=== PATIENT | female | born 1935 | race Caucasian/White ===

== ENCOUNTER 2016-12-10 14:09 | Inpatient (IN) | payer OTHER ==
[~2016-12-10] VITALS: Ht 160 cm; Wt 58.8 kg
[~2016-12-10 14:09] MED LIST: CENTTAB41 PO; CLC100X PO; GLUC500C60 PO; SIMV10TA2 PO; SOTA80TA55 PO
[2016-12-10] MEDS ORDERED: SODIUM CHLORIDE 0.9% 500ML 500 ML IV STA (14:21)
--- NOTE | 2016-12-10 14:26 | EMERGENCY ROOM VISIT NOTE ---
History Report prepared by Erikaibe: Anum Linder Under the Supervision of: Dr. Brenton Padilla D.O. First contact with patient: 14:11 Chief Complaint: FALL Stated Complaint: FALL, DIZZINESS History of Present Illness The patient is an 81 year old female who presents to the Emergency Room with complaints of a fall that occurred this morning. She is accompanied by her son. She reports she experienced some dizziness this morning, but she ate breakfast, then the next thing she remembers is waking up on the floor of her bedroom. She states she feels fine here in the ED and the only injury she seems to have sustained is tenderness in her lip area, where she hit when she landed. She denies any recent fevers, headaches, neck pain, shortness of breath, abdominal pain or increased swelling in her legs. Her son notes she has a bad knee and usually ambulates with a cane. The patient states she had been feeling well recently and denies any recent injuries or trauma. She does have a history of atrial fibrillation and takes daily medication, including a daily blood thinner. She denies any recent changes to her medications. 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 A total of 10 systems reviewed and were otherwise negative. Past Medical & Surgical Medical Problems: (1) Dyslipidemia (2) Macular degeneration (3) Paroxysmal atrial fibrillation Surgical Problems: (1) History of back surgery (2) History of tonsillectomy (3) History of total right hip arthroplasty Social History Alcohol Use: occasionally Marital Status: Housing Status: lives with family Occupation Status: retired Current/Historical Medications Scheduled Alendronate Sodium (Fosamax), 70 MG PO WK Calcium/Vitamin D (Os-Jonathon 500 Plus D), 1 TAB PO BID Docusate Sodium (Docusate Sodium), 1 CAP PO BID Fish Oil ([place]-3), 1 GM PO DAILY Multiple Vitamins W/ Minerals (Preservision/Lutein), 1 CAP PO BID Multiple Vitamins W/ Minerals (Centrum Silver), 1 TAB PO DAILY Sennosides-Docusate Sodium (Senna Plus), 1 TAB PO DAILY Simvastatin (Zocor), 10 MG PO QPM Sotalol Hcl (Betapace), 80 MG PO QAM Sotalol Hcl (Betapace), 40 MG PO QPM Warfarin Sod (Coumadin), 3 MG PO 2XWK Warfarin Sodium (Coumadin), 6 MG PO 5XWK Allergies Coded Allergies: No Known Allergies (Unverified , 11/10/12) Physical Exam Vital Signs Date Time Temp Pulse Resp B/P Pulse Ox O2 Delivery O2 Flow Rate FiO2 12/10/16 17:52 64 16 153/64 94 Room Air 12/10/16 16:33 57 16 141/67 97 Room Air 12/10/16 14:53 60 16 117/53 97 59 121/82 69 122/57 12/10/16 14:34 Room Air 12/10/16 14:17 36.4 60 17 125/60 Room Air Physical Exam GENERAL: Patient is awake, alert, in no acute distress patient is resting comfortably and showing no signs of anxiety EYES: The conjunctivae are clear. The pupils are round and reactive. EARS, NOSE, MOUTH AND THROAT: The nose is without any evidence of any deformity. Mucous membranes are moist tongue is midline. There was a small laceration on the lower lip, no active bleeding noted, dentition appeared intact. NECK: The neck is nontender and supple. RESPIRATORY: Lung sounds are diminished at the bases, rales at both bases. CARDIOVASCULAR: Regular rate and rhythm noted there no murmurs rubs or gallops normal S1 normal S2 GASTROINTESTINAL: The abdomen is soft. Bowel sounds are present in all quadrants. Abdomen is nontender MUSCULOSKELETAL/EXTREMITIES: There is no evidence of gross deformity full range of motion is noted in the hips and shoulders SKIN: There is no obvious evidence of any rash. There are no petechiae, pallor or cyanosis noted. NEUROLOGIC: Patient is awake alert and oriented x3, strength is diminished by symmetric, no facial droop noted. Medical Decision & Procedures ER Provider Diagnostic Interpretation: This CT scan was reviewed and interpreted by the radiologist and reviewed by myself. HEAD CT NONCONTRAST Impression: Small hyperdense foci seen within the right medial frontal lobe and left parietal lobe consistent with subarachnoid hemorrhage/contusions. Recommend a 12-[address] follow-up to ensure stability. Electronically signed by: Ivan Peralta M.D. 12/10/2016 3:58 PM This X-Ray was reviewed and interpreted by myself and the radiologist. RIGHT RIBS UNILATERAL WITH PA CHEST IMPRESSION: No change from the prior study. No acute rib fractures. No pneumothorax. Electronically signed by: Ivan Peralta M.D. 12/10/2016 4:29 PM Laboratory Results 12/10/16 15:14 Red Blood Count 3.88, Mean Corpuscular Volume 95.6, Mean Corpuscular Hemoglobin 32.7, Mean Corpuscular Hemoglobin Concent 34.2, Mean Platelet Volume 9.9, Neutrophils (%) (Auto) 66.0, Lymphocytes (%) (Auto) 21.6, Monocytes (%) (Auto) 7.6, Eosinophils (%) (Auto) 4.0, Basophils (%) (Auto) 0.5, Neutrophils # (Auto) 3.84, Lymphocytes # (Auto) 1.26, Monocytes # (Auto) 0.44, Eosinophils # (Auto) 0.23, Basophils # (Auto) 0.03 12/10/16 15:14 Test 12/10/16 14:48 12/10/16 15:14 Bedside Glucose 105 mg/dl (70-90) White Blood Count 5.82 K/uL (4.8-10.8) Red Blood Count 3.88 M/uL (4.2-5.4) Hemoglobin 12.7 g/dL (12.0-16.0) Hematocrit 37.1 % (37-47) Mean Corpuscular Volume 95.6 fL (80-100) Mean Corpuscular Hemoglobin 32.7 pg (25-34) Mean Corpuscular Hemoglobin Concent 34.2 g/dl (32-36) Platelet Count 209 K/uL (130-400) Mean Platelet Volume 9.9 fL (7.4-10.4) Neutrophils (%) (Auto) 66.0 % Lymphocytes (%) (Auto) 21.6 % Monocytes (%) (Auto) 7.6 % Eosinophils (%) (Auto) 4.0 % Basophils (%) (Auto) 0.5 % Neutrophils # (Auto) 3.84 K/uL (1.4-6.5) Lymphocytes # (Auto) 1.26 K/uL (1.2-3.4) Monocytes # (Auto) 0.44 K/uL (0.11-0.59) Eosinophils # (Auto) 0.23 K/uL (0-0.5) Basophils # (Auto) 0.03 K/uL (0-0.2) RDW Standard Deviation 44.2 fL (36.4-46.3) RDW Coefficient of Variation 12.7 % (11.5-14.5) Immature Granulocyte % (Auto) 0.3 % Immature Granulocyte # (Auto) 0.02 K/uL (0.00-0.02) Prothrombin Time 45.8 SECONDS (9.0-12.0) Prothromb Time International Ratio 4.0 (0.9-1.1) Activated Partial Thromboplast Time 39.0 SECONDS (21.0-31.0) Partial Thromboplastin Ratio 1.5 Anion Gap 11.0 mmol/L (3-11) Est Creatinine Clear Calc Drug Dose 37.5 ml/min Estimated GFR () 68.5 Estimated GFR (Non- 59.1 BUN/Creatinine Ratio 30.8 (10-20) Calcium Level 8.8 mg/dl (8.5-10.1) Magnesium Level 2.2 mg/dl (1.8-2.4) Total Bilirubin 0.3 mg/dl (0.2-1) Direct Bilirubin < 0.1 mg/dl (0-0.2) Aspartate Amino Transf (AST/SGOT) 24 U/L (15-37) Alanine Aminotransferase (ALT/SGPT) 30 U/L (12-78) Alkaline Phosphatase 104 U/L (45-117) Total Creatine Kinase 78 U/L (26-192) Creatine Kinase MB 1.9 ng/ml (0.5-3.6) Creatine Kinase MB Ratio 2.4 (0-3.0) Troponin I < 0.015 ng/ml (0-0.045) Total Protein 7.4 gm/dl (6.4-8.2) Albumin 3.6 gm/dl (3.4-5.0) Thyroid Stimulating Hormone (TSH) 3.400 uIu/ml (0.300-4.500) Laboratory results per my review. Medications Administered Medications (Trade) Dose Ordered Sig/[place]roy Route Start Time Stop Time Status Last Admin Dose Admin Sodium Chloride 500 ml @ 999 mls/hr Q31M STAT IV 12/10/16 14:21 12/10/16 14:51 DC 12/10/16 14:53 999 MLS/HR Phytonadione 10 mg/Sodium Chloride 51 ml @ 102 mls/hr ONE ONCE IV 12/10/16 17:30 12/10/16 17:59 DC 12/10/16 17:33 102 MLS/HR Prothrombin Complex Concent (Human)/Syringe (Kcentra/Syringe) 80 ml @ 10 mls/min TODAY@1730 ONCE IV 12/10/16 17:30 12/10/16 17:37 DC 12/10/16 17:32 10 MLS/MIN ECG Indication: weakness (fall) Rate (beats per minute): 56 Rhythm: sinus bradycardia Findings: T-wave inversion (Anterior), no ectopy Comparison ECG Date: Changes are new when compared to EKG from November 27, 2012 ED Course 1417: The patient was evaluated in room B10. A complete history and physical examination were performed. 1421: NSS 500 ml @ 999 mls/hr IV. 1700: I discussed the patients case with Dr. Andrews, [facility] Co[facility] Medicine. She recommends I administer K-Centra here in the ED. 1730: Prothrombin Complex Concent 2,000 unit/Syringe 80 ml @ 10 mls/min IV, Phytonadione 10 mg/Sodium Chloride 51 ml @ 102 mls/hr IV. 1740: I discussed the patients case with Dr. aGrcia, [facility] Neurology. She believes we can keep the patient here and repeat a head CT scan if her clinical situation changes. 1743: I discussed the patients case with Monica Garcia PA-C, [facility] Hospitalist. The patient will be further evaluated. Medical Decision Prior records/ancillary studies reviewed. Triage Nursing notes reviewed. The patient's history was concerning for syncope. Differential diagnosis: Etiologies such as vasovagal event, infection, hypoglycemia, electrolyte abnormalities, cardiac sources, intracerebral event, toxicologic, neurologic, as well as others were entertained. The patient is an 81-year-old female who presented to the emergency department after having a syncopal episode. The patient had a syncopal episode and then struck her head and her face on the ground. She was found have a CT with signs of intracranial bleeding. I do feel at this time that the patient's symptoms are likely a result of a head injury and not an aneurysmal subarachnoid which caused her dizziness and passing out. I discussed the patient's laboratory and radiographic studies with her and her son. The patient was treated with IV fluids as well as KCENTRA as well as vitamin K. I discussed the patient's case with Dr. Andrews. I also discussed his case with the on-call neurologist as well as the on-call [facility] hospitalist group. They've agreed to evaluate patient in the emergency department for further management and disposition. Consults Time Called: 1655 Consulting Physician: Dr. Andrews, [facility] Coagulation [facility] Returned Call: 1700 I discussed the patients case with Dr. Andrews, [facility] Coagulation Medicine. She recommends I administer K-Centra here in the ED. Additional Consults: Time Called: 1735 Consulted Physician: Dr. Rubio [facility] Neurology Returned Call: 1740 Additional Comments: I discussed the patients case with Dr. Rubio [facility] Neurology. She believes we can keep the patient here and repeat a head CT scan if her clinical situation changes. Time Called: 174 Consulted Physician: [facility] Returned Call: 1743 Additional Comments: I discussed the patients case with Monica Garcia PA-C, [facility]. The patient will be further evaluated. Impression Primary Impression: Syncope Additional Impressions: Dizziness Head injury Subarachnoid hemorrhage Cerebral hemorrhage Anticoagulated on Coumadin Scribe Attestation The scribe's documentation has been prepared under my direction and personally reviewed by me in its entirety. I confirm that the note above accurately reflects all work, treatment, procedures, and medical decision making performed by me. Departure Information Dispostion Being Evaluated By Hospitalist Referrals [facility] (PCP) Patient Instructions My [facility] Problem Qualifiers
[2016-12-10 15:23] LABS: BASO % 0.5 %; BASO ABS # 0.03 K/uL (0-0.2); COMPLETE YES; HEMATOCRIT 37.1 % (37-47); IG% 0.3 %; LYMPH % 21.6 %; LYMPH ABS # 1.26 K/uL (1.2-3.4); MEAN CELL VOLUME 95.6 fL (80-100); MEAN CORPUSCULAR HEMOGLOBIN 32.7 pg (25-34); MEAN CORPUSCULAR HGB CONC 34.2 g/dl (32-36); MEAN PLATELET VOLUME 9.9 fL (7.4-10.4); MONO % 7.6 %; PLATELET COUNT 209 K/uL (130-400); RED BLOOD COUNT 3.88 M/uL (4.2-5.4); WHITE BLOOD COUNT 5.82 K/uL (4.8-10.8)
[2016-12-10] MEDS ORDERED: DOCU100C31 PO (15:37)
[2016-12-10 15:39] LABS: PARTIAL THROMBOPLASTIN RATIO 1.5; PROTHROMBIN TIME (PATIENT) 45.8 SECONDS (9.0-12.0)
[2016-12-10 15:40] LABS: ALT/SGPT 30 U/L (12-78); AST/SGOT 24 U/L (15-37); BLOOD UREA NITROGEN 28 mg/dl (7-18); BUN/CREATININE RATIO 30.8 (10-20); CALCIUM 8.8 mg/dl (8.5-10.1); CARBON DIOXIDE 26 mmol/L (21-32); CHLORIDE 106 mmol/L (98-107); GLUCOSE 99 mg/dl (70-99); MAGNESIUM 2.2 mg/dl (1.8-2.4); POTASSIUM 4.5 mmol/L (3.5-5.1); SODIUM 143 mmol/L (136-145)
[2016-12-10 15:51] LABS: ALKALINE PHOSPHATASE 104 U/L (45-117); CKMB/CK RATIO 2.4 (0-3.0)
--- NOTE | 2016-12-10 15:59 | DIAGNOSTIC IMAGING REPORT ---
HEAD CT NONCONTRAST CT DOSE: 601.98 mGy.cm HISTORY: EVALUATE ALTERED MENTAL STATUS/WEAKNESS TECHNIQUE: Multiaxial CT images of the head were performed without the use of intravenous contrast. Automated exposure control was utilized for this study. Comparison: Head CT 11/10/2012. Findings: Mild mucosal thickening within the right sphenoid sinus. The mastoid air cells are clear. Atrophy and microvascular ischemic changes are again noted. There is no mass, midline shift, or acute infarct. Small fluid of increased density along the medial inferior right frontal lobe. This is best in image 10. There is also similar 5 mm focus of increased density within the left parietal lobe on image 20. These are new from the prior study and favor small areas of subarachnoid hemorrhage/contusion. Impression: Small hyperdense foci seen within the right medial frontal lobe and left parietal lobe consistent with subarachnoid hemorrhage/contusions. Recommend a 12-[address] follow-up to ensure stability. Electronically signed by: Ivan Peralta M.D. 12/10/2016 3:58 PM Dictated Date/Time: 12/10/2016 3:53 PM
[2016-12-10] MEDS ORDERED: SOTA80TA55 PO ×2 (16:10)
[2016-12-10] MEDS ORDERED: SENN1TAB65 PO (16:10)
[2016-12-10] MEDS ORDERED: WARF3TAB PO ×2 (16:10)
[2016-12-10] MEDS ORDERED: MULTCAP36 PO (16:10)
[2016-12-10] MEDS ORDERED: MULTCHW PO (16:10)
--- NOTE | 2016-12-10 16:30 | DIAGNOSTIC IMAGING REPORT ---
RIGHT RIBS UNILATERAL WITH PA CHEST CLINICAL HISTORY: fall, right rib pain Right COMPARISON STUDY: Chest 11/11/2012. FINDINGS: No rib fractures. No pneumothorax. The heart is borderline enlarged. This remains unchanged. Mild diffuse interstitial thickening is also unchanged. This is likely chronic. No pleural effusions. No pneumothorax. No acute rib fractures. IMPRESSION: No change from the prior study. No acute rib fractures. No pneumothorax. Electronically signed by: Ivan Peralta M.D. 12/10/2016 4:29 PM Dictated Date/Time: 12/10/2016 4:26 PM
[2016-12-10] MEDS ORDERED: PROTHROMBIN COMP CONC- KCENTRA 2,000 UNIT in SYRINGE 0 ML IV STA (17:16)
[2016-12-10] MEDS ORDERED: PROTHROMBIN COMP CONC- KCENTRA 2,000 UNIT in SYRINGE 0 ML IV ONE (17:30)
[2016-12-10] MEDS ORDERED: PHYTONADIONE INJ 10 MG in SODIUM CHLORIDE 0.9% 50ML 50 ML IV ONE (17:30)
[2016-12-10] MEDS ORDERED: ACETAMINOPHEN 325 MG TAB PO PRN (18:45)
[2016-12-10] MEDS ORDERED: CMD3 PO (18:48)
[2016-12-10] MEDS ORDERED: OMEG10007 PO (18:48)
--- NOTE | 2016-12-10 19:40 | History and Physical ---
History & Physical Date & Time of Service: Dec 10, 2016 at 18:56 Chief Complaint: Fall, Dizziness Primary Care Physician: Eduardo Chapman M.D. History of Present Illness Source: patient This is an 81 y/o female with PMHx of PAF on Coumadin, Dyslipidemia and other problems as outlined below who presents to the ED c/o syncopal episode this morning. Pt reports that she woke up feeling well and ate her breakfast. When she stood up, she became acutely lightheaded and dizzy with assoc visual changes and ended up passing out. Her son was home at the time. He did not observe the syncopal episode but he heard her fall and was by her side almost immediately. He reports that patient was unconscious for approx 30 seconds and returned to her baseline within 5 minutes. Pt has little recollection of the event. Pt denies fever/chills, diaphoresis, chest pain, palpitations, SOB, wheezing, abd pain, N/V, diarrhea, constipation, hematochezia, melena, dysuria, hematuria, LE edema, calf pain. In the ED, vitals are stable. HgB 12.7. INR 4.0. Head CT + small SAH within R medial frontal lobe and L parietal lobe. CXR negative for rib fx or pneumothorax. Pt received Vit K and IVF in the ED. She is stable and will be admitted for further evaluation and treatment. Past Medical/Surgical History Medical Problems: (1) Dyslipidemia Status: Chronic (2) Macular degeneration Status: Chronic (3) Paroxysmal atrial fibrillation Status: Chronic Surgical Problems: (1) History of back surgery Permanent Comment: cervical discectomy Status: Resolved (2) History of tonsillectomy Status: Resolved (3) History of total right hip arthroplasty Permanent Comment: Dr. Willoughby [facility] 11/10/12 Status: Resolved Social History Smoking Status: Former Smoker Alcohol Use: none Marital Status: Housing status: lives alone Occupational Status: retired Immunizations History of Influenza Vaccine: Yes Influenza Vaccine Date: Sep 10, 2012 History of Tetanus Vaccine?: No Tetanus Immunization Date: Nov 10, 2007 History of Pneumococcal: Yes History of Hepatitis B Vaccine: No Multi-Drug Resistant Organisms History of MDRO: No Allergies Coded Allergies: No Known Allergies (Unverified , 11/10/12) Home Medications Scheduled Alendronate Sodium (Fosamax), 70 MG PO WK Calcium/Vitamin D (Os-Jonathon 500 Plus D), 1 TAB PO BID Docusate Sodium (Docusate Sodium), 1 CAP PO BID Fish Oil ([place]-3), 1 GM PO DAILY Multiple Vitamins W/ Minerals (Preservision/Lutein), 1 CAP PO BID Multiple Vitamins W/ Minerals (Centrum Silver), 1 TAB PO DAILY Sennosides-Docusate Sodium (Senna Plus), 1 TAB PO DAILY Simvastatin (Zocor), 10 MG PO QPM Sotalol Hcl (Betapace), 80 MG PO QAM Sotalol Hcl (Betapace), 40 MG PO QPM Warfarin Sod (Coumadin), 3 MG PO 2XWK Warfarin Sodium (Coumadin), 6 MG PO 5XWK Review of Systems Constitutional: No chills, No fatigue, No fever, No sweats, No weakness Eyes: + worsening of vision (resolved) Respiratory: No cough, No shortness of breath Cardiovascular: No chest pain, No claudication, No edema, No palpitations Abdomen: No GI bleeding, No constipation, No diarrhea, No nausea, No pain, No vomiting Musculoskeletal: No calf pain, No swelling Genitourinary - Female: No dysuria Neurologic: + problem reported (syncopal episode), No weakness Psychiatric: No depression symptoms Endocrine: No fatigue Hematologic / Lymphatic: No abnormal bleeding/bruising Integumentary: No new/changing skin lesions Physical Exam Vital Signs Date Time Temp Pulse Resp B/P Pulse Ox O2 Delivery O2 Flow Rate FiO2 12/10/16 17:52 64 16 153/64 94 Room Air 12/10/16 16:33 57 16 141/67 97 Room Air 12/10/16 14:53 60 16 117/53 97 59 121/82 69 122/57 12/10/16 14:34 Room Air 12/10/16 14:17 36.4 60 17 125/60 Room Air General Appearance: WD/WN, no apparent distress, + pertinent finding (Pt is laying in bed with son at bedside ) Head: normocephalic, atraumatic Eyes: normal inspection, PERRL, EOMI ENT: hearing grossly normal Neck: supple Respiratory/Chest: chest non-tender, lungs clear, normal breath sounds, no respiratory distress Cardiovascular: regular rate, rhythm, no edema, no murmur Abdomen/GI: normal bowel sounds, non tender, soft Back: normal inspection Extremities/Musculoskelatal: normal inspection, no calf tenderness, no pedal edema Neurologic/Psych: joiner helper II-XII nml as tested, no motor/sensory deficits, alert, normal mood/affect, normal reflexes Skin: normal color, warm/dry Diagnostics Laboratory Results Results Past 24 Hours Test 12/10/16 14:48 12/10/16 15:14 Range/Units Bedside Glucose 105 70-90 mg/dl White Blood Count 5.82 4.8-10.8 K/uL Red Blood Count 3.88 4.2-5.4 M/uL Hemoglobin 12.7 12.0-16.0 g/dL Hematocrit 37.1 37-47 % Mean Corpuscular Volume 95.6 80-100 fL Mean Corpuscular Hemoglobin 32.7 25-34 pg Mean Corpuscular Hemoglobin Concent 34.2 32-36 g/dl Platelet Count 209 130-400 K/uL Mean Platelet Volume 9.9 7.4-10.4 fL Neutrophils (%) (Auto) 66.0 % Lymphocytes (%) (Auto) 21.6 % Monocytes (%) (Auto) 7.6 % Eosinophils (%) (Auto) 4.0 % Basophils (%) (Auto) 0.5 % Neutrophils # (Auto) 3.84 1.4-6.5 K/uL Lymphocytes # (Auto) 1.26 1.2-3.4 K/uL Monocytes # (Auto) 0.44 0.11-0.59 K/uL Eosinophils # (Auto) 0.23 0-0.5 K/uL Basophils # (Auto) 0.03 0-0.2 K/uL RDW Standard Deviation 44.2 36.4-46.3 fL RDW Coefficient of Variation 12.7 11.5-14.5 % Immature Granulocyte % (Auto) 0.3 % Immature Granulocyte # (Auto) 0.02 0.00-0.02 K/uL Prothrombin Time 45.8 9.0-12.0 SECONDS Prothromb Time International Ratio 4.0 0.9-1.1 Activated Partial Thromboplast Time 39.0 21.0-31.0 SECONDS Partial Thromboplastin Ratio 1.5 Sodium Level 143 136-145 mmol/L Potassium Level 4.5 3.5-5.1 mmol/L Chloride Level 106 98-107 mmol/L Carbon Dioxide Level 26 21-32 mmol/L Anion Gap 11.0 3-11 mmol/L Blood Urea Nitrogen 28 7-18 mg/dl Creatinine 0.90 0.60-1.20 mg/dl Est Creatinine Clear Calc Drug Dose 37.5 ml/min Estimated GFR () 68.5 Estimated GFR (Non- 59.1 BUN/Creatinine Ratio 30.8 10-20 Random Glucose 99 70-99 mg/dl Calcium Level 8.8 8.5-10.1 mg/dl Magnesium Level 2.2 1.8-2.4 mg/dl Total Bilirubin 0.3 0.2-1 mg/dl Direct Bilirubin < 0.1 0-0.2 mg/dl Aspartate Amino Transf (AST/SGOT) 24 15-37 U/L Alanine Aminotransferase (ALT/SGPT) 30 12-78 U/L Alkaline Phosphatase 104 45-117 U/L Total Creatine Kinase 78 26-192 U/L Creatine Kinase MB 1.9 0.5-3.6 ng/ml Creatine Kinase MB Ratio 2.4 0-3.0 Troponin I < 0.015 0-0.045 ng/ml Total Protein 7.4 6.4-8.2 gm/dl Albumin 3.6 3.4-5.0 gm/dl Thyroid Stimulating Hormone (TSH) 3.400 0.300-4.500 uIu/ml Diagnostic Radiology CT HEAD IMPRESSION: Small hyperdense foci seen within the right medial frontal lobe and left parietal lobe consistent with subarachnoid hemorrhage/contusions. Recommend a 12-[address] follow-up to ensure stability CXR IMPRESSION: No change from the prior study. No acute rib fractures. No pneumothorax. EKG EKG: sinus rhythm at 56 bpm with no acute changes noted Impression Assessment and Plan SAH pt presented s/p syncopal episode this morning; pt is on Coumadin for Afib -admit to ICU -vitals are stable -CT head + SAH within R medial frontal lobe and L parietal lobe; repeat CT head tomorrow -pt received Vit K in the ED -hold Coumadin; monitor INR -neuro checks -consult hard tile setter, Dr. Mars -monitor closely in ICU; will follows along SYNCOPAL EPISODE ?secondary to hypotension as patient reports she did not drink anything today -check orthostatic vitals -obtain echo -check carotid to r/o stenosis -gentle IVF -monitor PAF -EKG: sinus rhythm -hold Coumadin due to bleed -cont sotalol -monitor DYSLIPIDEMIA -cont statin DVT PROPHYLAXIS -SCDs CODE STATUS -DNR per discussion with patient upon admission DISPO -Pt seen in collaboration with Dr. Neil. Please see his addendum for further details. Thanks! ADDENDUM: This is a 81 year old female with PMH of paroxysmal atrial fibrillation on Coumadin presents s/p fall. She states she was feeling weak and tired, and as she was walking back to her room, she fell; she cannot recall the fall at all. Patient's son came to her side 10-15 seconds later; states it seemed like she hit her head on the door; she was not responding for about 20-30 seconds. When she came to, she was back to her baseline mentally; but could not recall the fall. When I saw her in the ER, she was doing okay. Head CT was performed and showed a hemorrhage at the R medial frontal lobe and L parietal lobe. She has no other issues to note. Gen: +abrasion at the right scalp, +cuts around the right lip CVS: +S1, S2, RRR LUNGS: +chest tenderness at the right sided chest, CTA b/l ABD: soft, NT/ND EXT: no edema Plan is to monitor the patient in the ICU repeat Head CT on 12/11 already given Vitamin K in the ER; INR on presentation was 4.0 gentle hydration syncope w/up - echo, carotid U/S, orthostatic vitals neurology consultation pending appreciate intensive input VTE Prophylaxis VTE Risk Assessment Done? Y/N: Yes Risk Level: High
[2016-12-10] MEDS ORDERED: CALC500C70 PO (19:41)
[2016-12-10] MEDS ORDERED: ALEN70TA4 PO (19:41)
[2016-12-10] MEDS ORDERED: MULT-190 PO (19:41)
[2016-12-10 20:02] VITALS: BP 146/108; PULSE 65; TEMP 37; O2SAT 97
[2016-12-10 20:04] VITALS: BP 146/108; PULSE 68; TEMP 37; O2SAT 96; Ht 160 cm; Wt 58.8 kg
[2016-12-10] MEDS: SODIUM CHLORIDE 0.9% 1000ML 1,000 ML IV SCH (20:44)
[2016-12-10 20:58] VITALS: BP 136/64; PULSE 64; O2SAT 96
[2016-12-10] MEDS ORDERED: MINERALS PO SCH (21:00)
[2016-12-10] MEDS ORDERED: MULTIPLE VITAMINS PO SCH (21:00)
[2016-12-10] MEDS: SOTALOL HCL 80 MG TAB PO SCH (21:24)
[2016-12-10] MEDS: DOCUSATE SODIUM 100 MG CAP PO SCH (21:25)
[2016-12-10] MEDS: SIMVASTATIN 10 MG TAB PO SCH (21:25)
[2016-12-10] MEDS: CALCIUM 600MG + VIT D 400 IU TAB PO SCH (21:26)
--- NOTE | 2016-12-10 21:34 | Critical Care Consultation ---
Critical Care Consultation Date of Consultation: Dec 10, 2016. Attending Physician: Luz Neil DO Reason for Consultation: Traumatic ICH History of Present Illness Patient is a 81 y/o female with PMHx of Atrial Fibrillation on Coumadin, Dyslipidemia who presented to the ED after a syncopal episode this morning during which she struck her head. Patient had been sitting and stood up, she started to experience vision changes and then passed out. Her son was home at the time, did not observe the syncopal episode but he heard her fall and was by her side almost immediately. He reports that patient was unconscious for approx 30 seconds and returned to her baseline within 5 minutes. She did not lose continence, or have a post-ictal period. Initial treatment in the ED included Kcentra for an elevated INR. The patent's case was discussed with Dr. Ortez , Neurology, by the ED, and the patient was felt to be stable for admission to [facility]. Past Medical/Surgical History paroxysmal afib on group home coumadin use Dyslipidemia Social History Smoking Status: Never Smoker Smokeless Tobacco Use: No Alcohol Use: none Drug Use: none Marital Status: Housing Status: lives with family Occupation Status: retired Allergies Coded Allergies: No Known Allergies (Unverified , 11/10/12) Home Medications Scheduled Alendronate Sodium (Fosamax), 70 MG PO WK Calcium/Vitamin D (Os-Jnoathon 500 Plus D), 1 TAB PO BID Docusate Sodium (Docusate Sodium), 1 CAP PO BID Fish Oil ([place]-3), 1 GM PO DAILY Multiple Vitamins W/ Minerals (Preservision/Lutein), 1 CAP PO BID Multiple Vitamins W/ Minerals (Centrum Silver), 1 TAB PO DAILY Sennosides-Docusate Sodium (Senna Plus), 1 TAB PO DAILY Simvastatin (Zocor), 10 MG PO QPM Sotalol Hcl (Betapace), 80 MG PO QAM Sotalol Hcl (Betapace), 40 MG PO QPM Warfarin Sod (Coumadin), 3 MG PO 2XWK Warfarin Sodium (Coumadin), 6 MG PO 5XWK Current Inpatient Medications Current Inpatient Medications Medications (Trade) Dose Ordered Sig/Troy Route Start Time Stop Time Status Last Admin Dose Admin Acetaminophen (Tylenol Tab) 650 mg Q4H PRN PO 12/10/16 18:45 01/09/17 18:44 Alendronate Sodium (Fosamax Tab) 70 mg Mo@0630 PO 12/11/16 06:30 01/10/17 06:29 Calcium/Vitamin D (Caltrate Plus Tab) 1 tab BID PO 12/10/16 21:00 01/09/17 20:59 Docusate Sodium (coLACE CAP) 100 mg BID PO 12/10/16 21:00 01/09/17 20:59 Fish Oil ([place]-3 (Purified Fish Oil) Cap) 1 gm DAILY PO 12/11/16 09:00 01/10/17 08:59 Senna/Docusate Sodium (Senokot S Tab) 1 tab DAILY PO 12/11/16 09:00 01/10/17 08:59 Simvastatin (Zocor Tab) 10 mg QPM PO 12/10/16 21:00 01/09/17 20:59 Sotalol HCl (Betapace Tab) 40 mg QPM PO 12/10/16 21:00 01/09/17 20:59 Sotalol HCl (Betapace Tab) 80 mg QAM PO 12/11/16 09:00 01/10/17 08:59 Multivitamins/ Minerals 1 tab 1 tab DAILY PO 12/11/16 09:00 01/10/17 08:59 Sodium Chloride (Nss 1000ml) 1,000 ml @ 80 mls/hr [id number] IV 12/10/16 20:15 01/09/17 20:14 12/10/16 20:44 80 MLS/HR Review of Systems Pt denies fever/chills, diaphoresis, chest pain, palpitations, SOB, wheezing, abd pain, N/V, diarrhea, constipation, hematochezia, melena, dysuria, hematuria , LE edema, calf pain. A 10 point review of systems Physical Exam Date Time Temp Pulse Resp B/P Pulse Ox O2 Delivery O2 Flow Rate FiO2 12/10/16 20:04 37.0 68 17 146/108 96 Room Air 12/10/16 19:07 61 16 141/67 99 Room Air 12/10/16 17:52 64 16 153/64 94 Room Air 12/10/16 16:33 57 16 141/67 97 Room Air 12/10/16 14:53 60 16 117/53 97 59 121/82 69 122/57 12/10/16 14:34 Room Air 12/10/16 14:17 36.4 60 17 125/60 Room Air General Appearance: well-appearing, WD/WN, no apparent distress Head: other (abrasion to the parietal portion of the head, abrasion approximately 3 cm x 3 cm) Eyes: PERRLA, no discharge, EOMI, sclerae normal, conjunctivae normal Neck: normal range of motion, no tenderness, trachea midline, no stridor, supple, no thyromegaly Respiratory: breath sounds normal, clear to auscultation, clear to percussion, no respiratory distress Cardiovasular: normal S1S2, no M/G/R, no murmur, no gallop, no rub, irregular rate Abdomen: non tender, normal bowel sounds, no rebound, no masses, no guarding Back: normal inspection, no midline tenderness, no CVA tenderness, no paravertebral TTP Upper Extremities: no edema, no deformity, normal ROM Lower Extremities: no edema, no deformity, normal ROM Pulses: radial (R) (2+), radial (L) (2+), femoral (R) (2+), femoral (L) (2+) Neuro: alert, oriented x 3, normal motor exam (cranial nerves II through XII grossly intact), normal sensation, normal cerebellar exam (normal finger-nose, normal heel campo), normal speech Psychiatric: normal affect Laboratory Results Last 24 Hours Test 12/10/16 14:48 12/10/16 15:14 Bedside Glucose 105 mg/dl White Blood Count 5.82 K/uL Red Blood Count 3.88 M/uL Hemoglobin 12.7 g/dL Hematocrit 37.1 % Mean Corpuscular Volume 95.6 fL Mean Corpuscular Hemoglobin 32.7 pg Mean Corpuscular Hemoglobin Concent 34.2 g/dl Platelet Count 209 K/uL Mean Platelet Volume 9.9 fL Neutrophils (%) (Auto) 66.0 % Lymphocytes (%) (Auto) 21.6 % Monocytes (%) (Auto) 7.6 % Eosinophils (%) (Auto) 4.0 % Basophils (%) (Auto) 0.5 % Neutrophils # (Auto) 3.84 K/uL Lymphocytes # (Auto) 1.26 K/uL Monocytes # (Auto) 0.44 K/uL Eosinophils # (Auto) 0.23 K/uL Basophils # (Auto) 0.03 K/uL RDW Standard Deviation 44.2 fL RDW Coefficient of Variation 12.7 % Immature Granulocyte % (Auto) 0.3 % Immature Granulocyte # (Auto) 0.02 K/uL Prothrombin Time 45.8 SECONDS Prothromb Time International Ratio 4.0 Activated Partial Thromboplast Time 39.0 SECONDS Partial Thromboplastin Ratio 1.5 Sodium Level 143 mmol/L Potassium Level 4.5 mmol/L Chloride Level 106 mmol/L Carbon Dioxide Level 26 mmol/L Anion Gap 11.0 mmol/L Blood Urea Nitrogen 28 mg/dl Creatinine 0.90 mg/dl Est Creatinine Clear Calc Drug Dose 37.5 ml/min Estimated GFR () 68.5 Estimated GFR (Non- 59.1 BUN/Creatinine Ratio 30.8 Random Glucose 99 mg/dl Calcium Level 8.8 mg/dl Magnesium Level 2.2 mg/dl Total Bilirubin 0.3 mg/dl Direct Bilirubin < 0.1 mg/dl Aspartate Amino Transf (AST/SGOT) 24 U/L Alanine Aminotransferase (ALT/SGPT) 30 U/L Alkaline Phosphatase 104 U/L Total Creatine Kinase 78 U/L Creatine Kinase MB 1.9 ng/ml Creatine Kinase MB Ratio 2.4 Troponin I < 0.015 ng/ml Total Protein 7.4 gm/dl Albumin 3.6 gm/dl Thyroid Stimulating Hormone (TSH) 3.400 uIu/ml Assessment & Plan (1) Cerebral hemorrhage (2) Syncope (3) Head injury (4) Anticoagulated on Coumadin (5) Subarachnoid hemorrhage (6) Paroxysmal atrial fibrillation (7) Dyslipidemia (8) Abrasion, scalp w/o infection Neuro: - Traumatic subarachnoid hemorrhage with areas of intraparenchymal contusion - Repeat CT tomorrow - Neuro checks every 2 hour - Keep blood pressure systolic less than 160 Cardiovascular: Paroxysmal atrial fibrillation - Previously anticoagulated with Coumadin - Hold Coumadin at this point, way risks and benefits of anticoagulation - Continue sotalol Syncope - Continue cardiac monitoring Dyslipidemia - Continue Zocor Pulmonary: - No acute issues Abdomen: - No acute issues Endocrine - Accu-Cheks per protocol Hematology - Supratherapeutic INR at 4, previous goal 2-3 - Reversal with K centra - Prophylaxis: Current medical literature mixed regarding chemical prophylaxis within 48 hours of intracranial bleeding - Will hold chemical prophylaxis at this time, encourage ambulation every shift, SCDs while in bed CODE STATUS: DNR/DNI in event of cardiac arrest Healthcare surrogate: Hugh Bazan phone number: [phone] I have personally spent 34 minutes of critical care time in the direct management of this patient. This is a life/limb threatening event. This includes time spent evaluating patient, direct bedside care, chart review, placing orders, interpretation of diagnostic studies, discussion with consultants, patient, and family members, as well as other required patient management activities. This time is exclusive of all separately billable procedures, and teaching time and separate from and in addition to any other critical care service time.
[2016-12-10 21:58] VITALS: BP 132/65; PULSE 68; O2SAT 97
[2016-12-10 22:58] VITALS: BP 120/64; PULSE 68; O2SAT 93
[2016-12-10 23:58] VITALS: BP 125/57; PULSE 61; TEMP 37; O2SAT 96
[2016-12-11] VITALS (27 sets, daily range): BP systolic 81–147; BP diastolic 42–101; PULSE 56–141; TEMP 36.6–37; O2SAT 93–99
[2016-12-11 06:07] LABS: BASO % 0.5 %; BASO ABS # 0.03 K/uL (0-0.2); COMPLETE YES; EOS % 2.4 %; IG% 0.2 %; LYMPH % 25.8 %; LYMPH ABS # 1.61 K/uL (1.2-3.4); MEAN CELL VOLUME 94.6 fL (80-100); MEAN CORPUSCULAR HEMOGLOBIN 32.2 pg (25-34); MONO % 10.2 %; NEUT % 60.9 %; PLATELET COUNT 163 K/uL (130-400); WHITE BLOOD COUNT 6.25 K/uL (4.8-10.8)
[2016-12-11 06:18] LABS: INR 1.1 (0.9-1.1); PARTIAL THROMBOPLASTIN RATIO 1.1; PROTHROMBIN TIME (PATIENT) 11.4 SECONDS (9.0-12.0)
[2016-12-11] MEDS ORDERED: ALENDRONATE SODIUM 70 MG TAB PO SCH (06:30)
[2016-12-11 06:42] LABS: BUN/CREATININE RATIO 35.2 (10-20); CALCIUM 8.3 mg/dl (8.5-10.1); CREATININE 0.65 mg/dl (0.60-1.20); POTASSIUM 3.7 mmol/L (3.5-5.1)
--- NOTE | 2016-12-11 06:59 | DIAGNOSTIC IMAGING REPORT ---
CAROTID ARTERY ULTRASOUND CLINICAL HISTORY: Fall. Dizziness. COMPARISON STUDY: Carotid ultrasound November 14, 2012. TECHNIQUE: Real-time, grayscale, and color Doppler sonography of the carotid and vertebral arteries was performed. Images were viewed in the transverse and longitudinal planes. FINDINGS: There is mild atherosclerotic plaque present. Velocity measurements are listed below. COMMON CAROTID PEAK SYSTOLIC VELOCITY (CM/S): RIGHT 83 LEFT 81 ICA PEAK SYSTOLIC VELOCITY (CM/S): RIGHT 86 LEFT 85 The systolic ratios between the internal to common carotid arteries were normal. Antegrade flow is seen in the vertebral arteries. The external carotid arteries are patent. Blood pressure in the right arm measured 124/70. Blood pressure in the left arm measured 122/63. Incidental note was made of a 1.9 x 1.5 x 1.8 cm mixed solid and cystic right lobe thyroid nodule. IMPRESSION: 1. No evidence of a hemodynamically significant stenosis. 2. 1.9 cm right lobe thyroid nodule. Electronically signed by: Moo Siu M.D. 12/11/2016 6:57 AM Dictated Date/Time: 12/11/2016 6:55 AM
[2016-12-11 07:41] LABS: URINE APPEARANCE CLOUDY (CLEAR); URINE BILIRUBIN NEG (NEG); URINE COLOR YELLOW; URINE EPITHELIAL CELL AUTO 20-30 /lpf (0-5); URINE NITRITE POS (NEG); URINE PH 6.5 (4.5-7.5); URINE SPECIFIC GRAVITY 1.017 (1.000-1.030); UROBILINOGEN NEG (NEG)
[2016-12-11 07:42] LABS: MANUAL MICROSCOPIC REQUIRED? NO; REVIEW REQ? NO
[2016-12-11] MEDS ORDERED: OMEGA-3 (PURIFIED FISH OIL) 1 GM CAP PO SCH (09:00)
[2016-12-11] MEDS: SOTALOL HCL 80 MG TAB PO SCH ×2 (09:07→19:26)
[2016-12-11] MEDS: DOCUSATE SODIUM 100 MG CAP PO SCH ×2 (09:08→19:25)
[2016-12-11] MEDS: CEROVITE ADV FORMULA TAB PO SCH (09:08)
[2016-12-11] MEDS: DOCUSATE SODIUM/SENNA 50/8.6MG TAB PO SCH (09:08)
[2016-12-11] MEDS: CALCIUM 600MG + VIT D 400 IU TAB PO SCH ×2 (09:08→19:25)
[2016-12-11] MEDS: SODIUM CHLORIDE 0.9% 1000ML 1,000 ML IV SCH ×2 (09:10→22:09)
--- NOTE | 2016-12-11 09:40 | DIAGNOSTIC IMAGING REPORT ---
HEAD CT NONCONTRAST CT DOSE: 537.48 mGy.cm HISTORY: Trauma. SAH; monitor TECHNIQUE: Multiaxial CT images of the head were performed without the use of intravenous contrast. Comparison: 12/10/2016 Findings: The paranasal sinuses and mastoid air cells are clear. Stable to slightly improved exam compared to the prior study. The focus of acute bleed medial right frontal lobe medially lateral to the right interhemispheric fissure is unchanged. Small focus of parenchymal contusion left superior parietal lobe is diminished and is poorly identified currently. There is no evidence for new or interval finding. There is no midline shift. Stable atrophy is present. Impression: Stable to slightly improved intracranial bleed compared to the prior study. No evidence for new, interval, or progressive process. Electronically signed by: Hugo Levi M.D. 12/11/2016 9:39 AM Dictated Date/Time: 12/11/2016 9:37 AM
--- NOTE | 2016-12-11 09:45 | Critical Care Progress Note ---
Critical Care Progress Note Date of Service Dec 11, 2016. Attending Dr. Durham Subjective Feels better this morning. Eating and drinking well. No urinary symptoms. No further episodes of dizziness. No acute events overnight. Discussed HPI with patient and her son at bedside. While sitting watching TV she suddenly noticed light headedness with her vision turning a brown tinge. She felt generally unwell so got up to walk into her bedroom and fell into the doorway. Her son heard her fall with a thump. No seizure like activity seen. She lost consciousness for seconds and was answering questions appropriately within 5 minutes (however she does not remember this). No tongue biting, loss of urinary or stool incontinence. She denies any chest pain, shortness of breath or palpitations. Previous Hx of syncopal event after hip operation and noted to be in atrial fibrillation. Her pAF is managed by Dr Park. Objective VITAL SIGNS: were reviewed as below GENERAL: well developed, well nourished, no acute distress SKIN: Warm dry and pink, no rashes, no lesions HEAD: Normocephalic, mild graze and small hematoma over right middle parietal bone EYES: extraocular muscles intact, right pupils 4mm, left 2mm, left pupil reactive b/l light reflex, right pupil minimally reactive b/l light reflex. OROPHARYNX: non erythematous, clear and moist NECK: Supple, no adenopathy or meningismus, no carotid bruits LUNGS: clear to auscultation, normal respiratory rate, no accessory muscle use HEART: Regular rate and rhythm, heart sounds 1+2, no murmurs ABDOMEN: Soft and nontender, bowel sounds normal BACK: no CVA tenderness EXTREMITIES: Warm and well perfused, peripheral cap refill < 2s, no calf tenderness/swelling, no pedal edema. NEUROLOGICALLY: Awake alert and oriented without upper or lower limb focal deficit. Cranial nerves 2-12 intact, Visual acuity grossly intact, pupils unequal as above, EOMI, no facial numbness, no facial droop, hearing grossly intact, no vertigo, no swallowing deficit, uvula central, Trapezius and SCM intact, normal and strong tongue movements b/l. Cerebellar testing is within normal limits. There is no nystagmus. Speech is clear. MUSCULOSKELETAL: Good muscle tone. No evidence of trauma to hips or back Assessment & Plan Neuro: - Subarachnoid hemorrhage (likely traumatic) with areas of intraparenchymal contusion. Repeat CT head this morning. Small hyperdense foci seen within the right medial frontal lobe and left parietal lobe consistant with subarachnoid hemorrhage/contusions. - Consult Neurology - Neuro checks every Q4H - sBP aim <160. No HTN as outpatient, on sotalol for paroxysmal atrial fibrillation Cardiovascular: Syncope - CT head as above. Will repeat this morning. - Consider MRA pending CT head to assess for aneurysms and syncope workup - EKG - Sinus bradycardia 56 bpm, Nonspecific T wave abnormality, Nonspecific T wave abnormality now evident in Inferior leads, Nonspecific T wave abnormality now evident in Anterolateral leads -> initial troponin negative, will add to morning labs. - orthostatics unremarkable on admission - No episodes of AF on continuous cardiac monitoring Paroxysmal atrial fibrillation - currently in sinus rhythm. - Previously anticoagulated with Coumadin, holding due to SAH - Continue sotalol - Consult Cardiology Dyslipidemia - Continue Zocor Pulmonary: - No acute issues GI: - No acute issues : - Urine 4+ bacteria, positive nitrites, trace leukocyte esterase. Asymptomatic and likely contaminant given clean catch. - hold off antibiotics currently Endocrine - Accu-Cheks per protocol - incidental 1.9cm thyroid nodule on carotid US. TSH normal Hematology - Supratherapeutic INR at 4, previous goal 2-3 for pAF. - Reversal with K centra in ER. INR 1.1 12/11/16 - hold fish oil MSK - no back or hip pain or injuries due to fall. Ambulatory without pain. VTE Prophylaxis - Will hold chemical prophylaxis at this time due to subarachnoid, encourage ambulation every shift, SCDs Code - DNR per patient wishes Disposition - transfer to telemetry pending CT of head shows stable subarachnoid. Resident Physician Supervision Note: I was present with Dr. Edmund Gil during the history and exam. I discussed the case with the resident and agree with the findings and plan as documented in the note. Any exceptions or clarifications are listed here: Patient with likely traumatic subarachnoid hemorrhage secondary to syncopal episode. Anticoagulation reversed and held indefinitely for now. CTA shows no evidence of an aneurysm Cardiology evaluation noted, no arrhythmias so far on the monitor. Considering outpatient cardiac monitoring Dehydrated, likely UTI. Continue IV fluids, monitor urine output, decreased for now. Sent urine culture, start empiric Rocephin Documented By: Ryland Durham MD Data Medications: Current Inpatient Medications Medications (Trade) Dose Ordered Sig/Troy Route Start Time Stop Time Status Last Admin Dose Admin Acetaminophen (Tylenol Tab) 650 mg Q4H PRN PO 12/10/16 18:45 01/09/17 18:44 Alendronate Sodium (Fosamax Tab) 70 mg Mo@0630 PO 12/11/16 06:30 01/10/17 06:29 12/11/16 06:07 70 MG Calcium/Vitamin D (Caltrate Plus Tab) 1 tab BID PO 12/10/16 21:00 01/09/17 20:59 12/11/16 09:08 1 TAB Docusate Sodium (coLACE CAP) 100 mg BID PO 12/10/16 21:00 01/09/17 20:59 12/11/16 09:08 100 MG Senna/Docusate Sodium (Senokot S Tab) 1 tab DAILY PO 12/11/16 09:00 01/10/17 08:59 12/11/16 09:08 1 TAB Simvastatin (Zocor Tab) 10 mg QPM PO 12/10/16 21:00 01/09/17 20:59 12/10/16 21:25 10 MG Sotalol HCl (Betapace Tab) 40 mg QPM PO 12/10/16 21:00 01/09/17 20:59 12/10/16 21:24 40 MG Sotalol HCl (Betapace Tab) 80 mg QAM PO 12/11/16 09:00 01/10/17 08:59 12/11/16 09:07 80 MG Multivitamins/ Minerals 1 tab 1 tab DAILY PO 12/11/16 09:00 01/10/17 08:59 12/11/16 09:08 1 TAB Sodium Chloride (Nss 1000ml) 1,000 ml @ 80 mls/hr [id number] IV 12/10/16 20:15 01/09/17 20:14 12/11/16 09:10 80 MLS/HR I & O: 24-Hour Column 12/11/16 07:59 Intake Total 902 ml Output Total 200 ml Balance 702 ml Vital Signs: Date Time Temp Pulse Resp B/P Pulse Ox O2 Delivery O2 Flow Rate FiO2 12/11/16 06:05 64 16 113/65 93 Room Air 12/11/16 04:58 37.0 65 17 139/68 97 Room Air 12/11/16 04:39 95 Room Air 12/11/16 03:58 61 13 128/69 98 Room Air 12/11/16 02:58 64 15 136/62 95 Room Air 12/11/16 01:58 61 16 131/67 94 Room Air 12/11/16 01:16 63 15 124/70 95 Room Air 12/11/16 01:14 61 14 122/63 94 Room Air 12/11/16 00:58 62 14 123/69 95 Room Air 12/11/16 00:27 95 Room Air 12/10/16 23:58 37.0 61 16 125/57 96 Room Air 12/10/16 22:58 68 17 120/64 93 Room Air 12/10/16 21:58 68 16 132/65 97 Room Air 12/10/16 20:58 64 16 136/64 96 Room Air 12/10/16 20:04 37.0 68 17 146/108 96 Room Air 12/10/16 20:02 37.0 65 17 146/108 97 Room Air 12/10/16 19:07 61 16 141/67 99 Room Air 12/10/16 17:52 64 16 153/64 94 Room Air 12/10/16 16:33 57 16 141/67 97 Room Air 12/10/16 14:53 60 16 117/53 97 59 121/82 69 122/57 12/10/16 14:34 Room Air 12/10/16 14:17 36.4 60 17 125/60 Room Air Laboratory Results: Last 24 Hours Test 12/10/16 14:48 12/10/16 15:14 12/11/16 00:00 12/11/16 05:40 Bedside Glucose 105 mg/dl White Blood Count 5.82 K/uL 6.25 K/uL Red Blood Count 3.88 M/uL 3.70 M/uL Hemoglobin 12.7 g/dL 11.9 g/dL Hematocrit 37.1 % 35.0 % Mean Corpuscular Volume 95.6 fL 94.6 fL Mean Corpuscular Hemoglobin 32.7 pg 32.2 pg Mean Corpuscular Hemoglobin Concent 34.2 g/dl 34.0 g/dl Platelet Count 209 K/uL 163 K/uL Mean Platelet Volume 9.9 fL 10.0 fL Neutrophils (%) (Auto) 66.0 % 60.9 % Lymphocytes (%) (Auto) 21.6 % 25.8 % Monocytes (%) (Auto) 7.6 % 10.2 % Eosinophils (%) (Auto) 4.0 % 2.4 % Basophils (%) (Auto) 0.5 % 0.5 % Neutrophils # (Auto) 3.84 K/uL 3.81 K/uL Lymphocytes # (Auto) 1.26 K/uL 1.61 K/uL Monocytes # (Auto) 0.44 K/uL 0.64 K/uL Eosinophils # (Auto) 0.23 K/uL 0.15 K/uL Basophils # (Auto) 0.03 K/uL 0.03 K/uL RDW Standard Deviation 44.2 fL 43.4 fL RDW Coefficient of Variation 12.7 % 12.6 % Immature Granulocyte % (Auto) 0.3 % 0.2 % Immature Granulocyte # (Auto) 0.02 K/uL 0.01 K/uL Prothrombin Time 45.8 SECONDS 11.4 SECONDS Prothromb Time International Ratio 4.0 1.1 Activated Partial Thromboplast Time 39.0 SECONDS 28.0 SECONDS Partial Thromboplastin Ratio 1.5 1.1 Sodium Level 143 mmol/L 143 mmol/L Potassium Level 4.5 mmol/L 3.7 mmol/L Chloride Level 106 mmol/L 109 mmol/L Carbon Dioxide Level 26 mmol/L 25 mmol/L Anion Gap 11.0 mmol/L 9.0 mmol/L Blood Urea Nitrogen 28 mg/dl 23 mg/dl Creatinine 0.90 mg/dl 0.65 mg/dl Est Creatinine Clear Calc Drug Dose 37.5 ml/min 54.2 ml/min Estimated GFR () 68.5 95.2 Estimated GFR (Non- 59.1 82.1 BUN/Creatinine Ratio 30.8 35.2 Random Glucose 99 mg/dl 82 mg/dl Calcium Level 8.8 mg/dl 8.3 mg/dl Magnesium Level 2.2 mg/dl Total Bilirubin 0.3 mg/dl Direct Bilirubin < 0.1 mg/dl Aspartate Amino Transf (AST/SGOT) 24 U/L Alanine Aminotransferase (ALT/SGPT) 30 U/L Alkaline Phosphatase 104 U/L Total Creatine Kinase 78 U/L Creatine Kinase MB 1.9 ng/ml Creatine Kinase MB Ratio 2.4 Troponin I < 0.015 ng/ml Total Protein 7.4 gm/dl Albumin 3.6 gm/dl Thyroid Stimulating Hormone (TSH) 3.400 uIu/ml Urine Color YELLOW Urine Appearance CLOUDY Urine pH 6.5 Urine Specific [place] 1.017 Urine Protein NEG Urine Glucose (UA) NEG Urine Ketones TRACE Urine Occult Blood TRACE Urine Nitrite POS Urine Bilirubin NEG Urine Urobilinogen NEG Urine Leukocyte Esterase SMALL Urine WBC (Auto) 10-30 /hpf Urine RBC (Auto) 0-4 /hpf Urine Hyaline Casts (Auto) 1-5 /lpf Urine Epithelial Cells (Auto) 20-30 /lpf Urine Bacteria (Auto) 4+ Resident Tracking Resident Involvement: Resident Care Provided Care Provided: Adult Hospital Medicine (ICU)
[2016-12-11] MEDS ORDERED: OPTIRAY 320 IV PRN (10:30)
--- NOTE | 2016-12-11 10:40 | Progress Note ---
Subjective Date of Service: Dec 11, 2016. Subjective Pt evaluation today including: conversation w/ patient, conversation w/ family , physical exam, lab review, review of studies, review of inpatient medication list Saw/examined the patient in room 105 She's doing well, no neurological deficits noted No other complaints to note Problem List Medical Problems: (1) Anticoagulated on Coumadin Status: Acute (2) Cerebral hemorrhage Status: Acute (3) Dizziness Status: Acute (4) Head injury Status: Acute (5) Subarachnoid hemorrhage Status: Acute (6) Syncope Status: Acute Review of Systems Constitutional: No chills, No fever Respiratory: No cough, No shortness of breath, No sputum Cardiac: No chest pain Abdomen: No diarrhea, No nausea, No pain, No vomiting Female : No dysuria, No hematuria, No urinary frequency Neurologic: + balance problems, No memory loss, No numbness/tingling, No paralysis, No vertigo Heme: No abnormal bleeding/bruising Medications Current Inpatient Medications Medications (Trade) Dose Ordered Sig/[place] Route Start Time Stop Time Status Last Admin Dose Admin Acetaminophen (Tylenol Tab) 650 mg Q4H PRN PO 12/10/16 18:45 01/09/17 18:44 Alendronate Sodium (Fosamax Tab) 70 mg Mo@0630 PO 12/11/16 06:30 01/10/17 06:29 12/11/16 06:07 70 MG Calcium/Vitamin D (Caltrate Plus Tab) 1 tab BID PO 12/10/16 21:00 01/09/17 20:59 12/11/16 09:08 1 TAB Docusate Sodium (coLACE CAP) 100 mg BID PO 12/10/16 21:00 01/09/17 20:59 12/11/16 09:08 100 MG Senna/Docusate Sodium (Senokot S Tab) 1 tab DAILY PO 12/11/16 09:00 01/10/17 08:59 12/11/16 09:08 1 TAB Simvastatin (Zocor Tab) 10 mg QPM PO 12/10/16 21:00 01/09/17 20:59 12/10/16 21:25 10 MG Sotalol HCl (Betapace Tab) 40 mg QPM PO 12/10/16 21:00 01/09/17 20:59 2/5/17 21:24 40 MG Sotalol HCl (Betapace Tab) 80 mg QAM PO 12/11/16 09:00 01/10/17 08:59 12/11/16 09:07 80 MG Multivitamins/ Minerals 1 tab 1 tab DAILY PO 12/11/16 09:00 01/10/17 08:59 12/11/16 09:08 1 TAB Sodium Chloride (Nss 1000ml) 1,000 ml @ 80 mls/hr [id number] IV 12/10/16 20:15 01/09/17 20:14 12/11/16 09:10 80 MLS/HR Ioversol (Optiray 320) 111 ml UD PRN IV 12/11/16 10:30 12/15/16 10:29 UNV Objective Vital Signs Date Time Temp Pulse Resp B/P Pulse Ox O2 Delivery O2 Flow Rate FiO2 12/11/16 09:51 98 Room Air 12/11/16 08:00 36.9 68 18 124/83 97 Room Air 12/11/16 06:05 64 16 113/65 93 Room Air 12/11/16 04:58 37.0 65 17 139/68 97 Room Air 12/11/16 04:39 95 Room Air 12/11/16 03:58 61 13 128/69 98 Room Air 12/11/16 02:58 64 15 136/62 95 Room Air 12/11/16 01:58 61 16 131/67 94 Room Air 12/11/16 01:16 63 15 124/70 95 Room Air 12/11/16 01:14 61 14 122/63 94 Room Air 12/11/16 00:58 62 14 123/69 95 Room Air 12/11/16 00:27 95 Room Air 12/10/16 23:58 37.0 61 16 125/57 96 Room Air 12/10/16 22:58 68 17 120/64 93 Room Air 12/10/16 21:58 68 16 132/65 97 Room Air 12/10/16 20:58 64 16 136/64 96 Room Air 12/10/16 20:04 37.0 68 17 146/108 96 Room Air 12/10/16 20:02 37.0 65 17 146/108 97 Room Air 12/10/16 19:07 61 16 141/67 99 Room Air 12/10/16 17:52 64 16 153/64 94 Room Air 12/10/16 16:33 57 16 141/67 97 Room Air 12/10/16 14:53 60 16 117/53 97 59 121/82 69 122/57 12/10/16 14:34 Room Air 12/10/16 14:17 36.4 60 17 125/60 Room Air Physical Exam General Appearance: no apparent distress Respiratory/Chest: lungs clear, normal breath sounds, no respiratory distress, no accessory muscle use Cardiovascular: regular rate, rhythm, no edema, no murmur Abdomen: normal bowel sounds, non tender, soft Extremities: normal inspection, no pedal edema Neurologic/Psychiatric: no motor/sensory deficits, alert, normal mood/affect Skin: normal color Lymphatic: no adenopathy Laboratory Results Last 24 Hours Test 12/10/16 14:48 12/10/16 15:14 12/11/16 00:00 12/11/16 05:40 Bedside Glucose 105 mg/dl White Blood Count 5.82 K/uL 6.25 K/uL Red Blood Count 3.88 M/uL 3.70 M/uL Hemoglobin 12.7 g/dL 11.9 g/dL Hematocrit 37.1 % 35.0 % Mean Corpuscular Volume 95.6 fL 94.6 fL Mean Corpuscular Hemoglobin 32.7 pg 32.2 pg Mean Corpuscular Hemoglobin Concent 34.2 g/dl 34.0 g/dl Platelet Count 209 K/uL 163 K/uL Mean Platelet Volume 9.9 fL 10.0 fL Neutrophils (%) (Auto) 66.0 % 60.9 % Lymphocytes (%) (Auto) 21.6 % 25.8 % Monocytes (%) (Auto) 7.6 % 10.2 % Eosinophils (%) (Auto) 4.0 % 2.4 % Basophils (%) (Auto) 0.5 % 0.5 % Neutrophils # (Auto) 3.84 K/uL 3.81 K/uL Lymphocytes # (Auto) 1.26 K/uL 1.61 K/uL Monocytes # (Auto) 0.44 K/uL 0.64 K/uL Eosinophils # (Auto) 0.23 K/uL 0.15 K/uL Basophils # (Auto) 0.03 K/uL 0.03 K/uL RDW Standard Deviation 44.2 fL 43.4 fL RDW Coefficient of Variation 12.7 % 12.6 % Immature Granulocyte % (Auto) 0.3 % 0.2 % Immature Granulocyte # (Auto) 0.02 K/uL 0.01 K/uL Prothrombin Time 45.8 SECONDS 11.4 SECONDS Prothromb Time International Ratio 4.0 1.1 Activated Partial Thromboplast Time 39.0 SECONDS 28.0 SECONDS Partial Thromboplastin Ratio 1.5 1.1 Sodium Level 143 mmol/L 143 mmol/L Potassium Level 4.5 mmol/L 3.7 mmol/L Chloride Level 106 mmol/L 109 mmol/L Carbon Dioxide Level 26 mmol/L 25 mmol/L Anion Gap 11.0 mmol/L 9.0 mmol/L Blood Urea Nitrogen 28 mg/dl 23 mg/dl Creatinine 0.90 mg/dl 0.65 mg/dl Est Creatinine Clear Calc Drug Dose 37.5 ml/min 54.2 ml/min Estimated GFR () 68.5 95.2 Estimated GFR (Non- 59.1 82.1 BUN/Creatinine Ratio 30.8 35.2 Random Glucose 99 mg/dl 82 mg/dl Calcium Level 8.8 mg/dl 8.3 mg/dl Magnesium Level 2.2 mg/dl Total Bilirubin 0.3 mg/dl Direct Bilirubin < 0.1 mg/dl Aspartate Amino Transf (AST/SGOT) 24 U/L Alanine Aminotransferase (ALT/SGPT) 30 U/L Alkaline Phosphatase 104 U/L Total Creatine Kinase 78 U/L Creatine Kinase MB 1.9 ng/ml Creatine Kinase MB Ratio 2.4 Troponin I < 0.015 ng/ml < 0.015 ng/ml Total Protein 7.4 gm/dl Albumin 3.6 gm/dl Thyroid Stimulating Hormone (TSH) 3.400 uIu/ml Urine Color YELLOW Urine Appearance CLOUDY Urine pH 6.5 Urine Specific [place] 1.017 Urine Protein NEG Urine Glucose (UA) NEG Urine Ketones TRACE Urine Occult Blood TRACE Urine Nitrite POS Urine Bilirubin NEG Urine Urobilinogen NEG Urine Leukocyte Esterase SMALL Urine WBC (Auto) 10-30 /hpf Urine RBC (Auto) 0-4 /hpf Urine Hyaline Casts (Auto) 1-5 /lpf Urine Epithelial Cells (Auto) 20-30 /lpf Urine Bacteria (Auto) 4+ Assessment and Plan This is a 81 year old female with PMH of paroxysmal atrial fibrillation on Coumadin presents s/p fall and found to have subarachnoid hemorrhage Subarachnoid Hemorrhage Traumatic Subarachnoid hemorrhage secondary to fall Head CT initially showing small hyperdense focus at R medial frontal lobe and L parietal lobe Repeat Head CT today shows interval improvement, no new hemorrhage no neurological deficits noted vitals stable monitored overnight in ICU, stable for transfer to the floor PT/OT/discharge planning neurology following Syncopal Episode patient had a fall yesterday, cannot recall the event, but does recall being somewhat dizzy states she did not drink anything yesterday Carotid U/S, echo, orthostatics pending PT/OT - likely ambulatory dysfunction + dehydration caused her fall Paroxysmal Atrial Fibrillation currently in NSR stop Coumadin, was given Vitamin K and K Centra yesterday INR initially supratherapeutic, now fully reversed cont. Sotalol Dyslipidemia cont. statin DVT ppx SCDs DNR
--- NOTE | 2016-12-11 11:16 | ECHOCARDIOGRAM REPORT ---
*NOTICE TO RECEIVING [employer] This information is strictly Confidential and protected under [place] law. [place] law prohibits you from making any further disclosure of this information unless further disclosure is expressly permitted by the written consent of the person to whom it pertains or is authorized by law. A general authorization for the release of medical or other information is not sufficient for this purpose. Hospital accepts no responsibility if the information is made available to any other person, INCLUDING THE PATIENT. Interpretation Summary * Name: Lizbet SONG Study Date: 12/11/2016 07:24 AM BP: 113/65 mmHg * Patient Location: .[facility]ICU\S\E105\S\1 HR: 64 * : 1935 (M/d/yyyy) Gender: Female Height: 62 in * Age: 81 yrs Ethnicity: [place] Weight: 130 lb * Ordering Physician: Monica Granados * Referring Physician: Self, Referred * Performed By: Mally Wesley RDCS * * Reason For Study: SYNCOPE * BSA: 1.6 m2 * History: SYNCOPE * -- Conclusions -- * Normal LV chamber size and wall thickness. * Normal LV systolic function, EF 60-65%. * No segmental left ventricular wall motion abnormalities are noted. * Grade II diastolic dysfunction. * Trace mitral regurgitation. Procedure Details * A contrast injection of Definity was performed to improve assessment of LV function. * Contrast was injected into an intravenous site in the left arm. * One vial of Definity ultrasound contrast was diluted in normal saline to a total volume of 10 ml. A total of '2' ml of solution was administered during imaging. * Lot # [id number] of Definity utilized for procedure. * Expiration date NOV 22. * The attending nurse who injected the contrast agent was LEATHA MIRAMONTES RN. Left Ventricle * The left ventricle is normal in size. * There is normal left ventricular wall thickness. * Ejection Fraction = 60-65%. * Left ventricular systolic function is normal. * No segmental left ventricular wall motion abnormalities are noted. * The left ventricular wall motion is normal. Right Ventricle * The right ventricular cavity size is normal (basal dimension <4.2 cm in right ventricular apical 4-chamber view). * The right ventricular systolic function is normal as assessed by tricuspid annular plane systolic excursion (TAPSE) (normal >1.5 cm). Atria * The left atrial size is normal. * Right atrial size is normal. * No ASD detected; PFO is not assessed. Mitral Valve * The mitral valve anatomy is normal. * There is no mitral valve stenosis. * There is trace mitral regurgitation. Tricuspid Valve * The tricuspid valve is normal in structure and function. Aortic Valve * The aortic valve is normal in structure and function. Pulmonic Valve * The pulmonary valve is not well seen, but the Doppler examination is normal without significant regurgitation or stenosis. Great Vessels * The aortic root and proximal ascending aorta are normal sized. Pericardium/Pleural * There is no pericardial effusion. Left Ventricular Diastolic Function * Diastolic dysfunction, Grade II (pseudonormalization pattern). MMode 2D Measurements and Calculations IVSd 1.0 cm IVSs 1.2 cm LVIDd 3.7 cm LVIDs 2.3 cm LVPWd 0.76 cm LVPWs 1.2 cm IVS/LVPW 1.4 FS 36.1 % EDV(Teich) 56.6 ml ESV(Teich) 18.9 ml EF(Teich) 66.6 % EDV(cubed) 49.0 ml ESV(cubed) 12.8 ml EF(cubed) 73.9 % % IVS thick 13.5 % % LVPW thick 55.4 % LV mass(C)d 94.6 grams LV mass(C)dI 59.5 grams/m\S\2 LV mass(C)s 75.8 grams LV mass(C)sI 47.6 grams/m\S\2 SV(Teich) 37.7 ml SI(Teich) 23.7 ml/m\S\2 SV(cubed) 36.2 ml SI(cubed) 22.8 ml/m\S\2 Ao root diam 2.7 cm Ao root area 5.8 cm\S\2 LA dimension 3.2 cm LA/Ao 1.2 LVAd ap4 23.0 cm\S\2 LVLd ap4 6.2 cm EDV(MOD-sp4) 70.5 ml EDV(sp4-el) 72.3 ml LVAs ap4 12.7 cm\S\2 LVLs ap4 5.3 cm ESV(MOD-sp4) 26.5 ml ESV(sp4-el) 25.9 ml EF(MOD-sp4) 62.4 % EF(sp4-el) 64.1 % LVAd ap2 19.8 cm\S\2 LVLd ap2 6.4 cm EDV(MOD-sp2) 52.4 ml EDV(sp2-el) 52.0 ml LVAs ap2 10.5 cm\S\2 LVLs ap2 4.9 cm ESV(MOD-sp2) 19.2 ml ESV(sp2-el) 18.8 ml EF(MOD-sp2) 63.4 % EF(sp2-el) 63.9 % LVLd %diff 3.0 % EDV(MOD-bp) 61.1 ml LVLs %diff -6.88 % ESV(MOD-bp) 23.3 ml EF(MOD-bp) 61.9 % SV(MOD-sp4) 44.0 ml SI(MOD-sp4) 27.6 ml/m\S\2 SV(MOD-sp2) 33.2 ml SI(MOD-sp2) 20.9 ml/m\S\2 SV(MOD-bp) 37.8 ml SI(MOD-bp) 23.7 ml/m\S\2 SV(sp4-el) 46.3 ml SI(sp4-el) 29.1 ml/m\S\2 SV(sp2-el) 33.2 ml SI(sp2-el) 20.9 ml/m\S\2 Doppler Measurements and Calculations MV E max fareed 87.6 cm/sec MV A max fareed 68.6 cm/sec MV E/A 1.3 MV dec time 0.26 sec Ao V2 max 115.5 cm/sec Ao max PG 5.3 mmHg Ao max PG (full) 0.06 mmHg LV V1 max PG 5.3 mmHg LV V1 max 114.9 cm/sec TR max fareed 267.2 cm/sec
--- NOTE | 2016-12-11 11:54 | DIAGNOSTIC IMAGING REPORT ---
CT ANGIOGRAM OF THE BRAIN; CT ANGIOGRAM OF THE NECK CLINICAL HISTORY: Intracranial hemorrhage. COMPARISON STUDY: CT of the brain dated 12/11/2016. Carotid artery ultrasound dated 12/11/16. TECHNIQUE: Following the IV administration of 93 of Optiray 320, CT angiogram of the head and neck was performed from the aortic arch to the vertex. Images are reviewed in the axial, sagittal, and coronal planes. 3-D MIPS images are created and assessed. IV contrast was administered without complication. All measurements were calculated based on NASCET criteria. CT DOSE: 418.34 mGy.cm FINDINGS: Brain parenchyma: There are age-related involutional changes noting mild to moderate patchy subcortical and periventricular microangiopathic disease. The trace subarachnoid hemorrhage/contusion on the medial right frontal lobe seen on today's earlier examination is not clearly visualized on this angiographic phase study. There is no parenchymal hematoma, mass effect, or evidence of acute territorial ischemia by CT criteria. There is no evidence of enhancing mass lesion on the angiogram phase images. The ventricles, sulci, and cisterns are prominent secondary to involutional change. No extra-axial fluid collection is identified. [place]-white matter attenuation is preserved. Thoracic aorta: There is atherosclerotic calcification of the thoracic aorta. Visualized portions of the thoracic aorta are normal in caliber. The aortic arch demonstrates 4-vessel variant arch anatomy. 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 Right carotid arterial system: The right common carotid artery is widely patent, as are the right internal and external carotid arteries. Left carotid arterial system: The left common carotid artery is widely patent, as are the left internal and external carotid arteries. Vertebral arteries: The vertebral arteries in the neck are widely patent noting right sided dominance. No dissection is seen. Subclavian arteries: Widely patent bilaterally. Intracranial vasculature: The [place] is developmentally complete. The internal carotid arteries at the skull base are widely patent, as are the anterior and middle cerebral arteries. The vertebrobasilar system is widely patent, as are the posterior cerebral arteries. The left vertebral artery is dominant. There is no aneurysm, high-grade stenosis, or focal vessel cut off seen throughout the intracranial circulation. Jugular veins: Widely patent bilaterally. Dural sinuses: Patent as imaged. Lung apices: Mild emphysematous change is present at the lung apices. Partially visualized upper lobe lung parenchyma appears clear. Soft tissues: The visualized pharyngeal soft tissues are normal in appearance noting angiographic phase technique. The oropharyngeal airway appears widely patent. Subcentimeter low-attenuation thyroid nodules are noted. Salivary glands are normal in appearance. No cervical lymphadenopathy is seen. Skeletal structures: The skeletal structures are osteopenic. The calvarium appears intact. There is moderate multilevel cervical spondylosis. Multilevel acquired compromise of the central canal is suspected. Sinuses and mastoids: There is trace nodular mucosal thickening within the maxillary antra. There is subtotal opacification of the right sphenoid sinus. The remaining paranasal sinuses appear clear. The mastoid air cells are well pneumatized. IMPRESSION: 1. The trace subarachnoid hemorrhage seen along the medial right frontal lobe on today's earlier examination is not clearly visualized on this angiographic phase study. 2. There is no mass effect or evidence of acute territorial ischemia by CT criteria. 3. Unremarkable CT angiogram of the brain. 4. Unremarkable CT angiogram of the neck. 5. 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 6. Additional findings as above. Electronically signed by: Xavier Fuentes M.D. 12/11/2016 11:53 AM Dictated Date/Time: 12/11/2016 11:38 AM
[2016-12-11 14:08] LABS: MANUAL MICROSCOPIC REQUIRED? NO; REVIEW REQ? NO; URINE APPEARANCE CLOUDY (CLEAR); URINE BILIRUBIN NEG (NEG); URINE COLOR YELLOW; URINE EPITHELIAL CELL AUTO 0-5 /lpf (0-5); URINE NITRITE POS (NEG); UROBILINOGEN NEG (NEG)
[2016-12-11] MEDS: CEFTRIAXONE SOD INJ 1 GM in DEXTROSE 5% ADD-VANTAGE 50ML 50 ML IV SCH (16:00)
--- NOTE | 2016-12-11 16:00 | Neurology Consultation ---
Neurology Consultation Date of Consultation: Dec 11, 2016. Attending Physician: Luz Neil DO Primary Care Physician: Eduardo Chapman M.D. Reason for Consultation: SAH and syncope History of Present Illness Source: patient, family Beni is an 81 year old female with PMH afib on Coumadin x 4 years, dyslipidemia. She woke up feeling well and ate her breakfast but really hadn't drank much fluids. When she stood up, she remembers being dizzy/light headed and then had a syncope episode. Her son was home and heard her fall. He did not observe the syncopal episode but he heard her fall and was by her side almost immediately. He said he checked to make sure she was breathing and then called 911. She was out for approx. 30 seconds and was back to baseline in about 5 minutes. Son is in the room and states her medications are the same as previous no increases. She does not have a history of seizure but has had syncope in the past and had a syncope episode when they discovered her a fib. denies CP, SOB, abdominal pain, weakness, numbness tingling, headache, blurred vision, hearing loss, N, V, biting tongue incontinence. She states she doesn't drink much because she doesn't like to get up at night to use the bathroom. Past Medical/Surgical History Medical Problems: (1) Anticoagulated on Coumadin Status: Acute (2) Cerebral hemorrhage Status: Acute (3) Dizziness Status: Acute (4) Head injury Status: Acute (5) Subarachnoid hemorrhage Status: Acute (6) Syncope Status: Acute Social History Smoking Status: Unknown if ever smoked Smokeless Tobacco Use: No Alcohol Use: none Drug Use: none Marital Status: Housing Status: lives with family Occupation Status: retired Allergies Coded Allergies: No Known Allergies (Unverified , 11/10/12) Current Inpatient Medications Current Inpatient Medications Medications (Trade) Dose Ordered Sig/[place]roy Route Start Time Stop Time Status Last Admin Dose Admin Acetaminophen (Tylenol Tab) 650 mg Q4H PRN PO 12/10/16 18:45 01/09/17 18:44 Alendronate Sodium (Fosamax Tab) 70 mg Mo@0630 PO 12/11/16 06:30 01/10/17 06:29 12/11/16 06:07 70 MG Calcium/Vitamin D (Caltrate Plus Tab) 1 tab BID PO 12/10/16 21:00 01/09/17 20:59 12/11/16 09:08 1 TAB Docusate Sodium (coLACE CAP) 100 mg BID PO 12/10/16 21:00 01/09/17 20:59 12/11/16 09:08 100 MG Senna/Docusate Sodium (Senokot S Tab) 1 tab DAILY PO 12/11/16 09:00 01/10/17 08:59 12/11/16 09:08 1 TAB Simvastatin (Zocor Tab) 10 mg QPM PO 12/10/16 21:00 01/09/17 20:59 12/10/16 21:25 10 MG Sotalol HCl (Betapace Tab) 40 mg QPM PO 12/10/16 21:00 01/09/17 20:59 12/10/16 21:24 40 MG Sotalol HCl (Betapace Tab) 80 mg QAM PO 12/11/16 09:00 01/10/17 08:59 12/11/16 09:07 80 MG Multivitamins/ Minerals 1 tab 1 tab DAILY PO 12/11/16 09:00 01/10/17 08:59 12/11/16 09:08 1 TAB Sodium Chloride (Nss 1000ml) 1,000 ml @ 80 mls/hr [id number] IV 12/10/16 20:15 01/09/17 20:14 12/11/16 09:10 80 MLS/HR Ioversol 111 ml 111 ml UD PRN IV 12/11/16 10:30 12/15/16 10:29 Ceftriaxone Sodium/Dextrose (Rocephin Inj/ Dextrose Add-[place] 50ML) 50 ml @ 100 mls/hr Q24H IV 12/11/16 16:00 12/16/16 15:59 Physical Exam Vital Signs (Past 24 Hrs): Date Time Temp Pulse Resp B/P Pulse Ox O2 Delivery O2 Flow Rate FiO2 12/11/16 14:32 36.7 60 16 132/62 96 Room Air 12/11/16 12:25 95 Room Air 12/11/16 11:59 36.6 63 16 143/62 97 Room Air 12/11/16 10:30 36.7 56 128/63 94 Room Air 12/11/16 09:51 98 Room Air 12/11/16 08:00 Room Air 12/11/16 08:00 36.9 68 18 124/83 97 Room Air 12/11/16 06:05 64 16 113/65 93 Room Air 12/11/16 04:58 37.0 65 17 139/68 97 Room Air 12/11/16 04:39 95 Room Air 12/11/16 03:58 61 13 128/69 98 Room Air 12/11/16 02:58 64 15 136/62 95 Room Air 12/11/16 01:58 61 16 131/67 94 Room Air 12/11/16 01:16 63 15 124/70 95 Room Air 12/11/16 01:14 61 14 122/63 94 Room Air 12/11/16 00:58 62 14 123/69 95 Room Air 12/11/16 00:27 95 Room Air 12/10/16 23:58 37.0 61 16 125/57 96 Room Air 12/10/16 22:58 68 17 120/64 93 Room Air 12/10/16 21:58 68 16 132/65 97 Room Air 12/10/16 20:58 64 16 136/64 96 Room Air 12/10/16 20:04 37.0 68 17 146/108 96 Room Air 12/10/16 20:02 37.0 65 17 146/108 97 Room Air 12/10/16 19:07 61 16 141/67 99 Room Air 12/10/16 17:52 64 16 153/64 94 Room Air 12/10/16 16:33 57 16 141/67 97 Room Air Physical Exam: Constitutional: appearance nourished, healthy and normal Ears, Nose, Mouth and Throat: mucous membranes moist, no injection and skin normal, eyes normal Cardiovascular: irregular Respiratory: clear to auscultation (CTA) and no rales, rhonchi or wheeze Musculoskeletal: no peripheral edema and good distal pulses Skin: no stigmata of neurocutaneous disease noted and normal and intact Eyes: extraocular muscles intact (EOMI) and pupils equal, round and reactive to light (PERRL) NEUROLOGIC EXAMINATION: Mental status: Alert and interactive, knows where she is [facility], Trump president can stick out tongue close eyes point to ceiling with right hand Oriented to full date and location Oriented to person Speech fluent with no evidence of aphasia Cranial Nerves smile eye brow raise symmetric, tongue midline Reflexes: Deep tendon reflexes were symmetrical and graded 2/5. Plantar responses were flexor. Sensory: no sensory deficits, with vibration , cool touch, GT proprioception Coordination: finger to nose with no bi pass Gait/Stance: sitting up in bed Motor: Negative for pronator drift of out stretched arms with eyes closed. Strength: biceps, triceps, deltoids, hand molder closed molds, 5/5 bilaterally, hip flex plantar flex ext 5/5 Laboratory Results Past 24 Hours: 12/11/16 05:40 Red Blood Count 3.70, Mean Corpuscular Volume 94.6, Mean Corpuscular Hemoglobin 32.2, Mean Corpuscular Hemoglobin Concent 34.0, Mean Platelet Volume 10.0, Neutrophils (%) (Auto) 60.9, Lymphocytes (%) (Auto) 25.8, Monocytes (%) (Auto) 10.2, Eosinophils (%) (Auto) 2.4, Basophils (%) (Auto) 0.5, Neutrophils # (Auto ) 3.81, Lymphocytes # (Auto) 1.61, Monocytes # (Auto) 0.64, Eosinophils # (Auto ) 0.15, Basophils # (Auto) 0.03 12/11/16 05:40 Test 12/11/16 05:40 12/11/16 09:45 12/11/16 11:24 White Blood Count 6.25 K/uL (4.8-10.8) Red Blood Count 3.70 M/uL (4.2-5.4) Hemoglobin 11.9 g/dL (12.0-16.0) Hematocrit 35.0 % (37-47) Mean Corpuscular Volume 94.6 fL (80-100) Mean Corpuscular Hemoglobin 32.2 pg (25-34) Mean Corpuscular Hemoglobin Concent 34.0 g/dl (32-36) Platelet Count 163 K/uL (130-400) Mean Platelet Volume 10.0 fL (7.4-10.4) Neutrophils (%) (Auto) 60.9 % Lymphocytes (%) (Auto) 25.8 % Monocytes (%) (Auto) 10.2 % Eosinophils (%) (Auto) 2.4 % Basophils (%) (Auto) 0.5 % Neutrophils # (Auto) 3.81 K/uL (1.4-6.5) Lymphocytes # (Auto) 1.61 K/uL (1.2-3.4) Monocytes # (Auto) 0.64 K/uL (0.11-0.59) Eosinophils # (Auto) 0.15 K/uL (0-0.5) Basophils # (Auto) 0.03 K/uL (0-0.2) RDW Standard Deviation 43.4 fL (36.4-46.3) RDW Coefficient of Variation 12.6 % (11.5-14.5) Immature Granulocyte % (Auto) 0.2 % Immature Granulocyte # (Auto) 0.01 K/uL (0.00-0.02) Prothrombin Time 11.4 SECONDS (9.0-12.0) Prothromb Time International Ratio 1.1 (0.9-1.1) Activated Partial Thromboplast Time 28.0 SECONDS (21.0-31.0) Partial Thromboplastin Ratio 1.1 Anion Gap 9.0 mmol/L (3-11) Est Creatinine Clear Calc Drug Dose 54.2 ml/min Estimated GFR () 95.2 Estimated GFR (Non- 82.1 BUN/Creatinine Ratio 35.2 (10-20) Calcium Level 8.3 mg/dl (8.5-10.1) Troponin I < 0.015 ng/ml (0-0.045) Urine Color YELLOW Urine Appearance CLOUDY (CLEAR) Urine pH 7.0 (4.5-7.5) Urine Specific [place] 1.020 (1.000-1.030) Urine Protein NEG (NEG) Urine Glucose (UA) NEG (NEG) Urine Ketones NEG (NEG) Urine Occult Blood 1+ (NEG) Urine Nitrite POS (NEG) Urine Bilirubin NEG (NEG) Urine Urobilinogen NEG (NEG) Urine Leukocyte Esterase MODERATE (NEG) Urine WBC (Auto) 10-30 /hpf (0-5) Urine RBC (Auto) 5-10 /hpf (0-4) Urine Hyaline Casts (Auto) 5-10 /lpf (0-5) Urine Epithelial Cells (Auto) 0-5 /lpf (0-5) Urine Bacteria (Auto) 4+ (NEG) Bedside Glucose 76 mg/dl (70-90) Date/Time Source Procedure Growth Status 12/10/16 20:15 Nasal MRSA DNA Surveillance Screen - Final Specimen Negative for MRSA by DNA Probe Complete Imaging CT head-. The trace subarachnoid hemorrhage seen along the medial right frontal lobe on today's earlier examination is not clearly visualized on this angiographic phase study. There is no mass effect or evidence of acute territorial ischemia by CT criteria. Unremarkable CT angiogram of the brain. Unremarkable CT angiogram of the neck. 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 . TTE- Normal LV chamber size and wall thickness. * Normal LV systolic function, EF 60-65%. * No segmental left ventricular wall motion abnormalities are noted. * Grade II diastolic dysfunction. * Trace mitral regurgitation. NO ASD carotid doppler- No evidence of a hemodynamically significant stenosis. 1.9 cm right lobe thyroid nodule. Impression 81 year old with a syncope episode with SAH Plan 1. ECHO and carotid doppler no new findings 2. EEG for completeness 3. UTI treat to culture 4. CTA- no aneurysm found 5. PT/OT for discharge needs 6. orthostatics -no evidence of orthostatic blood pressures 7. continue to hydrate 8. further recommendations to follow I have seen and discussed above patient with Dr Kingston Matthew, neurology I have seen this woman, examined her, reviewed the history as recorded and the imaging studies. History is that of syncopal event with close head trauma and non aneurysmal SAH ( CTA negative ) Seizure unilkely and frankly doubt a cardiac arrythmia. exam is normal save for soft tissue injury right parietal area without laceration. Will check eeg and unless abnormal or and unequivocal seizure is seen willi not rx aeds We will follow up tomorrow Discussed with Eliza Matthew MD
--- NOTE | 2016-12-11 19:07 | CARDIOLOGY CONSULTATION ---
DATE OF CONSULTATION: 12/11/2016 CONSULTATION REQUESTED BY: Edmund Gil. REASON FOR CONSULTATION: Syncope. HISTORY OF PRESENT ILLNESS: Ms. Bazan is a very pleasant 81-year-old woman who normally follows with Dr. Park of our outpatient cardiology practice. She presented to [facility] via EMS on 12/10/2016 after reported syncopal episode at home. The patient states that she was sitting on a chair, she stood up and was walking to her bedroom when all of a sudden her vision started to change. She states that she just started seeing everything in a brown and yellow color. With that, she also became a little lightheaded and she frankly syncopized. She does not remember this syncopal event, her son was home at the time in a different room. He states that she seemed to have fall and struck her head on a door jam. Upon coming to, the patient states the first thing she remembers is a ergonomics consultant standing over asking questions, she was brought into [facility] where she was found to have a subdural hematoma and she was admitted to the intensive care unit. Otherwise, the patient denies experiencing any chest pain, shortness of breath or palpitations immediately prior to or after the event, she states that she was otherwise feeling well. She has never had any previous similar episodes and she has been on Coumadin and sotalol for history of paroxysmal atrial fibrillation. PAST SURGICAL HISTORY: 1. Multiple eye injections. 2. Hip ORIF. 3. Cervical laminectomy. MEDICAL ILLNESSES: 1. Paroxysmal atrial fibrillation on chronic sotalol and Coumadin therapy. 2. Osteoporosis. 3. Dyslipidemia. 4. Squamous cell carcinoma of the skin. 5. Macular degeneration. FAMILY HISTORY: Noncontributory. SOCIAL HISTORY: Denies any alcohol, tobacco or recreational drug use. REVIEW OF SYSTEMS: As per HPI, all other review of systems reviewed and negative at this time. ALLERGIES: No known drug allergies. MEDICATIONS AN OUTPATIENT: Sotalol 80 mg q.a.m. and 40 mg q.p.m., Coumadin as directed by the Coumadin clinic, Fosamax weekly, fish oil 1000 mg daily. PHYSICAL EXAMINATION: VITALS: Temperature 36.6, pulse 63, respiratory rate 12, blood pressure 143/62. GENERAL: Awake, alert, oriented x3, in no acute distress. HEENT: Normocephalic, atraumatic. Pupils equal, round, and reactive to light and accommodation. Extraocular muscles intact. Anicteric sclerae. Moist mucous membranes. NECK: No JVD, no bruit. CARDIOVASCULAR: Regular. Positive S4. Normal S1 and S2. No S3. No murmurs or rubs. PULMONARY: Clear to auscultation bilaterally. No rales, rhonchi, or wheezing. ABDOMEN: Bowel sounds x4, soft. No rebound, guarding, tenderness. No organomegaly. EXTREMITIES: No clubbing, cyanosis or edema. +2 pedal pulses bilaterally. SKIN: Warm and dry. TEST RESULTS: A 12-lead EKG performed in the Emergency Department independently reviewed at this time shows sinus bradycardia at 56 beats per minute, normal axis, normal intervals, diffuse nonspecific ST-segment flattening. Review of telemetry monitoring shows normal sinus rhythm without arrhythmia or significant ectopy. IMPRESSION: 1. Syncopal event. 2. Subarachnoid hemorrhage, stable. 3. Paroxysmal atrial fibrillation, currently in normal sinus rhythm. RECOMMENDATIONS: It was my pleasure to see Ms. Bazan in consultation today. It was explained to the patient and her son that obviously at this point she is no longer a Coumadin candidate, not only for the syncopal event, but also for the subarachnoid hemorrhage. So anticoagulation will not be restarted at this time. In terms of her syncopal event, I counseled that since she was not on a monitor at that time it was really no way to tell exactly what occurred. Since she has been admitted, her echocardiogram is unchanged with no significant abnormalities and her telemetry showed no arrhythmias. So at this point, she should be continued to be monitored on telemetry while she is in the hospital and will send her home with a 2-week Zio patch to evaluate for any other possible arrhythmias or significant pauses. Otherwise, she will be continued on her current doses of sotalol 80 mg q.a.m. and 40 mg q.p.m. Thank you very much for allowing me to participate in the care of your patient.
[2016-12-11] MEDS: SIMVASTATIN 10 MG TAB PO SCH (19:25)
[2016-12-11] MEDS ORDERED: SODIUM CHLORIDE 0.45% 1000ML 1,000 ML IV STA (23:20)
[2016-12-11 23:48] LABS: HEMATOCRIT 34.8 % (37-47)
[2016-12-12] VITALS (12 sets, daily range): BP systolic 106–129; BP diastolic 56–100; PULSE 58–125; TEMP 36.5–36.8; O2SAT 93–99
[2016-12-12 00:11] LABS: BUN/CREATININE RATIO 22.7 (10-20); CALCIUM 8.7 mg/dl (8.5-10.1); CREATININE 0.67 mg/dl (0.60-1.20); MAGNESIUM 1.8 mg/dl (1.8-2.4); POTASSIUM 3.5 mmol/L (3.5-5.1)
[2016-12-12] MEDS ORDERED: SOTALOL HCL 80 MG TAB PO STA (00:23)
[2016-12-12] MEDS ORDERED: POTASSIUM CHLORIDE 10 MEQ TABCR PO STA (00:35)
[2016-12-12] MEDS ORDERED: MAGNESIUM SULFATE 1GM / D5W 1 GM in PREMIXED IN D5W 100 ML IV STA (00:42)
[2016-12-12] MEDS ORDERED: SODIUM CHLOR 0.45% + 20MEQ KCL 1,000 ML IV ONE (00:45)
[2016-12-12 06:47] LABS: PARTIAL THROMBOPLASTIN RATIO 1.1
[2016-12-12 06:48] LABS: BASO % 0.3 %; BASO ABS # 0.02 K/uL (0-0.2); COMPLETE YES; LYMPH % 29.9 %; LYMPH ABS # 1.72 K/uL (1.2-3.4); MEAN CELL VOLUME 94.7 fL (80-100); MEAN CORPUSCULAR HEMOGLOBIN 32.6 pg (25-34); MEAN CORPUSCULAR HGB CONC 34.4 g/dl (32-36); MONO % 11.5 %; NEUT % 54.3 %; PLATELET COUNT 152 K/uL (130-400); RED BLOOD COUNT 3.59 M/uL (4.2-5.4); WHITE BLOOD COUNT 5.75 K/uL (4.8-10.8)
[2016-12-12 07:15] LABS: BUN/CREATININE RATIO 18.2 (10-20); CALCIUM 8.3 mg/dl (8.5-10.1); CREATININE 0.61 mg/dl (0.60-1.20); POTASSIUM 4.2 mmol/L (3.5-5.1)
[2016-12-12] MEDS: SOTALOL HCL 80 MG TAB PO SCH (09:24)
[2016-12-12] MEDS: DOCUSATE SODIUM/SENNA 50/8.6MG TAB PO SCH (09:24)
[2016-12-12] MEDS: DOCUSATE SODIUM 100 MG CAP PO SCH ×2 (09:24→19:24)
[2016-12-12] MEDS: CEROVITE ADV FORMULA TAB PO SCH (09:24)
[2016-12-12] MEDS: CALCIUM 600MG + VIT D 400 IU TAB PO SCH ×2 (09:25→19:23)
--- NOTE | 2016-12-12 09:56 | Cardiology Follow-Up ---
Subjective Subjective Date of Service: Dec 12, 2016. Pt evaluation today including: conversation w/ patient, physical exam, chart review, lab review, review of studies, review of inpatient medication list Additional Details: Pt seen and examined, states that she feels well today. Did have afib with rvr overnight for a few hours. Pt did experience palpitations that correlated with rvr. Otherwise, denies cp, sob, lightheadedness, dizziness or syncope Tele reviewed: afib with RVR last approx 5 hours, spontaneously converted. currently in sinus Problem List Medical Problems: (1) Anticoagulated on Coumadin Status: Acute (2) Cerebral hemorrhage Status: Acute (3) Dizziness Status: Acute (4) Head injury Status: Acute (5) Subarachnoid hemorrhage Status: Acute (6) Syncope Status: Acute Review of Systems Constitutional: No chills, No fever Respiratory: No cough, No dyspnea at rest, No dyspnea on exertion, No hemoptysis, No problem reported, No see HPI, No shortness of breath, No sputum, No wheezing Cardiac: + palpitations, No PND, No chest pain, No claudication, No edema, No orthopnea, No problem reported, No see HPI Abdomen: No diarrhea, No nausea, No pain, No vomiting Female : No dysuria, No hematuria, No urinary frequency Neurologic: + balance problems, No memory loss, No numbness/tingling, No paralysis, No vertigo Heme: No abnormal bleeding/bruising Objective Vital Signs Last Vital Signs Documentation Date Time Temp Pulse Resp B/P Pulse Ox O2 Delivery O2 Flow Rate FiO2 12/12/16 05:58 60 14 122/64 99 12/12/16 04:00 Room Air 12/12/16 03:58 36.8 Physical Exam: General Appearance: WD/WN, no apparent distress Eyes: bilateral eyes EOMI, bilateral eyes PERRL, bilateral eyes normal inspection ENT: normal ENT inspection, hearing grossly normal, pharynx normal Neck: supple, no adenopathy, thyroid normal, no JVD, no carotid bruits, trachea midline Respiratory/Chest: lungs clear, normal breath sounds, no respiratory distress, no accessory muscle use Cardiovascular: regular rate, rhythm, no edema, no JVD, no murmur, + gallop/S4 Abdomen: normal bowel sounds, non tender, soft Extremities: normal inspection, no pedal edema, no calf tenderness Neurologic/Psychiatric: ground mixer II-XII nml as tested, no motor/sensory deficits, alert, normal mood/affect, oriented x 3 Skin: normal color, warm/dry, no rash Lymphatic: no adenopathy Assessment and Plan 1. syncope likely orthostatic no structural abnormality on echo no ventricular arrhythmias on monitor 2. paf with rvr was orthostatic during episode, to be expected will increase sotalol to prevent recurrence not an anticoagulation candidate other option would be to change to amio, however, would require wash out period will cont sotalol for now cont to monitor on tele daily ekg to follow qt interval
--- NOTE | 2016-12-12 14:27 | ELECTROENCEPHALOGRAPH REPORT ---
REQUESTING PHYSICIAN: Dr. Eliza Urias. CLINICAL DIAGNOSIS: Syncope with fall, posttraumatic small subarachnoid hemorrhage, question seizure. ELECTROENCEPHALOGRAM DIAGNOSIS: Essentially normal during wakefulness. DESCRIPTION OF TRACING: This EEG was done as a bedside recording and is of excellent technical quality with few or no muscle or movement artifacts. Simultaneous video analysis of patient movement and behavior was obtained. Photic stimulation was performed. Hyperventilation was not. Drowsiness is recorded episodically and of short duration. Under these conditions, there is evidence for a background rhythm in the alpha range of up to 10 Hz of maximum frequency and 30 microvolts of maximum amplitude. This is maximum in posterior head regions and bilaterally symmetrical. Polymorphic mid to upper frequency theta activity of modest voltage is seen over all head regions without clear focal or regional predominance. Anterior head region maximum, bilaterally symmetrical, low voltage fast activity in the beta range is present. Photic stimulation provoked some modest driving response without a photomyogenic or photoparoxysmal component. Episodic drowsiness is recorded during which no abnormal activations occur. At no time during the waking or brief duration drowsy recordings is there evidence for potentially epileptogenic activity in the form of polyspike or spike wave bursts, focal sharp waves or focal spikes. INTERPRETATION: This EEG is essentially normal during wakefulness without evidence for focal or generalized encephalopathy and without evidence for potentially epileptogenic activity. MTDD
[2016-12-12] MEDS ORDERED: NURSING VERBAL MED ORDER ONE (15:15)
--- NOTE | 2016-12-12 16:07 | Progress Note ---
Internal Med Progress Note Date of Service: Dec 12, 2016. Provider Documentation: SUBJECTIVE: Patient is lying in her bed in no apparent distress. Alert/Awake and answers my questions appropriately. Denies any headache/nausea/vomiting. No other new change or complaint. OBJECTIVE: Vital Signs-as noted below Examination: General Appearance: Alert/Awake and is in no apparent distress HEENT: Normocephalic, Eyes, ears, Nose & Throat are normal looking. Neck: Supple, Midline trachea, No JVD Respiratory/Chest: lungs clear, normal breath sounds, no respiratory distress, no accessory muscle use Cardiovascular: regular rate, rhythm, no edema, no murmur Abdomen: normal bowel sounds, non tender, soft Extremities: normal inspection, no pedal edema Neurologic/Psychiatric: no motor/sensory deficits, alert, normal mood/affect Skin: normal color Lymphatic: no adenopathy Lab data as noted below. ASSESSMENT & PLAN: Subarachnoid Hemorrhage: Traumatic Subarachnoid hemorrhage s/p fall Head CT initially showing small hyperdense focus at R medial frontal lobe and L parietal lobe Repeat Head CT shows interval improvement, no new hemorrhage -No neurological deficits noted -Clinically & hemodynamically stable -Ordered PT/OT evaluation -Neurology following the patient -EEG is normal. Syncopal Episode: Patient had a fall But cannot recall the event, but does recall being somewhat dizzy States she did not drink anything. -Carotid U/S, echo shows no clinically significant stenosis. Paroxysmal Atrial Fibrillation: Currently in NSR -Taken off Coumadin & was given Vitamin K and K Centra yesterday -INR initially supra-therapeutic, now fully reversed -Sotalol dose has been increased. UTI Caused by E. Coli: Sensitivity is pending. -Continue Rocephin (Day # 2). Dyslipidemia: Cont. statin DVT Prophylaxis: SCDs Patient is DNR Disposition: Discharge home with PT/OT or Rehab. Discharge planning evaluation requested. Met her son at bedside. Vital Signs: Date Time Temp Pulse Resp B/P Pulse Ox O2 Delivery O2 Flow Rate FiO2 12/12/16 12:00 36.7 58 20 118/56 98 Room Air 12/12/16 12:00 Room Air 12/12/16 08:00 36.5 73 20 129/63 95 Room Air 12/12/16 08:00 Room Air 12/12/16 05:58 60 14 122/64 99 12/12/16 04:58 58 14 127/63 99 12/12/16 04:00 Room Air 12/12/16 03:58 36.8 60 12 113/59 94 12/12/16 02:59 125 13 112/73 94 12/12/16 01:59 108 16 117/80 93 12/12/16 00:59 36.7 105 17 118/100 96 12/12/16 00:01 Room Air 12/11/16 23:35 134 17 114/71 94 Room Air 12/11/16 23:06 134 17 81/42 12/11/16 23:03 141 16 102/86 12/11/16 23:01 128 20 143/101 12/11/16 23:00 115 17 12/11/16 22:00 57 14 94 12/11/16 21:59 57 18 144/63 93 Room Air 12/11/16 20:00 Room Air 12/11/16 19:58 36.6 59 16 132/65 97 Room Air 12/11/16 18:22 36.6 71 18 147/65 97 Room Air Lab Results: Results Past 24 Hours Test 12/11/16 23:26 12/11/16 23:40 12/12/16 05:54 Range/Units Bedside Glucose 92 70-90 mg/dl Hemoglobin 12.0 11.7 12.0-16.0 g/dL Hematocrit 34.8 34.0 37-47 % Sodium Level 143 144 136-145 mmol/L Potassium Level 3.5 4.2 3.5-5.1 mmol/L Chloride Level 110 113 98-107 mmol/L Carbon Dioxide Level 20 23 21-32 mmol/L Anion Gap 13.0 8.0 3-11 mmol/L Blood Urea Nitrogen 15 11 7-18 mg/dl Creatinine 0.67 0.61 0.60-1.20 mg/dl Est Creatinine Clear Calc Drug Dose 52.6 57.8 ml/min Estimated GFR () 94.2 97.2 Estimated GFR (Non- 81.3 83.8 BUN/Creatinine Ratio 22.7 18.2 10-20 Random Glucose 89 86 70-99 mg/dl Lactic Acid Level 1.3 0.4-2.0 mmol/L Calcium Level 8.7 8.3 8.5-10.1 mg/dl Magnesium Level 1.8 1.8-2.4 mg/dl White Blood Count 5.75 4.8-10.8 K/uL Red Blood Count 3.59 4.2-5.4 M/uL Mean Corpuscular Volume 94.7 80-100 fL Mean Corpuscular Hemoglobin 32.6 25-34 pg Mean Corpuscular Hemoglobin Concent 34.4 32-36 g/dl Platelet Count 152 130-400 K/uL Mean Platelet Volume 10.0 7.4-10.4 fL Neutrophils (%) (Auto) 54.3 % Lymphocytes (%) (Auto) 29.9 % Monocytes (%) (Auto) 11.5 % Eosinophils (%) (Auto) 4.0 % Basophils (%) (Auto) 0.3 % Neutrophils # (Auto) 3.12 1.4-6.5 K/uL Lymphocytes # (Auto) 1.72 1.2-3.4 K/uL Monocytes # (Auto) 0.66 0.11-0.59 K/uL Eosinophils # (Auto) 0.23 0-0.5 K/uL Basophils # (Auto) 0.02 0-0.2 K/uL RDW Standard Deviation 43.4 36.4-46.3 fL RDW Coefficient of Variation 12.7 11.5-14.5 % Immature Granulocyte % (Auto) 0.0 % Immature Granulocyte # (Auto) 0.00 0.00-0.02 K/uL Activated Partial Thromboplast Time 28.4 21.0-31.0 SECONDS Partial Thromboplastin Ratio 1.1
[2016-12-12] MEDS: CEFTRIAXONE SOD INJ 1 GM in DEXTROSE 5% ADD-VANTAGE 50ML 50 ML IV SCH (16:26)
--- NOTE | 2016-12-12 19:16 | PROGRESS NOTE ---
DATE: 12/12/2016 Radha looks great today, but she actually looked pretty good yesterday too. She has still a little of tenderness over her scalp where she fell but no seizures have been recorded. There has been apparently no cardiac arrhythmias. Her EEG is absolutely normal and there is no evidence that the event that precipitated this fall and subsequent head trauma and traumatic subarachnoid hemorrhage was due to a seizure. Right now she can be transferred to a regular floor, get some therapy and hopefully will be able to get home at some point. Will continue to follow her along, but at this point I do not think neurology has much more to offer. At some point we will need to address the reinstitution of the coumadin in this woman with PAF but for now a minimum of two weeks is suggested and a ct prior to restarting would be required Kingston Matthew MD [facility]
[2016-12-12] MEDS: SIMVASTATIN 10 MG TAB PO SCH (19:24)
[2016-12-12] MEDS ORDERED: SOTALOL HCL 80 MG TAB PO SCH (21:00)
[2016-12-13 00:05] VITALS: BP 133/67; PULSE 61; TEMP 36.6; O2SAT 97
[2016-12-13 03:58] VITALS: BP 131/74; PULSE 54; TEMP 36.3; O2SAT 94
[2016-12-13 07:16] LABS: BASO % 0.5 %; BASO ABS # 0.03 K/uL (0-0.2); COMPLETE YES; EOS % 7.6 %; HEMATOCRIT 36.4 % (37-47); IG% 0.2 %; LYMPH % 28.4 %; LYMPH ABS # 1.71 K/uL (1.2-3.4); MEAN CELL VOLUME 95.3 fL (80-100); MEAN CORPUSCULAR HEMOGLOBIN 32.7 pg (25-34); MEAN CORPUSCULAR HGB CONC 34.3 g/dl (32-36); MEAN PLATELET VOLUME 10.1 fL (7.4-10.4); NEUT % 53.3 %; PLATELET COUNT 165 K/uL (130-400); RED BLOOD COUNT 3.82 M/uL (4.2-5.4); WHITE BLOOD COUNT 6.03 K/uL (4.8-10.8)
[2016-12-13 07:39] VITALS: BP 132/72; PULSE 58; TEMP 36.4; O2SAT 97
[2016-12-13 07:41] LABS: BUN/CREATININE RATIO 15.7 (10-20); CALCIUM 8.9 mg/dl (8.5-10.1); CREATININE 0.69 mg/dl (0.60-1.20); MAGNESIUM 1.9 mg/dl (1.8-2.4)
[2016-12-13 07:44] LABS: ALB/GLOB RATIO 0.8 (0.9-2)
[2016-12-13] MEDS: DOCUSATE SODIUM 100 MG CAP PO SCH (08:29)
[2016-12-13] MEDS: SOTALOL HCL 80 MG TAB PO SCH (08:29)
[2016-12-13] MEDS: CALCIUM 600MG + VIT D 400 IU TAB PO SCH (08:29)
[2016-12-13] MEDS: CEROVITE ADV FORMULA TAB PO SCH (08:29)
[2016-12-13] MEDS: DOCUSATE SODIUM/SENNA 50/8.6MG TAB PO SCH (08:30)
[2016-12-13 12:08] VITALS: BP 127/76; PULSE 52; TEMP 36.3; O2SAT 97
--- NOTE | 2016-12-13 13:36 | Progress Note ---
Internal Med Progress Note Date of Service: Dec 13, 2016. Provider Documentation: SUBJECTIVE: Patient is lying in her bed in no apparent distress. Alert/Awake and answers my questions appropriately. Denies any headache/nausea/vomiting. Has wendi able to ambulate in the room and hallway. No other new change or complaint. OBJECTIVE: Vital Signs-as noted below Examination: General Appearance: Alert/Awake and is in no apparent distress HEENT: Normocephalic, Eyes, ears, Nose & Throat are normal looking. Neck: Supple, Midline trachea, No JVD Respiratory/Chest: lungs clear, normal breath sounds, no respiratory distress, no accessory muscle use Cardiovascular: regular rate, rhythm, no edema, no murmur Abdomen: normal bowel sounds, non tender, soft Extremities: normal inspection, no pedal edema Neurologic/Psychiatric: no motor/sensory deficits, alert, normal mood/affect Skin: normal color Lymphatic: no adenopathy Lab data as noted below. ASSESSMENT & PLAN: Subarachnoid Hemorrhage: Traumatic Subarachnoid hemorrhage s/p fall Head CT initially showing small hyperdense focus at R medial frontal lobe and L parietal lobe Repeat Head CT shows interval improvement, no new hemorrhage -No neurological deficits noted -Clinically & hemodynamically stable -Ordered PT/OT evaluation -Neurology following the patient -EEG is normal. Syncopal Episode: Patient had a fall But cannot recall the event, but does recall being somewhat dizzy States she did not drink anything. -Carotid U/S, echo shows no clinically significant stenosis. Paroxysmal Atrial Fibrillation: Currently in NSR -Taken off Coumadin & was given Vitamin K and K Centra yesterday -INR initially supra-therapeutic, now fully reversed -Sotalol dose has been increased. UTI Caused by E. Coli: Sensitivity is pending. -Continue Rocephin (Day # 3).Will switch to Po Cipro upon discharge for total 7 days. Dyslipidemia: Cont. statin DVT Prophylaxis: SCDs Patient is DNR Disposition: Discharge home with PT/OT or Rehab. Discharge planning evaluation requested. Met her son at bedside. Vital Signs: Date Time Temp Pulse Resp B/P Pulse Ox O2 Delivery O2 Flow Rate FiO2 12/13/16 12:08 36.3 52 16 127/76 97 Room Air 12/13/16 12:00 Room Air 12/13/16 07:45 Room Air 12/13/16 07:39 36.4 58 16 132/72 97 Room Air 12/13/16 04:00 Room Air 12/13/16 03:58 36.3 54 18 131/74 94 Room Air 12/13/16 00:05 36.6 61 18 133/67 97 Room Air 12/13/16 00:00 Room Air 12/12/16 20:57 36.6 59 17 96 12/12/16 20:00 Room Air 12/12/16 19:58 36.6 59 17 118/70 96 Room Air 12/12/16 18:58 64 19 106/59 94 Room Air 12/12/16 16:00 Room Air 12/12/16 16:00 36.7 65 20 112/64 95 Room Air Lab Results: Results Past 24 Hours Test 12/13/16 06:46 Range/Units White Blood Count 6.03 4.8-10.8 K/uL Red Blood Count 3.82 4.2-5.4 M/uL Hemoglobin 12.5 12.0-16.0 g/dL Hematocrit 36.4 37-47 % Mean Corpuscular Volume 95.3 80-100 fL Mean Corpuscular Hemoglobin 32.7 25-34 pg Mean Corpuscular Hemoglobin Concent 34.3 32-36 g/dl Platelet Count 165 130-400 K/uL Mean Platelet Volume 10.1 7.4-10.4 fL Neutrophils (%) (Auto) 53.3 % Lymphocytes (%) (Auto) 28.4 % Monocytes (%) (Auto) 10.0 % Eosinophils (%) (Auto) 7.6 % Basophils (%) (Auto) 0.5 % Neutrophils # (Auto) 3.22 1.4-6.5 K/uL Lymphocytes # (Auto) 1.71 1.2-3.4 K/uL Monocytes # (Auto) 0.60 0.11-0.59 K/uL Eosinophils # (Auto) 0.46 0-0.5 K/uL Basophils # (Auto) 0.03 0-0.2 K/uL RDW Standard Deviation 44.1 36.4-46.3 fL RDW Coefficient of Variation 12.8 11.5-14.5 % Immature Granulocyte % (Auto) 0.2 % Immature Granulocyte # (Auto) 0.01 0.00-0.02 K/uL Sodium Level 142 136-145 mmol/L Potassium Level 4.0 3.5-5.1 mmol/L Chloride Level 109 98-107 mmol/L Carbon Dioxide Level 24 21-32 mmol/L Anion Gap 9.0 3-11 mmol/L Blood Urea Nitrogen 11 7-18 mg/dl Creatinine 0.69 0.60-1.20 mg/dl Est Creatinine Clear Calc Drug Dose 51.1 ml/min Estimated GFR () 93.3 Estimated GFR (Non- 80.5 BUN/Creatinine Ratio 15.7 10-20 Random Glucose 84 70-99 mg/dl Calcium Level 8.9 8.5-10.1 mg/dl Magnesium Level 1.9 1.8-2.4 mg/dl Total Bilirubin 0.7 0.2-1 mg/dl Aspartate Amino Transf (AST/SGOT) 22 15-37 U/L Alanine Aminotransferase (ALT/SGPT) 22 12-78 U/L Alkaline Phosphatase 94 45-117 U/L Total Protein 6.9 6.4-8.2 gm/dl Albumin 3.1 3.4-5.0 gm/dl Globulin 3.8 2.5-4.0 gm/dl Albumin/Globulin Ratio 0.8 0.9-2
--- NOTE | 2016-12-13 14:29 | Progress Note ---
Post ICU Progress Note Date & Time Dec 13, 2016 at 14:19 Vital Signs Vital Signs Past 12 Hours Date Time Temp Pulse Resp B/P Pulse Ox O2 Delivery O2 Flow Rate FiO2 12/13/16 12:08 36.3 52 16 127/76 97 Room Air 12/13/16 12:00 Room Air 12/13/16 07:45 Room Air 12/13/16 07:39 36.4 58 16 132/72 97 Room Air 12/13/16 04:00 Room Air 12/13/16 03:58 36.3 54 18 131/74 94 Room Air Notes Mental Status: alert / awake, participated in evaluation Nausea / Vomiting: adequately controlled Pain: adequately controlled Airway Patency, RR, SpO2: stable & adequate BP & HR: stable & adequate Radha Bazan is an 81-year-old female who presented to the emergency department via EMS on December 10 for syncope and head contusion from fall. CT at that time demonstrated subarachnoid hemorrhage/contusion. According to her son she was not unconscious for very long and return to her normal baseline within 5 minutes of her fall. She states that she had seen colored spots prior to passing out and that nothing like this is ever happened before. She was admitted to the ICU for close neurological observation. During this admission she is not required intubation, central venous access, or invasive monitoring. However she was diagnosed with a UTI which she is now being treated for with Rocephin. She has been followed by cardiology during this admission; as well as neurology. She has undergone both ECHO and EEG. She was transferred from the ICU on 12/11. Upon visiting her today she is very talkative and in good spirits. She states she actually enjoys being at the hospital for the interaction with the medical staff. She denies chest pain/pressure, cough, shortness of breath, fever, chills, , difficulty urinating, or numbness/tingling. There are no new findings upon physical exam. Patient is known to have paroxysmal atrial fibrillation; she is in NSR today. Patient is stable. Her hospitalist physician has not yet given her a date for release from the hospital nor is she currently aware of if she will go to rehabilitation afterwards. Consider outpatient follow up in 1 to 2 weeks with: Dr. Chapman Repeat imaging needed: Per neurology recommendations Follow up cultures: None Reviewed progress notes, labs, and inpatient medication list Continue current management Additional recommendations: None Mrs. Bazan is stable; critical care will sign off at this time. Thank you for including us in the care of this patient; please feel free to reconsult as needed Consults & Procedures Consultants: Neurology: Dr. Matthew Cardiology: Dr. Benavides
[2016-12-13 15:58] VITALS: BP 126/72; PULSE 56; TEMP 36.6; O2SAT 97
--- NOTE | 2016-12-13 16:00 | Cardiology Follow-Up ---
Subjective Subjective Date of Service: Dec 13, 2016. Pt evaluation today including: conversation w/ patient, conversation w/ family , physical exam, chart review, lab review, review of studies, review of inpatient medication list Additional Details: Pt seen and examined, with son at bedside. Denies complaint. States that she feels well. Ambulating with walker. No recurrence of palpitations. Denies cp, sob, lightheadedness or dizziness. Tele reviewed: sinus rhythm without arrhythmia or significant ectopy. Problem List Medical Problems: (1) Anticoagulated on Coumadin Status: Acute (2) Cerebral hemorrhage Status: Acute (3) Dizziness Status: Acute (4) Head injury Status: Acute (5) Subarachnoid hemorrhage Status: Acute (6) Syncope Status: Acute Review of Systems Constitutional: No chills, No fever Respiratory: No cough, No dyspnea at rest, No dyspnea on exertion, No hemoptysis, No problem reported, No see HPI, No shortness of breath, No sputum, No wheezing Cardiac: + palpitations, No PND, No chest pain, No claudication, No edema, No orthopnea, No problem reported, No see HPI Abdomen: No diarrhea, No nausea, No pain, No vomiting Female : No dysuria, No hematuria, No urinary frequency Neurologic: + balance problems, No memory loss, No numbness/tingling, No paralysis, No vertigo Heme: No abnormal bleeding/bruising Objective Vital Signs Last Vital Signs Documentation Date Time Temp Pulse Resp B/P Pulse Ox O2 Delivery O2 Flow Rate FiO2 12/13/16 12:08 36.3 52 16 127/76 97 Room Air Physical Exam: General Appearance: WD/WN, no apparent distress Eyes: bilateral eyes EOMI, bilateral eyes PERRL, bilateral eyes normal inspection ENT: normal ENT inspection, hearing grossly normal, pharynx normal Neck: supple, no adenopathy, thyroid normal, no JVD, no carotid bruits, trachea midline Respiratory/Chest: lungs clear, normal breath sounds, no respiratory distress, no accessory muscle use Cardiovascular: regular rate, rhythm, no edema, no JVD, no murmur, + gallop/S4 Abdomen: normal bowel sounds, non tender, soft Extremities: normal inspection, no pedal edema, no calf tenderness 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 syncope likely orthostatic no structural abnormality on echo no ventricular arrhythmias on monitor 2. paf with rvr was orthostatic during episode, to be expected tolerating sotalol 80mg bid obviously, no longer a coumadin candidate will await recommendations from neuro on whether aspirin would be acceptable given subarachnoid hemorrhage, doubt it
[2016-12-13] MEDS ORDERED: CIPR1TAB10 PO (16:14)
--- NOTE | 2016-12-13 16:18 | Discharge Instructions ---
Discharge Instructions Admission Reason for Admission: Subarachnoid Hemorrhage Discharge Discharge Diagnosis / Problem: S/P Fall, UTI Caused by E. Coli Discharge Goals Goal(s): Decrease discomfort, Improve function, Increase independence, Improve disease control, Learn about illness, Diagnostic testing, Therapeutic intervention Activity Recommendations Activity Limitations: resume your previous activity (As tolerated following fall precautions) Exercise/Sports Limitations: as tolerated Shower/Bathe: no limitations . Instructions / Follow-Up Instructions / Follow-Up 1. Take all your medications as advised. 2. Drink adequate amount of fluids. 3. Participate in PT/OT 4. Follow up with your PCP on 12/18/2016 @ 1.10 PM Current Hospital Diet Patient's current hospital diet: AHA Diet (Heart Healthy) Discharge Diet Recommended Diet: AHA Diet (Heart Healthy) Pending Studies Studies pending at discharge: no Medical Emergencies . Who to Call and When: Medical Emergencies: If at any time you feel your situation is an emergency, please call 911 immediately. . Non-Emergent Contact Non-Emergency issues call your: Primary Care Provider . . "Provider Documentation" section prepared by Shaun Walker. VTE Core Measure Inpt VTE Proph given/why not?: SCD's
[2016-12-13] MEDS: CEFTRIAXONE SOD INJ 1 GM in DEXTROSE 5% ADD-VANTAGE 50ML 50 ML IV SCH (16:21)
--- NOTE | 2016-12-13 16:23 | Discharge Summary ---
Discharge Summary Admission Date: Dec 10, 2016 at 18:45 Discharge Date: Dec 13, 2016 Discharge Disposition: Home with services Principal Diagnosis: Subarachnoid Hemorrhage S/P Fall UTI Caused by E. Coli Possibly Syncopal Episode Secondary Diagnoses/Problems: History Atrial Fibrillation Dyslipidemia Procedures: HEAD CT NONCONTRAST HISTORY: Trauma. SAH; monitor Comparison: 12/10/2016 Findings: The paranasal sinuses and mastoid air cells are clear. Stable to slightly improved exam compared to the prior study. The focus of acute bleed medial right frontal lobe medially lateral to the right interhemispheric fissure is unchanged. Small focus of parenchymal contusion left superior parietal lobe is diminished and is poorly identified currently. There is no evidence for new or interval finding. There is no midline shift. Stable atrophy is present. Impression: Stable to slightly improved intracranial bleed compared to the prior study. No evidence for new, interval, or progressive process. CAROTID ARTERY ULTRASOUND IMPRESSION: 1. No evidence of a hemodynamically significant stenosis. 2. 1.9 cm right lobe thyroid nodule. Vaccinations: NONE Consultations: Neurology Nicker And Breaker Pending Studies/Follow-Up: Follow up with Coumadin clinic in 3-4 days Medication Reconciliation New Medications: Ciprofloxacin Hcl (Cipro) 500 Mg Tab 500 MG PO BID, #8 TAB Continued Medications: Alendronate Sodium (Fosamax) 70 Mg Tab 70 MG PO WK, TAB TAKES ON SUNDAY Calcium/Vitamin D (Os-Jonathon 500 Plus D) Tab 1 TAB PO BID, TAB Docusate Sodium (Docusate Sodium) 100 Mg Cap 1 CAP PO BID for 15 Days, #30 CAP Fish Oil ([place]-3) 1 Ea Cap 1 GM PO DAILY, CAP Multiple Vitamins W/ Minerals (Preservision/Lutein) 1 Cap Cap 1 CAP PO BID Multiple Vitamins W/ Minerals (Centrum Silver) 1 Chw Chw 1 TAB PO DAILY Sennosides-Docusate Sodium (Senna Plus) 1 Tab Tab 1 TAB PO DAILY Simvastatin (Zocor) 10 Mg Tab 10 MG PO QPM, TAB Sotalol Hcl (Betapace) 80 Mg Tab 80 MG PO QAM, TAB Sotalol Hcl (Betapace) 80 Mg Tab 40 MG PO QPM, TAB Warfarin Sod (Coumadin) 3 Mg Tab 3 MG PO 2XWK TAKE ON SUN AND SUN Discontinued Medications: Warfarin Sodium (Coumadin) 3 Mg Tab 6 MG PO 5XWK, TAB TAKE ALL DAYS BUT MON & WED Admission Information HPI (per Admitting provider): This is an 81 y/o female with PMHx of PAF on Coumadin, Dyslipidemia and other problems as outlined below who presents to the ED c/o syncopal episode this morning. Pt reports that she woke up feeling well and ate her breakfast. When she stood up, she became acutely lightheaded and dizzy with assoc visual changes and ended up passing out. Her son was home at the time. He did not observe the syncopal episode but he heard her fall and was by her side almost immediately. He reports that patient was unconscious for approx 30 seconds and returned to her baseline within 5 minutes. Pt has little recollection of the event. Pt denies fever/chills, diaphoresis, chest pain, palpitations, SOB, wheezing, abd pain, N/V, diarrhea, constipation, hematochezia, melena, dysuria, hematuria, LE edema, calf pain. In the ED, vitals are stable. HgB 12.7. INR 4.0. Head CT + small SAH within R medial frontal lobe and L parietal lobe. CXR negative for rib fx or pneumothorax. Pt received Vit K and IVF in the ED. She is stable and will be admitted for further evaluation and treatment. 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 -Coumadin can be started as per Neurology Syncopal Episode: Patient had a fall But cannot recall the event, but does recall being somewhat dizzy States she did not drink anything. -Carotid U/S, echo shows no clinically significant stenosis. Paroxysmal Atrial Fibrillation: Currently in NSR -Taken off Coumadin & was given Vitamin K and K Centra yesterday -INR initially supra-therapeutic, now fully reversed -Sotalol dose has been increased. -Coumadin can be started as per Neurology and follow up Coumadin clinic. UTI Caused by E. Coli: Sensitivity is pending. -Continue Rocephin (Day # 3).Will switch to Po Cipro upon discharge for total 7 days. Dyslipidemia: Cont. statin DVT Prophylaxis: SCDs Patient is DNR Disposition: Discharge home with PT/OT or Rehab. Discharge planning evaluation requested. Met her son at bedside. Discharge home later today. Total time spent on discharge = 44 minutes. This includes examination of the patient, discharge planning, medication reconciliation, and communication with other providers. Discharge Instructions Discharge Discharge Diagnosis / Problem: S/P Fall, UTI Caused by E. Coli Discharge Goals Goal(s): Decrease discomfort, Improve function, Increase independence, Improve disease control, Learn about illness, Diagnostic testing, Therapeutic intervention Activity Recommendations Activity Limitations: resume your previous activity (As tolerated following fall precautions) Exercise/Sports Limitations: as tolerated Shower/Bathe: no limitations . Instructions / Follow-Up Instructions / Follow-Up 1. Take all your medications as advised. 2. Drink adequate amount of fluids. 3. Participate in PT/OT 4. Follow up with your PCP on 12/18/2016 @ 1.10 PM Additional Copies To Eduardo Chapman M.D.
[2016-12-13 17:16] VITALS: BP 126/72; PULSE 56; TEMP 36.6; O2SAT 97
[2017-02-03] MEDS ORDERED: SULF-183 PO (13:50)
[2017-02-03] MEDS ORDERED: TYL325X PO (13:50)
[2017-02-03] MEDS ORDERED: LEVE500T13 PO (13:59)
== END 2016-12-13 19:05 | disposition home health service (06) | DRG 86 ==
LOC: ENRESERVDT → ENRESERVTM → EDBD 14:09 → C.EDB 14:10 → C.MSICU 18:45 → C.MED 12-12 21:18
PROVIDERS: ADMIT Family Medicine; ATTEND Emergency Medicine
DX: S06.6X1A Traumatic subarachnoid hemorrhage with loss of consciousness of 30 minutes or less, initial encounter (principal); N39.0 Urinary tract infection, site not specified; I48.0 Paroxysmal atrial fibrillation; S00.00XA Unspecified superficial injury of scalp, initial encounter; E78.5 Hyperlipidemia, unspecified; H35.30 Unspecified macular degeneration; Z96.641 Presence of right artificial hip joint; Z79.01 Long term (current) use of anticoagulants; Y92.009 Unspecified place in unspecified non-institutional (private) residence as the place of occurrence of the external cause; B96.20 Unspecified Escherichia coli [E. coli] as the cause of diseases classified elsewhere; W19.XXXA Unspecified fall, initial encounter; Z85.828 Personal history of other malignant neoplasm of skin; Z66 Do not resuscitate; E86.0 Dehydration; Y92.013 Bedroom of single-family (private) house as the place of occurrence of the external cause

== ENCOUNTER 2017-01-17 11:58 | Emergency (ER) | payer OTHER ==
[~2017-01-17] VITALS: Ht 165.1 cm; Wt 64.2 kg
[~2017-01-17 11:58] MED LIST changes: +ALEN70TA4 PO; +CALC500C70 PO; -CENTTAB41 PO; +CIPR1TAB10 PO; -CLC100X PO; +CMD3 PO; +DOCU100C31 PO; -GLUC500C60 PO; +MULTCAP36 PO; +MULTCHW PO; +OMEG10007 PO; +SENN1TAB65 PO
[2017-01-17 12:08] VITALS: Ht 165.1 cm; Wt 64.2 kg
[2017-01-17 12:13] VITALS: O2SAT 95
[2017-01-17] MEDS ORDERED: WARF6TAB5 PO (12:29)
--- NOTE | 2017-01-17 13:14 | EMERGENCY ROOM VISIT NOTE ---
History Report prepared by Fernanda: Stalin Keen Under the Supervision of: Dr. Abdifatah Sexton M.D. First contact with patient: 13:05 Chief Complaint: FALL Stated Complaint: WEAKNESS History of Present Illness The patient is an 81 year old female who presents to the Emergency Room with complaints of increased generalized weakness over the past two days. The patient also notes dizziness when she attempts to ambulate. The patient had two falls two days ago secondary to weakness. The patient was in the ED 6 weeks ago after an episode of syncope that led to a brain bleed. The patient is on Warfarin for a history of atrial fibrillation. The patient has not had a repeat CT since being discharged from the hospital. She also had a UTI at that time. The patient is still on Coumadin. She notes decreased appetite lately. The patient's heart rate is lower at baseline, per family. The patient denies neck pain, abdominal pain, diarrhea, burning with urination, or swelling of the legs. The patient follows up with [facility]. She recently had a halter monitor. Source of History: patient, family Onset: two days Position: other (generalized) Quality: other (weakness) Timing: other (increased) Associated Symptoms: No abdominal pain, No diarrhea, No neck pain, No urinary symptoms Review of Systems See HPI for pertinent positives & negatives. A total of 10 systems reviewed and were otherwise negative. Past Medical & Surgical Medical Problems: (1) Abrasion, scalp w/o infection (2) Dyslipidemia (3) Macular degeneration (4) Paroxysmal atrial fibrillation Surgical Problems: (1) History of back surgery (2) History of tonsillectomy (3) History of total right hip arthroplasty Family History Patient reports no known family medical history. Social History Smoking Status: Former Smoker Alcohol Use: occasionally Drug Use: none Marital Status: Housing Status: lives with family Occupation Status: retired Current/Historical Medications Scheduled Alendronate Sodium (Fosamax), 70 MG PO WK Calcium/Vitamin D (Os-Jonathon 500 Plus D), 1 TAB PO BID Docusate Sodium (Docusate Sodium), 1 CAP PO BID Fish Oil ([place]-3), 1 GM PO DAILY Multiple Vitamins W/ Minerals (Preservision/Lutein), 1 CAP PO BID Multiple Vitamins W/ Minerals (Centrum Silver), 1 TAB PO DAILY Sennosides-Docusate Sodium (Senna Plus), 1 TAB PO DAILY Simvastatin (Zocor), 10 MG PO QPM Sotalol Hcl (Betapace), 80 MG PO QAM Sotalol Hcl (Betapace), 40 MG PO QPM Warfarin Sod (Coumadin), 3 MG PO 3XWK Warfarin Sod (Jantoven), 6 MG PO 4XWK Allergies Coded Allergies: No Known Allergies (Unverified , 11/10/12) Physical Exam Vital Signs Date Time Temp Pulse Resp B/P Pulse Ox O2 Delivery O2 Flow Rate FiO2 01/17/17 16:16 36.7 58 16 99/55 98 01/17/17 16:03 58 16 99/55 98 01/17/17 16:01 99/55 01/17/17 15:58 59 16 97 01/17/17 15:53 62 17 98 01/17/17 15:48 61 16 96 01/17/17 15:43 65 20 93/52 89 Room Air 01/17/17 15:42 105/56 01/17/17 15:30 90/55 01/17/17 15:28 52 20 01/17/17 15:24 114/61 01/17/17 15:23 77 22 01/17/17 15:18 75 14 01/17/17 15:13 59 18 82 01/17/17 15:08 59 19 96 01/17/17 15:03 62 18 98 01/17/17 14:59 121/56 01/17/17 14:58 61 39 01/17/17 14:58 53 18 121/56 97 Room Air 01/17/17 14:03 56 14 97 01/17/17 13:58 56 17 97 01/17/17 13:53 53 25 97 01/17/17 13:48 54 16 97 01/17/17 13:43 56 14 98 01/17/17 13:38 63 20 01/17/17 13:33 53 13 96 01/17/17 13:29 117/61 01/17/17 13:28 54 15 148/72 96 01/17/17 13:27 122/61 01/17/17 13:25 54 122/61 95 Room Air 56 148/72 55 117/61 01/17/17 13:23 52 13 96 01/17/17 13:18 52 14 95 01/17/17 13:13 56 17 96 01/17/17 13:08 54 20 98 01/17/17 13:03 46 24 95 01/17/17 12:58 47 15 96 01/17/17 12:53 50 15 94 01/17/17 12:48 51 18 94 01/17/17 12:43 49 13 94 01/17/17 12:38 50 17 95 01/17/17 12:33 52 14 94 01/17/17 12:28 50 13 96 01/17/17 12:23 50 15 94 01/17/17 12:18 49 15 95 01/17/17 12:13 52 01/17/17 12:13 50 17 95 01/17/17 12:13 95 Room Air 01/17/17 12:08 36.7 50 16 135/62 97 Room Air 01/17/17 12:06 135/62 Physical Exam GENERAL: Patient is elderly and tired appearing and in no acute distress. HEENT: No acute trauma, normocephalic atraumatic, mucous membranes moist, no nasal congestion, no scleral icterus. NECK: No stridor, no adenopathy, no meningismus, trachea is midline. LUNGS: No dyspnea. Clear to auscultation and equal bilaterally. No wheeze, no rhonchi. HEART: Bradycardic, regular rhythm. No murmurs, rubs, gallops appreciated. ABDOMEN: Soft, nontender, bowel sounds positive, no masses appreciated, no peritonitis. BACK: No midline tenderness, no CVA tenderness EXTREMITIES: Normal motion all extremities, no cyanosis, no edema. NEUROLOGIC: Alert and oriented, no acute motor or sensory deficits, no focal weakness, cranial nerves grossly intact. SKIN: No rash, no jaundice, no diaphoresis. Medical Decision & Procedures ER Provider Diagnostic Interpretation: Radiology results and stated below per my review and radiologist interpretation: SINGLE VIEW CHEST CLINICAL HISTORY: Generalized weakness. FINDINGS: An AP, portable, upright chest radiograph is compared to study dated 11/24/2012 and correlated with chest CT dated 11/13/2012. The examination is degraded by portable technique and patient rotation. The heart is top normal for projection. There is atherosclerotic calcification of the thoracic and. Mild chronic elevation of the right hemidiaphragm and interstitial thickening are unchanged. No airspace consolidation, large pleural effusion, or pneumothorax is seen. The skeletal structures are osteopenic. Degenerative change is noted throughout the thoracic spine. IMPRESSION: No acute cardiopulmonary abnormality. Electronically signed by: Xavier Fuentes M.D. 01/17/2017 1:34 PM Dictated Date/Time: 01/17/2017 1:[address] CT DOSE: 537.48 mGy.cm HISTORY: Generalized Weakness TECHNIQUE: Multiaxial CT images of the head were performed without the use of intravenous contrast. Automated exposure control was utilized for this study. Comparison: Head CT 12/11/2016. Findings: Fluid level with partial opacification of the right sphenoid sinus. The remaining paranasal sinuses and mastoid air cells are clear. There is an acute on chronic right sided subdural hematoma which primarily involves the frontal region. This measures a maximal thickness of 2.7 cm at the right high convexity. There is associated mass effect along the right cerebral hemisphere and up to 7 mm of left midline shift. No mass or acute infarct identified. Impression: Acute on chronic right subdural hematoma resulting in 7 mm of left midline shift. These findings were discussed with Dr. Sexton at 2:30 PM on 01/17/2017. Electronically signed by: Ivan Peralta M.D. 01/17/2017 2:32 PM Dictated Date/Time: 01/17/2017 2:[address] SCAN OF THE BRAIN WITHOUT IV CONTRAST CLINICAL HISTORY: Change in mental status. Follow-up hemorrhage. COMPARISON STUDY: CT of the brain dated 01/17/2017 and 12/11/2016. TECHNIQUE: Unenhanced axial CT scan of the brain is performed from the vertex to the skull base. CT DOSE: 614.27 mGy.cm FINDINGS: Brain parenchyma: There has been no significant change in the appearance of an acute on chronic. Right subdural hematoma as compared to the study performed 1 hour previously. This measures a maximum of 2.8 cm in thickness and causes mass effect with effacement of the cortical sulci and approximately 7 mm of right to left midline shift. There are age-related involutional changes noting mild subcortical and periventricular microangiopathic change. There is no parenchymal hematoma or evidence of acute territorial ischemia by CT criteria. Churchill-white matter is preserved. Ventricles, sulci, cisterns: Prominent secondary to involutional change. Intracranial vasculature: There is atherosclerotic calcification of the cavernous carotid and vertebral arteries. Calvarium: Unremarkable. Sinuses and mastoids: Mucosal thickening is present in the right sphenoid sinus. The remaining paranasal sinuses are clear. The mastoid air cells are well pneumatized. Orbits: The bony orbits are grossly intact. IMPRESSION: No significant change in the appearance of an acute on chronic appearing right subdural hematoma as compared to study performed 1 hour previously. There is approximate 7 mm of [id number] midline shift. See above. Electronically signed by: Xavier Fuentes M.D. 01/17/2017 3:46 PM Dictated Date/Time: 01/17/2017 3:[address] DOSE: 254.40 mGy.cm HISTORY: Pain. Trauma. trauma TECHNIQUE: Multiaxial CT images of the cervical spine were performed and reformatted in the sagittal and coronal plane without the use of contrast. COMPARISON: 12/11/2016 FINDINGS: Considerable degenerative change throughout the entire cervical region. This predominates from C4 through T1. Minimal grade 1 anterolisthesis C7 on T1 felt to be secondary to degenerative changes of posterior elements. Transaxial images confirm degenerative changes of the lateral facets throughout. A well-defined acute cortical fracture is not appreciated. IMPRESSION: Degenerative change. No acute process. Electronically signed by: Hugo Levi M.D. 01/17/2017 3:45 PM Dictated Date/Time: 01/17/2017 3:42 PM Laboratory Results 01/17/17 12:15 Red Blood Count 3.72, Mean Corpuscular Volume 94.1, Mean Corpuscular Hemoglobin 32.5, Mean Corpuscular Hemoglobin Concent 34.6, Mean Platelet Volume 10.5, Neutrophils (%) (Auto) 58.0, Lymphocytes (%) (Auto) 29.8, Monocytes (%) (Auto) 8.3, Eosinophils (%) (Auto) 3.5, Basophils (%) (Auto) 0.4, Neutrophils # (Auto) 2.67, Lymphocytes # (Auto) 1.37, Monocytes # (Auto) 0.38, Eosinophils # (Auto) 0.16, Basophils # (Auto) 0.02 01/17/17 12:15 Test 01/17/17 12:15 01/17/17 13:25 01/17/17 15:31 White Blood Count 4.60 K/uL (4.8-10.8) Red Blood Count 3.72 M/uL (4.2-5.4) Hemoglobin 12.1 g/dL (12.0-16.0) Hematocrit 35.0 % (37-47) Mean Corpuscular Volume 94.1 fL (80-100) Mean Corpuscular Hemoglobin 32.5 pg (25-34) Mean Corpuscular Hemoglobin Concent 34.6 g/dl (32-36) Platelet Count 181 K/uL (130-400) Mean Platelet Volume 10.5 fL (7.4-10.4) Neutrophils (%) (Auto) 58.0 % Lymphocytes (%) (Auto) 29.8 % Monocytes (%) (Auto) 8.3 % Eosinophils (%) (Auto) 3.5 % Basophils (%) (Auto) 0.4 % Neutrophils # (Auto) 2.67 K/uL (1.4-6.5) Lymphocytes # (Auto) 1.37 K/uL (1.2-3.4) Monocytes # (Auto) 0.38 K/uL (0.11-0.59) Eosinophils # (Auto) 0.16 K/uL (0-0.5) Basophils # (Auto) 0.02 K/uL (0-0.2) RDW Standard Deviation 44.5 fL (36.4-46.3) RDW Coefficient of Variation 12.9 % (11.5-14.5) Immature Granulocyte % (Auto) 0.0 % Immature Granulocyte # (Auto) 0.00 K/uL (0.00-0.02) Prothrombin Time 31.4 SECONDS (9.0-12.0) Prothromb Time International Ratio 2.8 (0.9-1.1) Activated Partial Thromboplast Time 40.1 SECONDS (21.0-31.0) Partial Thromboplastin Ratio 1.5 Anion Gap 7.0 mmol/L (3-11) Est Creatinine Clear Calc Drug Dose 57.2 ml/min Estimated GFR () 94.2 Estimated GFR (Non- 81.3 BUN/Creatinine Ratio 20.3 (10-20) Calcium Level 8.7 mg/dl (8.5-10.1) Phosphorus Level 2.7 mg/dl (2.5-4.9) Magnesium Level 2.1 mg/dl (1.8-2.4) Total Bilirubin 0.6 mg/dl (0.2-1) Direct Bilirubin 0.2 mg/dl (0-0.2) Aspartate Amino Transf (AST/SGOT) 20 U/L (15-37) Alanine Aminotransferase (ALT/SGPT) 24 U/L (12-78) Alkaline Phosphatase 91 U/L (45-117) Total Creatine Kinase 69 U/L (26-192) Creatine Kinase MB 0.8 ng/ml (0.5-3.6) Creatine Kinase MB Ratio 1.2 (0-3.0) Troponin I < 0.015 ng/ml (0-0.045) Total Protein 6.8 gm/dl (6.4-8.2) Albumin 3.3 gm/dl (3.4-5.0) Lipase 123 U/L (73-393) Urine Color YELLOW Urine Appearance CLEAR (CLEAR) Urine pH 8.0 (4.5-7.5) Urine Specific Bonner 1.006 (1.000-1.030) Urine Protein NEG (NEG) Urine Glucose (UA) NEG (NEG) Urine Ketones NEG (NEG) Urine Occult Blood NEG (NEG) Urine Nitrite NEG (NEG) Urine Bilirubin NEG (NEG) Urine Urobilinogen NEG (NEG) Urine Leukocyte Esterase NEG (NEG) Urine WBC (Auto) 0 /hpf (0-5) Urine RBC (Auto) 0-4 /hpf (0-4) Urine Hyaline Casts (Auto) 0 /lpf (0-5) Urine Epithelial Cells (Auto) 0-5 /lpf (0-5) Urine Bacteria (Auto) NEG (NEG) Bedside Glucose 114 mg/dl (70-90) Laboratory results as reviewed by me. Medications Administered Medications (Trade) Dose Ordered Sig/Troy Route Start Time Stop Time Status Last Admin Dose Admin Phytonadione 10 mg/Sodium Chloride 51 ml @ 102 mls/hr NOW STAT IV 01/17/17 14:33 01/17/17 15:02 DC 01/17/17 14:55 102 MLS/HR Sodium Chloride (Nss 1000ml) 1,000 ml @ 75 mls/hr [id number] STAT IV 01/17/17 15:56 01/17/17 17:13 DC 01/17/17 16:05 75 MLS/HR Ondansetron HCl (Zofran Inj) 4 mg NOW STAT IV 01/17/17 15:56 01/17/17 15:57 DC 01/17/17 16:03 4 MG ECG Indication: weakness Rate (beats per minute): 50 Rhythm: sinus bradycardia Findings: no acute ischemic change, no ectopy, other (QTC 513) ED Course 1307: The patient was evaluated in room A11b. A complete history and physical exam was performed. 1433: Phytonadione 10 mg / NSS 51 ml @ 102 mls/hr. 1435: [facility] Department paged. 1443: Discussed the case with Dr. Hutchison, [facility] ED. The patient was accepted for transfer. 1450: The patient is doing fine. 1515: The patient currently feels well. 1530: The patient became acutely confused and vomited. She also had a right facial droop. Her symptoms are currently resolved. She is not in any distress. Family requested a full code. 1555: The patient is awake, in no distress, talking, and has no neurological deficits at this time. 1556: Zofran 4 mg IV, NSS 1000 ml @ 75 mls/hr. 1605: The paramedics are here to transfer the patient. The patient does not have any complaints at this time. Medical Decision Differential: Sepsis, Infectious (UTI/Pneumonia/Meningitis/etc), Metabolic/ Electrolyte Abnormality, Cardiac, Hepatic, Endocrine, Toxicologic, Neurologic, amongst other pathologies entertained. Pleasant 81 yr old female with fall 2 days ago and since with worsening weakness and inability to walk correctly. Recent head bleed 6 weeks ago from fall with stopped Coumadin then restarted recently due to PAF. She had INR 4 day of fall. No clear neuro deficits on arrival and she really has no complaints while laying in bed. She was sent to CT for head given her history which revealed large subdural hematoma with 7 mm midline shift. INR is 2.8 here. She has normal work-up otherwise. Discussed with clinical pharmacist felt that with no clear emergent OR in next hour will hold on K-Centra and go with 10mg IV Vit K. No evidence infectious etiology of weakness. No evidence of ACS as cause. Transfer set up with [facility] due to fall being likely cause of bleed 2 days ago. Patient developed nausea, vomiting, dropped her BP and had near syncopal episode. Resolved spontaneously and given Zofran with improvement. Given her new symptoms I felt it reasonable to repeat CT head prior to transferring 1-[address] doing this [address] Cervical done given trauma and known bleed which was negative for acute findings. ON return from CT patient still feeling well, no further nausea and looking OK. Family and patient agree she is full code, but at this time, also agree to hold off on intubation unless absolutely necessary, which I think is optimal. She will be transferred via ALS and monitored closely. Stable and in no distress at discharge. With the large snow fall/storm/winds there was mild delay in transfer that was unavoidable. Consults Time Called: 1435 Consulting Physician: [facility] Returned Call: [phone]: Discussed the case with [facility]. The patient was accepted for transfer. Impression Primary Impression: Subdural hematoma Additional Impressions: Midline shift of brain Elevated INR Critical Care I have personally spent greater than 80 minutes of critical care time in the direct management of this patient. This was a life/limb threatening event. This includes time spent evaluating patient, direct bedside care, chart review, placing orders, interpretation of diagnostic studies, discussion with consultants, patient, and family members, as well as other required patient management activities. This 80 minutes is in excess of all separately billable procedures. Scribe Attestation The scribe's documentation has been prepared under my direction and personally reviewed by me in its entirety. I confirm that the note above accurately reflects all work, treatment, procedures, and medical decision making performed by me. Departure Information Dispostion Transfer Acute Care Facility Referrals Eduardo Chapman M.D. (PCP) Patient Instructions My [facility] Problem Qualifiers
[2017-01-17 13:30] LABS: INR 2.8 (0.9-1.1); PARTIAL THROMBOPLASTIN RATIO 1.5; PROTHROMBIN TIME (PATIENT) 31.4 SECONDS (9.0-12.0)
[2017-01-17 13:33] LABS: ALT/SGPT 24 U/L (12-78); AST/SGOT 20 U/L (15-37); BLOOD UREA NITROGEN 14 mg/dl (7-18); BUN/CREATININE RATIO 20.3 (10-20); CALCIUM 8.7 mg/dl (8.5-10.1); CARBON DIOXIDE 25 mmol/L (21-32); CHLORIDE 109 mmol/L (98-107); CREATININE 0.67 mg/dl (0.60-1.20); GLUCOSE 83 mg/dl (70-99); MAGNESIUM 2.1 mg/dl (1.8-2.4); POTASSIUM 4.2 mmol/L (3.5-5.1); SODIUM 141 mmol/L (136-145)
--- NOTE | 2017-01-17 13:35 | DIAGNOSTIC IMAGING REPORT ---
SINGLE VIEW CHEST CLINICAL HISTORY: Generalized weakness. FINDINGS: An AP, portable, upright chest radiograph is compared to study dated 11/24/2012 and correlated with chest CT dated 11/13/2012. The examination is degraded by portable technique and patient rotation. The heart is top normal for projection. There is atherosclerotic calcification of the thoracic and. Mild chronic elevation of the right hemidiaphragm and interstitial thickening are unchanged. No airspace consolidation, large pleural effusion, or pneumothorax is seen. The skeletal structures are osteopenic. Degenerative change is noted throughout the thoracic spine. IMPRESSION: No acute cardiopulmonary abnormality. Electronically signed by: Xavier Fuentes M.D. 01/17/2017 1:34 PM Dictated Date/Time: 01/17/2017 1:32 PM
[2017-01-17 13:36] LABS: ALKALINE PHOSPHATASE 91 U/L (45-117); CKMB/CK RATIO 1.2 (0-3.0); PHOSPHORUS 2.7 mg/dl (2.5-4.9)
[2017-01-17 14:12] LABS: BASO % 0.4 %; BASO ABS # 0.02 K/uL (0-0.2); COMPLETE YES; EOS % 3.5 %; LYMPH % 29.8 %; LYMPH ABS # 1.37 K/uL (1.2-3.4); MEAN CELL VOLUME 94.1 fL (80-100); MEAN CORPUSCULAR HEMOGLOBIN 32.5 pg (25-34); MEAN CORPUSCULAR HGB CONC 34.6 g/dl (32-36); MEAN PLATELET VOLUME 10.5 fL (7.4-10.4); MONO % 8.3 %; PLATELET COUNT 181 K/uL (130-400); RED BLOOD COUNT 3.72 M/uL (4.2-5.4)
[2017-01-17 14:13] LABS: URINE APPEARANCE CLEAR (CLEAR); URINE BILIRUBIN NEG (NEG); URINE COLOR YELLOW; URINE EPITHELIAL CELL AUTO 0-5 /lpf (0-5); URINE NITRITE NEG (NEG); URINE SPECIFIC GRAVITY 1.006 (1.000-1.030); UROBILINOGEN NEG (NEG); ZZURINE CULT IF INDIC CATH NO
[2017-01-17 14:14] LABS: MANUAL MICROSCOPIC REQUIRED? NO; REVIEW REQ? NO
[2017-01-17] MEDS ORDERED: PHYTONADIONE INJ 10 MG in SODIUM CHLORIDE 0.9% 50ML 50 ML IV STA (14:33)
--- NOTE | 2017-01-17 14:33 | DIAGNOSTIC IMAGING REPORT ---
HEAD CT NONCONTRAST CT DOSE: 537.48 mGy.cm HISTORY: Generalized Weakness TECHNIQUE: Multiaxial CT images of the head were performed without the use of intravenous contrast. Automated exposure control was utilized for this study. Comparison: Head CT 12/11/2016. Findings: Fluid level with partial opacification of the right sphenoid sinus. The remaining paranasal sinuses and mastoid air cells are clear. There is an acute on chronic right sided subdural hematoma which primarily involves the frontal region. This measures a maximal thickness of 2.7 cm at the right high convexity. There is associated mass effect along the right cerebral hemisphere and up to 7 mm of left midline shift. No mass or acute infarct identified. Impression: Acute on chronic right subdural hematoma resulting in 7 mm of left midline shift. These findings were discussed with Dr. Sexton at 2:30 PM on 01/17/2017. Electronically signed by: Ivan Peralta M.D. 01/17/2017 2:32 PM Dictated Date/Time: 01/17/2017 2:16 PM
--- NOTE | 2017-01-17 15:46 | DIAGNOSTIC IMAGING REPORT ---
CERVICAL SPINE CT CT DOSE: 254.40 mGy.cm HISTORY: Pain. Trauma. trauma TECHNIQUE: Multiaxial CT images of the cervical spine were performed and reformatted in the sagittal and coronal plane without the use of contrast. COMPARISON: 12/11/2016 FINDINGS: Considerable degenerative change throughout the entire cervical region. This predominates from C4 through T1. Minimal grade 1 anterolisthesis C7 on T1 felt to be secondary to degenerative changes of posterior elements. Transaxial images confirm degenerative changes of the lateral facets throughout. A well-defined acute cortical fracture is not appreciated. IMPRESSION: Degenerative change. No acute process. Electronically signed by: Hugo Levi M.D. 01/17/2017 3:45 PM Dictated Date/Time: 01/17/2017 3:42 PM
--- NOTE | 2017-01-17 15:48 | DIAGNOSTIC IMAGING REPORT ---
CT SCAN OF THE BRAIN WITHOUT IV CONTRAST CLINICAL HISTORY: Change in mental status. Follow-up hemorrhage. COMPARISON STUDY: CT of the brain dated 01/17/2017 and 12/11/2016. TECHNIQUE: Unenhanced axial CT scan of the brain is performed from the vertex to the skull base. CT DOSE: 614.27 mGy.cm FINDINGS: Brain parenchyma: There has been no significant change in the appearance of an acute on chronic. Right subdural hematoma as compared to the study performed 1 hour previously. This measures a maximum of 2.8 cm in thickness and causes mass effect with effacement of the cortical sulci and approximately 7 mm of right to left midline shift. There are age-related involutional changes noting mild subcortical and periventricular microangiopathic change. There is no parenchymal hematoma or evidence of acute territorial ischemia by CT criteria. Churchill-white matter is preserved. Ventricles, sulci, cisterns: Prominent secondary to involutional change. Intracranial vasculature: There is atherosclerotic calcification of the cavernous carotid and vertebral arteries. Calvarium: Unremarkable. Sinuses and mastoids: Mucosal thickening is present in the right sphenoid sinus. The remaining paranasal sinuses are clear. The mastoid air cells are well pneumatized. Orbits: The bony orbits are grossly intact. IMPRESSION: No significant change in the appearance of an acute on chronic appearing right subdural hematoma as compared to study performed 1 hour previously. There is approximate 7 mm of [id number] midline shift. See above. Electronically signed by: Xavier Fuentes M.D. 01/17/2017 3:46 PM Dictated Date/Time: 01/17/2017 3:42 PM
[2017-01-17] MEDS ORDERED: SODIUM CHLORIDE 0.9% 1000ML 1,000 ML IV STA (15:56)
[2017-01-17] MEDS ORDERED: ONDANSETRON INJ 2 MG/ML 2 ML VIAL IV STA (15:56)
[2017-01-17 16:16] VITALS: BP 99/55; PULSE 58; TEMP 36.7; O2SAT 98
[2017-02-03] MEDS ORDERED: SULF-183 PO (13:50)
[2017-02-03] MEDS ORDERED: TYL325X PO (13:50)
[2017-02-03] MEDS ORDERED: LEVE500T13 PO (13:59)
== END 2017-01-17 16:17 | disposition short-term general hospital (02) ==
LOC: EDBD 11:58 → C.EDA 12:00
DX: S06.5X9A Traumatic subdural hemorrhage with loss of consciousness of unspecified duration, initial encounter (principal); W19.XXXA Unspecified fall, initial encounter; G93.5 Compression of brain; R79.1 Abnormal coagulation profile; I48.0 Paroxysmal atrial fibrillation; E78.5 Hyperlipidemia, unspecified; H35.30 Unspecified macular degeneration; Z96.641 Presence of right artificial hip joint; Z79.01 Long term (current) use of anticoagulants; Z79.899 Other long term (current) drug therapy

== ENCOUNTER → 2017-01-29 | Outpatient (CLI) | payer OTHER ==
[~2017-01-29] MED LIST changes: +CIPR-255 PO; -CIPR1TAB10 PO; +DOCU-94 PO; +ENOX30IN4 SQ; +FAMO20TA9 PO; +KPP250 PO; +LEVE500T13 PO; +LUTE10TA PO; +MULT-190 PO; +NRV5 PO; +OXYC1TAB3 PO; +PREN-139 PO; +SOTA120T PO; +SOTA80TA PO; +SULF-183 PO; +TYL325X PO; +WARF6TAB5 PO
[2017-01-29 10:00] LABS: COMPLETE YES; EOS % 0.3 %; HEMATOCRIT 33.5 % (37-47); IG% 0.5 %; MEAN CELL VOLUME 96.5 fL (80-100); MEAN CORPUSCULAR HEMOGLOBIN 31.7 pg (25-34); MEAN CORPUSCULAR HGB CONC 32.8 g/dl (32-36); MEAN PLATELET VOLUME 10.9 fL (7.4-10.4); MONO % 6.6 %; NEUT % 86.6 %; PLATELET COUNT 268 K/uL (130-400); RED BLOOD COUNT 3.47 M/uL (4.2-5.4)
[2017-01-29 10:13] LABS: BLOOD UREA NITROGEN 26 mg/dl (7-18); BUN/CREATININE RATIO 40.7 (10-20); CALCIUM 8.3 mg/dl (8.5-10.1); CARBON DIOXIDE 26 mmol/L (21-32); CHLORIDE 103 mmol/L (98-107); CREATININE 0.65 mg/dl (0.60-1.20); GLUCOSE 72 mg/dl (70-99); POTASSIUM 4.4 mmol/L (3.5-5.1); SODIUM 137 mmol/L (136-145)
== END ==
LOC: C.LABCC 09:03
PROVIDERS: ATTEND Internal Medicine
DX: S06.5X0A Traumatic subdural hemorrhage without loss of consciousness, initial encounter (principal); X58.XXXA Exposure to other specified factors, initial encounter

== ENCOUNTER 2017-01-30 11:54 | Inpatient (IN) | payer OTHER ==
[~2017-01-30] VITALS: Ht 152.4 cm; Wt 64.9 kg
[~2017-01-30 11:54] MED LIST changes: -CIPR-255 PO; -DOCU-94 PO; -ENOX30IN4 SQ; -FAMO20TA9 PO; -KPP250 PO; -LEVE500T13 PO; -LUTE10TA PO; -MULT-190 PO; -NRV5 PO; -OXYC1TAB3 PO; -PREN-139 PO; -SOTA120T PO; -SOTA80TA PO; +SOTA80TA20 PO; -SOTA80TA55 PO; -SULF-183 PO; -TYL325X PO
[2017-01-30] MEDS ORDERED: SODIUM CHLORIDE 0.9% 1000ML 1,000 ML IV STA (12:32)
--- NOTE | 2017-01-30 13:00 | DIAGNOSTIC IMAGING REPORT ---
HEAD CT NONCONTRAST CT DOSE: 614.27 mGy.cm HISTORY: Postoperative mental status change EVALUATE ALTERED MENTAL STATUS/WEAKNESS TECHNIQUE: Multiaxial CT images of the head were performed without the use of intravenous contrast. Comparison: 01/17/2017 Findings: Interval rather extensive right-sided craniotomy. Removal of the bulk of the complex subdural hematoma] of the right cerebral hemisphere. Interval development of a left subdural hygroma measuring 11 mm. Small right subdural hygroma involving the right temporal parietal region having a maximum thickness of 4 mm. Considerable improvement in midline shift with maximum shift to the left now currently measuring 3 mm. Minimal parenchymal contusions right frontal lobe image 17 as well as posterior right temporal region image 19. Impression: 1. Interval extensive right-sided craniotomy with resection of the previous described complex subdural hematoma. 2. Improvement in midline shift with current study showing a slight midline shift to the left of 3 mm. 3. Interval development of left and to lesser extent right subdural hygromas having thicknesses of 11 and 4 mm respectively. 4. Subtle parenchymal contusions of the right frontal and right superior temporal lobe region. Electronically signed by: Hugo Levi M.D. 01/30/2017 12:59 PM Dictated Date/Time: 01/30/2017 12:48 PM
--- NOTE | 2017-01-30 13:09 | DIAGNOSTIC IMAGING REPORT ---
CHEST ONE VIEW PORTABLE CLINICAL HISTORY: Altered mental status. Weakness. COMPARISON STUDY: Chest radiograph January 17, 2017. FINDINGS: There is mild elevation of the right hemidiaphragm. There is no evidence of pulmonary edema. No pneumothorax or pleural effusion is present. Cardiomediastinal silhouette is stable. The appearance of the chest is unchanged. IMPRESSION: 1. No acute findings. 2. Mild elevation of the right hemidiaphragm. Electronically signed by: Moo Siu M.D. 01/30/2017 1:07 PM Dictated Date/Time: 01/30/2017 1:01 PM
[2017-01-30 13:31] LABS: COMPLETE YES; EOS % 1.4 %; HEMATOCRIT 28.9 % (37-47); IG% 0.4 %; LYMPH ABS # 0.72 K/uL (1.2-3.4); MEAN CELL VOLUME 94.8 fL (80-100); MEAN CORPUSCULAR HEMOGLOBIN 31.5 pg (25-34); MEAN CORPUSCULAR HGB CONC 33.2 g/dl (32-36); MEAN PLATELET VOLUME 9.3 fL (7.4-10.4); MONO % 7.5 %; NEUT % 82.7 %; PLATELET COUNT 275 K/uL (130-400); RED BLOOD COUNT 3.05 M/uL (4.2-5.4); WHITE BLOOD COUNT 8.99 K/uL (4.8-10.8)
[2017-01-30 13:33] LABS: URINE APPEARANCE TURBID (CLEAR); URINE BILIRUBIN NEG (NEG); URINE COLOR YELLOW; URINE NITRITE NEG (NEG); URINE PH 7.5 (4.5-7.5); URINE SPECIFIC GRAVITY 1.011 (1.000-1.030); UROBILINOGEN NEG (NEG); ZZURINE CULT IF INDIC CATH YES
[2017-01-30 13:41] LABS: MANUAL MICROSCOPIC REQUIRED? NO; REVIEW REQ? NO
[2017-01-30 13:48] LABS: PARTIAL THROMBOPLASTIN RATIO 1.2; PROTHROMBIN TIME (PATIENT) 11.1 SECONDS (9.0-12.0)
[2017-01-30 13:55] LABS: ALT/SGPT 68 U/L (12-78); AST/SGOT 24 U/L (15-37); BLOOD UREA NITROGEN 25 mg/dl (7-18); BUN/CREATININE RATIO 48.4 (10-20); CALCIUM 8.1 mg/dl (8.5-10.1); CARBON DIOXIDE 22 mmol/L (21-32); CHLORIDE 102 mmol/L (98-107); CREATININE 0.51 mg/dl (0.60-1.20); GLUCOSE 96 mg/dl (70-99); MAGNESIUM 1.9 mg/dl (1.8-2.4); POTASSIUM 4.1 mmol/L (3.5-5.1); SODIUM 134 mmol/L (136-145)
[2017-01-30 14:03] LABS: ALKALINE PHOSPHATASE 91 U/L (45-117); CKMB/CK RATIO 7.3 (0-3.0)
[2017-01-30] MEDS ORDERED: CEFTRIAXONE SOD INJ 1 GM ADDVIAL IV STA (14:54)
--- NOTE | 2017-01-30 15:38 | EMERGENCY ROOM VISIT NOTE ---
History Report prepared by Fernanda: Mally Givens Under the Supervision of: Dr. Rigo Caballero D.O. First contact with patient: 12:22 Chief Complaint: LETHARGIC Stated Complaint: LETHARGY History of Present Illness The patient is an 81 year old female who presents to the Emergency Room with complaints of persistent lethargy that began prior to arrival. Per nursing staff the patient arrives via ALS from [facility] with complaints of lethargy. They note that the patient had a craniotomy two weeks ago after having a subdural. Per records the patient has a history of atrial fibrillation. The patient notes generalized body pains today. She states that she is feeling fatigued today, but is unsure why. The patient is unsure if she takes any medications that make her drowsy. Source of History: patient, nursing staff Onset: prior to arrival Position: other (global) Quality: other (lethargy) Timing: other (persistent) Associated Symptoms: + fatigue Note: Associated Symptoms: generalized body pains Review of Systems See HPI for pertinent positives & negatives. A total of 10 systems reviewed and were otherwise negative. Past Medical & Surgical Medical Problems: (1) Abrasion, scalp w/o infection (2) Dyslipidemia (3) Macular degeneration (4) Paroxysmal atrial fibrillation Surgical Problems: (1) History of back surgery (2) History of tonsillectomy (3) History of total right hip arthroplasty Family History Patient reports no known family medical history. Social History Smoking Status: Unknown if Ever Smoked Alcohol Use: occasionally Drug Use: none Marital Status: Housing Status: lives with family Occupation Status: retired Current/Historical Medications Scheduled Alendronate Sodium (Fosamax), 70 MG PO WK Calcium/Vitamin D (Os-Jonathon 500 Plus D), 1 TAB PO BID Docusate Sodium (Docusate Sodium), 1 CAP PO BID Fish Oil ([place]-3), 1 GM PO DAILY Multiple Vitamins W/ Minerals (Preservision/Lutein), 1 CAP PO BID Multiple Vitamins W/ Minerals (Centrum Silver), 1 TAB PO DAILY Sennosides-Docusate Sodium (Senna Plus), 1 TAB PO DAILY Simvastatin (Zocor), 10 MG PO QPM Sotalol Hcl (Betapace), 80 MG PO QAM Sotalol Hcl (Betapace), 40 MG PO QPM Warfarin Sod (Coumadin), 3 MG PO 3XWK Warfarin Sod (Jantoven), 6 MG PO 4XWK Allergies Coded Allergies: No Known Allergies (Unverified , 11/10/12) Physical Exam Vital Signs Date Time Temp Pulse Resp B/P Pulse Ox O2 Delivery O2 Flow Rate FiO2 01/30/17 15:30 93 14 95/69 93 Room Air 01/30/17 14:57 97 16 91/68 97 Room Air 01/30/17 14:04 109 16 89/67 92 Room Air 01/30/17 13:08 101 01/30/17 12:50 97 16 113/74 93 Room Air 01/30/17 12:31 106 12 101/59 95 Room Air 01/30/17 12:05 95 Room Air 01/30/17 12:00 36.7 93 20 91/65 96 Room Air Physical Exam VITAL SIGNS: were reviewed as above. GENERAL:Generalized weakness, drowsy but responds to verbal stimuli appropriately. Eyelids are heavy. SKIN: Warm dry and pink. HEAD: Head wound from recent surgery reveals nickie in place without evidence of infection. OROPHARYNX: Mucous membranes are dry. NECK: Supple without lymphadenopathy or meningismus. LUNGS: clear. HEART: Regular rate and rhythm. ABDOMEN: Soft and nontender. EXTREMITIES: Warm and well perfused. NEUROLOGICALLY: Unable to lift legs off of bed likely related to generalized weakness. Awake alert and oriented without focal deficit. Cranial nerves 2-12 are intact. There is no pronator drift. Cerebellar testing is within normal limits. There is no nystagmus. There is no facial droop. Speech is clear. Vision is grossly normal. MUSCULOSKELETAL: Good muscle tone. No evidence of trauma. Medical Decision & Procedures ER Provider Diagnostic Interpretation: Radiology results as stated below per my review and radiologist interpretation: HEAD CT NONCONTRAST CT DOSE: 614.27 mGy.cm HISTORY: Postoperative mental status change EVALUATE ALTERED MENTAL STATUS/WEAKNESS TECHNIQUE: Multiaxial CT images of the head were performed without the use of intravenous contrast. Comparison: 01/17/2017 Findings: Interval rather extensive right-sided craniotomy. Removal of the bulk of the complex subdural hematoma] of the right cerebral hemisphere. Interval development of a left subdural hygroma measuring 11 mm. Small right subdural hygroma involving the right temporal parietal region having a maximum thickness of 4 mm. Considerable improvement in midline shift with maximum shift to the left now currently measuring 3 mm. Minimal parenchymal contusions right frontal lobe image 17 as well as posterior right temporal region image 19. Impression: 1. Interval extensive right-sided craniotomy with resection of the previous described complex subdural hematoma. 2. Improvement in midline shift with current study showing a slight midline shift to the left of 3 mm. 3. Interval development of left and to lesser extent right subdural hygromas having thicknesses of 11 and 4 mm respectively. 4. Subtle parenchymal contusions of the right frontal and right superior temporal lobe region. Electronically signed by: Hugo Levi M.D. 01/30/2017 12:59 PM Dictated Date/Time: 01/30/2017 12:48 PM CHEST ONE VIEW PORTABLE CLINICAL HISTORY: Altered mental status. Weakness. COMPARISON STUDY: Chest radiograph January 17, 2017. FINDINGS: There is mild elevation of the right hemidiaphragm. There is no evidence of pulmonary edema. No pneumothorax or pleural effusion is present. Cardiomediastinal silhouette is stable. The appearance of the chest is unchanged. IMPRESSION: 1. No acute findings. 2. Mild elevation of the right hemidiaphragm. Electronically signed by: Moo Siu M.D. 01/30/2017 1:07 PM Dictated Date/Time: 01/30/2017 1:01 PM Laboratory Results 01/30/17 13:10 Red Blood Count 3.05, Mean Corpuscular Volume 94.8, Mean Corpuscular Hemoglobin 31.5, Mean Corpuscular Hemoglobin Concent 33.2, Mean Platelet Volume 9.3, Neutrophils (%) (Auto) 82.7, Lymphocytes (%) (Auto) 8.0, Monocytes (%) (Auto) 7.5, Eosinophils (%) (Auto) 1.4, Basophils (%) (Auto) 0.0, Neutrophils # (Auto) 7.43, Lymphocytes # (Auto) 0.72, Monocytes # (Auto) 0.67, Eosinophils # (Auto) 0.13, Basophils # (Auto) 0.00 01/30/17 13:10 Test 01/30/17 12:25 01/30/17 13:10 01/30/17 15:35 Urine Color YELLOW Urine Appearance TURBID (CLEAR) Urine pH 7.5 (4.5-7.5) Urine Specific [place] 1.011 (1.000-1.030) Urine Protein NEG (NEG) Urine Glucose (UA) NEG (NEG) Urine Ketones NEG (NEG) Urine Occult Blood 1+ (NEG) Urine Nitrite NEG (NEG) Urine Bilirubin NEG (NEG) Urine Urobilinogen NEG (NEG) Urine Leukocyte Esterase LARGE (NEG) Urine WBC (Auto) >30 /hpf (0-5) Urine RBC (Auto) 5-10 /hpf (0-4) Urine Hyaline Casts (Auto) 1-5 /lpf (0-5) Urine Epithelial Cells (Auto) 10-20 /lpf (0-5) Urine Bacteria (Auto) 4+ (NEG) White Blood Count 8.99 K/uL (4.8-10.8) Red Blood Count 3.05 M/uL (4.2-5.4) Hemoglobin 9.6 g/dL (12.0-16.0) Hematocrit 28.9 % (37-47) Mean Corpuscular Volume 94.8 fL (80-100) Mean Corpuscular Hemoglobin 31.5 pg (25-34) Mean Corpuscular Hemoglobin Concent 33.2 g/dl (32-36) Platelet Count 275 K/uL (130-400) Mean Platelet Volume 9.3 fL (7.4-10.4) Neutrophils (%) (Auto) 82.7 % Lymphocytes (%) (Auto) 8.0 % Monocytes (%) (Auto) 7.5 % Eosinophils (%) (Auto) 1.4 % Basophils (%) (Auto) 0.0 % Neutrophils # (Auto) 7.43 K/uL (1.4-6.5) Lymphocytes # (Auto) 0.72 K/uL (1.2-3.4) Monocytes # (Auto) 0.67 K/uL (0.11-0.59) Eosinophils # (Auto) 0.13 K/uL (0-0.5) Basophils # (Auto) 0.00 K/uL (0-0.2) RDW Standard Deviation 61.0 fL (36.4-46.3) RDW Coefficient of Variation 18.1 % (11.5-14.5) Immature Granulocyte % (Auto) 0.4 % Immature Granulocyte # (Auto) 0.04 K/uL (0.00-0.02) Prothrombin Time 11.1 SECONDS (9.0-12.0) Prothromb Time International Ratio 1.0 (0.9-1.1) Activated Partial Thromboplast Time 32.1 SECONDS (21.0-31.0) Partial Thromboplastin Ratio 1.2 Anion Gap 10.0 mmol/L (3-11) Estimated GFR () 103.1 Estimated GFR (Non- 88.9 BUN/Creatinine Ratio 48.4 (10-20) Calcium Level 8.1 mg/dl (8.5-10.1) Magnesium Level 1.9 mg/dl (1.8-2.4) Total Bilirubin 0.7 mg/dl (0.2-1) Direct Bilirubin 0.2 mg/dl (0-0.2) Aspartate Amino Transf (AST/SGOT) 24 U/L (15-37) Alanine Aminotransferase (ALT/SGPT) 68 U/L (12-78) Alkaline Phosphatase 91 U/L (45-117) Total Creatine Kinase 33 U/L (26-192) Creatine Kinase MB 2.4 ng/ml (0.5-3.6) Creatine Kinase MB Ratio 7.3 (0-3.0) Troponin I 0.023 ng/ml (0-0.045) Total Protein 5.7 gm/dl (6.4-8.2) Albumin 2.4 gm/dl (3.4-5.0) Lipase 215 U/L (73-393) Thyroid Stimulating Hormone (TSH) 2.680 uIu/ml (0.300-4.500) Laboratory results as stated above per my review. Medications Administered Medications (Trade) Dose Ordered Sig/Troy Route Start Time Stop Time Status Last Admin Dose Admin Sodium Chloride (Nss 1000ml) 1,000 ml @ 400 mls/hr Q2H30M STAT IV 01/30/17 12:32 01/30/17 15:01 DC 01/30/17 12:32 400 MLS/HR Ceftriaxone Sodium (Rocephin Inj) 1 gm NOW STAT IV 01/30/17 14:54 01/30/17 14:55 DC 01/30/17 15:29 1 GM ECG Indication: other (lethargy) Rate (beats per minute): 117 Rhythm: atrial fibrillation Findings: T-wave inversion (Lateral), no ectopy Comparison ECG Date: 12/11/16 Change: EKG Change: When compared to EKG done on 12/11/16, T wave inversions appear similar, atrial fibrillation is chronic. ED Course 1223: Previous medical records were reviewed. The patient was evaluated in room A3. A complete history and physical examination was performed. 1232: Ordered Sodium Chloride 1000 ml @ 400 mls/hr IV. 1234: I spoke to the patients family at this time and updated them on the testings that will be run. 1311: I discussed the patients CT report with Dr. Levi, Radiology. 1454: Ordered Rocephin Inj 1 gm IV. 1508: I reevaluated the patient and she is doing okay. I discussed the exam findings with her family and I discussed the treatment plan. They verbalized complete understanding and agreement. The patient will be evaluated for further treatment. 1512: I discussed the patients case with MUNDO Ramirez. She is going to evaluate the patient for further treatment. 1518: I discussed the patients case with Dr. Carter, Neurosurgery - [facility]. He states that the patient is stable to stay at [facility] for further evaluation and treatment. 1526: I spoke to MUNDO Ramriez again regarding the patient. Medical Decision Differential includes acute coronary syndrome, myocardial infarction, CVA, TIA, anemia, infection, pneumonia, UTI, pyelonephritis, poor nutrition, dehydration, electrolyte disturbance,hypoglycemia. This is an 81-year-old female who presents to the ED with a chief complaint of lethargy. The patient is from [facility]. She was sent to [facility] January 17 for subdural. She subsequently underwent surgery. The patient was sent back to [facility] and subsequently developed a lethargy and was sent here for evaluation. The patient is somewhat of a poor historian. She only complains of feeling achy all over. She reportedly had a syncopal episode this morning when being transferred into a chair. No further details were available. The patient has no additional complaints. Her physical exam is noted above. She has post surgical wounds of her head. There is no evidence of infection. The patient appears generally weak but without focal deficits. Urine appears infected. The white blood cell count was unremarkable. Hemoglobin is slightly low. Metabolic panel was unremarkable. Chest x-ray did not show infection. The patient was treated with IV Rocephin. I spoke with the neurosurgery service at [facility]. The CAT scan revealed some hygromas in addition to other findings. Neurosurgery did not feel these were of any consequence and felt she could stay here and be treated for the UTI. I spoke with the [facility] medicine who will see the patient for further inpatient evaluation. She was treated with IV Rocephin and IV fluids. Consults Time Called: 1309 Consulting Physician: Dr. Levi, Radiology Returned Call: [phone] I discussed the patients CT report with Dr. Levi, Radiology. Additional Consults: Time Called: 1455 Consulted Physician: MUNDO Ramirez Returned Call: [phone] Additional Comments: I discussed the patients case with MUNDO Ramirez. She is going to evaluate the patient for further treatment. Time Called: 1452 Consulted Physician: Dr. Carter, Neurosurgery - [facility] Returned Call: [phone] Additional Comments: I discussed the patients case with Dr. Carter, [facility] - [facility]. He states that the patient is stable to stay at [facility] for further evaluation and treatment. Impression Primary Impression: UTI (urinary tract infection) Additional Impressions: Dehydration Mental status, decreased Scribe Attestation The scribe's documentation has been prepared under my direction and personally reviewed by me in its entirety. I confirm that the note above accurately reflects all work, treatment, procedures, and medical decision making performed by me. Departure Information Dispostion Being Evaluated By Hospitalist Referrals ThayerIris (PCP) Problem Qualifiers
[2017-01-30] MEDS ORDERED: ONDANSETRON INJ 2 MG/ML 2 ML VIAL IV PRN (17:00)
[2017-01-30] MEDS ORDERED: ACETAMINOPHEN 325 MG TAB PO PRN (17:00)
[2017-01-30] MEDS ORDERED: PHARMACIST DISCHARGE MED REC CONSULT PRN (17:00)
[2017-01-30] MEDS: SODIUM CHLORIDE 0.9% 1000ML 1,000 ML IV SCH (17:00)
[2017-01-30] MEDS ORDERED: NRV5 PO (17:35)
[2017-01-30] MEDS ORDERED: DOCU-94 PO (17:36)
[2017-01-30] MEDS ORDERED: LUTE10TA PO (17:36)
[2017-01-30] MEDS ORDERED: FAMO20TA9 PO (17:36)
[2017-01-30] MEDS ORDERED: MULT-190 PO (17:36)
[2017-01-30] MEDS ORDERED: ENOX30IN4 SQ (17:36)
[2017-01-30] MEDS ORDERED: SOTA80TA PO (17:36)
[2017-01-30] MEDS ORDERED: PREN-139 PO (17:36)
[2017-01-30] MEDS ORDERED: OXYC1TAB3 PO (17:36)
[2017-01-30] MEDS ORDERED: OXYCODONE HCL IR 5 MG TAB (IMMEDIATE RELEASE) PO PRN (17:45)
--- NOTE | 2017-01-30 18:25 | EEG Procedure Note ---
EEG Procedure Note Date of Service Jan 30, 2017. Start / End Times Start Time: 5:37pm End Time: 5:58pm Referring Physician Love History 81 year old female with recent subdural bleed and craniotomy, who presents with acute encephalopathy. EEG to evaluate for possible seizure etiology. Home Medication List Scheduled Alendronate Sodium (Fosamax), 70 MG PO WK Amlodipine Besylate (Amlodipine Besylate), 5 MG PO DAILY Calcium/Vitamin D (Os-Jonathon 500 Plus D), 1 TAB PO DAILY Docusate Sodium (Colace), 1 CAP PO DAILY Enoxaparin (Lovenox), 30 MG SQ DAILY Famotidine (Pepcid), 1 TAB PO BID Fish Oil ([place]-3), 1 GM PO DAILY Lutein (Lutein), 5 MG PO BID Ocuvite Preservision (Ocuvite Preservision), 1 TAB PO BID Vit W/ Ferrous Fumara ( Vitamins Plus Lo 27-1 mg), 1 TAB PO DAILY Sennosides-Docusate Sodium (Senna Plus), 1 TAB PO DAILY Simvastatin (Zocor), 10 MG PO QPM Sotalol Hcl (Sotalol Hcl), 120 MG PO BID Scheduled PRN Oxycodone Ir (Roxicodone Ir), 5 MG PO Q6H PRN for Pain Inpatient Medication List Current Inpatient Medications Medications (Trade) Dose Ordered Sig/Troy Route Start Time Stop Time Status Last Admin Dose Admin Levetiracetam/ Dextrose (Keppra Iv/D5 100ml) 105 ml @ 420 mls/hr Q12@0600,1800 IV 01/30/17 18:00 03/01/17 17:59 Acetaminophen (Tylenol Tab) 650 mg Q4H PRN PO 01/30/17 17:00 03/01/17 16:59 Ondansetron HCl 4 mg 4 mg Q6H PRN IV 01/30/17 17:00 03/01/17 16:59 Sodium Chloride 1,000 ml @ 100 mls/hr Q10H IV 01/30/17 17:00 03/01/17 16:59 Ceftriaxone Sodium/Dextrose (Rocephin Inj/ Dextrose Add-[place] 50ML) 50 ml @ 100 mls/hr DAILY@1200 IV 01/31/17 12:00 02/10/17 11:59 Miscellaneous Information (Pharmacist Discharge Med Rec Consult) 1 ea UD PRN N/A 01/30/17 17:00 03/01/17 16:59 Calcium/Vitamin D (Caltrate Plus Tab) 1 tab DAILY PO 01/31/17 09:00 03/02/17 08:59 Docusate Sodium (coLACE CAP) 100 mg DAILY PO 01/31/17 09:00 03/02/17 08:59 Famotidine (Pepcid Tab) 20 mg BID PO 01/30/17 21:00 03/01/17 20:59 Multivitamins/ Minerals (Multivitamin W/ Minerals Tab) 1 tab BID PO 01/30/17 21:00 03/01/17 20:59 Oxycodone HCl (Roxicodone Immediate Rel Tab) 5 mg Q6H PRN PO 01/30/17 17:45 02/13/17 17:44 Senna/Docusate Sodium (Senokot S Tab) 1 tab DAILY PO 01/31/17 09:00 03/02/17 08:59 Simvastatin (Zocor Tab) 10 mg QPM PO 01/30/17 21:00 03/01/17 20:59 Sotalol HCl (Betapace Tab) 120 mg BID PO 01/30/17 21:00 03/01/17 20:59 Description This is a 21 electrode EEG with a single channel dedicated to limited EKG. The electrodes were placed in accordance with the International 10-20 system. At the start of the recording the patient was in reported altered mental status. Background was poorly organized with no anterior to posterior gradient. Background was composed of moderate amplitude theta frequencies up to 6-7Hz with intermixed alpha frequencies. There was frequent generalized polymorphic delta slowing with occasional right hemispheric focal slowing. Hyperventilation was not done. Photic stimulation at various frequencies did not produce any abnormalities. There was no sleep transients. Interpretation This is an abnormal stat EEG secondary to: 1) Moderate background disorganization and slowing. 2) Intermittent right hemispheric slowing. There was no electrographic seizures or epileptiform discharges. Clinical Correlation This EEG indicates: 1) Moderate encephalopathy of nonspecific etiology 2) Right hemispheric functional or structural cerebral dysfunction.
--- NOTE | 2017-01-30 18:48 | Neurology Consultation ---
Neurology Consultation Date of Consultation: Jan 30, 2017. Attending Physician: Sharda Christianson M.D. Primary Care Physician: [facility] Reason for Consultation: seizure, hx subdural hematoma s/p evacuation History of Present Illness Source: patient, hospital records Radha is an 81 year old female who presents with persistent lethargy that began prior to arrival. ALS transported from [facility] with complaints of lethargy. They note that the patient had a craniotomy two weeks ago after having a subdural, she has a PMH of AF, DL PE, macular degeneration, She was admitted to the hospital on 12/10/16 for syncopal episode and found to have a SAH. Her Coumadin was stopped but then restarted after a repeat CT head revealed stable SAH. She was then admitted on 01/17/17 after she had a change in MS and was found to have a SDH and was transferred to [facility] for crani and evacuation of SDH which had a mixed density. She returned to [facility] but then had a change in MS on 01/29 and was not admitted. She return today after a syncopal event when being transferred. A CT head revealed a left side hygroma with some contusions which appear to be new. She is aware she is in the hospital and currently has no complaints. Neurosurgery in [place] was made aware of the new findings and felt this could be handled medically without transfer. Past Medical/Surgical History Medical Problems: (1) Anticoagulated on Coumadin Status: Acute (2) Cerebral hemorrhage Status: Acute (3) Dizziness Status: Acute (4) Elevated INR Status: Acute (5) Head injury Status: Acute (6) Midline shift of brain Status: Acute (7) Subarachnoid hemorrhage Status: Acute (8) Subdural hematoma Status: Acute (9) Syncope Status: Acute Social History Smoking Status: Unknown if ever smoked Drug Use: none Marital Status: Housing Status: lives with family Occupation Status: retired Allergies Coded Allergies: No Known Allergies (Unverified , 11/10/12) Current Inpatient Medications Current Inpatient Medications Medications (Trade) Dose Ordered Sig/Troy Route Start Time Stop Time Status Last Admin Dose Admin Levetiracetam/ Dextrose (Keppra Iv/D5 100ml) 105 ml @ 420 mls/hr Q12@0600,1800 IV 01/30/17 18:00 03/01/17 17:59 Acetaminophen (Tylenol Tab) 650 mg Q4H PRN PO 01/30/17 17:00 03/01/17 16:59 Ondansetron HCl 4 mg 4 mg Q6H PRN IV 01/30/17 17:00 03/01/17 16:59 Sodium Chloride 1,000 ml @ 100 mls/hr Q10H IV 01/30/17 17:00 03/01/17 16:59 Ceftriaxone Sodium/Dextrose (Rocephin Inj/ Dextrose Add-[place] 50ML) 50 ml @ 100 mls/hr DAILY@1200 IV 01/31/17 12:00 02/10/17 11:59 Miscellaneous Information (Pharmacist Discharge Med Rec Consult) 1 ea UD PRN N/A 01/30/17 17:00 03/01/17 16:59 Calcium/Vitamin D (Caltrate Plus Tab) 1 tab DAILY PO 01/31/17 09:00 03/02/17 08:59 Docusate Sodium (coLACE CAP) 100 mg DAILY PO 01/31/17 09:00 03/02/17 08:59 Famotidine (Pepcid Tab) 20 mg BID PO 01/30/17 21:00 03/01/17 20:59 Multivitamins/ Minerals (Multivitamin W/ Minerals Tab) 1 tab BID PO 01/30/17 21:00 03/01/17 20:59 Oxycodone HCl (Roxicodone Immediate Rel Tab) 5 mg Q6H PRN PO 01/30/17 17:45 02/13/17 17:44 Senna/Docusate Sodium (Senokot S Tab) 1 tab DAILY PO 01/31/17 09:00 03/02/17 08:59 Simvastatin (Zocor Tab) 10 mg QPM PO 01/30/17 21:00 03/01/17 20:59 Sotalol HCl (Betapace Tab) 120 mg BID PO 01/30/17 21:00 03/01/17 20:59 Physical Exam Vital Signs (Past 24 Hrs): Date Time Temp Pulse Resp B/P Pulse Ox O2 Delivery O2 Flow Rate FiO2 01/30/17 17:27 86 14 92 01/30/17 17:11 99 01/30/17 16:30 15 121/83 97 Room Air 01/30/17 15:30 93 14 95/69 93 Room Air 01/30/17 14:57 97 16 91/68 97 Room Air 01/30/17 14:04 109 16 89/67 92 Room Air 01/30/17 13:08 101 01/30/17 12:50 97 16 113/74 93 Room Air 01/30/17 12:31 106 12 101/59 95 Room Air 01/30/17 12:05 95 Room Air 01/30/17 12:00 36.7 93 20 91/65 96 Room Air Physical Exam: Constitutional: appearance nourished, right sided craniotomy with nickie in place Ears, Nose, Mouth and Throat: mucous membranes moist, no injection and skin normal, eyes normal Cardiovascular: irregular Respiratory: course breath sound Musculoskeletal: no peripheral edema and good distal pulses Skin: no stigmata of neurocutaneous disease noted and normal and intact Eyes: extraocular muscles intact (EOMI) and pupils equal, round and reactive to light (PERRL) NEUROLOGIC EXAMINATION: Mental status: Alert and interactive Oriented to place hospital Oriented to person Speech fluent with no evidence of aphasia Cranial Nerves smile eye brow raise symmetric, tongue midline Sensory: cool and light touch Gait/Stance: Posture lying in bed Strength: biceps, tricep hand inside sales associate, hip flex plantar flex ext 5/5 bilaterally Laboratory Results Past 24 Hours: 01/30/17 13:10 Red Blood Count 3.05, Mean Corpuscular Volume 94.8, Mean Corpuscular Hemoglobin 31.5, Mean Corpuscular Hemoglobin Concent 33.2, Mean Platelet Volume 9.3, Neutrophils (%) (Auto) 82.7, Lymphocytes (%) (Auto) 8.0, Monocytes (%) (Auto) 7.5, Eosinophils (%) (Auto) 1.4, Basophils (%) (Auto) 0.0, Neutrophils # (Auto) 7.43, Lymphocytes # (Auto) 0.72, Monocytes # (Auto) 0.67, Eosinophils # (Auto) 0.13, Basophils # (Auto) 0.00 01/30/17 13:10 Test 01/30/17 12:25 01/30/17 13:10 01/30/17 17:02 Urine Color YELLOW Urine Appearance TURBID (CLEAR) Urine pH 7.5 (4.5-7.5) Urine Specific [place] 1.011 (1.000-1.030) Urine Protein NEG (NEG) Urine Glucose (UA) NEG (NEG) Urine Ketones NEG (NEG) Urine Occult Blood 1+ (NEG) Urine Nitrite NEG (NEG) Urine Bilirubin NEG (NEG) Urine Urobilinogen NEG (NEG) Urine Leukocyte Esterase LARGE (NEG) Urine WBC (Auto) >30 /hpf (0-5) Urine RBC (Auto) 5-10 /hpf (0-4) Urine Hyaline Casts (Auto) 1-5 /lpf (0-5) Urine Epithelial Cells (Auto) 10-20 /lpf (0-5) Urine Bacteria (Auto) 4+ (NEG) White Blood Count 8.99 K/uL (4.8-10.8) Red Blood Count 3.05 M/uL (4.2-5.4) Hemoglobin 9.6 g/dL (12.0-16.0) Hematocrit 28.9 % (37-47) Mean Corpuscular Volume 94.8 fL (80-100) Mean Corpuscular Hemoglobin 31.5 pg (25-34) Mean Corpuscular Hemoglobin Concent 33.2 g/dl (32-36) Platelet Count 275 K/uL (130-400) Mean Platelet Volume 9.3 fL (7.4-10.4) Neutrophils (%) (Auto) 82.7 % Lymphocytes (%) (Auto) 8.0 % Monocytes (%) (Auto) 7.5 % Eosinophils (%) (Auto) 1.4 % Basophils (%) (Auto) 0.0 % Neutrophils # (Auto) 7.43 K/uL (1.4-6.5) Lymphocytes # (Auto) 0.72 K/uL (1.2-3.4) Monocytes # (Auto) 0.67 K/uL (0.11-0.59) Eosinophils # (Auto) 0.13 K/uL (0-0.5) Basophils # (Auto) 0.00 K/uL (0-0.2) RDW Standard Deviation 61.0 fL (36.4-46.3) RDW Coefficient of Variation 18.1 % (11.5-14.5) Immature Granulocyte % (Auto) 0.4 % Immature Granulocyte # (Auto) 0.04 K/uL (0.00-0.02) Prothrombin Time 11.1 SECONDS (9.0-12.0) Prothromb Time International Ratio 1.0 (0.9-1.1) Activated Partial Thromboplast Time 32.1 SECONDS (21.0-31.0) Partial Thromboplastin Ratio 1.2 Anion Gap 10.0 mmol/L (3-11) Estimated GFR () 103.1 Estimated GFR (Non- 88.9 BUN/Creatinine Ratio 48.4 (10-20) Calcium Level 8.1 mg/dl (8.5-10.1) Magnesium Level 1.9 mg/dl (1.8-2.4) Total Bilirubin 0.7 mg/dl (0.2-1) Direct Bilirubin 0.2 mg/dl (0-0.2) Aspartate Amino Transf (AST/SGOT) 24 U/L (15-37) Alanine Aminotransferase (ALT/SGPT) 68 U/L (12-78) Alkaline Phosphatase 91 U/L (45-117) Total Creatine Kinase 33 U/L (26-192) Creatine Kinase MB 2.4 ng/ml (0.5-3.6) Creatine Kinase MB Ratio 7.3 (0-3.0) Troponin I 0.023 ng/ml (0-0.045) Total Protein 5.7 gm/dl (6.4-8.2) Albumin 2.4 gm/dl (3.4-5.0) Lipase 215 U/L (73-393) Thyroid Stimulating Hormone (TSH) 2.680 uIu/ml (0.300-4.500) Lactic Acid Level 2.6 mmol/L (0.4-2.0) Imaging This EEG indicates: 1) Moderate encephalopathy of nonspecific etiology 2) Right hemispheric functional or structural cerebral dysfunction. CT head-. Interval extensive right-sided craniotomy with resection of the previous described complex subdural hematoma. Improvement in midline shift with current study showing a slight midline shift to the left of 3 mm. Interval development of left and to lesser extent right subdural hygromas having thicknesses of 11 and 4 mm respectively. Subtle parenchymal contusions of the right frontal and right superior temporal lobe region. Impression 81 year old female history a fib, SDH evacuation, possible seizure event Plan 1. EEG with no epileptic spikes 2. load with 500 mg Keppra then 500 mg BID 3. treat UTI 4. blood cultures pending 5. rescan with MS change 6. observe for any additional seizure events 7. may be new contusion may be from trauma today 8. will follow with you I have seen and discussed above patient with Dr Eliza Porter, neurology [place]ed [place] in [place] with recent RSDH and SAH. R SDH has decreased in size there is still some mass effect related to R hemisphere edema and there is now L SD hygroma. pt sleepy but arousable, appears chronically ill. [place] in place R hemicranium, dry. Neck supple, PErrl, unable to vid ON sec to miosis. Mod dysarthria, LUE 3/5 LLE 3/5. Imp sz, load with keppra cont 500 mg BID. Monitor NS closely for decline. By report Estelita RAHMAN has reviewed imaging and does not rec intervention at this time. Furthermore pt is now much more awake and alert post Keppra. Discussed with family . Will follow with you, DOMENICA Porter MD
--- NOTE | 2017-01-30 19:05 | History and Physical ---
History & Physical Date & Time of Service: Jan 30, 2017 at 17:42 Chief Complaint: Altered Mental Status Primary Care Physician: Iris Madsen History of Present Illness 81 year old female who presents to the ER from [facility] with altered mental status. Patient has a complex history over the past 2 months. In 12/2016, patient presented to [facility] after a syncopal event. She was found to have a small SAH in the setting of Coumadin therapy for atrial fibrillation. Patient was treated conservatively and Coumadin was resumed feeling the stroke risk outweighed bleed risk. About one month later, patient had another fall in which she struck her head. She presented back to the ER and was found to have an acute on chronic right frontoparietal occipital subdural hematoma. Patient was transferred to [facility] and underwent craniotomy and evacuation of the hematoma. Intraoperatively, the patient was found to be hypoxic and later had a CT chest that showed PE. She was evaluated by vascular who did not feel as though she needed an IVC filter. She has history of afib and had RVR while at [facility]. She was initially placed on amiodarone drip and then Sotalol dose was increased. Patient was then discharged to [facility] for rehab. Since being at [facility], patient has been tolerating therapy. Family reports she stood yesterday for the first time however for only a few seconds. They also noted her appetite to be decreased yesterday. Per the staff at [facility], today while they were transferring her to the chair via [facility]osevelt lift, patient became unresponsive and had generalized shaking. She also lost control of her bowel and bladder. Her vitals remained stable. She then became very lethargic. Patient was then transferred to the ER for further evaluation. Further history os unobtainable due to patient's mental status. In the ER, patient's U/A is consistent with UTI. She was also mildly hypotensive and tachycardic which improved with IVF. She was given Rocephin. CT head is abnormal however consistent with patient's recent subdural hematoma and craniotomy. Dr. Caballero discussed the case with neurosurgery in [place] who does not feel the patient needs to be transferred to [facility]. Past Medical/Surgical History Medical Problems: (1) Dyslipidemia Status: Chronic (2) Macular degeneration Status: Chronic (3) Paroxysmal atrial fibrillation Status: Chronic (4) Pulmonary embolism Status: Chronic (5) SAH (subarachnoid hemorrhage) Status: Chronic (6) Subdural hematoma Permanent Comment: 12/2016 - patient had small SAH after syncopal event and striking her head while on Coumadin therapy; stroke risk outweighed bleed risk and Coumadin was resumed; 01/2017- patient fell and struck her head again and had an acute on chronic right frontoparietal occipital subdural hematoma - transferred to [facility] and underwent craniotomy and evacuation Status: Chronic Surgical Problems: (1) History of back surgery Permanent Comment: cervical discectomy Status: Chronic (2) History of tonsillectomy Status: Chronic (3) History of total right hip arthroplasty Permanent Comment: Dr. Willoughby [facility] 11/10/12 Status: Chronic (4) S/P craniotomy Status: Chronic Family History non contributory due to patient's advanced age Social History Smoking Status: Unknown if Ever Smoked Alcohol Use: none Immunizations History of Influenza Vaccine: Yes Influenza Vaccine Date: Jul 31, 2016 History of Tetanus Vaccine?: Yes Tetanus Immunization Date: April 03, 2006 History of Pneumococcal: Yes Pneumococcal Date: Feb 15, 2016 Multi-Drug Resistant Organisms History of MDRO: No Allergies Coded Allergies: No Known Allergies (Unverified , 11/10/12) Home Medications Scheduled Alendronate Sodium (Fosamax), 70 MG PO WK Amlodipine Besylate (Amlodipine Besylate), 5 MG PO DAILY Calcium/Vitamin D (Os-Jonathon 500 Plus D), 1 TAB PO DAILY Docusate Sodium (Colace), 1 CAP PO DAILY Enoxaparin (Lovenox), 30 MG SQ DAILY Famotidine (Pepcid), 1 TAB PO BID Fish Oil ([place]-3), 1 GM PO DAILY Lutein (Lutein), 5 MG PO BID Ocuvite Preservision (Ocuvite Preservision), 1 TAB PO BID Vit W/ Ferrous Fumara ( Vitamins Plus Lo 27-1 mg), 1 TAB PO DAILY Sennosides-Docusate Sodium (Senna Plus), 1 TAB PO DAILY Simvastatin (Zocor), 10 MG PO QPM Sotalol Hcl (Sotalol Hcl), 120 MG PO BID Scheduled PRN Oxycodone Ir (Roxicodone Ir), 5 MG PO Q6H PRN for Pain Review of Systems unable to be completed due to patient's mental status Physical Exam Vital Signs Date Time Temp Pulse Resp B/P Pulse Ox O2 Delivery O2 Flow Rate FiO2 01/30/17 17:27 86 14 92 01/30/17 17:11 99 01/30/17 16:30 15 121/83 97 Room Air 01/30/17 15:30 93 14 95/69 93 Room Air 01/30/17 14:57 97 16 91/68 97 Room Air 01/30/17 14:04 109 16 89/67 92 Room Air 01/30/17 13:08 101 01/30/17 12:50 97 16 113/74 93 Room Air 01/30/17 12:31 106 12 101/59 95 Room Air 01/30/17 12:05 95 Room Air 01/30/17 12:00 36.7 93 20 91/65 96 Room Air General Appearance: no apparent distress Head: + pertinent finding Eyes: normal inspection ENT: hearing grossly normal Neck: supple, no JVD Respiratory/Chest: lungs clear, normal breath sounds, no respiratory distress Cardiovascular: no edema (normal rate), + irregularly irregular Abdomen/GI: normal bowel sounds, non tender, soft Extremities/Musculoskelatal: normal inspection, no calf tenderness Neurologic/Psych: + pertinent finding (lethargic but arouses to verbal stimuli , answers questions appropriately however falls back to sleep quickly; neuro exam difficult to conduct; weakness present L > R, chronic since recent surgery) Skin: normal color, warm/dry Diagnostics Laboratory Results Results Past 24 Hours Test 01/30/17 12:25 01/30/17 13:10 01/30/17 17:02 Range/Units Urine Color YELLOW Urine Appearance TURBID CLEAR Urine pH 7.5 4.5-7.5 Urine Specific [place] 1.011 1.000-1.030 Urine Protein NEG NEG Urine Glucose (UA) NEG NEG Urine Ketones NEG NEG Urine Occult Blood 1+ NEG Urine Nitrite NEG NEG Urine Bilirubin NEG NEG Urine Urobilinogen NEG NEG Urine Leukocyte Esterase LARGE NEG Urine WBC (Auto) >30 0-5 /hpf Urine RBC (Auto) 5-10 0-4 /hpf Urine Hyaline Casts (Auto) 1-5 0-5 /lpf Urine Epithelial Cells (Auto) 10-20 0-5 /lpf Urine Bacteria (Auto) 4+ NEG White Blood Count 8.99 4.8-10.8 K/uL Red Blood Count 3.05 4.2-5.4 M/uL Hemoglobin 9.6 12.0-16.0 g/dL Hematocrit 28.9 37-47 % Mean Corpuscular Volume 94.8 80-100 fL Mean Corpuscular Hemoglobin 31.5 25-34 pg Mean Corpuscular Hemoglobin Concent 33.2 32-36 g/dl Platelet Count 275 130-400 K/uL Mean Platelet Volume 9.3 7.4-10.4 fL Neutrophils (%) (Auto) 82.7 % Lymphocytes (%) (Auto) 8.0 % Monocytes (%) (Auto) 7.5 % Eosinophils (%) (Auto) 1.4 % Basophils (%) (Auto) 0.0 % Neutrophils # (Auto) 7.43 1.4-6.5 K/uL Lymphocytes # (Auto) 0.72 1.2-3.4 K/uL Monocytes # (Auto) 0.67 0.11-0.59 K/uL Eosinophils # (Auto) 0.13 0-0.5 K/uL Basophils # (Auto) 0.00 0-0.2 K/uL RDW Standard Deviation 61.0 36.4-46.3 fL RDW Coefficient of Variation 18.1 11.5-14.5 % Immature Granulocyte % (Auto) 0.4 % Immature Granulocyte # (Auto) 0.04 0.00-0.02 K/uL Prothrombin Time 11.1 9.0-12.0 SECONDS Prothromb Time International Ratio 1.0 0.9-1.1 Activated Partial Thromboplast Time 32.1 21.0-31.0 SECONDS Partial Thromboplastin Ratio 1.2 Sodium Level 134 136-145 mmol/L Potassium Level 4.1 3.5-5.1 mmol/L Chloride Level 102 98-107 mmol/L Carbon Dioxide Level 22 21-32 mmol/L Anion Gap 10.0 3-11 mmol/L Blood Urea Nitrogen 25 7-18 mg/dl Creatinine 0.51 0.60-1.20 mg/dl Estimated GFR () 103.1 Estimated GFR (Non- 88.9 BUN/Creatinine Ratio 48.4 10-20 Random Glucose 96 70-99 mg/dl Calcium Level 8.1 8.5-10.1 mg/dl Magnesium Level 1.9 1.8-2.4 mg/dl Total Bilirubin 0.7 0.2-1 mg/dl Direct Bilirubin 0.2 0-0.2 mg/dl Aspartate Amino Transf (AST/SGOT) 24 15-37 U/L Alanine Aminotransferase (ALT/SGPT) 68 12-78 U/L Alkaline Phosphatase 91 45-117 U/L Total Creatine Kinase 33 26-192 U/L Creatine Kinase MB 2.4 0.5-3.6 ng/ml Creatine Kinase MB Ratio 7.3 0-3.0 Troponin I 0.023 0-0.045 ng/ml Total Protein 5.7 6.4-8.2 gm/dl Albumin 2.4 3.4-5.0 gm/dl Lipase 215 73-393 U/L Thyroid Stimulating Hormone (TSH) 2.680 0.300-4.500 uIu/ml Microbiology Results 01/30/17 Blood Culture, Received Pending 01/30/17 Blood Culture, Received Pending 01/30/17 Urine Culture, Received Pending Diagnostic Radiology Head CT Impression: 1. Interval extensive right-sided craniotomy with resection of the previous described complex subdural hematoma. 2. Improvement in midline shift with current study showing a slight midline shift to the left of 3 mm. 3. Interval development of left and to lesser extent right subdural hygromas having thicknesses of 11 and 4 mm respectively. 4. Subtle parenchymal contusions of the right frontal and right superior temporal lobe region. CXR IMPRESSION: 1. No acute findings. 2. Mild elevation of the right hemidiaphragm. Impression Assessment and Plan ALTERED MENTAL STATUS POSSIBLE NEW ONSET SEIZURE UTI, POSSIBLE EARLY SEPSIS HX RECENT SUBDURAL HEMATOMA S/P EVACUATION - admit to tele - patient with recent history of subdural hematoma s/p craniotomy and evacuation at [facility]; presenting from [facility] with loss of consciousness followed by shaking, loss of bowel and bladder function, and lethargy; noted patient was not discharged on antiepileptics from [facility] post surgery - CT head findings discussed with Drs. Carter and Sergio (neurosurgery [facility]) by Dr. Caballero and myself - no need for transfer at this time - case discussed with Eliza Urias PA-C and Dr. Porter, neurology - will load with Keppra 500mg IV and continue with BID - check EEG - currently hemodynamically stable - patient's U/A also consistent with UTI and on presentation had borderline BP, tachycardia, and lactic acidosis - BP and HR improving with IVF - could be from dehydration as well; will hold amlodipine for now however need to control and monitor BP closely due to recent subdural hematoma - last urine culture grew pansensitive E. Coli - s/p Rocephin in the ED, will continue with - recheck lactic acid - blood and urine cultures ATRIAL FIBRILLATION - presented with RVR - rate improved with IVF - on Sotalol for rhythm control, will continue - not anticoagulated due to subdural hematoma PE - diagnosed at [facility] and was evaluated by vascular who did not feel as though the patient needed IVC LEFT KIDNEY LESION - diagnosed at [facility] - outpatient follow up DVT PROPHYLAXIS - SCDs due to subdural hematoma CODE STATUS - Patient is a full code as per my discussion with patient's sons who are at the bedside. DISPO - In my clinical judgment this beneficiary meets acute admission criteria, established by [facility], that includes being hospitalized through two midnights. ATTENDING ADDENDUM care coordinated with MUNDO Alanis please refer to her notes for full details, I agree with her notes patient seen and examined, records reviewed by myself as well on exam, patient seen resting in bed calm, cooperative, oriented to person and place states she feels ok overall denies headache, dizziness, nausea/vomiting, chest pain, dsypnea no other symptoms VS noted and reviewed oriented x 2 , not in distress, speaks in sentences with no effort nor accessory muscle use head: craniotomy scar with nickie in place, well healed normal rate, irregularly irregular rhythm, no murmurs clear breath sounds bilaterally non distended, soft, nontender no bipedal edema, erythema, warmth no neuro deficits WBC 8.9 Crea 0.5 l.a. 2.6 ASSESSMENT/PLAN> 81 year old female SNF resident, s/p Craniotomy and Evacuation of Subarachnoid Hemorrhage [facility] last month, presenting with altered mental status. ALTERED MENTAL STATUS s/p Craniotomy and Evacuation of Subarachnoid Hemorrhage [facility] last month -- r/o Seizure EEG Keppra IV BID Neurology consulted -- r/o UTI ff up cultures empiric Ceftriaxone -- r/o Orthostasis Orthostatic VS IV fluids monitor A FIB rate controlled on Sotalol off anticoagulation due to recent IC hemorrhage other diagnoses and plan of care as per [facility]NR[facility] Kim Alanis's notes Олге Adler MD VTE Prophylaxis VTE Risk Assessment Done? Y/N: Yes Risk Level: High
[2017-01-30] MEDS: LEVETIRACETAM IV 500 MG in DEXTROSE 5% 100ML 100 ML IV SCH (19:56)
[2017-01-30] MEDS: FAMOTIDINE 20 MG TAB PO SCH (20:25)
[2017-01-30] MEDS: SOTALOL HCL 80 MG TAB PO SCH (20:25)
[2017-01-30] MEDS: CEROVITE ADV FORMULA TAB PO SCH (20:25)
[2017-01-30] MEDS: SIMVASTATIN 10 MG TAB PO SCH (20:26)
[2017-01-30 21:15] VITALS: BP 113/78; PULSE 100; TEMP 36.6; O2SAT 94
[2017-01-30 21:55] VITALS: BP 113/78; PULSE 100; TEMP 36.6; O2SAT 94; Ht 152.4 cm; Wt 64.9 kg
[2017-01-30 23:13] VITALS: BP 127/62; PULSE 66; TEMP 36.6; O2SAT 97
[2017-01-31] VITALS (9 sets, daily range): BP systolic 94–142; BP diastolic 46–72; PULSE 51–78; TEMP 36.4–36.9; O2SAT 94–100
[2017-01-31] MEDS: SODIUM CHLORIDE 0.9% 1000ML 1,000 ML IV SCH ×3 (04:18→22:45)
[2017-01-31] MEDS ORDERED: SODIUM CHLORIDE 0.9% 500ML 500 ML IV ONE (04:30)
[2017-01-31] MEDS: LEVETIRACETAM IV 500 MG in DEXTROSE 5% 100ML 100 ML IV SCH ×2 (06:15→17:45)
[2017-01-31] MEDS: CEROVITE ADV FORMULA TAB PO SCH ×2 (07:50→19:25)
[2017-01-31] MEDS: SOTALOL HCL 80 MG TAB PO SCH ×2 (07:51→19:24)
[2017-01-31] MEDS: FAMOTIDINE 20 MG TAB PO SCH ×2 (07:52→19:26)
[2017-01-31] MEDS: CALCIUM 600MG + VIT D 400 IU TAB PO SCH (07:52)
[2017-01-31] MEDS: DOCUSATE SODIUM/SENNA 50/8.6MG TAB PO SCH (07:52)
[2017-01-31] MEDS: DOCUSATE SODIUM 100 MG CAP PO SCH (07:52)
[2017-01-31 08:15] LABS: BASO % 0.1 %; BASO ABS # 0.01 K/uL (0-0.2); COMPLETE YES; HEMATOCRIT 27.7 % (37-47); IG% 0.3 %; LYMPH % 13.1 %; LYMPH ABS # 0.97 K/uL (1.2-3.4); MEAN CELL VOLUME 93.9 fL (80-100); MEAN CORPUSCULAR HEMOGLOBIN 31.9 pg (25-34); MEAN CORPUSCULAR HGB CONC 33.9 g/dl (32-36); MEAN PLATELET VOLUME 8.8 fL (7.4-10.4); NEUT % 76.5 %; PLATELET COUNT 254 K/uL (130-400); RED BLOOD COUNT 2.95 M/uL (4.2-5.4); WHITE BLOOD COUNT 7.41 K/uL (4.8-10.8)
--- NOTE | 2017-01-31 08:45 | DIAGNOSTIC IMAGING REPORT ---
CT OF THE HEAD WITHOUT CONTRAST CLINICAL HISTORY: Seizure. History of subdural hematoma. COMPARISON STUDY: Head CT January 22, 2017. CT DOSE: 537.48 mGy.cm TECHNIQUE: Helical axial images of the head were obtained without IV contrast. Automated exposure control was utilized for the study. FINDINGS: Right-sided craniotomy is noted. A small mixed attenuation right extra-axial fluid collection is unchanged since exam of January 30, 2017. A moderate sized hypodense left subdural collection is unchanged since that exam. This measures 1.3 cm in thickness. The ventricular system is stable. The basilar cisterns are patent. There is a small amount of acute subdural blood along the posterior falx and the left aspect of the tentorium. This is similar to prior exam. There is no evidence for herniation. Slight leftward midline shift is unchanged. A few additional scattered foci of trace hemorrhage are noted. These are similar to prior exam. These are most evident within the right frontal and bilateral parietal lobes. There is no calvarial fracture. IMPRESSION: 1. No significant change since head CT of January 30, 2017 status post right-sided craniotomy with subdural hematoma evacuation. Stable moderate sized hypodense left subdural collection which may reflect a subdural hygroma. Stable small mixed attenuation right extra-axial fluid collection since prior exam. Stable trace acute hemorrhage along the posterior falx and tentorium. 2. No change in trace scattered acute hemorrhage/contusions, as described above. This could be subarachnoid or less likely parenchymal in location. Electronically signed by: Moo Siu M.D. 01/31/2017 8:44 AM Dictated Date/Time: 01/31/2017 8:33 AM
[2017-01-31 08:48] LABS: CALCIUM 7.9 mg/dl (8.5-10.1); CREATININE 0.53 mg/dl (0.60-1.20); POTASSIUM 4.1 mmol/L (3.5-5.1)
--- NOTE | 2017-01-31 09:32 | Clinical Documentation Query ---
KRYSTAL Tierney : CLINICAL DOCUMENTATION QUERY Patient is an 81 year old female with a history of recent craniotomy for evacuation of SDH presenting for evaluation of episodic loss of consciousness with bowel and bladder incontinence witnessed by rehab staff which was associated with "shaking". Neurology consulted, patient started on Keppra IV, EEG performed, urine cultures, IV antibiotics. As appropriate, consider documentation as suggested below. Thank you. In your clinical opinion is this patient being managed for: ( X ) Encephalopathy secondary to possible seizure and/or UTI ( ) Other explanation of clinical findings (Please Explain) ( ) Unable to determine (Please Define) ( ) Need to Discuss ( ) Not Agree The medical record reflects the following clinical findings, treatment, and risk factors. Clinical Indicators: AMS in the setting of possible seizure, possible UTI Treatment: Neurology consulted, patient started on Keppra IV, EEG performed, urine cultures, IV antibiotics Risk Factors: Seizure, UTI/infection Please clarify and document your clinical opinion in the progress notes and discharge summary. Terms such as "probable", "suspected", "likely", "questionable", "possible", or "still to be ruled out" are acceptable. IF IN AGREEMENT, YOU MUST DOCUMENT ABOVE DIAGNOSTIC STATEMENT IN DAILY PROGRESS NOTES AND DISCHARGE SUMMARY. This document is not part of the patient's record. Thank You, Landon Kaplan RN [phone]
--- NOTE | 2017-01-31 10:47 | Hospitalist Progress Note ---
Hospitalist Progress Note Date of Service Jan 31, 2017. (Kim Alanis .MUNDO) Subjective Patient seen and examined. Currently lethargic - arouses to loud verbal and tactile stimuli but falls back to sleep quickly. No apparent distress. Per nurse, patient was awake this AM and ate breakfast. (Kim Alanis .MUNDO) Objective Vital Signs Date Time Temp Pulse Resp B/P Pulse Ox O2 Delivery O2 Flow Rate FiO2 01/31/17 08:00 99 Room Air 01/31/17 07:56 36.4 51 20 106/58 99 Room Air 01/31/17 04:00 Room Air 01/31/17 03:15 36.6 73 18 142/57 96 Room Air 01/31/17 00:01 Room Air 01/30/17 23:13 36.6 66 18 127/62 97 Room Air 01/30/17 21:55 36.6 100 14 113/78 94 Room Air 01/30/17 21:15 36.6 100 14 113/78 94 Room Air 01/30/17 20:46 95 12 109/78 94 01/30/17 20:00 89 13 130/87 95 Room Air 01/30/17 19:11 97 14 183/84 97 Room Air 01/30/17 17:27 86 14 92 01/30/17 17:11 99 01/30/17 16:30 15 121/83 97 Room Air 01/30/17 15:30 93 14 95/69 93 Room Air 01/30/17 14:57 97 16 91/68 97 Room Air 01/30/17 14:04 109 16 89/67 92 Room Air 01/30/17 13:08 101 01/30/17 12:50 97 16 113/74 93 Room Air 01/30/17 12:31 106 12 101/59 95 Room Air 01/30/17 12:05 95 Room Air 01/30/17 12:00 36.7 93 20 91/65 96 Room Air (Kim Alanis CRNP) Physical Exam General Appearance: no apparent distress Eyes: normal inspection ENT: hearing grossly normal Neck: supple, no JVD Respiratory/Chest: lungs clear, normal breath sounds, no respiratory distress Cardiovascular: regular rate, rhythm, no edema Abdomen: normal bowel sounds, non tender, soft Neurologic/Psychiatric: + pertinent finding (lethargic, arouses to loud verbal and tactile stimuli, falls back to sleep quickly, neuro exam difficult to preform) Skin: + pertinent finding (craniotomy incision with nickie in place, headling well, no surrounding erythma or drainage) (Kim Alanis ., MUNDO) Laboratory Results Last 24 Hours Test 01/30/17 12:25 01/30/17 13:10 01/30/17 17:02 01/30/17 21:42 Urine Color YELLOW Urine Appearance TURBID Urine pH 7.5 Urine Specific Ly[place] 1.011 Urine Protein NEG Urine Glucose (UA) NEG Urine Ketones NEG Urine Occult Blood 1+ Urine Nitrite NEG Urine Bilirubin NEG Urine Urobilinogen NEG Urine Leukocyte Esterase LARGE Urine WBC (Auto) >30 /hpf Urine RBC (Auto) 5-10 /hpf Urine Hyaline Casts (Auto) 1-5 /lpf Urine Epithelial Cells (Auto) 10-20 /lpf Urine Bacteria (Auto) 4+ White Blood Count 8.99 K/uL Red Blood Count 3.05 M/uL Hemoglobin 9.6 g/dL Hematocrit 28.9 % Mean Corpuscular Volume 94.8 fL Mean Corpuscular Hemoglobin 31.5 pg Mean Corpuscular Hemoglobin Concent 33.2 g/dl Platelet Count 275 K/uL Mean Platelet Volume 9.3 fL Neutrophils (%) (Auto) 82.7 % Lymphocytes (%) (Auto) 8.0 % Monocytes (%) (Auto) 7.5 % Eosinophils (%) (Auto) 1.4 % Basophils (%) (Auto) 0.0 % Neutrophils # (Auto) 7.43 K/uL Lymphocytes # (Auto) 0.72 K/uL Monocytes # (Auto) 0.67 K/uL Eosinophils # (Auto) 0.13 K/uL Basophils # (Auto) 0.00 K/uL RDW Standard Deviation 61.0 fL RDW Coefficient of Variation 18.1 % Immature Granulocyte % (Auto) 0.4 % Immature Granulocyte # (Auto) 0.04 K/uL Prothrombin Time 11.1 SECONDS Prothromb Time International Ratio 1.0 Activated Partial Thromboplast Time 32.1 SECONDS Partial Thromboplastin Ratio 1.2 Sodium Level 134 mmol/L Potassium Level 4.1 mmol/L Chloride Level 102 mmol/L Carbon Dioxide Level 22 mmol/L Anion Gap 10.0 mmol/L Blood Urea Nitrogen 25 mg/dl Creatinine 0.51 mg/dl Estimated GFR () 103.1 Estimated GFR (Non- 88.9 BUN/Creatinine Ratio 48.4 Random Glucose 96 mg/dl Calcium Level 8.1 mg/dl Magnesium Level 1.9 mg/dl Total Bilirubin 0.7 mg/dl Direct Bilirubin 0.2 mg/dl Aspartate Amino Transf (AST/SGOT) 24 U/L Alanine Aminotransferase (ALT/SGPT) 68 U/L Alkaline Phosphatase 91 U/L Total Creatine Kinase 33 U/L Creatine Kinase MB 2.4 ng/ml Creatine Kinase MB Ratio 7.3 Troponin I 0.023 ng/ml Total Protein 5.7 gm/dl Albumin 2.4 gm/dl Lipase 215 U/L Thyroid Stimulating Hormone (TSH) 2.680 uIu/ml Lactic Acid Level 2.6 mmol/L 2.1 mmol/L Test 01/31/17 03:53 01/31/17 08:03 Lactic Acid Level 2.2 mmol/L 1.6 mmol/L White Blood Count 7.41 K/uL Red Blood Count 2.95 M/uL Hemoglobin 9.4 g/dL Hematocrit 27.7 % Mean Corpuscular Volume 93.9 fL Mean Corpuscular Hemoglobin 31.9 pg Mean Corpuscular Hemoglobin Concent 33.9 g/dl Platelet Count 254 K/uL Mean Platelet Volume 8.8 fL Neutrophils (%) (Auto) 76.5 % Lymphocytes (%) (Auto) 13.1 % Monocytes (%) (Auto) 8.0 % Eosinophils (%) (Auto) 2.0 % Basophils (%) (Auto) 0.1 % Neutrophils # (Auto) 5.67 K/uL Lymphocytes # (Auto) 0.97 K/uL Monocytes # (Auto) 0.59 K/uL Eosinophils # (Auto) 0.15 K/uL Basophils # (Auto) 0.01 K/uL RDW Standard Deviation 59.8 fL RDW Coefficient of Variation 17.8 % Immature Granulocyte % (Auto) 0.3 % Immature Granulocyte # (Auto) 0.02 K/uL Sodium Level 137 mmol/L Potassium Level 4.1 mmol/L Chloride Level 105 mmol/L Carbon Dioxide Level 23 mmol/L Anion Gap 9.0 mmol/L Blood Urea Nitrogen 21 mg/dl Creatinine 0.53 mg/dl Est Creatinine Clear Calc Drug Dose 67.2 ml/min Estimated GFR () 101.8 Estimated GFR (Non- 87.8 BUN/Creatinine Ratio 40.0 Random Glucose 72 mg/dl Calcium Level 7.9 mg/dl (Kim Alanis ., MUNDO) Diagnostic Results HEAD CT IMPRESSION: 1. No significant change since head CT of January 30, 2017 status post right-sided craniotomy with subdural hematoma evacuation. Stable moderate sized hypodense left subdural collection which may reflect a subdural hygroma. Stable small mixed attenuation right extra-axial fluid collection since prior exam. Stable trace acute hemorrhage along the posterior falx and tentorium. 2. No change in trace scattered acute hemorrhage/contusions, as described above. This could be subarachnoid or less likely parenchymal in location. EEG indicates: 1) Moderate encephalopathy of nonspecific etiology 2) Right hemispheric functional or structural cerebral dysfunction. (Kim Alanis, MUNDO) Assessment and Plan ENCEPHALOPATHY, DUE TO: POSSIBLE NEW ONSET SEIZURE UTI, POSSIBLE EARLY SEPSIS POSSIBLE ORTHOSTASIS DUE TO DEHYDRATION HX RECENT SUBDURAL HEMATOMA S/P EVACUATION - admitted to tele - patient with recent history of subdural hematoma s/p craniotomy and evacuation at [facility]; [facility] of [facility] followed by shaking, loss of bowel and bladder function, and lethargy; noted patient was not discharged on antiepileptics from [facility] post surgery - CT head findings discussed with Drs. Carter and Sergio (neurosurgery [facility]) by Dr. Caballero and myself on admission - no need for transfer - patient loaded with Keppra 500mg IV and now on 500mg IV BID - EEG unremarkable - repeat CT head today unchanged - on presentation had borderline BP, tachycardia, and lactic acidosis - all improved with IVF - hypotension and tachycardia could be from dehydration as well; will hold amlodipine for now however need to control and monitor BP closely due to recent subdural hematoma; checl orthostatic BPs - last urine culture grew pansensitive E. Coli; current culture growing gram negative bacilli; on Rocephin (day 2) - blood cultures pending ATRIAL FIBRILLATION - presented with RVR - rate improved with IVF - in NSR during my exam today - on Sotalol for rhythm control, will continue - not anticoagulated due to subdural hematoma PE - diagnosed at [facility] and was evaluated by vascular who did not feel as though the patient needed IVC LEFT KIDNEY LESION - diagnosed at [facility] - outpatient follow up DVT PROPHYLAXIS - SCDs due to subdural hematoma CODE STATUS - Patient is a full code as per my discussion with patient's sons on admission. DISPO - pending - PT/OT - possible return back to [place] [facility] (Kim Alanis ., MUNDO) Pt was seen and examined. agreed with Kim FLOWER physical exam, assessment and plan. Pt is lying in bed with no distress.Repeat CT head showed no change when compared to the yesterday CT head. EEG showed no seizure activity. On keppra 500mg BID. Urine cx grew gram negative bacilli. afebrile. continue rocephin IV. continue PT/OT eval. Continue monitor pt. Sharda Christianson MD (Sharda Christianson M.D.)
[2017-01-31] MEDS ORDERED: CEFTRIAXONE SOD INJ 1 GM in DEXTROSE 5% ADD-VANTAGE 50ML 50 ML IV SCH (12:00)
--- NOTE | 2017-01-31 14:57 | Clinical Documentation Query ---
TRUNG JEAN : CLINICAL DOCUMENTATION QUERY Patient is an 81 year old female with a history of recent craniotomy for evacuation of SDH presenting for evaluation of episodic loss of consciousness with bowel and bladder incontinence witnessed by rehab staff which was associated with "shaking". Neurology consulted, patient started on Keppra IV, EEG performed, urine cultures, IV antibiotics. As appropriate, consider documentation as suggested below. Thank you. In your clinical opinion is this patient being managed for: ( ) Encephalopathy secondary to possible seizure and/or UTI ( ) Other explanation of clinical findings (Please Explain) ( ) Unable to determine (Please Define) ( ) Need to Discuss ( ) Not Agree The medical record reflects the following clinical findings, treatment, and risk factors. Clinical Indicators: AMS in the setting of possible seizure, possible UTI Treatment: Neurology consulted, patient started on Keppra IV, EEG performed, urine cultures, IV antibiotics Risk Factors: Seizure, UTI/infection Please clarify and document your clinical opinion in the progress notes and discharge summary. Terms such as "probable", "suspected", "likely", "questionable", "possible", or "still to be ruled out" are acceptable. IF IN AGREEMENT, YOU MUST DOCUMENT ABOVE DIAGNOSTIC STATEMENT IN DAILY PROGRESS NOTES AND DISCHARGE SUMMARY. This document is not part of the patient's record. Thank You, Landon Kaplan, MARIELY [phone]
--- NOTE | 2017-01-31 16:26 | Neurology Progress Notes ---
Neurology Progress Note Date of Service Jan 31, 2017. Belinda Garcia is an 81 year old female who presents with persistent lethargy that began prior to arrival. ALS transported from [facility] with complaints of lethargy. They note that the patient had a craniotomy two weeks ago after having a subdural, she has a PMH of AF, DL PE, macular degeneration, She was admitted to the hospital on 12/10/16 for syncopal episode and found to have a SAH. Her Coumadin was stopped but then restarted after a repeat CT head revealed stable SAH. She was then admitted on 01/17/17 after she had a change in MS and was found to have a SDH and was transferred to [facility] for crani and evacuation of SDH which had a mixed density. She returned to [facility] but then had a change in MS on 01/29 and was not admitted. She return today after a syncopal event when being transferred. A CT head revealed a left side hygroma with some contusions which appear to be new. She is aware she is in the hospital and currently has no complaints. Neurosurgery in [place] was made aware of the new findings and felt this could be handled medically without transfer. today her son and daughter in law are in the room. she is awake and but somewhat lethargic. she knows she is a hospital if given choice between [facility] and [facility]. denies any pain or discomfort. no further seizure activity Objective Date Time Temp Pulse Resp B/P Pulse Ox O2 Delivery O2 Flow Rate FiO2 01/31/17 15:03 36.8 70 18 104/53 100 Room Air 01/31/17 12:00 99 Room Air 01/31/17 11:58 36.7 78 20 94/46 94 Room Air 01/31/17 11:29 109/64 01/31/17 08:00 99 Room Air 01/31/17 07:56 36.4 51 20 106/58 99 Room Air 01/31/17 04:00 Room Air 01/31/17 03:15 36.6 73 18 142/57 96 Room Air 01/31/17 00:01 Room Air 01/30/17 23:13 36.6 66 18 127/62 97 Room Air 01/30/17 21:55 36.6 100 14 113/78 94 Room Air 01/30/17 21:15 36.6 100 14 113/78 94 Room Air 01/30/17 20:46 95 12 109/78 94 01/30/17 20:00 89 13 130/87 95 Room Air 01/30/17 19:11 97 14 183/84 97 Room Air 01/30/17 17:27 86 14 92 01/30/17 17:11 99 01/30/17 16:30 15 121/83 97 Room Air Last 24 Hours Test 01/30/17 17:02 01/30/17 21:42 01/31/17 03:53 01/31/17 08:03 Lactic Acid Level 2.6 mmol/L 2.1 mmol/L 2.2 mmol/L 1.6 mmol/L White Blood Count 7.41 K/uL Red Blood Count 2.95 M/uL Hemoglobin 9.4 g/dL Hematocrit 27.7 % Mean Corpuscular Volume 93.9 fL Mean Corpuscular Hemoglobin 31.9 pg Mean Corpuscular Hemoglobin Concent 33.9 g/dl Platelet Count 254 K/uL Mean Platelet Volume 8.8 fL Neutrophils (%) (Auto) 76.5 % Lymphocytes (%) (Auto) 13.1 % Monocytes (%) (Auto) 8.0 % Eosinophils (%) (Auto) 2.0 % Basophils (%) (Auto) 0.1 % Neutrophils # (Auto) 5.67 K/uL Lymphocytes # (Auto) 0.97 K/uL Monocytes # (Auto) 0.59 K/uL Eosinophils # (Auto) 0.15 K/uL Basophils # (Auto) 0.01 K/uL RDW Standard Deviation 59.8 fL RDW Coefficient of Variation 17.8 % Immature Granulocyte % (Auto) 0.3 % Immature Granulocyte # (Auto) 0.02 K/uL Sodium Level 137 mmol/L Potassium Level 4.1 mmol/L Chloride Level 105 mmol/L Carbon Dioxide Level 23 mmol/L Anion Gap 9.0 mmol/L Blood Urea Nitrogen 21 mg/dl Creatinine 0.53 mg/dl Est Creatinine Clear Calc Drug Dose 67.2 ml/min Estimated GFR () 101.8 Estimated GFR (Non- 87.8 BUN/Creatinine Ratio 40.0 Random Glucose 72 mg/dl Calcium Level 7.9 mg/dl Imaging: CT head- No significant change since head CT of January 30, 2017 status post right -sided craniotomy with subdural hematoma evacuation. Stable moderate sized hypodense left subdural collection which may reflect a subdural hygroma. Stable small mixed attenuation right extra-axial fluid collection since prior exam. Stable trace acute hemorrhage along the posterior falx and tentorium. No change in trace scattered acute hemorrhage/contusions, as described above. This could be subarachnoid or less likely parenchymal in location. Exam: Gen: alert NAD PERRL/EOMI lungs course lungs sounds CV irregular squeezes with hands pulls and pushes 5/5 bilaterally does not lift legs against gravity plantar flex and ext 2/5 no LE edema smile and eye brow raise symmetric Current Inpatient Medications Medications (Trade) Dose Ordered Sig/Troy Route Start Time Stop Time Status Last Admin Dose Admin Levetiracetam/ Dextrose (Keppra Iv/D5 100ml) 105 ml @ 420 mls/hr Q12@0600,1800 IV 01/30/17 18:00 03/01/17 17:59 01/31/17 06:15 420 MLS/HR Acetaminophen (Tylenol Tab) 650 mg Q4H PRN PO 01/30/17 17:00 03/01/17 16:59 Ondansetron HCl 4 mg 4 mg Q6H PRN IV 01/30/17 17:00 03/01/17 16:59 Sodium Chloride 1,000 ml @ 100 mls/hr Q10H IV 01/30/17 17:00 03/01/17 16:59 01/31/17 11:42 100 MLS/HR Ceftriaxone Sodium/Dextrose (Rocephin Inj/ Dextrose Add-[place] 50ML) 50 ml @ 100 mls/hr DAILY@1200 IV 01/31/17 12:00 02/10/17 11:59 01/31/17 11:42 100 MLS/HR Miscellaneous Information (Pharmacist Discharge Med Rec Consult) 1 ea UD PRN N/A 01/30/17 17:00 03/01/17 16:59 Calcium/Vitamin D (Caltrate Plus Tab) 1 tab DAILY PO 01/31/17 09:00 03/02/17 08:59 01/31/17 07:52 1 TAB Docusate Sodium (coLACE CAP) 100 mg DAILY PO 01/31/17 09:00 03/02/17 08:59 01/31/17 07:52 100 MG Famotidine (Pepcid Tab) 20 mg BID PO 01/30/17 21:00 03/01/17 20:59 01/31/17 07:52 20 MG Multivitamins/ Minerals (Multivitamin W/ Minerals Tab) 1 tab BID PO 01/30/17 21:00 03/01/17 20:59 01/31/17 07:50 1 TAB Oxycodone HCl (Roxicodone Immediate Rel Tab) 5 mg Q6H PRN PO 01/30/17 17:45 02/13/17 17:44 Senna/Docusate Sodium (Senokot S Tab) 1 tab DAILY PO 01/31/17 09:00 03/02/17 08:59 01/31/17 07:52 1 TAB Simvastatin (Zocor Tab) 10 mg QPM PO 01/30/17 21:00 03/01/17 20:59 01/30/17 20:26 10 MG Sotalol HCl (Betapace Tab) 120 mg BID PO 01/30/17 21:00 03/01/17 20:59 01/31/17 07:51 120 MG Impression 81 year old female history a fib, SDH evacuation, possible seizure event Plan 1. EEG with no epileptic spikes 2. load with 500 mg Keppra then 500 mg BID 3. treat UTI 4. blood cultures pending 5. rescan with MS change 6. observe for any additional seizure events 7. may be new contusions may be from trauma today 8. repeat CT head stable 9. will need nickie removed has been x 2 weeks will need to check with NS regarding plan as she will likely miss her appointment tomorrow 10. PT/OT for discharge needs. I have seen and discussed above patient with Dr Eliza Porter, neurology Pt sleepy but arousable, PERRL, nml meredith, flattened L NLF mild L hemiparesis. CT head unchanged compared to yesterday. Imp sz related to posttraumatic SDH, SAH, pt stable, CT stable. DOMENICA Porter MD
[2017-01-31] MEDS: SIMVASTATIN 10 MG TAB PO SCH (19:25)
[2017-02-01] VITALS (7 sets, daily range): BP systolic 104–122; BP diastolic 55–70; PULSE 54–94; TEMP 36.3–36.6; O2SAT 93–99
[2017-02-01 05:25] LABS: HEMATOCRIT 27.6 % (37-47); MEAN CELL VOLUME 93.6 fL (80-100); MEAN CORPUSCULAR HEMOGLOBIN 31.5 pg (25-34); MEAN CORPUSCULAR HGB CONC 33.7 g/dl (32-36); PLATELET COUNT 243 K/uL (130-400); RED BLOOD COUNT 2.95 M/uL (4.2-5.4); WHITE BLOOD COUNT 7.06 K/uL (4.8-10.8)
[2017-02-01] MEDS: LEVETIRACETAM IV 500 MG in DEXTROSE 5% 100ML 100 ML IV SCH ×2 (05:47→18:42)
[2017-02-01 05:53] LABS: BUN/CREATININE RATIO 38.3 (10-20); CALCIUM 7.9 mg/dl (8.5-10.1); CREATININE 0.54 mg/dl (0.60-1.20); POTASSIUM 4.2 mmol/L (3.5-5.1)
[2017-02-01] MEDS: SOTALOL HCL 80 MG TAB PO SCH ×2 (07:59→20:38)
[2017-02-01] MEDS: CALCIUM 600MG + VIT D 400 IU TAB PO SCH (08:00)
[2017-02-01] MEDS: DOCUSATE SODIUM/SENNA 50/8.6MG TAB PO SCH (08:01)
[2017-02-01] MEDS: CEROVITE ADV FORMULA TAB PO SCH ×2 (08:01→20:37)
[2017-02-01] MEDS: DOCUSATE SODIUM 100 MG CAP PO SCH (08:01)
[2017-02-01] MEDS: FAMOTIDINE 20 MG TAB PO SCH ×2 (08:01→20:39)
[2017-02-01] MEDS: SODIUM CHLORIDE 0.9% 1000ML 1,000 ML IV SCH (08:02)
[2017-02-01] MEDS: SULFAMETHOXAZOLE/TRIMETHOPRIM DS 800/160MG TAB PO SCH ×2 (09:23→20:38)
--- NOTE | 2017-02-01 10:50 | Hospitalist Progress Note ---
Hospitalist Progress Note Date of Service Feb 01, 2017. (Kim Alanis CRNP) Subjective Patient seen and examined. More alert this morning, following commands, however does fall back to sleep quickly. Offers no complaints. Denies headache and blurred vision. (Kim Alanis CRNP) Objective Vital Signs Date Time Temp Pulse Resp B/P Pulse Ox O2 Delivery O2 Flow Rate FiO2 02/01/17 07:56 36.5 64 18 115/70 98 Room Air 02/01/17 04:00 36.6 56 18 118/57 98 Room Air 02/01/17 04:00 Room Air 02/01/17 00:34 36.5 79 20 122/66 98 Room Air 02/01/17 00:00 Room Air 01/31/17 20:00 Room Air 01/31/17 20:00 36.9 56 18 121/72 100 Room Air 01/31/17 16:00 99 Room Air 01/31/17 15:03 36.8 70 18 104/53 100 Room Air 01/31/17 12:00 99 Room Air 01/31/17 11:58 36.7 78 20 94/46 94 Room Air 01/31/17 11:29 109/64 (Kim Alanis CRNP) Physical Exam General Appearance: no apparent distress Eyes: normal inspection ENT: hearing grossly normal Neck: supple, no JVD Respiratory/Chest: lungs clear, normal breath sounds, no respiratory distress Cardiovascular: regular rate, rhythm, no edema Abdomen: normal bowel sounds, non tender, soft Neurologic/Psychiatric: + pertinent finding (more alert today with verbal stimuli and follows simple commands, continues to fall back to sleep quickly) Skin: normal color, warm/dry (Kim Alanis CRNP) Laboratory Results Last 24 Hours Test 02/01/17 05:06 White Blood Count 7.06 K/uL Red Blood Count 2.95 M/uL Hemoglobin 9.3 g/dL Hematocrit 27.6 % Mean Corpuscular Volume 93.6 fL Mean Corpuscular Hemoglobin 31.5 pg Mean Corpuscular Hemoglobin Concent 33.7 g/dl RDW Standard Deviation 59.6 fL RDW Coefficient of Variation 17.7 % Platelet Count 243 K/uL Mean Platelet Volume 9.0 fL Sodium Level 136 mmol/L Potassium Level 4.2 mmol/L Chloride Level 105 mmol/L Carbon Dioxide Level 24 mmol/L Anion Gap 7.0 mmol/L Blood Urea Nitrogen 21 mg/dl Creatinine 0.54 mg/dl Est Creatinine Clear Calc Drug Dose 66.0 ml/min Estimated GFR () 101.1 Estimated GFR (Non- 87.3 BUN/Creatinine Ratio 38.3 Random Glucose 76 mg/dl Calcium Level 7.9 mg/dl (Kim Alanis ., MUNDO) Diagnostic Results Urine Culture 1. ENTEROBACTER AEROGENES Target Route Dose RX AB Cost M.I.C. IQ ------ ----- ------ -- ------ -------- - ------ TRIMET/SULFA S <=2/38 CEFOTAXIME S 8 CEFTRIAXONE R 8 CEFEPIME S <=4 IMIPENEM S <=1 GENTAMICIN S <=4 TOBRAMYCIN S <=4 AMIKACIN S <=16 CIPROFLOXACIN S <=1 LEVOFLOXACIN S <=2 ERTAPENEM S <=1 NITROFURANTOIN I 64 PIP/TAZO S <=16 (Kim Alanis, MUNDO) Assessment and Plan ENCEPHALOPATHY, DUE TO: POSSIBLE NEW ONSET SEIZURE UTI CAUSED BY ENTEROBACTER AEROGENES, POSSIBLE EARLY SEPSIS POSSIBLE ORTHOSTASIS DUE TO DEHYDRATION HX RECENT SUBDURAL HEMATOMA S/P EVACUATION - improving today - more alert with verbal stimuli however falls back to sleep quickly - admitted to tele - patient with recent history of subdural hematoma s/p craniotomy [place] [facility]; [facility] with loss of consciousness followed by shaking, loss of bowel and bladder function, and lethargy; noted patient was not discharged on antiepileptics from [facility] post surgery - CT head findings discussed with Drs. Carter and Sergio (neurosurgery [facility] by Dr. Caballero and myself on admission - no need for transfer - patient loaded with Keppra 500mg IV and now on 500mg IV BID - EEG unremarkable - repeat CT head unchanged 01/31 - on presentation had borderline BP, tachycardia, and lactic acidosis - all improved with IVF - hypotension and tachycardia could be from dehydration as well; will hold amlodipine for now however need to control and monitor BP closely due to recent subdural hematoma; monitor orthostatic BPs - last urine culture grew pansensitive E. Coli; current culture growing Enterobacter aerogenes - sensitivities noted above; received Rocephin (2 days), will change to Bactrim today - blood cultures negative thus far ATRIAL FIBRILLATION - presented with RVR - rate improved with IVF - in NSR during my exam today - on Sotalol for rhythm control, will continue - not anticoagulated due to subdural hematoma PE - diagnosed at [facility] and was evaluated by vascular who did not feel as though the patient needed IVC LEFT KIDNEY LESION - diagnosed at [facility] - outpatient follow up DVT PROPHYLAXIS - SCDs due to subdural hematoma CODE STATUS - Patient is a full code as per my discussion with patient's sons on admission. DISPO - pending - PT/OT - possible return back to [place] (Kim Alanis ., MUNDO) Pt was seen and examined with son at bedside.. agreed with Kim FLOWER physical exam, assessment and plan. Pt is lying in bed with no distress. Urine cx resolved and resistance with rocephin. Abx changed to Bactrium. No seizure activity. Will contact neurosurgery before removed the nickie. continue PT/OT. (Sharda Christianson M.D.)
--- NOTE | 2017-02-01 19:18 | PROGRESS NOTE ---
DATE: 02/01/2017 SUBJECTIVE: I am seeing Mrs. Bazan in followup. She has history of an evacuated right subdural with some subarachnoid hemorrhage, was admitted from a retirement to our facility for an episode of loss of consciousness and seizure activity. Her EEG did not show any seizure focus or status epilepticus and she has done well since Keppra was started. She was due to see neurosurgery today and according to her son, have her nickie taken out. She has not had any further events. PHYSICAL EXAMINATION: GENERAL: She is awake and alert. There is normal speech and language. She thinks she is in [place]. HEENT: There is a mild flattening of the left nasolabial fold. Normal visual meredith. EXTREMITIES: Left upper extremity is almost 4, left lower is 2 proximally. IMPRESSION: This patient is status post evacuation of a large right subdural. She has residual right hemiparesis. There is subdural hygroma present on the left. I would recommend contacting neurosurgery at [place] to see if the nickie can be removed. The patient should continue on Keppra and see us in followup post-discharge. We will sign off at this time. The patient should see neurosurgery in followup post-discharge to determine the need for further imaging. ERNESTINA
[2017-02-01] MEDS: SIMVASTATIN 10 MG TAB PO SCH (20:38)
[2017-02-02 00:49] VITALS: BP 113/63; PULSE 58; TEMP 36.6; O2SAT 97
[2017-02-02] MEDS: LEVETIRACETAM IV 500 MG in DEXTROSE 5% 100ML 100 ML IV SCH ×2 (05:45→18:08)
[2017-02-02 08:12] LABS: HEMATOCRIT 27.4 % (37-47); MEAN CELL VOLUME 93.5 fL (80-100); MEAN CORPUSCULAR HEMOGLOBIN 31.7 pg (25-34); MEAN CORPUSCULAR HGB CONC 33.9 g/dl (32-36); PLATELET COUNT 255 K/uL (130-400); RED BLOOD COUNT 2.93 M/uL (4.2-5.4); WHITE BLOOD COUNT 6.31 K/uL (4.8-10.8)
[2017-02-02] MEDS: CALCIUM 600MG + VIT D 400 IU TAB PO SCH (08:39)
[2017-02-02] MEDS: FAMOTIDINE 20 MG TAB PO SCH ×2 (08:39→21:14)
[2017-02-02 08:40] VITALS: PULSE 61
[2017-02-02 08:40] LABS: CREATININE 0.6 mg/dl (0.60-1.20); POTASSIUM 4.1 mmol/L (3.5-5.1)
[2017-02-02] MEDS: CEROVITE ADV FORMULA TAB PO SCH ×2 (08:40→21:13)
[2017-02-02] MEDS: SULFAMETHOXAZOLE/TRIMETHOPRIM DS 800/160MG TAB PO SCH ×2 (08:40→21:14)
[2017-02-02] MEDS: SOTALOL HCL 80 MG TAB PO SCH ×2 (08:40→21:14)
[2017-02-02] MEDS: DOCUSATE SODIUM/SENNA 50/8.6MG TAB PO SCH (08:40)
[2017-02-02] MEDS: DOCUSATE SODIUM 100 MG CAP PO SCH (08:40)
[2017-02-02 09:01] VITALS: BP 117/65; PULSE 54; TEMP 36.8; O2SAT 99
[2017-02-02 15:28] VITALS: BP 120/72; PULSE 51; TEMP 36.5; O2SAT 100
--- NOTE | 2017-02-02 18:23 | Progress Note ---
Medicine Progress Note Date & Time of Visit: Feb 02, 2017 at 15:07. Subjective Pt was seen and examined Lying in bed with no distress Discussed case with both sons and Giselle Neurosurgery PA at [place] Pt said that she feels fine No seizure activity Neurosurgery PA at the [facility] would like Pt to get a CT head before remove the nickie If the CT head mentions anything that describes the scars does not heal, Pt will need to follow with neurosurgery at [place] on the 02/06 at 11:30 am for follow up Son said that [facility] has a hard time to find transport for pt to drive her to [place] for the appt Pt denies any chest pain, palpitation, dizziness and SOB Objective Last 8 Hrs Date Time Temp Pulse Resp B/P Pulse Ox O2 Delivery O2 Flow Rate FiO2 02/02/17 09:01 36.8 54 16 117/65 99 Nasal Cannula 02/02/17 08:40 61 02/02/17 08:00 Room Air Physical Exam: General- No acute distress Head- s/p craniotomy scars, healing, nickie in place Eyes- PERRL, EOMI ENT- oropharynx clear Neck- supple, no JVD Lungs- clear to auscultation and percussion Heart- regular rhythm; no murmur Abdomen- normal bowel sounds, soft Extremities- no calf tenderness, left lower extremities weakness Neuro- alert, awake, PERRL, EOMI Skin- warm & dry Laboratory Results: Last 24 Hours Test 02/02/17 08:00 White Blood Count 6.31 K/uL Red Blood Count 2.93 M/uL Hemoglobin 9.3 g/dL Hematocrit 27.4 % Mean Corpuscular Volume 93.5 fL Mean Corpuscular Hemoglobin 31.7 pg Mean Corpuscular Hemoglobin Concent 33.9 g/dl RDW Standard Deviation 59.2 fL RDW Coefficient of Variation 17.8 % Platelet Count 255 K/uL Mean Platelet Volume 9.0 fL Sodium Level 134 mmol/L Potassium Level 4.1 mmol/L Chloride Level 104 mmol/L Carbon Dioxide Level 22 mmol/L Anion Gap 8.0 mmol/L Blood Urea Nitrogen 18 mg/dl Creatinine 0.60 mg/dl Est Creatinine Clear Calc Drug Dose 59.7 ml/min Estimated GFR () 97.7 Estimated GFR (Non- 84.3 BUN/Creatinine Ratio 30.0 Random Glucose 83 mg/dl Calcium Level 8.0 mg/dl Assessment & Plan ENCEPHALOPATHY, DUE TO: POSSIBLE NEW ONSET SEIZURE UTI CAUSED BY ENTEROBACTER AEROGENES, POSSIBLE EARLY SEPSIS POSSIBLE ORTHOSTASIS DUE TO DEHYDRATION HX RECENT SUBDURAL HEMATOMA S/P EVACUATION -Back to baseline as per son - patient with recent history of subdural hematoma s/p craniotomy and [place] [facility]; presenting from [facility] with loss of consciousness followed by shaking, loss of bowel and bladder function, and lethargy; noted patient was not discharged on antiepileptics from [facility] post surgery - CT head findings discussed with Drs. Carter and Sergio (neurosurgery [facility]) by Dr. Caballero and myself on admission - no need for transfer - patient loaded with Keppra 500mg IV and now on 500mg IV BID - Change keppra to PO - EEG unremarkable - repeat CT head unchanged 01/31 -Discussed with Giselle Neuro surgery PA at the [facility] -Recommend to get a CT scan of the head and if stable, we can remove the nickie -Will need to follow with neuro Dr. Porter and neurosurgery - on presentation had borderline BP, tachycardia, and lactic acidosis - all improved with IVF - hypotension and tachycardia could be from dehydration as well; will hold amlodipine for now however need to control and monitor BP closely due to recent subdural hematoma; monitor orthostatic BPs - last urine culture grew pansensitive E. Coli; current culture growing Enterobacter aerogenes - sensitivities noted above; received Rocephin (2 days), changed to Bactrim today - blood cultures negative thus far -stable ATRIAL FIBRILLATION - presented with RVR - rate improved with IVF - Continue Sotalol for rhythm control - not anticoagulated due to subdural hematoma PE - diagnosed at [facility] and was evaluated by vascular who did not feel as though the patient needed IVC - Saturates well on RA -Stable LEFT KIDNEY LESION - diagnosed at [facility] - outpatient follow up DVT PROPHYLAXIS - SCDs due to subdural hematoma CODE STATUS FULL CODE DISPO= - PT/OT eval - Discharge tomorrow to [facility] - Follow up with Neuro -Follow with neurosurgery at [place] on the 02/06 at 11:30 am Consultants: neuro Current Inpatient Medications: Current Inpatient Medications Medications (Trade) Dose Ordered Sig/Troy Route Start Time Stop Time Status Last Admin Dose Admin Levetiracetam/ Dextrose (Keppra Iv/D5 100ml) 105 ml @ 420 mls/hr Q12@0600,1800 IV 01/30/17 18:00 03/01/17 17:59 02/02/17 05:45 420 MLS/HR Acetaminophen (Tylenol Tab) 650 mg Q4H PRN PO 01/30/17 17:00 03/01/17 16:59 Ondansetron HCl (Zofran Inj) 4 mg Q6H PRN IV 01/30/17 17:00 03/01/17 16:59 Miscellaneous Information (Pharmacist Discharge Med Rec Consult) 1 ea UD PRN N/A 01/30/17 17:00 03/01/17 16:59 Calcium/Vitamin D (Caltrate Plus Tab) 1 tab DAILY PO 01/31/17 09:00 03/02/17 08:59 02/02/17 08:39 1 TAB Docusate Sodium (coLACE CAP) 100 mg DAILY PO 01/31/17 09:00 03/02/17 08:59 02/02/17 08:40 100 MG Famotidine (Pepcid Tab) 20 mg BID PO 01/30/17 21:00 03/01/17 20:59 02/02/17 08:39 20 MG Multivitamins/ Minerals (Multivitamin W/ Minerals Tab) 1 tab BID PO 01/30/17 21:00 03/01/17 20:59 02/02/17 08:40 1 TAB Oxycodone HCl (Roxicodone Immediate Rel Tab) 5 mg Q6H PRN PO 01/30/17 17:45 02/13/17 17:44 Senna/Docusate Sodium (Senokot S Tab) 1 tab DAILY PO 01/31/17 09:00 03/02/17 08:59 02/02/17 08:40 1 TAB Simvastatin (Zocor Tab) 10 mg QPM PO 01/30/17 21:00 03/01/17 20:59 02/01/17 20:38 10 MG Sotalol HCl (Betapace Tab) 120 mg BID PO 01/30/17 21:00 03/01/17 20:59 02/02/17 08:40 120 MG Trimethoprim/ Sulfamethoxazole (Septra Ds 800/ 160MG Tab) 1 tab Q12 PO 02/01/17 09:00 02/11/17 08:59 02/02/17 08:40 1 TAB
[2017-02-02] MEDS: SIMVASTATIN 10 MG TAB PO SCH (21:14)
[2017-02-02 23:18] VITALS: BP 93/55; PULSE 54; TEMP 36.7; O2SAT 100
[2017-02-03] MEDS: LEVETIRACETAM IV 500 MG in DEXTROSE 5% 100ML 100 ML IV SCH (05:45)
[2017-02-03 08:00] VITALS: O2SAT 100
[2017-02-03 08:24] VITALS: BP 104/57; PULSE 54; TEMP 36.4; O2SAT 96
[2017-02-03] MEDS: CEROVITE ADV FORMULA TAB PO SCH (08:31)
[2017-02-03] MEDS: SOTALOL HCL 80 MG TAB PO SCH (08:31)
[2017-02-03] MEDS: FAMOTIDINE 20 MG TAB PO SCH (08:32)
[2017-02-03] MEDS: DOCUSATE SODIUM 100 MG CAP PO SCH (08:32)
[2017-02-03] MEDS: CALCIUM 600MG + VIT D 400 IU TAB PO SCH (08:32)
[2017-02-03] MEDS: DOCUSATE SODIUM/SENNA 50/8.6MG TAB PO SCH (08:32)
[2017-02-03] MEDS: SULFAMETHOXAZOLE/TRIMETHOPRIM DS 800/160MG TAB PO SCH (08:32)
[2017-02-03 08:40] LABS: BUN/CREATININE RATIO 31.2 (10-20); CREATININE 0.59 mg/dl (0.60-1.20); POTASSIUM 4.1 mmol/L (3.5-5.1)
--- NOTE | 2017-02-03 09:19 | DIAGNOSTIC IMAGING REPORT ---
CT OF THE HEAD WITHOUT CONTRAST CLINICAL HISTORY: Altered mental status. Status post craniotomy. COMPARISON STUDY: Head CT January 31, 2017. CT DOSE: 844.62 mGy.cm TECHNIQUE: Helical axial images of the head were obtained without IV contrast. Automated exposure control was utilized for the study. FINDINGS: A right-sided craniotomy is noted. A hypodense left subdural collection that measures 1.3 cm in thickness is unchanged since prior exam. There is mass effect with sulcal effacement and mild compression of the left lateral ventricle which is similar to prior exam. There may be trace hemorrhage within the occipital horns of both lateral ventricles. A small right extra-axial operative bed mixed attenuation collection is unchanged. Trace scattered suspected subarachnoid hemorrhage is again noted. Trace subdural blood along the posterior falx has diminished. A 1.4 cm hypodensity within the right cerebellar hemisphere may reflect a subacute to acute infarct. In retrospect, this may been present on prior exam but is more conspicuous on this study. There is no calvarial fracture. Skin nickie are present. IMPRESSION: 1. No significant change since prior exam. 2. Status post right craniotomy. No change in the hypodense moderate-sized left subdural collection which may reflect a subdural hygroma. Stable right extra-axial mixed attenuation collection. 3. Scattered trace subarachnoid hemorrhage and suspected trace hemorrhage within the occipital horns of the lateral ventricles. Stable ventricular size. 4. Suspected small subacute to acute infarct within the right cerebellar hemisphere. In retrospect, this may been present on prior exam but is more conspicuous on this study. Electronically signed by: Moo Siu M.D. 02/03/2017 9:18 AM Dictated Date/Time: 02/03/2017 9:06 AM
[2017-02-03] MEDS ORDERED: SULF-183 PO (13:50)
[2017-02-03] MEDS ORDERED: TYL325X PO (13:50)
--- NOTE | 2017-02-03 13:58 | Discharge Instructions ---
Discharge Instructions Date of Service Feb 03, 2017. Admission Reason for Admission: Altered Mental Status Discharge Discharge Diagnosis / Problem: UTI, Afib, Left kidney lesion, Hx subdural hematoma Discharge Goals Goal(s): Decrease discomfort, Increase independence, Improve disease control Activity Recommendations Activity Limitations: resume your previous activity (as tolerated) . Instructions / Follow-Up Instructions / Follow-Up Discharge to [facility] Please follow with Neurosurgery doctor at [facility] to remove the stables Follow up with neurology Dr. Porter Keep skull area clean PT/OT eval Hold Amlodipine for now due to blood pressure in the low side, can restart once BP started to elevated Avoid NSAIDs due to the subdural hematoma Complete course of antibiotic with Bactrim Current Hospital Diet Patient's current hospital diet: AHA Diet (Heart Healthy) Discharge Diet Recommended Diet: AHA Diet (Heart Healthy) Pending Studies Studies pending at discharge: no Medical Emergencies . Who to Call and When: Medical Emergencies: If at any time you feel your situation is an emergency, please call 911 immediately. . Non-Emergent Contact Non-Emergency issues call your: Primary Care Provider Call Non-Emergent contact if: you have a fever, you have any medication questions . . "Provider Documentation" section prepared by Sharda Christianson. VTE Core Measure Inpt VTE Proph given/why not?: SCD's
[2017-02-03 13:59] VITALS: BP 104/57; PULSE 54; TEMP 36.4; O2SAT 96
[2017-02-03] MEDS ORDERED: LEVE500T13 PO (13:59)
--- NOTE | 2017-02-03 16:38 | Progress Note ---
Medicine Progress Note Date & Time of Visit: Feb 03, 2017 at 16:28. Subjective Pt was seen and examined Lying comfortable with Son at bedside No seizure activity denies any chest pain, palpitation, dizziness and SOB Objective Last 8 Hrs Date Time Temp Pulse Resp B/P Pulse Ox O2 Delivery O2 Flow Rate FiO2 02/03/17 13:59 36.4 54 16 96 Room Air Physical Exam: General- No acute distress Head- s/p craniotomy scars, healing, nickie in place Eyes- PERRL, EOMI ENT- oropharynx clear Neck- supple, no JVD Lungs- clear to auscultation and percussion Heart- regular rhythm; no murmur Abdomen- normal bowel sounds, soft Extremities- no calf tenderness, left lower extremities weakness Neuro- alert, awake, PERRL, EOMI Skin- warm & dry Laboratory Results: Last 24 Hours Test 02/03/17 07:55 Sodium Level 136 mmol/L Potassium Level 4.1 mmol/L Chloride Level 105 mmol/L Carbon Dioxide Level 22 mmol/L Anion Gap 9.0 mmol/L Blood Urea Nitrogen 18 mg/dl Creatinine 0.59 mg/dl Est Creatinine Clear Calc Drug Dose 60.7 ml/min Estimated GFR () 98.2 Estimated GFR (Non- 84.8 BUN/Creatinine Ratio 31.2 Random Glucose 86 mg/dl Calcium Level 8.0 mg/dl Assessment & Plan ENCEPHALOPATHY, DUE TO: POSSIBLE NEW ONSET SEIZURE UTI CAUSED BY ENTEROBACTER AEROGENES, POSSIBLE EARLY SEPSIS POSSIBLE ORTHOSTASIS DUE TO DEHYDRATION HX RECENT SUBDURAL HEMATOMA S/P EVACUATION -Back to baseline as per son - patient with recent history of subdural hematoma s/p [place]aniotomy [place] [facility] [facility] with loss of consciousness followed by shaking, loss of bowel and bladder function, and lethargy; noted patient was not discharged on antiepileptics [place] [facility] [place] - CT head findings discussed with Drs. Carter and Sergio (neurosurgery [facility]) by Dr. Caballero and myself on admission - no need for transfer - patient loaded with Keppra 500mg IV and now on 500mg IV BID - Change keppra to PO - EEG unremarkable - repeat CT head unchanged 01/31 -Discussed with Giselle Neuro surgery PA at the [facility] -Recommend to get a CT scan of the head and if stable, we can remove the nickie -Will need to follow with neuro Dr. Porter and neurosurgery -CT repeat on 02/03 showed Suspected small subacute to acute infarct within the right cerebellar hemisphere. No significant changes compare to prior CT. - Radiology finding discussed with neuro Dr. Matthew. - I called radiologist to look for any swelling, as per radio there are some swelling present - Pt will go to [place] on 02/06 to get nickie remove by neurosurgery - on presentation had borderline BP, tachycardia, and lactic acidosis - all improved with IVF - hypotension and tachycardia could be from dehydration as well; will hold amlodipine for now however need to control and monitor BP closely due to recent subdural hematoma; monitor orthostatic BPs - last urine culture grew pansensitive E. Coli; current culture growing Enterobacter aerogenes - sensitivities noted above; received Rocephin (2 days), changed to Bactrim today - blood cultures negative thus far - Discharge on PO Bactrim -stable ATRIAL FIBRILLATION - presented with RVR - rate improved with IVF - Continue Sotalol for rhythm control - not anticoagulated due to subdural hematoma - stable PE - diagnosed [place] [facility] and was evaluated by vascular who did not feel as though the patient needed IVC - Saturates well on RA -Stable LEFT KIDNEY LESION - diagnosed at [facility] - outpatient follow up DVT PROPHYLAXIS - SCDs due to subdural hematoma CODE STATUS FULL CODE DISPO= - PT/OT eval - Discharge to [place] today - Follow up with Neuro dr. Porter -Follow with neurosurgery at [place] on the 02/06 at 11:30 am Consultants: neuro
--- NOTE | 2017-02-04 18:28 | Discharge Summary ---
Discharge Summary Date of Service Feb 04, 2017. Discharge Summary Admission Date: Jan 30, 2017 at 16:55 Discharge Date: Feb 03, 2017 Discharge Disposition: Rehab Principal Diagnosis: Altered Mental Status Secondary Diagnoses/Problems: UTI Afib Left kidney lesion Hx subdural hematoma Possible new onset of Seizure Procedures: CT OF THE HEAD WITHOUT CONTRAST CLINICAL HISTORY: Altered mental status. Status post craniotomy. COMPARISON STUDY: Head CT January 31, 2017. CT DOSE: 844.62 mGy.cm TECHNIQUE: Helical axial images of the head were obtained without IV contrast. Automated exposure control was utilized for the study. FINDINGS: A right-sided craniotomy is noted. A hypodense left subdural collection that measures 1.3 cm in thickness is unchanged since prior exam. There is mass effect with sulcal effacement and mild compression of the left lateral ventricle which is similar to prior exam. There may be trace hemorrhage within the occipital horns of both lateral ventricles. A small right extra-axial operative bed mixed attenuation collection is unchanged. Trace scattered suspected subarachnoid hemorrhage is again noted. Trace subdural blood along the posterior falx has diminished. A 1.4 cm hypodensity within the right cerebellar hemisphere may reflect a subacute to acute infarct. In retrospect, this may been present on prior exam but is more conspicuous on this study. There is no calvarial fracture. Skin nickie are present. IMPRESSION: 1. No significant change since prior exam. 2. Status post right craniotomy. No change in the hypodense moderate-sized left subdural collection which may reflect a subdural hygroma. Stable right extra-axial mixed attenuation collection. 3. Scattered trace subarachnoid hemorrhage and suspected trace hemorrhage within the occipital horns of the lateral ventricles. Stable ventricular size. 4. Suspected small subacute to acute infarct within the right cerebellar hemisphere. In retrospect, this may been present on prior exam but is more conspicuous on this study. Electronically signed by: Moo Siu M.D. 02/03/2017 9:18 AM Dictated Date/Time: 02/03/2017 9:06 AM Consultations: neuro Medication Reconciliation New Medications: Levetiracetam (Keppra) 500 Mg Tab 1 TAB PO BID for 30 Days, #60 TAB 0 Refills Acetaminophen (Tylenol) 325 Mg Tab 650 MG PO Q8 PRN for Pain or Fever for 7 Days, #42 TAB Sulfamethoxazole-Trimethoprim (Smz-Tmp Ds) 1 Tab Tab 1 TAB PO Q12 for 4 Days, #8 TAB Continued Medications: Alendronate Sodium (Fosamax) 70 Mg Tab 70 MG PO WK, TAB TAKES ON SUNDAY Calcium/Vitamin D (Os-Jonathon 500 Plus D) Tab 1 TAB PO DAILY, TAB Docusate Sodium (Colace) 100 Mg Cap 1 CAP PO DAILY for 15 Days, #15 CAP Famotidine (Pepcid) 20 Mg Tab 1 TAB PO BID for 30 Days, #60 TAB 5 Refills Fish Oil ([place]-3) 1 Ea Cap 1 GM PO DAILY, CAP Lutein (Lutein) 10 Mg Tab 5 MG PO BID Ocuvite Preservision (Ocuvite Preservision) 1 Tab Tab 1 TAB PO BID, TAB Oxycodone Ir (Roxicodone Ir) 5 Mg Tab 5 MG PO Q6H PRN for Pain, TAB Vit W/ Ferrous Fumara ( Vitamins Plus Lo 27-1 mg) 1 Tab Tab 1 TAB PO DAILY Sennosides-Docusate Sodium (Senna Plus) 1 Tab Tab 1 TAB PO DAILY Simvastatin (Zocor) 10 Mg Tab 10 MG PO QPM, TAB Sotalol Hcl (Sotalol Hcl) 80 Mg Tab 120 MG PO BID for 90 Days, #270 TAB 3 Refills Discontinued Medications: Amlodipine Besylate (Amlodipine Besylate) 5 Mg Tab 5 MG PO DAILY, TAB Enoxaparin (Lovenox) 30 Mg/0.3 Ml Inj 30 MG SQ DAILY, SYR Admission Information HPI (per Admitting provider): 81 year old female who presents to the ER from [facility] with altered mental status. Patient has a complex history over the past 2 months. In 12/2016, patient presented to [facility] after a syncopal event. She was found to have a small SAH in the setting of Coumadin therapy for atrial fibrillation. Patient was treated conservatively and Coumadin was resumed feeling the stroke risk outweighed bleed risk. About one month later, patient had another fall in which she struck her head. She presented back to the ER and was found to have an acute on chronic right frontoparietal occipital subdural hematoma. Patient was transferred to [facility] and underwent craniotomy and evacuation of the hematoma. Intraoperatively, the patient was found to be hypoxic and later had a CT chest that showed PE. She was evaluated by vascular who did not feel as though she needed an IVC filter. She has history of afib and had RVR while at [facility]. She was initially placed on amiodarone drip and then Sotalol dose was increased. Patient was then discharged to [facility] for rehab. Since being at [facility], patient has been tolerating therapy. Family reports she stood yesterday for the first time however for only a few seconds. They also noted her appetite to be decreased yesterday. Per the staff at [facility], today while they were transferring her to the chair via [place] lift, patient became unresponsive and had generalized shaking. She also lost control of her bowel and bladder. Her vitals remained stable. She then became very lethargic. Patient was then transferred to the ER for further evaluation. Further history os unobtainable due to patient's mental status. In the ER, patient's U/A is consistent with UTI. She was also mildly hypotensive and tachycardic which improved with IVF. She was given Rocephin. CT head is abnormal however consistent with patient's recent subdural hematoma and craniotomy. Dr. Caballero discussed the case with neurosurgery in [place] who does not feel the patient needs to be transferred to [facility]. Physical Exam (per Admitting): General Appearance: no apparent distress Head: + pertinent finding Eyes: normal inspection ENT: hearing grossly normal Neck: supple, no JVD Respiratory/Chest: lungs clear, normal breath sounds, no respiratory distress Cardiovascular: no edema (normal rate), + irregularly irregular Abdomen/GI: normal bowel sounds, non tender, soft Extremities/Musculoskelatal: normal inspection, no calf tenderness Neurologic/Psych: + pertinent finding (lethargic but arouses to verbal stimuli, answers questions appropriately however falls back to sleep quickly; neuro exam difficult to conduct; weakness present L > R, chronic since recent surgery) Skin: normal color, warm/dry Hospital Course ENCEPHALOPATHY, DUE TO: POSSIBLE NEW ONSET SEIZURE UTI CAUSED BY ENTEROBACTER AEROGENES, POSSIBLE EARLY SEPSIS POSSIBLE ORTHOSTASIS DUE TO DEHYDRATION HX RECENT SUBDURAL HEMATOMA S/P EVACUATION -Back to baseline as per son - patient with recent history of subdural hematoma s/p craniotomy and evacuation at [facility]; presenting from [facility] with loss of consciousness followed by shaking, loss of bowel and bladder function, and lethargy; noted patient was not discharged on antiepileptics from [facility] post surgery - CT head findings discussed with Drs. Carter and Sergio (neurosurgery [facility]) by Dr. Caballero and myself on admission - no need for transfer - patient loaded with Keppra 500mg IV and now on 500mg IV BID - Change keppra to PO - EEG unremarkable - repeat CT head unchanged 01/31 -Discussed with Giselle Neuro surgery PA at the [facility] -Recommend to get a CT scan of the head and if stable, we can remove the nickie -Will need to follow with neuro Dr. Porter and neurosurgery -CT repeat on 02/03 showed Suspected small subacute to acute infarct within the right cerebellar hemisphere. No significant changes compare to prior CT. - Radiology finding discussed with neuro Dr. Matthew. - I called radiologist to look for any swelling, as per radio there are some swelling present - Pt will go to [place] on February 06 to get nickie remove by neurosurgery - on presentation had borderline BP, tachycardia, and lactic acidosis - all improved with IVF - hypotension and tachycardia could be from dehydration as well; will hold amlodipine for now however need to control and monitor BP closely due to recent subdural hematoma; monitor orthostatic BPs - last urine culture grew pansensitive E. Coli; current culture growing Enterobacter aerogenes - sensitivities noted above; received Rocephin (2 days), changed to Bactrim today - blood cultures negative thus far - Discharge on PO Bactrim -stable ATRIAL FIBRILLATION - presented with RVR - rate improved with IVF - Continue Sotalol for rhythm control - not anticoagulated due to subdural hematoma - stable PE - diagnosed at [facility] and was evaluated by vascular who did not feel as though the patient needed IVC - Saturates well on RA -Stable LEFT KIDNEY LESION - diagnosed at [facility] - outpatient follow up DVT PROPHYLAXIS - SCDs due to subdural hematoma CODE STATUS FULL CODE DISPO= - PT/OT eval - Discharge to [facility] today - Follow up with Neuro dr. Porter -Follow with neurosurgery at [place] on the February 06 at 11:30 am Total time spent on discharge = 40 minutes This includes examination of the patient, discharge planning, medication reconciliation, and communication with other providers. Discharge Instructions Discharge Instructions Date of Service Feb 03, 2017. Admission Reason for Admission: Altered Mental Status Discharge Discharge Diagnosis / Problem: UTI, Afib, Left kidney lesion, Hx subdural hematoma Discharge Goals Goal(s): Decrease discomfort, Increase independence, Improve disease control Activity Recommendations Activity Limitations: resume your previous activity (as tolerated) . Instructions / Follow-Up Instructions / Follow-Up Discharge to [facility] Please follow with Neurosurgery doctor at [facility] to remove the stables Follow up with neurology Dr. Porter Keep skull area clean PT/OT eval Hold Amlodipine for now due to blood pressure in the low side, can restart once BP started to elevated Avoid NSAIDs due to the subdural hematoma Complete course of antibiotic with Bactrim Current Hospital Diet Patient's current hospital diet: AHA Diet (Heart Healthy) Discharge Diet Recommended Diet: AHA Diet (Heart Healthy) Pending Studies Studies pending at discharge: no Medical Emergencies . Who to Call and When: Medical Emergencies: If at any time you feel your situation is an emergency, please call 911 immediately. . Non-Emergent Contact Non-Emergency issues call your: Primary Care Provider Call Non-Emergent contact if: you have a fever, you have any medication questions . . "Provider Documentation" section prepared by Sharda Christianson. VTE Core Measure Inpt VTE Proph given/why not?: SCD's Additional Copies To [place], [facility]
== END 2017-02-03 15:36 | DRG 100 ==
LOC: ENRESERVTM → ENRESERVDT → EDBD 11:54 → C.EDA 11:55 → C.EDINP 16:55 → C.MED 21:10 → C.MS4W 02-01 11:07
PROVIDERS: ADMIT Internal Medicine; ATTEND Internal Medicine
DX: R56.9 Unspecified convulsions (principal); G93.40 Encephalopathy, unspecified; S06.5X0A Traumatic subdural hemorrhage without loss of consciousness, initial encounter; N39.0 Urinary tract infection, site not specified; I48.91 Unspecified atrial fibrillation; E78.5 Hyperlipidemia, unspecified; B96.89 Other specified bacterial agents as the cause of diseases classified elsewhere; Z79.01 Long term (current) use of anticoagulants; Z79.899 Other long term (current) drug therapy; Z98.890 Other specified postprocedural states; X58.XXXA Exposure to other specified factors, initial encounter

== ENCOUNTER → 2017-02-13 | Outpatient (CLI) | payer OTHER ==
[~2017-02-13] MED LIST changes: +CIPR-255 PO; -CMD3 PO; +DOCU-94 PO; -DOCU100C31 PO; +FAMO20TA9 PO; +KPP250 PO; +LEVE500T13 PO; +LUTE10TA PO; +MULT-190 PO; -MULTCAP36 PO; -MULTCHW PO; +OXYC1TAB3 PO; +PREN-139 PO; +SOTA120T PO; +SOTA80TA PO; -SOTA80TA20 PO; +SULF-183 PO; +TYL325X PO; -WARF6TAB5 PO
[2017-02-13 08:56] LABS: HEMATOCRIT 28.9 % (37-47); MEAN CELL VOLUME 96.7 fL (80-100); MEAN CORPUSCULAR HEMOGLOBIN 31.8 pg (25-34); MEAN CORPUSCULAR HGB CONC 32.9 g/dl (32-36); MEAN PLATELET VOLUME 9.8 fL (7.4-10.4); PLATELET COUNT 202 K/uL (130-400); RED BLOOD COUNT 2.99 M/uL (4.2-5.4)
== END ==
LOC: C.LABCC 08:28
PROVIDERS: ATTEND Internal Medicine
DX: D72.829 Elevated white blood cell count, unspecified (principal)

== ENCOUNTER → 2017-02-19 | Outpatient (CLI) | payer OTHER ==
[2017-02-19 08:24] LABS: BASO % 0.7 %; BASO ABS # 0.03 K/uL (0-0.2); COMPLETE YES; EOS % 4.6 %; HEMATOCRIT 29.5 % (37-47); IG% 0.2 %; LYMPH % 32.6 %; LYMPH ABS # 1.43 K/uL (1.2-3.4); MEAN CELL VOLUME 98.3 fL (80-100); MEAN CORPUSCULAR HEMOGLOBIN 31.3 pg (25-34); MEAN CORPUSCULAR HGB CONC 31.9 g/dl (32-36); MEAN PLATELET VOLUME 9.1 fL (7.4-10.4); MONO % 14.4 %; NEUT % 47.5 %; PLATELET COUNT 243 K/uL (130-400); WHITE BLOOD COUNT 4.38 K/uL (4.8-10.8)
== END ==
LOC: C.LABCC 07:47
PROVIDERS: ATTEND Internal Medicine
DX: D64.9 Anemia, unspecified (principal)

== ENCOUNTER → 2017-03-02 | Outpatient (CLI) | payer OTHER ==
[~2017-03-02] MED LIST changes: +OPTIRAY 320 IV PRN
--- NOTE | 2017-03-02 12:53 | DIAGNOSTIC IMAGING REPORT ---
CT KIDNEY (ABDOMEN) COMBO CT DOSE: 1661.43 mGycm CLINICAL HISTORY: Left renal mass TECHNIQUE: Unenhanced images were obtained through the upper abdomen. The patient was then scanned in a dynamic helical fashion during intravenous administration of 117 cc Optiray 320. Delayed images were also acquired. COMPARISON STUDY: None. FINDINGS: The visualized portions lung bases reveal bibasilar atelectatic change. No space-occupying hepatic masses are visualized. No gallbladder adenomas are visualized. No splenic masses are visualized. There is a small hiatal hernia. No pancreatic masses are visualized. No adrenal masses are visualized. There is no evidence of abdominal aortic dilatation. There is no evidence of pathologic adenopathy. There is an 11 mm upper pole right renal cyst. There is a 23 mm mid pole left renal lesion demonstrating a precontrast Hounsfield attenuation of 49, and a postcontrast attenuation value of 52. This is most consistent with a hyperdense cyst. This is a Bosniak 2 lesion. Also evident is an 8 mm lower pole left renal cyst. Delayed images reveal no collecting system filling defects. There is a lumbar dextroscoliosis. There are advanced degenerative changes present within the spine. IMPRESSION: 1. No renal calculi identified 2. Bilateral renal cysts including a 23 mm hyperdense left renal cyst 3. No evidence of pathologic adenopathy Electronically signed by: Jeovany Chaudhari M.D. 03/02/2017 12:52 PM Dictated Date/Time: 03/02/2017 12:38 PM
== END | disposition home or self-care (01) ==
LOC: C.CTS 11:56
PROVIDERS: ATTEND Internal Medicine
DX: N28.9 Disorder of kidney and ureter, unspecified (principal)

== ENCOUNTER 2017-03-13 14:06 | Inpatient (IN) | payer OTHER ==
[~2017-03-13] VITALS: Ht 160 cm; Wt 64.1 kg
[~2017-03-13 14:06] MED LIST changes: -CIPR-255 PO; -KPP250 PO; -OPTIRAY 320 IV PRN; -SOTA120T PO
[2017-03-13] MEDS ORDERED: LEVE500T13 PO (14:35)
[2017-03-13] MEDS ORDERED: SOTA120T PO (14:35)
[2017-03-13] MEDS ORDERED: SODIUM CHLORIDE 0.9% 500ML 500 ML IV STA ×2 (14:53→17:45)
--- NOTE | 2017-03-13 15:00 | EMERGENCY ROOM VISIT NOTE ---
History Report prepared by Fernanda: Christina Calix Under the Supervision of: Dr. Brenton Padilla D.O. First contact with patient: 14:36 Chief Complaint: ALTERED MENTAL STATUS Stated Complaint: ams Nursing Triage Summary: pt resides at [facility] staff wnet to pt today found her with gaze and nonverbal called ems. ems arrived and pt alert and verbal with them and medic. pt arrived to ed answers all questions appropriately. pt has hx of subdural hematoma after fall in january 2017. 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 The patient was found by staff at [facility] staring and nonverbal. Upon EMS arrival, she was verbal and answering questions. Two months ago, she fell and had a subdural hematoma which was evacuated. Since then she has started having seizures and was started on Keppra 1 month ago. The patient's family states that the episode today seems similar to one of her seizures, except it lasted longer than usual. The patient denies any headache, SOB, nausea, vomiting, abdominal pain, urinary symptoms, or leg pain. She states she has been eating and drinking well. She denies any recent medication changes. She had been on Coumadin for A fib before the fall, but was taken off it after the brain bleed. 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 Pt denies leg pain. Review of Systems See HPI for pertinent positives & negatives. A total of 10 systems reviewed and were otherwise negative. Past Medical & Surgical Medical Problems: (1) Dyslipidemia (2) Macular degeneration (3) Observed seizure-like activity (4) Paroxysmal atrial fibrillation (5) Pulmonary embolism (6) SAH (subarachnoid hemorrhage) (7) Seizure disorder (8) Subdural hematoma Surgical Problems: (1) History of back surgery (2) History of tonsillectomy (3) History of total right hip arthroplasty (4) S/P craniotomy Family History Patient reports no known family medical history. Non contributory secondary to age. Social History Smoking Status: Former Smoker Marital Status: Occupation Status: retired Current/Historical Medications Scheduled Alendronate Sodium (Fosamax), 70 MG PO WK Calcium/Vitamin D (Os-Jonathon 500 Plus D), 1 TAB PO DAILY Docusate Sodium (Colace), 100 MG PO DAILY Famotidine (Pepcid), 20 MG PO BID Fish Oil ([place]-3), 1 GM PO DAILY Levetiracetam (Keppra), 500 MG PO Q12 Lutein (Lutein), 5 MG PO BID Ocuvite Preservision (Ocuvite Preservision), 1 TAB PO BID Vit W/ Ferrous Fumara ( Vitamins Plus Lo 27-1 mg), 1 TAB PO DAILY Sennosides-Docusate Sodium (Senna Plus), 1 TAB PO DAILY Simvastatin (Zocor), 10 MG PO QPM Sotalol Hcl (Sotalol Hcl), 120 MG PO Q12 Allergies Coded Allergies: No Known Allergies (Unverified , 03/13/17) Physical Exam Vital Signs Date Time Temp Pulse Resp B/P Pulse Ox O2 Delivery O2 Flow Rate FiO2 03/13/17 18:30 65 03/13/17 18:19 72 16 107/74 100 Room Air 03/13/17 16:38 60 18 93/39 97 Room Air 03/13/17 14:30 54 03/13/17 14:20 36.5 57 18 100/61 100 Room Air 03/13/17 14:20 100 Room Air Physical Exam GENERAL: Patient is listless and slow to respond to questions. She does not seem to be uncomfortable or in pain. EYES: The conjunctivae are clear. The pupils are constricted and minimally reactive to light bilaterally. Extraocular muscles intact. EARS, NOSE, MOUTH AND THROAT: The nose is without any evidence of any deformity. Mucous membranes are dry tongue is midline NECK: The neck is nontender and supple. RESPIRATORY: Normal respiratory effort is noted there is no evidence of wheezing rhonchi or rales CARDIOVASCULAR: Regular rate and rhythm noted there no murmurs rubs or gallops normal S1 normal S2 GASTROINTESTINAL: The abdomen is soft. Bowel sounds are present in all quadrants. Abdomen is nontender MUSCULOSKELETAL/EXTREMITIES: There is no evidence of gross deformity full range of motion is noted in the hips and shoulders SKIN: There is mild erythema to the dorsum of the left foot. Trace pedal edema noted bilaterally. NEUROLOGIC: Patient is oriented to person, place, and situation, answers questions slowly. Weakness noted in the left leg consistent with previous history. Perioperative Manager strength symmetric. Medical Decision & Procedures ER Provider Diagnostic Interpretation: X-ray results as stated below per interpretation by me and the radiologist. Radiology results as stated below per my review and radiologist interpretation: CHEST ONE VIEW PORTABLE CLINICAL HISTORY: EVALUATE ALTERED MENTAL STATUS/WEAKNESS dyspnea COMPARISON STUDY: No previous studies for comparison. FINDINGS: The bones soft tissues and hemidiaphragms are normal. The cardiomediastinal silhouette is normal. The lungs are clear. The pulmonary vasculature is normal. IMPRESSION: Negative chest. Electronically signed by: Hugo Levi M.D. 03/13/2017 3:25 PM Dictated Date/Time: 03/13/2017 3:[address]AST CT DOSE: 537.48 mGy.cm HISTORY: Mental status change EVALUATE ALTERED MENTAL STATUS/WEAKNESS TECHNIQUE: Multiaxial CT images of the head were performed without the use of intravenous contrast. Comparison: 02/03/2017 Findings: Findings of a stable right craniotomy are again noted. Craniotomy flap to show no change in location compared to the prior exam. Interval reduction size of the patient's left subdural hygroma. Mild increase in ventricular prominence. Maximum transverse dimension of the mid lateral ventricular dimension is 4.5 cm increased from 3.2 cm. Trace ascites subdural collection on the right unaltered from the prior study. No current evidence for acute intracranial hemorrhage. No midline shift. Impression: 1. Mixed findings. 2. Improved left subdural hygroma with minimal, if any, residual. 3. Interval development of mild hydrocephalus. 4. No evidence for acute intracranial hemorrhage Electronically signed by: Hugo Levi M.D. 03/13/2017 4:06 PM Dictated Date/Time: 03/13/2017 4:01 PM Laboratory Results 03/13/17 15:10 Red Blood Count 3.66, Mean Corpuscular Volume 95.9, Mean Corpuscular Hemoglobin 29.8, Mean Corpuscular Hemoglobin Concent 31.1, Mean Platelet Volume 8.9, Neutrophils (%) (Auto) 54.3, Lymphocytes (%) (Auto) 31.1, Monocytes (%) (Auto) 7.8, Eosinophils (%) (Auto) 6.0, Basophils (%) (Auto) 0.6, Neutrophils # (Auto) 2.72, Lymphocytes # (Auto) 1.56, Monocytes # (Auto) 0.39, Eosinophils # (Auto) 0.30, Basophils # (Auto) 0.03 03/13/17 15:10 Test 03/13/17 15:10 03/13/17 15:17 03/13/17 17:23 White Blood Count 5.01 K/uL (4.8-10.8) Red Blood Count 3.66 M/uL (4.2-5.4) Hemoglobin 10.9 g/dL (12.0-16.0) Hematocrit 35.1 % (37-47) Mean Corpuscular Volume 95.9 fL (80-100) Mean Corpuscular Hemoglobin 29.8 pg (25-34) Mean Corpuscular Hemoglobin Concent 31.1 g/dl (32-36) Platelet Count 295 K/uL (130-400) Mean Platelet Volume 8.9 fL (7.4-10.4) Neutrophils (%) (Auto) 54.3 % Lymphocytes (%) (Auto) 31.1 % Monocytes (%) (Auto) 7.8 % Eosinophils (%) (Auto) 6.0 % Basophils (%) (Auto) 0.6 % Neutrophils # (Auto) 2.72 K/uL (1.4-6.5) Lymphocytes # (Auto) 1.56 K/uL (1.2-3.4) Monocytes # (Auto) 0.39 K/uL (0.11-0.59) Eosinophils # (Auto) 0.30 K/uL (0-0.5) Basophils # (Auto) 0.03 K/uL (0-0.2) RDW Standard Deviation 52.8 fL (36.4-46.3) RDW Coefficient of Variation 15.0 % (11.5-14.5) Immature Granulocyte % (Auto) 0.2 % Immature Granulocyte # (Auto) 0.01 K/uL (0.00-0.02) Prothrombin Time 11.2 SECONDS (9.0-12.0) Prothromb Time International Ratio 1.0 (0.9-1.1) Activated Partial Thromboplast Time 26.7 SECONDS (21.0-31.0) Partial Thromboplastin Ratio 1.0 Anion Gap 6.0 mmol/L (3-11) Est Creatinine Clear Calc Drug Dose 65.0 ml/min Estimated GFR () 98.2 Estimated GFR (Non- 84.8 BUN/Creatinine Ratio 46.7 (10-20) Calcium Level 8.7 mg/dl (8.5-10.1) Phosphorus Level 2.9 mg/dl (2.5-4.9) Magnesium Level 2.5 mg/dl (1.8-2.4) Total Bilirubin 0.3 mg/dl (0.2-1) Direct Bilirubin 0.1 mg/dl (0-0.2) Aspartate Amino Transf (AST/SGOT) 14 U/L (15-37) Alanine Aminotransferase (ALT/SGPT) 17 U/L (12-78) Alkaline Phosphatase 154 U/L (45-117) Total Protein 7.3 gm/dl (6.4-8.2) Albumin 2.8 gm/dl (3.4-5.0) Thyroid Stimulating Hormone (TSH) 2.880 uIu/ml (0.300-4.500) Bedside Glucose 90 mg/dl (70-90) Urine Color YELLOW Urine Appearance CLOUDY (CLEAR) Urine pH 6.5 (4.5-7.5) Urine Specific [place] 1.015 (1.000-1.030) Urine Protein TRACE (NEG) Urine Glucose (UA) NEG (NEG) Urine Ketones NEG (NEG) Urine Occult Blood TRACE (NEG) Urine Nitrite POS (NEG) Urine Bilirubin NEG (NEG) Urine Urobilinogen NEG (NEG) Urine Leukocyte Esterase LARGE (NEG) Urine WBC (Auto) >30 /hpf (0-5) Urine RBC (Auto) 5-10 /hpf (0-4) Urine Hyaline Casts (Auto) 0 /lpf (0-5) Urine Epithelial Cells (Auto) 0-5 /lpf (0-5) Urine Bacteria (Auto) 1+ (NEG) Laboratory results per my review. Medications Administered Medications (Trade) Dose Ordered Sig/Troy Route Start Time Stop Time Status Last Admin Dose Admin Sodium Chloride 500 ml @ 999 mls/hr Q31M STAT IV 03/13/17 14:53 03/13/17 15:23 DC 03/13/17 16:37 999 MLS/HR Levetiracetam 500 mg/Dextrose 105 ml @ 440 mls/hr ONE ONCE IV 03/13/17 17:15 03/13/17 17:29 DC 03/13/17 19:29 440 MLS/HR Sodium Chloride (Nss 500ml) 500 ml @ 999 mls/hr Q31M STAT IV 03/13/17 17:45 03/13/17 18:15 DC 03/13/17 18:19 999 MLS/HR Ceftriaxone Sodium (Rocephin Inj) 1 gm NOW STAT IV 03/13/17 18:05 03/13/17 18:06 DC 03/13/17 18:19 1 GM Acetaminophen (Tylenol Tab) 1,000 mg STK-MED ONCE PO 03/13/17 19:21 03/13/17 19:22 DC 03/13/17 19:28 1,000 MG ECG Indication: altered mental status Rate (beats per minute): 58 Rhythm: sinus bradycardia Findings: T-wave inversion (Anterior), no ectopy, other (no PVC) Comparison ECG Date: 30-Jan-2017 Change: Resolution of A fib noted. ED Course 1444: The patient was evaluated in room B8. A complete history and physical examination were performed. 1453: NSS 500 ml @ 999 mls/hr IV. 1705: I discussed the patient's case with Estelita Cummings - neurology. She recommends I discuss the case with neurosurgery. 1713: I reevaluated the patient. She is resting comfortably. I discussed the results with the patient's son. 1715: Levetiracetam 500 mg/Dextrose 105 ml @ 440 mls/hr IV. 1727: I discussed the patient's case with Estelita Clements - neurosurgery. He recommends the patient follow up with neurosurgery this week. 1741: I reevaluated the patient. She is resting comfortably. Her family is not comfortably sending her back to [facility]. 1745: NSS 500 ml @ 999 mls/hr IV. 1805: Rocephin Inj 1 gm IV. 1900: Acetaminophen 1 gm PO. 1924: I discussed the patient's case with Dr. Gil [facility] - hospitalist. The patient will be evaluated for further management. Medical Decision Prior records/ancillary studies reviewed and summarized above. Nursing notes reviewed. Additional history obtained from the family. The patient's history was concerning for AMS. Differential diagnosis: Etiologies such as metabolic, infection, hypo/hyperglycemia, electrolyte abnormalities, cardiac sources, intracerebral event, toxicologic, neurologic, as well as others were entertained. The patient is an 81-year-old female who presented to the emergency department for an evaluation of altered mental status. [facility]. She was witnessed to have an episode which does sound like her seizure episode to her family members. The patient was accompanied by her 2 sons as well as her [id number]. The patient has a history of a recent subdural hematoma which required evacuation. The patient did have a recent CT of the brain at the beginning of February. Her CT today does not show any new intracranial bleeding but does show some degree of hydrocephalus. I'm not sure if this is causing the patient's symptoms in fact her blood pressure is on the low normal side. The patient was found have signs of urinary tract infection. I discussed her radiographic studies with her primary neurologist as well as her primary neurosurgical group at [facility]. The patient was set up with an outpatient follow-up appointment this week but the patient's family was very concerned about her altered mental status. She was treated with IV fluids as well as IV antibiotics for presumed urine or tract infection. Because they were uncomfortable I discussed her case with the on-call [facility] hospitalist group. They've agreed to evaluate the patient in the emergency department for further management and disposition. Consults Time Called: 170 Consulting Physician: Dr. Porter [facility] - neurology Returned Call: 170 I discussed the patient's case with her. She recommends I discuss the case with neurosurgery. Additional Consults: Time Called: 170 Consulted Physician: Estelita Clements - neurosurgery Returned Call: 172 Additional Comments: I discussed the patient's case with him. He recommends the patient follow up with neurosurgery this week. Time Called: 192 Consulted Physician: Dr. Gil [facility] - hospitalist Returned Call: 192 Additional Comments: I discussed the patient's case with him. The patient will be evaluated for further management. Impression Primary Impression: UTI (urinary tract infection) Additional Impressions: Seizure Hydrocephalus Scribe Attestation The scribe's documentation has been prepared under my direction and personally reviewed by me in its entirety. I confirm that the note above accurately reflects all work, treatment, procedures, and medical decision making performed by me. Departure Information Dispostion Being Evaluated By Hospitalist Referrals Sylvain Murcia M.D. (PCP) Patient Instructions My [facility] Problem Qualifiers Primary Impression: UTI (urinary tract infection)
--- NOTE | 2017-03-13 15:26 | DIAGNOSTIC IMAGING REPORT ---
CHEST ONE VIEW PORTABLE CLINICAL HISTORY: EVALUATE ALTERED MENTAL STATUS/WEAKNESS dyspnea COMPARISON STUDY: No previous studies for comparison. FINDINGS: The bones soft tissues and hemidiaphragms are normal. The cardiomediastinal silhouette is normal. The lungs are clear. The pulmonary vasculature is normal. IMPRESSION: Negative chest. Electronically signed by: Hugo Levi M.D. 03/13/2017 3:25 PM Dictated Date/Time: 03/13/2017 3:25 PM
[2017-03-13 15:28] LABS: BASO % 0.6 %; BASO ABS # 0.03 K/uL (0-0.2); COMPLETE YES; HEMATOCRIT 35.1 % (37-47); IG% 0.2 %; LYMPH % 31.1 %; LYMPH ABS # 1.56 K/uL (1.2-3.4); MEAN CELL VOLUME 95.9 fL (80-100); MEAN CORPUSCULAR HEMOGLOBIN 29.8 pg (25-34); MEAN CORPUSCULAR HGB CONC 31.1 g/dl (32-36); MEAN PLATELET VOLUME 8.9 fL (7.4-10.4); MONO % 7.8 %; NEUT % 54.3 %; PLATELET COUNT 295 K/uL (130-400); RED BLOOD COUNT 3.66 M/uL (4.2-5.4); WHITE BLOOD COUNT 5.01 K/uL (4.8-10.8)
[2017-03-13 15:37] LABS: PROTHROMBIN TIME (PATIENT) 11.2 SECONDS (9.0-12.0)
[2017-03-13 15:45] LABS: BLOOD UREA NITROGEN 28 mg/dl (7-18); BUN/CREATININE RATIO 46.7 (10-20); CALCIUM 8.7 mg/dl (8.5-10.1); CARBON DIOXIDE 28 mmol/L (21-32); CHLORIDE 107 mmol/L (98-107); CREATININE 0.59 mg/dl (0.60-1.20); GLUCOSE 86 mg/dl (70-99); MAGNESIUM 2.5 mg/dl (1.8-2.4); POTASSIUM 4.3 mmol/L (3.5-5.1); SODIUM 141 mmol/L (136-145)
--- NOTE | 2017-03-13 16:07 | DIAGNOSTIC IMAGING REPORT ---
HEAD CT NONCONTRAST CT DOSE: 537.48 mGy.cm HISTORY: Mental status change EVALUATE ALTERED MENTAL STATUS/WEAKNESS TECHNIQUE: Multiaxial CT images of the head were performed without the use of intravenous contrast. Comparison: 02/03/2017 Findings: Findings of a stable right craniotomy are again noted. Craniotomy flap to show no change in location compared to the prior exam. Interval reduction size of the patient's left subdural hygroma. Mild increase in ventricular prominence. Maximum transverse dimension of the mid lateral ventricular dimension is 4.5 cm increased from 3.2 cm. Trace ascites subdural collection on the right unaltered from the prior study. No current evidence for acute intracranial hemorrhage. No midline shift. Impression: 1. Mixed findings. 2. Improved left subdural hygroma with minimal, if any, residual. 3. Interval development of mild hydrocephalus. 4. No evidence for acute intracranial hemorrhage Electronically signed by: Hugo Levi M.D. 03/13/2017 4:06 PM Dictated Date/Time: 03/13/2017 4:01 PM
[2017-03-13 16:22] LABS: ALKALINE PHOSPHATASE 154 U/L (45-117); ALT/SGPT 17 U/L (12-78); AST/SGOT 14 U/L (15-37); PHOSPHORUS 2.9 mg/dl (2.5-4.9)
[2017-03-13] MEDS ORDERED: LEVETIRACETAM IV 500 MG in DEXTROSE 5% 100ML 100 ML IV ONE (17:15)
[2017-03-13 17:43] LABS: URINE APPEARANCE CLOUDY (CLEAR); URINE BILIRUBIN NEG (NEG); URINE COLOR YELLOW; URINE EPITHELIAL CELL AUTO 0-5 /lpf (0-5); URINE NITRITE POS (NEG); URINE PH 6.5 (4.5-7.5); URINE SPECIFIC GRAVITY 1.015 (1.000-1.030); UROBILINOGEN NEG (NEG); ZZURINE CULT IF INDIC CATH YES
[2017-03-13 17:53] LABS: MANUAL MICROSCOPIC REQUIRED? NO; REVIEW REQ? NO
[2017-03-13] MEDS ORDERED: CEFTRIAXONE SOD INJ 1 GM ADDVIAL IV STA (18:05)
[2017-03-13] MEDS ORDERED: NURSING VERBAL MED ORDER ONE (19:00)
[2017-03-13] MEDS ORDERED: ACETAMINOPHEN 500 MG TAB PO ONE (19:21)
[2017-03-13] MEDS ORDERED: LUTEIN PO SCH (21:00)
--- NOTE | 2017-03-13 22:30 | DIAGNOSTIC IMAGING REPORT ---
MRI OF THE BRAIN WITHOUT CONTRAST CLINICAL HISTORY: SEIZURE ACTIVITY WITH SEIZURE DISORDER COMPARISON STUDY: Noncontrast head CT dated 03/13/2017 FINDINGS: Sagittal T1, axial diffusion, proton density and T2 weighted axial, coronal FLAIR, and axial T1-weighted images were acquired. Post craniotomy changes are visualized in the right. There are tiny chronic bilateral subdural hematomas.. The right subdural measures 4 mm in maximal thickness. The left subdural is of insignificant thickness.. There is no midline shift. Axial diffusion-weighted images reveal no evidence of acute or subacute infarction. There is mild hydrocephalus, unchanged from the study performed earlier in the day Proton density T2-weighted and FLAIR images reveal scattered foci of increased T2 signal within the white matter, likely on a small vessel basis. There are no abnormal flow voids. IMPRESSION: 1. No evidence of acute or subacute infarction 2. Tiny chronic bilateral subdural hematomas 3. Mild hydrocephalus, similar to the CT scan performed earlier in the day Electronically signed by: Jeovany Chaudhari M.D. 03/13/2017 10:29 PM Dictated Date/Time: 03/13/2017 10:19 PM
[2017-03-13 22:35] VITALS: BP 117/73; PULSE 77; TEMP 36.4; O2SAT 96; Ht 160 cm; Wt 64.1 kg
[2017-03-13 23:37] VITALS: BP_SYST 107; BP_SYST 99; BP_DIAS 56; BP_DIAS 67; PULSE 71
[2017-03-13] MEDS: FAMOTIDINE 20 MG TAB PO SCH (23:38)
[2017-03-13] MEDS: SIMVASTATIN 10 MG TAB PO SCH (23:38)
[2017-03-13] MEDS: LEVETIRACETAM 500 MG TAB PO SCH (23:38)
[2017-03-13] MEDS: SOTALOL HCL 80 MG TAB PO SCH (23:38)
[2017-03-14] VITALS (7 sets, daily range): BP systolic 99–130; BP diastolic 53–80; PULSE 57–91; TEMP 35.8–36.7; O2SAT 90–100
[2017-03-14] MEDS ORDERED: ONDANSETRON INJ 2 MG/ML 2 ML VIAL IV PRN (02:15)
--- NOTE | 2017-03-14 02:16 | History and Physical ---
History & Physical Date & Time of Service: March 14, 2017 at 01:54. The date of admission was March 13, 2017. Chief Complaint: Observed Seizure-Like Activity, Seizure Disorder Primary Care Physician: Sylvain Murcia M.D. 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 Willoughby [facility] [place] 11/10/12 Status: Chronic (4) S/P craniotomy Status: Chronic Family History Patient reports no known family medical history. Social History Smoking Status: Never Smoker Smokeless Tobacco Use: No Alcohol Use: none Drug Use: none Marital Status: Housing status: jail Occupational Status: retired Immunizations History of Influenza Vaccine: Yes Influenza Vaccine Date: Jul 31, 2016 History of Tetanus Vaccine?: Yes Tetanus Immunization Date: April 03, 2006 History of Pneumococcal: Yes Pneumococcal Date: Feb 15, 2016 Multi-Drug Resistant Organisms History of MDRO: No Allergies Coded Allergies: No Known Allergies (Unverified , 03/13/17) Home Medications Scheduled Alendronate Sodium (Fosamax), 70 MG PO WK Calcium/Vitamin D (Os-Jonathon 500 Plus D), 1 TAB PO DAILY Docusate Sodium (Colace), 100 MG PO DAILY Famotidine (Pepcid), 20 MG PO BID Fish Oil (Wallace-3), 1 GM PO DAILY Levetiracetam (Keppra), 500 MG PO Q12 Lutein (Lutein), 5 MG PO BID Ocuvite Preservision (Ocuvite Preservision), 1 TAB PO BID Vit W/ Ferrous Fumara ( Vitamins Plus Lo 27-1 mg), 1 TAB PO DAILY Sennosides-Docusate Sodium (Senna Plus), 1 TAB PO DAILY Simvastatin (Zocor), 10 MG PO QPM Sotalol Hcl (Sotalol Hcl), 120 MG PO Q12 Review of Systems Constitutional: No chills, No fatigue, No fever, No problem reported, No sweats , No weakness, No weight loss Eyes: No diplopia, No discharge, No eye pain, No problem reported, No redness, No worsening of vision ENT: No dental problems, No hearing loss, No nasal symptoms, No problem reported, No sore throat, No tinnitus, No trouble swallowing, No unusual epistaxis Respiratory: No cough, No dyspnea at rest, No dyspnea on exertion, No hemoptysis, No problem reported, No shortness of breath, No sputum, No wheezing Cardiovascular: No PND, No chest pain, No claudication, No edema, No orthopnea , No palpitations, No problem reported Abdomen: No GI bleeding, No constipation, No diarrhea, No nausea, No pain, No problem reported, No vomiting Musculoskeletal: No calf pain, No joint pain, No muscle pain, No problem reported, No swelling Genitourinary - Female: No dysmenorrhea, No dysuria, No hematuria, No menorrhagia, No metrorrhagia, No , No problem reported, No rash, No urinary frequency, No urinary incontinence, No urinary retention, No urinary urgency, No vaginal bleeding, No vaginal discharge, No vaginal itching, No vulvodynia Neurologic: + memory loss, + weakness, No balance problems, No numbness/ tingling, No paralysis, No vertigo Psychiatric: No anhedonism, No anxiety, No depression symptoms, No insomnia, No problem reported, No substance abuse Endocrine: No excessive thirst, No excessive urination, No fatigue, No problem reported Hematologic / Lymphatic: No abnormal bleeding/bruising, No clotting problems, No night sweats, No problem reported, No swollen lymph nodes Integumentary: No bleeding, No color change, No itch, No new/changing skin lesions, No problem reported, No rash Allergic / Immunologic: No environmental allergies, No food allergies, No frequent infections, No hives, No pet sensitivities, No poor healing, No problem reported, No prolonged convalescence, No seasonal allergies Physical Exam Vital Signs Date Time Temp Pulse Resp B/P Pulse Ox O2 Delivery O2 Flow Rate FiO2 03/13/17 23:37 71 107/67 03/13/17 22:35 36.4 77 18 117/73 96 Room Air 03/13/17 18:30 65 03/13/17 18:19 72 16 107/74 100 Room Air 03/13/17 16:38 60 18 93/39 97 Room Air 03/13/17 14:30 54 03/13/17 14:20 36.5 57 18 100/61 100 Room Air 03/13/17 14:20 100 Room Air General Appearance: WD/WN, no apparent distress Head: normocephalic, atraumatic Eyes: normal inspection, PERRL, EOMI, sclerae normal ENT: normal ENT inspection, hearing grossly normal, pharynx normal Neck: supple, no adenopathy, thyroid normal, no JVD, no carotid bruits, trachea midline Respiratory/Chest: chest non-tender, lungs clear, normal breath sounds, no respiratory distress, no accessory muscle use Cardiovascular: regular rate, rhythm, no edema, no gallop, no JVD, no murmur, normal peripheral pulses Abdomen/GI: normal bowel sounds, non tender, soft, no organomegaly, no pulsatile mass Back: normal inspection, no CVA tenderness, no muscle spasm, normal range of motion Extremities/Musculoskelatal: normal inspection, no calf tenderness, normal capillary refill, no pedal edema, normal range of motion, non-tender 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, no motor/sensory deficits, alert, normal mood/affect, normal reflexes, oriented x 3 Skin: normal color, warm/dry, no rash Lymphatic: no adenopathy Diagnostics Laboratory Results Results Past 24 Hours Test 03/13/17 15:10 03/13/17 15:17 03/13/17 17:23 Range/Units White Blood Count 5.01 4.8-10.8 K/uL Red Blood Count 3.66 4.2-5.4 M/uL Hemoglobin 10.9 12.0-16.0 g/dL Hematocrit 35.1 37-47 % Mean Corpuscular Volume 95.9 80-100 fL Mean Corpuscular Hemoglobin 29.8 25-34 pg Mean Corpuscular Hemoglobin Concent 31.1 32-36 g/dl Platelet Count 295 130-400 K/uL Mean Platelet Volume 8.9 7.4-10.4 fL Neutrophils (%) (Auto) 54.3 % Lymphocytes (%) (Auto) 31.1 % Monocytes (%) (Auto) 7.8 % Eosinophils (%) (Auto) 6.0 % Basophils (%) (Auto) 0.6 % Neutrophils # (Auto) 2.72 1.4-6.5 K/uL Lymphocytes # (Auto) 1.56 1.2-3.4 K/uL Monocytes # (Auto) 0.39 0.11-0.59 K/uL Eosinophils # (Auto) 0.30 0-0.5 K/uL Basophils # (Auto) 0.03 0-0.2 K/uL RDW Standard Deviation 52.8 36.4-46.3 fL RDW Coefficient of Variation 15.0 11.5-14.5 % Immature Granulocyte % (Auto) 0.2 % Immature Granulocyte # (Auto) 0.01 0.00-0.02 K/uL Prothrombin Time 11.2 9.0-12.0 SECONDS Prothromb Time International Ratio 1.0 0.9-1.1 Activated Partial Thromboplast Time 26.7 21.0-31.0 SECONDS Partial Thromboplastin Ratio 1.0 Sodium Level 141 136-145 mmol/L Potassium Level 4.3 3.5-5.1 mmol/L Chloride Level 107 98-107 mmol/L Carbon Dioxide Level 28 21-32 mmol/L Anion Gap 6.0 3-11 mmol/L Blood Urea Nitrogen 28 7-18 mg/dl Creatinine 0.59 0.60-1.20 mg/dl Est Creatinine Clear Calc Drug Dose 65.0 ml/min Estimated GFR () 98.2 Estimated GFR (Non- 84.8 BUN/Creatinine Ratio 46.7 10-20 Random Glucose 86 70-99 mg/dl Calcium Level 8.7 8.5-10.1 mg/dl Phosphorus Level 2.9 2.5-4.9 mg/dl Magnesium Level 2.5 1.8-2.4 mg/dl Total Bilirubin 0.3 0.2-1 mg/dl Direct Bilirubin 0.1 0-0.2 mg/dl Aspartate Amino Transf (AST/SGOT) 14 15-37 U/L Alanine Aminotransferase (ALT/SGPT) 17 12-78 U/L Alkaline Phosphatase 154 45-117 U/L Total Creatine Kinase 20 26-192 U/L Creatine Kinase MB < 0.5 0.5-3.6 ng/ml Creatine Kinase MB Ratio 0-3.0 Troponin I < 0.015 0-0.045 ng/ml Total Protein 7.3 6.4-8.2 gm/dl Albumin 2.8 3.4-5.0 gm/dl Thyroid Stimulating Hormone (TSH) 2.880 0.300-4.500 uIu/ml Bedside Glucose 90 70-90 mg/dl Urine Color YELLOW Urine Appearance CLOUDY CLEAR Urine pH 6.5 4.5-7.5 Urine Specific [place] 1.015 1.000-1.030 Urine Protein TRACE NEG Urine Glucose (UA) NEG NEG Urine Ketones NEG NEG Urine Occult Blood TRACE NEG Urine Nitrite POS NEG Urine Bilirubin NEG NEG Urine Urobilinogen NEG NEG Urine Leukocyte Esterase LARGE NEG Urine WBC (Auto) >30 0-5 /hpf Urine RBC (Auto) 5-10 0-4 /hpf Urine Hyaline Casts (Auto) 0 0-5 /lpf Urine Epithelial Cells (Auto) 0-5 0-5 /lpf Urine Bacteria (Auto) 1+ NEG Microbiology Results 03/13/17 Urine Culture, Received Pending Diagnostic Radiology Patient Name: Lizbet SONG Unit Number: [id number] Dictated: 03/13/171600 Transcribed: 03/13/17 1601 MS Printed Date/Time: [~ rep prt dt]/[~ rep prt tm] [~ rep ct labl] - [~ rep ct ivnm] [facility] [place] [address] Dictated: 03/13/171600 Transcribed: 03/13/17 1601 MS Printed Date/Time: [~ rep prt dt]/[~ rep prt tm] [~ rep ct labl] - [~ rep ct ivnm] HEAD CT NONCONTRAST CT DOSE: 537.48 mGy.cm HISTORY: Mental status change EVALUATE ALTERED MENTAL STATUS/WEAKNESS TECHNIQUE: Multiaxial CT images of the head were performed without the use of intravenous contrast. Comparison: 02/03/2017 Findings: Findings of a stable right craniotomy are again noted. Craniotomy flap to show no change in location compared to the prior exam. Interval reduction size of the patient's left subdural hygroma. Mild increase in ventricular prominence. Maximum transverse dimension of the mid lateral ventricular dimension is 4.5 cm increased from 3.2 cm. Trace ascites subdural collection on the right unaltered from the prior study. No current evidence for acute intracranial hemorrhage. No midline shift. Impression: 1. Mixed findings. 2. Improved left subdural hygroma with minimal, if any, residual. 3. Interval development of mild hydrocephalus. 4. No evidence for acute intracranial hemorrhage Electronically signed by: Hugo Levi M.D. 03/13/2017 4:06 PM Dictated Date/Time: 03/13/2017 4:01 PM The status of this report is Signed. Draft = Not yet reviewed or approved by Radiologist. Signed = Reviewed and approved by Radiologist. <AttendingPhy></AttendingPhy> <FamilyPhy>Sylvain Murcia M.D.</FamilyPhy > <PrimaryPhy>Sylvain Murcia M.D.</PrimaryPhy> <UnitNumber>[id number]</ UnitNumber> <VisitNumber>[id number]</VisitNumber> <PatientName>NOHEMILizbet JONAS</PatientName> <DateOfBirth>1935</DateOfBirth> <Location>[facility]</ Location> <ServiceDate>03/13/17</ServiceDate> <MNE>ESINDI</MNE> <OrderingPhy> Brenton Padilla D.O.</OrderingPhy> <OrderingPhyMNE>f rep ord dr ferrer</ OrderingPhyMNE> <DictatingPhyMNE>f rep dict dr ferrer</DictatingPhyMNE> <CCListMNE> f rep ct carissa</CCListMNE> <AdmittingPhyMNE>f pt admit dr ferrer</AdmittingPhyMNE> < AttendingPhyMNE>f pt attend dr ferrer</AttendingPhyMNE> <ConsultingPhyMNE>f pt consult dr ferrer</ConsultingPhyMNE> <FamilyPhyMNE>f pt fam dr ferrer</FamilyPhyMNE> <OtherPhyMNE>f pt other dr ferrer</OtherPhyMNE> < PrimaryPhyMNE>f pt prim care dr ferrer</PrimaryPhyMNE> <ReferringPhyMNE>f pt referring dr ferrer</ReferringPhyMNE> Patient Name: Lizbet SONG Unit Number: [id number] Dictated: 03/13/171524 Transcribed: 03/13/17 152 MS Printed Date/Time: [~ rep prt dt]/[~ rep prt tm] [~ rep ct labl] - [~ rep ct ivnm] [facility] [place], [place] [id number] Dictated: 03/13/171524 Transcribed: 03/13/17 1525 MS Printed Date/Time: [~ rep prt dt]/[~ rep prt tm] [~ rep ct labl] - [~ rep ct ivnm] CHEST ONE VIEW PORTABLE CLINICAL HISTORY: EVALUATE ALTERED MENTAL STATUS/WEAKNESS dyspnea COMPARISON STUDY: No previous studies for comparison. FINDINGS: The bones soft tissues and hemidiaphragms are normal. The cardiomediastinal silhouette is normal. The lungs are clear. The pulmonary vasculature is normal. IMPRESSION: Negative chest. Electronically signed by: Hugo Levi M.D. 03/13/2017 3:25 PM Dictated Date/Time: 03/13/2017 3:25 PM The status of this report is Signed. Draft = Not yet reviewed or approved by Radiologist. Signed = Reviewed and approved by Radiologist. <AttendingPhy></AttendingPhy> <FamilyPhy>Sylvain Murcia M.D.</FamilyPhy > <PrimaryPhy>Sylvain Murcia M.D.</PrimaryPhy> <UnitNumber>[id number]</ UnitNumber> <VisitNumber>[id number]</VisitNumber> <PatientName>Lizbet SONGRICIA</PatientName> <DateOfBirth>1935</DateOfBirth> <Location>[facility]</ Location> <ServiceDate>03/13/17</ServiceDate> <MNE>ESINDI</MNE> <OrderingPhy> Brenton Padilla D.O.</OrderingPhy> <OrderingPhyMNE>f rep ord dr ferrer</ OrderingPhyMNE> <DictatingPhyMNE>f rep dict dr ferrer</DictatingPhyMNE> <CCListMNE> f rep ct mne</CCListMNE> <AdmittingPhyMNE>f pt admit dr ferrer</AdmittingPhyMNE> < AttendingPhyMNE>f pt attend dr ferrer</AttendingPhyMNE> <ConsultingPhyMNE>f pt consult dr ferrer</ConsultingPhyMNE> <FamilyPhyMNE>f pt fam dr ferrer</FamilyPhyMNE> <OtherPhyMNE>f pt other dr ferrer</OtherPhyMNE> < PrimaryPhyMNE>f pt prim care dr ferrer</PrimaryPhyMNE> <ReferringPhyMNE>f pt referring dr ferrer</ReferringPhyMNE> Patient Name: Lizbet SONG Unit Number: [id number] Dictated: 03/13/172218 Transcribed: 03/13/172218 ARG Printed Date/Time: [~ rep prt dt]/[~ rep prt tm] [~ rep ct labl] - [~ rep ct ivnm] [facility] [address] Dictated: 03/13/172218 Transcribed: 03/13/172218 ARG Printed Date/Time: [~ rep prt dt]/[~ rep prt tm] [~ rep ct labl] - [~ rep ct ivnm] MRI OF THE BRAIN WITHOUT CONTRAST CLINICAL HISTORY: SEIZURE ACTIVITY WITH SEIZURE DISORDER COMPARISON STUDY: Noncontrast head CT dated 03/13/2017 FINDINGS: Sagittal T1, axial diffusion, proton density and T2 weighted axial, coronal FLAIR, and axial T1-weighted images were acquired. Post craniotomy changes are visualized in the right. There are tiny chronic bilateral subdural hematomas.. The right subdural measures 4 mm in maximal thickness. The left subdural is of insignificant thickness.. There is no midline shift. Axial diffusion-weighted images reveal no evidence of acute or subacute infarction. There is mild hydrocephalus, unchanged from the study performed earlier in the day Proton density T2-weighted and FLAIR images reveal scattered foci of increased T2 signal within the white matter, likely on a small vessel basis. There are no abnormal flow voids. IMPRESSION: 1. No evidence of acute or subacute infarction 2. Tiny chronic bilateral subdural hematomas 3. Mild hydrocephalus, similar to the CT scan performed earlier in the day Electronically signed by: Jeovany Chaudhari M.D. 03/13/2017 10:29 PM Dictated Date/Time: 03/13/2017 10:19 PM The status of this report is Signed. Draft = Not yet reviewed or approved by Radiologist. Signed = Reviewed and approved by Radiologist. <AttendingPhy></AttendingPhy> <FamilyPhy>Sylvain Murcia M.D.</FamilyPhy > <PrimaryPhy>Sylvain Murcia M.D.</PrimaryPhy> <UnitNumber>[id number]</ UnitNumber> <VisitNumber>[id number]</VisitNumber> <PatientName>Lizbet SONG</PatientName> <DateOfBirth>1935</DateOfBirth> <Location>[facility]</ Location> <ServiceDate>03/13/17</ServiceDate> <MNE>ESINDI</MNE> <OrderingPhy> Lex Patton M.D.</OrderingPhy> <OrderingPhyMNE>f rep ord dr ferrer</ OrderingPhyMNE> <DictatingPhyMNE>f rep dict dr ferrer</DictatingPhyMNE> <CCListMNE> f rep ct mne</CCListMNE> <AdmittingPhyMNE>f pt admit dr ferrer</AdmittingPhyMNE> < AttendingPhyMNE>f pt attend dr ferrer</AttendingPhyMNE> <ConsultingPhyMNE>f pt consult dr ferrer</ConsultingPhyMNE> <FamilyPhyMNE>f pt fam dr ferrer</FamilyPhyMNE> <OtherPhyMNE>f pt other dr ferrer</OtherPhyMNE> < PrimaryPhyMNE>f pt prim care dr ferrer</PrimaryPhyMNE> <ReferringPhyMNE>f pt referring dr mne</ReferringPhyMNE> EKG EKG shows sinus bradycardia at 58 bpm, nonspecific ST-T changes. Impression Assessment and Plan Altered mental status--etiologies include: history of seizure disorder with question of new activity, positive urinalysis suggesting a UTI, EKG with nonspecific ST-T changes, history of craniotomy and residual left sided subdural hygroma. The patient will be admitted to the telemetry unit for frequent neurologic checks. Seizure disorder with possible new activity--patient will be continued on Keppra 500 mg by mouth twice a day, and did receive 500 mg IV in the emergency department tonight. CT of the head shows a decreasing left subdural hygroma but mildly increasing ventricular prominence. MRI of the brain shows no acute findings, an EEG has been ordered for the morning. Her neurologist Dr. Schulz will be consulted. Nonspecific ST-T changes on EKG--the patient be admitted to the telemetry unit for serial cardiac enzymes, cardiac rhythm monitoring and a 2-D echocardiogram with Dopplers. UTI/dehydration--the patient will be started ceftriaxone 1 g IV daily, and he will follow urine culture and sensitivity results. Her son states that he feels that she is significantly improved in the emergency department after getting IV fluids. She'll be continued on normal saline with 20 mEq of potassium at 100 ML's per hour. Level of Care Telemetry Advanced Directives Existing Advance Directive: No Existing Living Will: Yes Existing Power of Project Control Analyst: Yes Resuscitation Status FULL RESUSCITATION VTE Prophylaxis VTE Risk Assessment Done? Y/N: Yes Risk Level: Moderate Given or contraindicated: SCD's Social Service Consult Lives in [facility]
[2017-03-14] MEDS: FAMOTIDINE 20 MG TAB PO SCH ×2 (08:27→20:49)
[2017-03-14] MEDS: LEVETIRACETAM 500 MG TAB PO SCH (08:27)
[2017-03-14] MEDS: CEROVITE ADV FORMULA TAB PO SCH ×2 (08:27→20:49)
[2017-03-14] MEDS: PRENATAL VITAMIN TAB PO SCH (08:27)
[2017-03-14] MEDS: OMEGA-3 (PURIFIED FISH OIL) 1 GM CAP PO SCH (08:28)
[2017-03-14] MEDS: DOCUSATE SODIUM/SENNA 50/8.6MG TAB PO SCH (08:28)
[2017-03-14] MEDS: CALCIUM 600MG + VIT D 400 IU TAB PO SCH (08:28)
[2017-03-14] MEDS: DOCUSATE SODIUM 100 MG CAP PO SCH (08:28)
[2017-03-14] MEDS ORDERED: SODIUM CHLORIDE 0.9% 1000ML 1,000 ML IV SCH (09:30)
[2017-03-14] MEDS: SOTALOL HCL 80 MG TAB PO SCH ×2 (10:18→20:49)
--- NOTE | 2017-03-14 13:22 | Hospitalist Progress Note ---
Hospitalist Progress Note Date of Service March 14, 2017. (Sharda Christensen PA-C) Subjective Pt evaluation today including: conversation w/ patient, conversation w/ family , physical exam, chart review, lab review, review of studies, review of inpatient medication list The patient currently has no complaints. She is resting comfortably in bed. She denies having any pain. She is eating without difficulty. No nausea. She is eating fairly well. She denies any abdominal pain. She does note that her memory is not as good as it used to be. Additional Comments: 6 system review negative. Please see pertinent positives in the history of present illness section. (Sharda Christensen PA-C) Objective Vital Signs Date Time Temp Pulse Resp B/P Pulse Ox O2 Delivery O2 Flow Rate FiO2 03/14/17 12:09 100 Room Air 03/14/17 12:00 Room Air 03/14/17 11:55 91 18 99/65 91 Room Air 03/14/17 08:00 Room Air 03/14/17 07:15 35.8 59 18 113/80 90 Room Air 03/14/17 04:55 36.4 60 16 106/61 94 Room Air 03/14/17 04:00 Room Air 03/14/17 00:00 Room Air 03/13/17 23:37 71 107/67 03/13/17 22:35 36.4 77 18 117/73 96 Room Air 03/13/17 18:30 65 03/13/17 18:19 72 16 107/74 100 Room Air 03/13/17 16:38 60 18 93/39 97 Room Air 03/13/17 14:30 54 03/13/17 14:20 36.5 57 18 100/61 100 Room Air 03/13/17 14:20 100 Room Air (Sharda Christensen PA-C) Physical Exam General Appearance: no apparent distress Eyes: EOMI ENT: + pertinent finding (orange colored plaques noted on the tongue.) Neck: no JVD Respiratory/Chest: lungs clear Cardiovascular: regular rate, rhythm Abdomen: normal bowel sounds, non tender, soft Extremities: non-tender, no pedal edema Neurologic/Psychiatric: + pertinent finding (alert and oriented to person only. Left sided weakness noted with left pronator drift. Weakness noted with the lower extremities bilaterally) Skin: warm/dry (Sharda Christensen PA-C) Laboratory Results 03/13/17 15:10 Red Blood Count 3.66, Mean Corpuscular Volume 95.9, Mean Corpuscular Hemoglobin 29.8, Mean Corpuscular Hemoglobin Concent 31.1, Mean Platelet Volume 8.9, Neutrophils (%) (Auto) 54.3, Lymphocytes (%) (Auto) 31.1, Monocytes (%) (Auto) 7.8, Eosinophils (%) (Auto) 6.0, Basophils (%) (Auto) 0.6, Neutrophils # (Auto) 2.72, Lymphocytes # (Auto) 1.56, Monocytes # (Auto) 0.39, Eosinophils # (Auto) 0.30, Basophils # (Auto) 0.03 03/13/17 15:10 Test 03/13/17 15:10 03/13/17 15:17 03/13/17 17:23 03/14/17 10:20 White Blood Count 5.01 K/uL (4.8-10.8) Red Blood Count 3.66 M/uL (4.2-5.4) Hemoglobin 10.9 g/dL (12.0-16.0) Hematocrit 35.1 % (37-47) Mean Corpuscular Volume 95.9 fL (80-100) Mean Corpuscular Hemoglobin 29.8 pg (25-34) Mean Corpuscular Hemoglobin Concent 31.1 g/dl (32-36) Platelet Count 295 K/uL (130-400) Mean Platelet Volume 8.9 fL (7.4-10.4) Neutrophils (%) (Auto) 54.3 % Lymphocytes (%) (Auto) 31.1 % Monocytes (%) (Auto) 7.8 % Eosinophils (%) (Auto) 6.0 % Basophils (%) (Auto) 0.6 % Neutrophils # (Auto) 2.72 K/uL (1.4-6.5) Lymphocytes # (Auto) 1.56 K/uL (1.2-3.4) Monocytes # (Auto) 0.39 K/uL (0.11-0.59) Eosinophils # (Auto) 0.30 K/uL (0-0.5) Basophils # (Auto) 0.03 K/uL (0-0.2) RDW Standard Deviation 52.8 fL (36.4-46.3) RDW Coefficient of Variation 15.0 % (11.5-14.5) Immature Granulocyte % (Auto) 0.2 % Immature Granulocyte # (Auto) 0.01 K/uL (0.00-0.02) Prothrombin Time 11.2 SECONDS (9.0-12.0) Prothromb Time International Ratio 1.0 (0.9-1.1) Activated Partial Thromboplast Time 26.7 SECONDS (21.0-31.0) Partial Thromboplastin Ratio 1.0 Anion Gap 6.0 mmol/L (3-11) Est Creatinine Clear Calc Drug Dose 65.0 ml/min Estimated GFR () 98.2 Estimated GFR (Non- 84.8 BUN/Creatinine Ratio 46.7 (10-20) Calcium Level 8.7 mg/dl (8.5-10.1) Phosphorus Level 2.9 mg/dl (2.5-4.9) Magnesium Level 2.5 mg/dl (1.8-2.4) Total Bilirubin 0.3 mg/dl (0.2-1) Direct Bilirubin 0.1 mg/dl (0-0.2) Aspartate Amino Transf (AST/SGOT) 14 U/L (15-37) Alanine Aminotransferase (ALT/SGPT) 17 U/L (12-78) Alkaline Phosphatase 154 U/L (45-117) Total Protein 7.3 gm/dl (6.4-8.2) Albumin 2.8 gm/dl (3.4-5.0) Thyroid Stimulating Hormone (TSH) 2.880 uIu/ml (0.300-4.500) Bedside Glucose 90 mg/dl (70-90) Urine Color YELLOW Urine Appearance CLOUDY (CLEAR) Urine pH 6.5 (4.5-7.5) Urine Specific [place] 1.015 (1.000-1.030) Urine Protein TRACE (NEG) Urine Glucose (UA) NEG (NEG) Urine Ketones NEG (NEG) Urine Occult Blood TRACE (NEG) Urine Nitrite POS (NEG) Urine Bilirubin NEG (NEG) Urine Urobilinogen NEG (NEG) Urine Leukocyte Esterase LARGE (NEG) Urine WBC (Auto) >30 /hpf (0-5) Urine RBC (Auto) 5-10 /hpf (0-4) Urine Hyaline Casts (Auto) 0 /lpf (0-5) Urine Epithelial Cells (Auto) 0-5 /lpf (0-5) Urine Bacteria (Auto) 1+ (NEG) Total Creatine Kinase 23 U/L (26-192) Creatine Kinase MB 0.7 ng/ml (0.5-3.6) Creatine Kinase MB Ratio 3.0 (0-3.0) Troponin I < 0.015 ng/ml (0-0.045) Last 24 Hours Test 03/13/17 15:10 03/13/17 15:17 03/13/17 17:23 03/14/17 02:15 White Blood Count 5.01 K/uL Red Blood Count 3.66 M/uL Hemoglobin 10.9 g/dL Hematocrit 35.1 % Mean Corpuscular Volume 95.9 fL Mean Corpuscular Hemoglobin 29.8 pg Mean Corpuscular Hemoglobin Concent 31.1 g/dl Platelet Count 295 K/uL Mean Platelet Volume 8.9 fL Neutrophils (%) (Auto) 54.3 % Lymphocytes (%) (Auto) 31.1 % Monocytes (%) (Auto) 7.8 % Eosinophils (%) (Auto) 6.0 % Basophils (%) (Auto) 0.6 % Neutrophils # (Auto) 2.72 K/uL Lymphocytes # (Auto) 1.56 K/uL Monocytes # (Auto) 0.39 K/uL Eosinophils # (Auto) 0.30 K/uL Basophils # (Auto) 0.03 K/uL RDW Standard Deviation 52.8 fL RDW Coefficient of Variation 15.0 % Immature Granulocyte % (Auto) 0.2 % Immature Granulocyte # (Auto) 0.01 K/uL Prothrombin Time 11.2 SECONDS Prothromb Time International Ratio 1.0 Activated Partial Thromboplast Time 26.7 SECONDS Partial Thromboplastin Ratio 1.0 Sodium Level 141 mmol/L Potassium Level 4.3 mmol/L Chloride Level 107 mmol/L Carbon Dioxide Level 28 mmol/L Anion Gap 6.0 mmol/L Blood Urea Nitrogen 28 mg/dl Creatinine 0.59 mg/dl Est Creatinine Clear Calc Drug Dose 65.0 ml/min Estimated GFR () 98.2 Estimated GFR (Non- 84.8 BUN/Creatinine Ratio 46.7 Random Glucose 86 mg/dl Calcium Level 8.7 mg/dl Phosphorus Level 2.9 mg/dl Magnesium Level 2.5 mg/dl Total Bilirubin 0.3 mg/dl Direct Bilirubin 0.1 mg/dl Aspartate Amino Transf (AST/SGOT) 14 U/L Alanine Aminotransferase (ALT/SGPT) 17 U/L Alkaline Phosphatase 154 U/L Total Creatine Kinase 20 U/L 20 U/L Creatine Kinase MB < 0.5 ng/ml < 0.5 ng/ml Creatine Kinase MB Ratio Troponin I < 0.015 ng/ml < 0.015 ng/ml Total Protein 7.3 gm/dl Albumin 2.8 gm/dl Thyroid Stimulating Hormone (TSH) 2.880 uIu/ml Bedside Glucose 90 mg/dl Urine Color YELLOW Urine Appearance CLOUDY Urine pH 6.5 Urine Specific [place] 1.015 Urine Protein TRACE Urine Glucose (UA) NEG Urine Ketones NEG Urine Occult Blood TRACE Urine Nitrite POS Urine Bilirubin NEG Urine Urobilinogen NEG Urine Leukocyte Esterase LARGE Urine WBC (Auto) >30 /hpf Urine RBC (Auto) 5-10 /hpf Urine Hyaline Casts (Auto) 0 /lpf Urine Epithelial Cells (Auto) 0-5 /lpf Urine Bacteria (Auto) 1+ Test 03/14/17 10:20 Total Creatine Kinase 23 U/L Creatine Kinase MB 0.7 ng/ml Creatine Kinase MB Ratio 3.0 Troponin I < 0.015 ng/ml (Sharda Christensen, DARÍO) Diagnostic Results MRI brain IMPRESSION: 1. No evidence of acute or subacute infarction 2. Tiny chronic bilateral subdural hematomas 3. Mild hydrocephalus, similar to the CT scan performed earlier in the day (Sharda Christensen PA-C) Assessment and Plan 81[facility] to [facility] emergency room for evaluation for an episode of unresponsiveness. This was witnessed by the [id number]. She reports it lasting approximately half hour. She says that the patient was tracking her movements with her eyes, but was not responding verbally. ? Breakthrough seizure. History of subarachnoid hemorrhage status post fall 2 months ago, which resulted in the patient undergoing a craniotomy. She has suffered with seizures since. Metabolic encephalopathy-questionable recurrent seizure. UTI could be contributing. No signs of acute CVA per MRI -Continue telemetry monitoring for today -Neurology consult pending -Continue Keppra 500 mg po BID -Seizure precautions -Consider repeating EEG--> defer to neurology's recommendations UTI-urine culture from 01/30 grew Enterobacter aerogenes treated with Bactrim. 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 No IVC filter was recommended DVT prophylaxis -Chemical means contraindicated -Teds, SCDs DISPO -PT/OT eval -? back to [facility] CODE STATUS -LEVEL I FULL CODE (Sharda Christensen, PANasimaC) Attending Attestation: Pt seen/examined, chart reviewed, care plan d/w DESHAWN Christensen. I agree w/ the [place]lent[place] components of her documentation. Pt w/o complaints during my visit. poor historian due to cognitive issues/memory loss (due to SAH/SDH in the recent past). Son at bedside. Has had frequent UTIs since her brain bleeds. VSS no fever gen - nad mouth - MMM heart - RRR lungs - CTA b/l abd - soft, NT ext - no edema neuro - strength LUE/LLE 4/5 at best, mild foot drop on left urine cx w/ GNR A/P: Encephalopathy - ?due to UTI vs alteration in mental status from seizure vs other. Neuro has seen - believes presentation more c/w altered MS from UTI. No change in seizure d/o management at this time. Cont current IV abx; follow urine cx; repeat labs in am. Suspect frequent UTIs is due to her traumatic brain injuries leading to urinary incontinence. Imaging of the abdomen recently w/o renal stones or other significant urinary tract pathology. Consider outpatient urology referral if recurrent UTIs continue. Edmund Goins MD (Edmund Goins MD)
[2017-03-14] MEDS: CIPROFLOXACIN / D5W 400 MG in PREMIXED IN D5W 200 ML IV SCH ×2 (14:00→22:30)
--- NOTE | 2017-03-14 15:16 | Neurology Consultation ---
Neurology Consultation Date of Consultation: March 14, 2017. Attending Physician: Edmund Goins MD Primary Care Physician: Sylvain Murcia M.D. Reason for Consultation: seizure activity-hx seizure disorder History of Present Illness Source: patient, family Radha is an 81 yo old female with a PMH- a fib, macular degeneration, DL, seizure after SDH, PE, UTI, afib who on 12/2016 - had small SAH after syncopal event and striking her head while on Coumadin therapy; stroke risk outweighed bleed risk and Coumadin was resumed; 01/2017- patient fell and struck her head again and had an acute on chronic right frontoparietal occipital subdural hematoma - transferred to [facility] and underwent craniotomy and evacuation. She was seen in our office this month and has been doing well. Her son and daughter in law are in the room and state they noticed she was not as sharp for the past several days. when they went in to see her today she was starring and not real responsive. There was no abnormal movements LOC, she didn't bite her tongue. She was then transferred to [facility] and was found to have a UTI. She is currently resting comfortably in bed. She had a CT head and MRI brain with almost compete resolve of the left sided hygroma. She does not have any complaints and is resting comfortably. Past Medical/Surgical History Medical Problems: (1) Anticoagulated on Coumadin Status: Acute (2) Cerebral hemorrhage Status: Acute (3) Dizziness Status: Acute (4) Elevated INR Status: Acute (5) Head injury Status: Acute (6) Hydrocephalus Status: Acute (7) Midline shift of brain Status: Acute (8) Seizure Status: Acute (9) Subarachnoid hemorrhage Status: Acute (10) Subdural hematoma Status: Acute (11) Syncope Status: Acute (12) UTI (urinary tract infection) Status: Acute Social History Smoking Status: Unknown if ever smoked Smokeless Tobacco Use: No Alcohol Use: none Drug Use: none Marital Status: Occupation Status: retired Allergies Coded Allergies: No Known Allergies (Unverified , 03/13/17) Current Inpatient Medications Current Inpatient Medications Medications (Trade) Dose Ordered Sig/Troy Route Start Time Stop Time Status Last Admin Dose Admin Calcium/Vitamin D (Caltrate Plus Tab) 1 tab DAILY PO 03/14/17 09:00 04/13/17 08:59 03/14/17 08:28 1 TAB Docusate Sodium (coLACE CAP) 100 mg DAILY PO 03/14/17 09:00 04/13/17 08:59 03/14/17 08:28 100 MG Famotidine (Pepcid Tab) 20 mg BID PO 03/13/17 21:00 04/12/17 20:59 03/14/17 08:27 20 MG Fish Oil (Gunlock-3 (Purified Fish Oil) Cap) 1 gm DAILY PO 03/14/17 09:00 04/13/17 08:59 03/14/17 08:28 1 GM Levetiracetam (Keppra Tab) 500 mg Q12 PO 03/13/17 21:00 04/12/17 20:59 03/14/17 08:27 500 MG Multivitamins/ Minerals (Multivitamin W/ Minerals Tab) 1 tab BID PO 03/14/17 09:00 04/13/17 08:59 03/14/17 08:27 1 TAB Senna/Docusate Sodium (Senokot S Tab) 1 tab DAILY PO 03/14/17 09:00 04/13/17 08:59 03/14/17 08:28 1 TAB Simvastatin (Zocor Tab) 10 mg QPM PO 03/13/17 21:00 04/12/17 20:59 03/13/17 23:38 10 MG Prenat Multivit/ Personal Fitness Trainer/Iron/Folic Ac ( Vitamin Tab) 1 tab DAILY PO 03/14/17 09:00 04/13/17 08:59 03/14/17 08:27 1 TAB Sotalol HCl (Betapace Tab) 120 mg Q12 PO 03/13/17 22:00 04/12/17 21:59 03/14/17 10:18 120 MG Ondansetron HCl 4 mg 4 mg Q6H PRN IV 03/14/17 02:15 04/13/17 02:14 Ciprofloxacin/ Dextrose/Prmx (Cipro / D5w/ Premixed D5W) 200 ml @ 100 mls/hr Q12 IV 03/14/17 13:30 03/24/17 13:29 03/14/17 14:00 100 MLS/HR Nystatin (Mycostatin Susp) 5 ml QID PO 03/14/17 13:15 03/24/17 13:14 Physical Exam Vital Signs (Past 24 Hrs): Date Time Temp Pulse Resp B/P Pulse Ox O2 Delivery O2 Flow Rate FiO2 03/14/17 12:09 100 Room Air 03/14/17 12:00 Room Air 03/14/17 11:55 91 18 99/65 91 Room Air 03/14/17 08:00 Room Air 03/14/17 07:15 35.8 59 18 113/80 90 Room Air 03/14/17 04:55 36.4 60 16 106/61 94 Room Air 03/14/17 04:00 Room Air 03/14/17 00:00 Room Air 03/13/17 23:37 71 107/67 03/13/17 22:35 36.4 77 18 117/73 96 Room Air 03/13/17 18:30 65 03/13/17 18:19 72 16 107/74 100 Room Air 03/13/17 16:38 60 18 93/39 97 Room Air Physical Exam: Constitutional:appearance nourished Ears, Nose, Mouth and Throat: mucous membranes moist, no injection and skin normal, eyes normal Cardiovascular: irregular, irregular Respiratory: clear to auscultation (CTA) Musculoskeletal: no peripheral edema waffle boot bilaterally LE Skin: no stigmata of neurocutaneous disease noted and normal and intact Eyes: extraocular muscles intact (EOMI) and pupils equal, round and reactive to light (PERRL), midline vision loss NEUROLOGIC EXAMINATION: Mental status: Alert and interactive she thinks she is at [facility] Oriented to person Speech fluent with no evidence of aphasia Cranial Nerves smile and eye brow raise symmetric Reflexes: Deep tendon reflexes were symmetrical and graded 2/5. Plantar responses were neutral Sensory: light touch Coordination: finger to nose if midline unable to touch Gait/Stance: Posture lying in bed Motor: Negative for pronator drift of out stretched arms with eyes closed. Strength: biceps triceps hand aligner typewriter right slightly > left, hip flex against gravity but not resistance Laboratory Results Past 24 Hours: 03/13/17 15:10 Red Blood Count 3.66, Mean Corpuscular Volume 95.9, Mean Corpuscular Hemoglobin 29.8, Mean Corpuscular Hemoglobin Concent 31.1, Mean Platelet Volume 8.9, Neutrophils (%) (Auto) 54.3, Lymphocytes (%) (Auto) 31.1, Monocytes (%) (Auto) 7.8, Eosinophils (%) (Auto) 6.0, Basophils (%) (Auto) 0.6, Neutrophils # (Auto) 2.72, Lymphocytes # (Auto) 1.56, Monocytes # (Auto) 0.39, Eosinophils # (Auto) 0.30, Basophils # (Auto) 0.03 03/13/17 15:10 Test 03/13/17 15:10 03/13/17 15:17 03/13/17 17:23 03/14/17 10:20 White Blood Count 5.01 K/uL (4.8-10.8) Red Blood Count 3.66 M/uL (4.2-5.4) Hemoglobin 10.9 g/dL (12.0-16.0) Hematocrit 35.1 % (37-47) Mean Corpuscular Volume 95.9 fL (80-100) Mean Corpuscular Hemoglobin 29.8 pg (25-34) Mean Corpuscular Hemoglobin Concent 31.1 g/dl (32-36) Platelet Count 295 K/uL (130-400) Mean Platelet Volume 8.9 fL (7.4-10.4) Neutrophils (%) (Auto) 54.3 % Lymphocytes (%) (Auto) 31.1 % Monocytes (%) (Auto) 7.8 % Eosinophils (%) (Auto) 6.0 % Basophils (%) (Auto) 0.6 % Neutrophils # (Auto) 2.72 K/uL (1.4-6.5) Lymphocytes # (Auto) 1.56 K/uL (1.2-3.4) Monocytes # (Auto) 0.39 K/uL (0.11-0.59) Eosinophils # (Auto) 0.30 K/uL (0-0.5) Basophils # (Auto) 0.03 K/uL (0-0.2) RDW Standard Deviation 52.8 fL (36.4-46.3) RDW Coefficient of Variation 15.0 % (11.5-14.5) Immature Granulocyte % (Auto) 0.2 % Immature Granulocyte # (Auto) 0.01 K/uL (0.00-0.02) Prothrombin Time 11.2 SECONDS (9.0-12.0) Prothromb Time International Ratio 1.0 (0.9-1.1) Activated Partial Thromboplast Time 26.7 SECONDS (21.0-31.0) Partial Thromboplastin Ratio 1.0 Anion Gap 6.0 mmol/L (3-11) Est Creatinine Clear Calc Drug Dose 65.0 ml/min Estimated GFR () 98.2 Estimated GFR (Non- 84.8 BUN/Creatinine Ratio 46.7 (10-20) Calcium Level 8.7 mg/dl (8.5-10.1) Phosphorus Level 2.9 mg/dl (2.5-4.9) Magnesium Level 2.5 mg/dl (1.8-2.4) Total Bilirubin 0.3 mg/dl (0.2-1) Direct Bilirubin 0.1 mg/dl (0-0.2) Aspartate Amino Transf (AST/SGOT) 14 U/L (15-37) Alanine Aminotransferase (ALT/SGPT) 17 U/L (12-78) Alkaline Phosphatase 154 U/L (45-117) Total Protein 7.3 gm/dl (6.4-8.2) Albumin 2.8 gm/dl (3.4-5.0) Thyroid Stimulating Hormone (TSH) 2.880 uIu/ml (0.300-4.500) Bedside Glucose 90 mg/dl (70-90) Urine Color YELLOW Urine Appearance CLOUDY (CLEAR) Urine pH 6.5 (4.5-7.5) Urine Specific [place] 1.015 (1.000-1.030) Urine Protein TRACE (NEG) Urine Glucose (UA) NEG (NEG) Urine Ketones NEG (NEG) Urine Occult Blood TRACE (NEG) Urine Nitrite POS (NEG) Urine Bilirubin NEG (NEG) Urine Urobilinogen NEG (NEG) Urine Leukocyte Esterase LARGE (NEG) Urine WBC (Auto) >30 /hpf (0-5) Urine RBC (Auto) 5-10 /hpf (0-4) Urine Hyaline Casts (Auto) 0 /lpf (0-5) Urine Epithelial Cells (Auto) 0-5 /lpf (0-5) Urine Bacteria (Auto) 1+ (NEG) Total Creatine Kinase 23 U/L (26-192) Creatine Kinase MB 0.7 ng/ml (0.5-3.6) Creatine Kinase MB Ratio 3.0 (0-3.0) Troponin I < 0.015 ng/ml (0-0.045) Imaging CT head- 1. Mixed findings. Improved left subdural hygroma with minimal, if any , residual. Interval development of mild hydrocephalus. No evidence for acute intracranial hemorrhage MRI brain -. No evidence of acute or subacute infarction Tiny chronic bilateral subdural hematomas Mild hydrocephalus, similar to the CT scan performed earlier in the day Impression 81 year old female MS change- UTI Plan 1. continue to treat UTI -antibiotics 2. hydration as needed 3. encourage oral intake 4. Keppra level pending 5. does not sound like seizure activity and in light of the UTI likely issue however unclear will increase Keppra from 500 mg to 750 mg [address] and CT scan with near resolve of the hygromas. hydrocephalus stable 3rd and 4th ventricle open 7. imaging pending evaluation by Dr Hill-neurosurgery [place] I have seen and discussed above patient with Dr Eliza Porter, neurology PT seen and examined. Histories vary somewhat. ER doc stated when screen making technician arrived after staring event pt was awake and alert. family describes subtle staring, possibly with visual tracking and some response to verbal stim. She has been gradually improving over the last several weeks since evac of SDH and treatment for sz.no headache. On exam pt awake, alert in NAD. Not able to vis optic nerves mild dysarthria and mild L hemiparesis. CT head last pm reviewed and compared to study 12/20 when pt had a minor SDH, The degree of ventriculomegaly is similar, there is more transependymal absorption. Clinically I doubt that pt would improve from relative unresponsiveness to alertness in a relatively short period of time related to UTI. It could have been a partial complex sz. REc increase dose of Keppra to 750 mg BID. Pt is not symptomatic for increased ICP. Likely there is little bit more ventricular prominence now then premorbidly but likely this will gradually return to baseline. Rec fu CT head in 2 weeks. Discussed with family. DOMENICA Porter MD
[2017-03-14] MEDS: NYSTATIN SUSP 500,000 U/5 ML UDC PO SCH ×2 (15:57→20:48)
[2017-03-14] MEDS ORDERED: CEFTRIAXONE SOD INJ 1 GM in DEXTROSE 5% ADD-VANTAGE 50ML 50 ML IV SCH (18:00)
--- NOTE | 2017-03-14 18:14 | ECHOCARDIOGRAM REPORT ---
*NOTICE TO RECEIVING REPUBLICAN AGENCY This information is strictly Confidential and protected under [place] law. [place] law prohibits you from making any further disclosure of this information unless further disclosure is expressly permitted by the written consent of the person to whom it pertains or is authorized by law. A general authorization for the release of medical or other information is not sufficient for this purpose. Hospital accepts no responsibility if the information is made available to any other person, INCLUDING THE PATIENT. Interpretation Summary * Name: Lizbet SONG Study Date: 03/14/2017 09:26 AM BP: 113/80 mmHg * Patient Location: .MED\S\N282\S\2 HR: 57 * : 1935 (M/d/yyyy) Gender: Female Height: 63 in * Age: 81 yrs Ethnicity: CA Weight: 123 lb * Ordering Physician: Lex Patton * Referring Physician: Iris Madsen * Performed By: aHydee Davis RCS * * Reason For Study: ABNORMAL EKG * BSA: 1.6 m2 * -- Conclusions -- * 1. Normal LV size. Normal LV wall thickness with sigmoid septum. * 2. Normal LV systolic function. LVEF 60-65%. No regional wall motion abnormalities. * 3. Normal RV size and function. * 4. Mild mitral regurgitation. * 5. Compared with prior study on 12/11/2016: Procedure Details * A complete two-dimensional transthoracic echocardiogram was performed (2D, M-mode, Doppler and color flow Doppler). Left Ventricle * The left ventricle is grossly normal size. * There is normal left ventricular wall thickness. * The basal septum is thickened and angulated consistent with sigmoid septum. * Ejection Fraction = 60-65%. * No regional wall motion abnormalities noted. Right Ventricle * The right ventricle is grossly normal size. * The right ventricular systolic function is normal as assessed by tricuspid annular plane systolic excursion (TAPSE) (normal >1.5 cm). Atria * The left atrial size is normal. * Right atrial size is normal. * No ASD detected; PFO is not assessed. Mitral Valve * The mitral valve leaflets appear thickened, but open well. * There is no mitral valve stenosis. * There is mild mitral regurgitation. Tricuspid Valve * The tricuspid valve is not well visualized, but is grossly normal. * There is no tricuspid stenosis. * There is trace tricuspid regurgitation. Aortic Valve * The aortic valve opens well. * The aortic valve is trileaflet. * Aortic stenosis is absent. * There is no significant aortic regurgitation. Pulmonic Valve * The pulmonary valve is inadequately visualized, but the Doppler data is adequate for interpretation. * Pulmonic stenosis is absent. * Trace pulmonic valvular regurgitation. Great Vessels * The aortic root and proximal ascending aorta are normal sized. * No Doppler or imaging evidence of an aortic coarctation. Pericardium/Pleural * There is no pericardial effusion. Great Vessels * There is no evidence of pulmonary hypertension. The PA systolic pressure is less than 36 mmHg. MMode 2D Measurements and Calculations IVSd 0.96 cm IVSs 1.6 cm LVIDd 3.2 cm LVIDs 2.3 cm LVPWd 1.0 cm LVPWs 1.3 cm IVS/LVPW 0.95 FS 29.7 % EDV(Teich) 41.7 ml ESV(Teich) 17.5 ml EF(Teich) 58.1 % EDV(cubed) 33.5 ml ESV(cubed) 11.6 ml EF(cubed) 65.3 % % IVS thick 67.3 % % LVPW thick 24.6 % LV mass(C)d 90.3 grams LV mass(C)dI 57.4 grams/m\S\2 LV mass(C)s 104.7 grams LV mass(C)sI 66.5 grams/m\S\2 SV(Teich) 24.2 ml SI(Teich) 15.4 ml/m\S\2 SV(cubed) 21.9 ml SI(cubed) 13.9 ml/m\S\2 Ao root diam 3.5 cm Ao root area 9.5 cm\S\2 LA dimension 3.4 cm LA/Ao 0.98 LVOT diam 2.0 cm LVOT area 3.3 cm\S\2 Doppler Measurements and Calculations MV E max fareed 92.7 cm/sec MV A max fareed 63.1 cm/sec MV E/A 1.5 MV P1/2t max fareed 106.8 cm/sec MV P1/2t 62.9 msec MVA(P1/2t) 3.5 cm\S\2 MV dec slope 496.8 cm/sec\S\2 MV dec time 0.27 sec Ao V2 max 120.7 cm/sec Ao max PG 5.8 mmHg Ao max PG (full) 1.5 mmHg ZIA(V,A) 2.8 cm\S\2 ZIA(V,D) 2.8 cm\S\2 LV V1 max PG 4.4 mmHg LV V1 max 104.6 cm/sec MR max fareed 572.3 cm/sec MR max PG 131.0 mmHg PI max fareed 114.2 cm/sec PI max PG 5.2 mmHg PI dec slope 74.6 cm/sec\S\2 PI P1/2t 448.2 msec TR max fareed 247.2 cm/sec
[2017-03-14 18:40] LABS: CKMB/CK RATIO 3.2 (0-3.0)
[2017-03-14] MEDS: LEVETIRACETAM 250 MG TAB PO SCH (20:48)
[2017-03-14] MEDS: SIMVASTATIN 10 MG TAB PO SCH (20:49)
[2017-03-15] VITALS (7 sets, daily range): BP systolic 107–128; BP diastolic 56–70; PULSE 54–96; TEMP 36.2–36.9; O2SAT 94–97
[2017-03-15 06:36] LABS: BASO % 0.4 %; BASO ABS # 0.02 K/uL (0-0.2); COMPLETE YES; EOS % 8.7 %; HEMATOCRIT 29.7 % (37-47); IG% 0.2 %; LYMPH % 25.6 %; LYMPH ABS # 1.26 K/uL (1.2-3.4); MEAN CELL VOLUME 94.3 fL (80-100); MEAN CORPUSCULAR HEMOGLOBIN 29.5 pg (25-34); MEAN CORPUSCULAR HGB CONC 31.3 g/dl (32-36); MEAN PLATELET VOLUME 8.6 fL (7.4-10.4); MONO % 8.1 %; PLATELET COUNT 249 K/uL (130-400); RED BLOOD COUNT 3.15 M/uL (4.2-5.4); WHITE BLOOD COUNT 4.92 K/uL (4.8-10.8)
[2017-03-15 07:15] LABS: BUN/CREATININE RATIO 40.7 (10-20); CALCIUM 8.4 mg/dl (8.5-10.1); CREATININE 0.45 mg/dl (0.60-1.20); MAGNESIUM 2.1 mg/dl (1.8-2.4); POTASSIUM 3.7 mmol/L (3.5-5.1)
[2017-03-15] MEDS: LEVETIRACETAM 250 MG TAB PO SCH ×2 (08:19→21:00)
[2017-03-15] MEDS: DOCUSATE SODIUM 100 MG CAP PO SCH (08:19)
[2017-03-15] MEDS: OMEGA-3 (PURIFIED FISH OIL) 1 GM CAP PO SCH (08:19)
[2017-03-15] MEDS: NYSTATIN SUSP 500,000 U/5 ML UDC PO SCH ×4 (08:19→21:00)
[2017-03-15] MEDS: PRENATAL VITAMIN TAB PO SCH (08:20)
[2017-03-15] MEDS: FAMOTIDINE 20 MG TAB PO SCH ×2 (08:20→21:00)
[2017-03-15] MEDS: SOTALOL HCL 80 MG TAB PO SCH ×2 (08:20→21:00)
[2017-03-15] MEDS: DOCUSATE SODIUM/SENNA 50/8.6MG TAB PO SCH (08:20)
[2017-03-15] MEDS: CEROVITE ADV FORMULA TAB PO SCH ×2 (08:20→21:00)
[2017-03-15] MEDS: CIPROFLOXACIN / D5W 400 MG in PREMIXED IN D5W 200 ML IV SCH ×2 (08:21→21:00)
[2017-03-15] MEDS: CALCIUM 600MG + VIT D 400 IU TAB PO SCH (08:21)
--- NOTE | 2017-03-15 12:44 | Hospitalist Progress Note ---
Hospitalist Progress Note Date of Service March 15, 2017. Subjective Pt evaluation today including: conversation w/ patient, conversation w/ family , physical exam, chart review, lab review, review of studies, conversation w/ library sales consultant, review of inpatient medication list Patient reports feeling "crummy" today. She is unable to give me any other descriptive symptoms. She denies any pain. No nausea. She denies any lightheadedness or dizziness. She denies any chest pain or pressure. No heart palpitations. Denies fever or chills. No urinary symptoms. Additional Comments: 6 system review negative. Please see pertinent positives in the history of present illness section. Objective Vital Signs Date Time Temp Pulse Resp B/P Pulse Ox O2 Delivery O2 Flow Rate FiO2 03/15/17 11:21 36.4 68 18 128/70 94 Room Air 03/15/17 08:00 Room Air 03/15/17 07:49 36.3 61 16 107/56 96 Room Air 03/15/17 04:00 Room Air 03/15/17 04:00 36.2 65 14 117/57 97 03/15/17 03:00 36.3 73 18 121/62 94 Room Air 03/15/17 00:00 Room Air 03/14/17 23:45 36.7 64 18 130/77 98 Room Air 03/14/17 20:00 Room Air 03/14/17 19:22 36.4 57 18 114/53 94 Room Air 03/14/17 16:00 Room Air 03/14/17 15:20 36.3 60 18 103/60 100 Room Air Physical Exam General Appearance: + mild distress (appears mildly depressed.) Eyes: EOMI ENT: + pertinent finding (plaque on the tongue is improved.) Neck: no JVD Respiratory/Chest: lungs clear Cardiovascular: regular rate, rhythm Abdomen: normal bowel sounds, non tender, soft Extremities: non-tender, no pedal edema Neurologic/Psychiatric: no motor/sensory deficits, oriented x 3 Skin: warm/dry Laboratory Results 03/15/17 06:03 Red Blood Count 3.15, Mean Corpuscular Volume 94.3, Mean Corpuscular Hemoglobin 29.5, Mean Corpuscular Hemoglobin Concent 31.3, Mean Platelet Volume 8.6, Neutrophils (%) (Auto) 57.0, Lymphocytes (%) (Auto) 25.6, Monocytes (%) (Auto) 8.1, Eosinophils (%) (Auto) 8.7, Basophils (%) (Auto) 0.4, Neutrophils # (Auto) 2.80, Lymphocytes # (Auto) 1.26, Monocytes # (Auto) 0.40, Eosinophils # (Auto) 0.43, Basophils # (Auto) 0.02 03/15/17 06:03 Test 03/14/17 18:06 03/15/17 06:03 Total Creatine Kinase 22 U/L (26-192) Creatine Kinase MB 0.7 ng/ml (0.5-3.6) Creatine Kinase MB Ratio 3.2 (0-3.0) Troponin I < 0.015 ng/ml (0-0.045) White Blood Count 4.92 K/uL (4.8-10.8) Red Blood Count 3.15 M/uL (4.2-5.4) Hemoglobin 9.3 g/dL (12.0-16.0) Hematocrit 29.7 % (37-47) Mean Corpuscular Volume 94.3 fL (80-100) Mean Corpuscular Hemoglobin 29.5 pg (25-34) Mean Corpuscular Hemoglobin Concent 31.3 g/dl (32-36) Platelet Count 249 K/uL (130-400) Mean Platelet Volume 8.6 fL (7.4-10.4) Neutrophils (%) (Auto) 57.0 % Lymphocytes (%) (Auto) 25.6 % Monocytes (%) (Auto) 8.1 % Eosinophils (%) (Auto) 8.7 % Basophils (%) (Auto) 0.4 % Neutrophils # (Auto) 2.80 K/uL (1.4-6.5) Lymphocytes # (Auto) 1.26 K/uL (1.2-3.4) Monocytes # (Auto) 0.40 K/uL (0.11-0.59) Eosinophils # (Auto) 0.43 K/uL (0-0.5) Basophils # (Auto) 0.02 K/uL (0-0.2) RDW Standard Deviation 50.5 fL (36.4-46.3) RDW Coefficient of Variation 14.7 % (11.5-14.5) Immature Granulocyte % (Auto) 0.2 % Immature Granulocyte # (Auto) 0.01 K/uL (0.00-0.02) Anion Gap 8.0 mmol/L (3-11) Est Creatinine Clear Calc Drug Dose 84.8 ml/min Estimated GFR () 107.4 Estimated GFR (Non- 92.7 BUN/Creatinine Ratio 40.7 (10-20) Calcium Level 8.4 mg/dl (8.5-10.1) Magnesium Level 2.1 mg/dl (1.8-2.4) Last 24 Hours Test 03/14/17 18:06 03/15/17 06:03 Total Creatine Kinase 22 U/L Creatine Kinase MB 0.7 ng/ml Creatine Kinase MB Ratio 3.2 Troponin I < 0.015 ng/ml White Blood Count 4.92 K/uL Red Blood Count 3.15 M/uL Hemoglobin 9.3 g/dL Hematocrit 29.7 % Mean Corpuscular Volume 94.3 fL Mean Corpuscular Hemoglobin 29.5 pg Mean Corpuscular Hemoglobin Concent 31.3 g/dl Platelet Count 249 K/uL Mean Platelet Volume 8.6 fL Neutrophils (%) (Auto) 57.0 % Lymphocytes (%) (Auto) 25.6 % Monocytes (%) (Auto) 8.1 % Eosinophils (%) (Auto) 8.7 % Basophils (%) (Auto) 0.4 % Neutrophils # (Auto) 2.80 K/uL Lymphocytes # (Auto) 1.26 K/uL Monocytes # (Auto) 0.40 K/uL Eosinophils # (Auto) 0.43 K/uL Basophils # (Auto) 0.02 K/uL RDW Standard Deviation 50.5 fL RDW Coefficient of Variation 14.7 % Immature Granulocyte % (Auto) 0.2 % Immature Granulocyte # (Auto) 0.01 K/uL Sodium Level 142 mmol/L Potassium Level 3.7 mmol/L Chloride Level 110 mmol/L Carbon Dioxide Level 24 mmol/L Anion Gap 8.0 mmol/L Blood Urea Nitrogen 18 mg/dl Creatinine 0.45 mg/dl Est Creatinine Clear Calc Drug Dose 84.8 ml/min Estimated GFR () 107.4 Estimated GFR (Non- 92.7 BUN/Creatinine Ratio 40.7 Random Glucose 89 mg/dl Calcium Level 8.4 mg/dl Magnesium Level 2.1 mg/dl Assessment and Plan 81-year-old female from [facility] sent to the emergency room for evaluation for an episode of unresponsiveness. This was witnessed by the [id number]. She reports it lasting approximately half hour. She says that the patient was tracking her movements with her eyes, but was not responding verbally. ? Breakthrough seizure. History of subdural bleed status post fall 2 months ago, which resulted in the patient undergoing a craniotomy. She has suffered with seizures since. Metabolic encephalopathy-questionable recurrent seizure. UTI could be contributing. No signs of acute CVA per MRI. She seems to have declined today -Keppra was increased yesterday to 750 mg po BID--? contributing to her sx. I' ll d/w neurology UTI- growing Enterobacter aerogenes treated with Bactrim. It was resistant to Rocephin -Continue Cipro 400 mg BID day 11/11 History of atrial fibrillation-AC contraindicated given history of subdural bleed status post craniotomy 2 months ago -Continue rate control with sotalol 120 mg po BID -Echo EF 60-65%. 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 No IVC filter was recommended DVT prophylaxis -Chemical means contraindicated -Teds, SCDs DISPO -PT/OT eval -? back to [facility] CODE STATUS -LEVEL I FULL CODE
--- NOTE | 2017-03-15 18:13 | DIAGNOSTIC IMAGING REPORT ---
LEFT HIP UNILATERAL 2 VIEWS CLINICAL HISTORY: Left hip pain. COMPARISON: Pelvis radiograph November 11, 2012. FINDINGS: Alignment of left hip is anatomic. There is mild osteophytosis of the left hip. No fracture is identified. There is a moderate to large amount stool within the rectum. IMPRESSION: 1. No acute fracture of the left hip. 2. Mild arthritis of the left hip. 3. Moderate to large amount of stool within the rectum. Electronically signed by: Moo Siu M.D. 03/15/2017 6:12 PM Dictated Date/Time: 03/15/2017 6:11 PM
--- NOTE | 2017-03-15 19:31 | Neurology Progress Notes ---
Neurology Progress Note Date of Service March 15, 2017. 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 She was seen in our office this month and has been doing well. Her son and daughter in law are in the room and state they noticed she was not as sharp for the past several days. when they went in to see her today she was starring and not real responsive. There was no abnormal movements LOC, she didn't bite her tongue. She was then transferred to [facility] and was found to have a UTI. She is currently resting comfortably in bed. She had a CT head and MRI brain with almost compete resolve of the left sided hygroma. She does not have any complaints and is resting comfortably. Her son is in the room and states she has been complaining of hip pain so they are going to do an xray to r/o fracture. Objective Date Time Temp Pulse Resp B/P Pulse Ox O2 Delivery O2 Flow Rate FiO2 03/15/17 16:00 Room Air 03/15/17 15:28 36.8 54 18 108/65 97 Room Air 03/15/17 12:00 Room Air 03/15/17 11:21 36.4 68 18 128/70 94 Room Air 03/15/17 08:00 Room Air 03/15/17 07:49 36.3 61 16 107/56 96 Room Air 03/15/17 04:00 Room Air 03/15/17 04:00 36.2 65 14 117/57 97 03/15/17 03:00 36.3 73 18 121/62 94 Room Air 03/15/17 00:00 Room Air 03/14/17 23:45 36.7 64 18 130/77 98 Room Air 03/14/17 20:00 Room Air Last 24 Hours Test 03/15/17 06:03 White Blood Count 4.92 K/uL Red Blood Count 3.15 M/uL Hemoglobin 9.3 g/dL Hematocrit 29.7 % Mean Corpuscular Volume 94.3 fL Mean Corpuscular Hemoglobin 29.5 pg Mean Corpuscular Hemoglobin Concent 31.3 g/dl Platelet Count 249 K/uL Mean Platelet Volume 8.6 fL Neutrophils (%) (Auto) 57.0 % Lymphocytes (%) (Auto) 25.6 % Monocytes (%) (Auto) 8.1 % Eosinophils (%) (Auto) 8.7 % Basophils (%) (Auto) 0.4 % Neutrophils # (Auto) 2.80 K/uL Lymphocytes # (Auto) 1.26 K/uL Monocytes # (Auto) 0.40 K/uL Eosinophils # (Auto) 0.43 K/uL Basophils # (Auto) 0.02 K/uL RDW Standard Deviation 50.5 fL RDW Coefficient of Variation 14.7 % Immature Granulocyte % (Auto) 0.2 % Immature Granulocyte # (Auto) 0.01 K/uL Sodium Level 142 mmol/L Potassium Level 3.7 mmol/L Chloride Level 110 mmol/L Carbon Dioxide Level 24 mmol/L Anion Gap 8.0 mmol/L Blood Urea Nitrogen 18 mg/dl Creatinine 0.45 mg/dl Est Creatinine Clear Calc Drug Dose 84.8 ml/min Estimated GFR () 107.4 Estimated GFR (Non- 92.7 BUN/Creatinine Ratio 40.7 Random Glucose 89 mg/dl Calcium Level 8.4 mg/dl Magnesium Level 2.1 mg/dl Imaging: TTE- * 1. Normal LV size. Normal LV wall thickness with sigmoid septum. * 2. Normal LV systolic function. LVEF 60-65%. No regional wall motion abnormalities. * 3. Normal RV size and function. * 4. Mild mitral regurgitation. * no ASD hip x ray- . No acute fracture of the left hip. Mild arthritis of the left hip. Moderate to large amount of stool within the rectum. Exam: Gen: alert NAD lying on her side lungs CTA CV irregular irregular squeezes bilaterally with hand biceps triceps 4/5 generalized weakness neuro: smile eye brow raise symmetric, tongue midline Current Inpatient Medications Medications (Trade) Dose Ordered Sig/Troy Route Start Time Stop Time Status Last Admin Dose Admin Calcium/Vitamin D (Caltrate Plus Tab) 1 tab DAILY PO 03/14/17 09:00 04/13/17 08:59 03/15/17 08:21 1 TAB Docusate Sodium (coLACE CAP) 100 mg DAILY PO 03/14/17 09:00 04/13/17 08:59 03/15/17 08:19 100 MG Famotidine (Pepcid Tab) 20 mg BID PO 03/13/17 21:00 04/12/17 20:59 03/15/17 08:20 20 MG Fish Oil ([place]-3 (Purified Fish Oil) Cap) 1 gm DAILY PO 03/14/17 09:00 04/13/17 08:59 03/15/17 08:19 1 GM Multivitamins/ Minerals (Multivitamin W/ Minerals Tab) 1 tab BID PO 03/14/17 09:00 04/13/17 08:59 03/15/17 08:20 1 TAB Senna/Docusate Sodium (Senokot S Tab) 1 tab DAILY PO 03/14/17 09:00 04/13/17 08:59 03/15/17 08:20 1 TAB Simvastatin (Zocor Tab) 10 mg QPM PO 03/13/17 21:00 04/12/17 20:59 03/14/17 20:49 10 MG Prenat Multivit/ Tow Picker/Iron/Folic Ac ( Vitamin Tab) 1 tab DAILY PO 03/14/17 09:00 04/13/17 08:59 03/15/17 08:20 1 TAB Sotalol HCl (Betapace Tab) 120 mg Q12 PO 03/13/17 22:00 04/12/17 21:59 03/15/17 08:20 120 MG Ondansetron HCl 4 mg 4 mg Q6H PRN IV 03/14/17 02:15 04/13/17 02:14 Ciprofloxacin/ Dextrose/Prmx (Cipro / D5w/ Premixed D5W) 200 ml @ 100 mls/hr Q12 IV 03/14/17 13:30 03/24/17 13:29 03/15/17 08:21 100 MLS/HR Nystatin (Mycostatin Susp) 5 ml QID PO 03/14/17 13:15 03/24/17 13:14 03/15/17 17:56 5 ML Levetiracetam (Keppra Tab) 750 mg Q12 PO 03/14/17 21:00 04/13/17 20:59 03/15/17 08:19 750 MG Impression 81 year old female MS change- UTI Plan 1. treated UTI -antibiotics 2. hydration as needed 3. encourage oral intake 4. Keppra level pending 5. does not sound like seizure activity and in light of the UTI likely issue however unclear will increase Keppra from 500 mg to 750 [address] and CT scan with near resolve of the hygromas. hydrocephalus stable 3rd and 4th ventricle open 7. imaging pending evaluation by Dr Hill-neurosurgery [place] 8. TTE unchanged from December study Pt awake, mildly distractable but oriented, no field cut, minimal weakness of the LUE. Exam is stable. Pt sp drainage SDH. Ventriculomegaly on scan similar to her initial CT which had a minimal sdh. No signs of acute increased ICP. Poss sz, pt tolerating keppra 750 mg BID. Consider repeat CT head in 2 weeks DOMENICA Porter MD I have seen and discussed above patient with Dr Eliza Porter, neurology
[2017-03-15] MEDS: SIMVASTATIN 10 MG TAB PO SCH (21:00)
[2017-03-16] VITALS (7 sets, daily range): BP systolic 104–147; BP diastolic 50–70; PULSE 61–97; TEMP 36.3–37.4; O2SAT 91–99
[2017-03-16 06:48] LABS: BASO % 0.6 %; BASO ABS # 0.03 K/uL (0-0.2); COMPLETE YES; EOS % 7.6 %; HEMATOCRIT 32.5 % (37-47); LYMPH % 25.4 %; LYMPH ABS # 1.28 K/uL (1.2-3.4); MEAN CELL VOLUME 95.6 fL (80-100); MEAN CORPUSCULAR HEMOGLOBIN 30.3 pg (25-34); MEAN CORPUSCULAR HGB CONC 31.7 g/dl (32-36); MEAN PLATELET VOLUME 8.9 fL (7.4-10.4); MONO % 8.5 %; NEUT % 57.9 %; PLATELET COUNT 245 K/uL (130-400); WHITE BLOOD COUNT 5.03 K/uL (4.8-10.8)
[2017-03-16 07:24] LABS: BUN/CREATININE RATIO 25.4 (10-20); CALCIUM 8.5 mg/dl (8.5-10.1); CREATININE 0.52 mg/dl (0.60-1.20); MAGNESIUM 2.3 mg/dl (1.8-2.4); POTASSIUM 3.9 mmol/L (3.5-5.1)
[2017-03-16] MEDS ORDERED: NSS + 20MEQ KCL 1000ML 1,000 ML IV SCH (08:00)
[2017-03-16] MEDS: SOTALOL HCL 80 MG TAB PO SCH ×2 (08:34→19:47)
[2017-03-16] MEDS: CIPROFLOXACIN / D5W 400 MG in PREMIXED IN D5W 200 ML IV SCH ×2 (08:34→21:48)
[2017-03-16] MEDS: PRENATAL VITAMIN TAB PO SCH (08:35)
[2017-03-16] MEDS: OMEGA-3 (PURIFIED FISH OIL) 1 GM CAP PO SCH (08:35)
[2017-03-16] MEDS: CEROVITE ADV FORMULA TAB PO SCH ×2 (08:35→19:47)
[2017-03-16] MEDS: DOCUSATE SODIUM/SENNA 50/8.6MG TAB PO SCH (08:35)
[2017-03-16] MEDS: FAMOTIDINE 20 MG TAB PO SCH ×2 (08:35→19:48)
[2017-03-16] MEDS: DOCUSATE SODIUM 100 MG CAP PO SCH (08:35)
[2017-03-16] MEDS: NYSTATIN SUSP 500,000 U/5 ML UDC PO SCH ×4 (08:35→19:47)
[2017-03-16] MEDS: LEVETIRACETAM 250 MG TAB PO SCH ×2 (08:35→19:49)
[2017-03-16] MEDS: CALCIUM 600MG + VIT D 400 IU TAB PO SCH (08:35)
--- NOTE | 2017-03-16 09:23 | ELECTROENCEPHALOGRAPH REPORT ---
FOR: Dr. Patton. CLINICAL DIAGNOSIS: Possible seizure activity. EEG DIAGNOSIS: Mildly diffusely abnormal EEG during wakefulness characterized by generalized increased slow wave activity without potentially epileptogenic discharges. DESCRIPTION OF TRACING: This EEG was done as a bedside recording with simultaneous video analysis of patient movement and behavior. Photic stimulation was performed. Hyperventilation was not. Drowsiness and light sleep are not clearly recorded. Unfortunately, the patient does have a lot of muscle and movement artifacts and head rolling activity which creates the impression of excessive slow wave activity in the posterior head leads. Between these events, however, there appears to be a relatively normal appearing background alpha rhythm at about 9 Hz of maximum frequency and 30 microvolts of maximum amplitude. This appears to be bilaterally symmetrical and maximum in the posterior head regions. Polymorphic mid to lower frequency modest amplitude theta activity is seen over all head regions again with some accentuation in the posterior head leads which is difficult to dissect out from the effects of head rolling and other movement artifacts. This activity appears to be slightly excessive in amount for a patient of this age but this is a very marginal call. Beta activity is seen bifrontally, but again movement artifacts tend to obscure this. Photic stimulation provokes a minimal driving response without a photomyogenic or photoparoxysmal component. At no time during the waking tracing is there evidence for a clearcut potentially epileptogenic activity in the form of polyspike or spike wave bursts, focal sharp waves or focal spikes. INTERPRETATION: This EEG reveals evidence for marginal abnormalities which suggest mild generalized nonspecific encephalopathy. There are no potentially epileptogenic features. Again, the pattern is difficult to clearly call abnormal because of the presence of muscle and movement artifacts, but there is seemingly a slight increased amount of generalized slow wave activity overall. Again, the pattern is nonspecific, is nonlateralizing, and at this age group, may indeed be normal.
[2017-03-16] MEDS ORDERED: CIPR-255 PO (10:39)
[2017-03-16] MEDS ORDERED: KPP250 PO (10:39)
--- NOTE | 2017-03-16 10:57 | Discharge Instructions ---
Discharge Instructions Date of Service March 16, 2017. Admission Reason for Admission: Observed Seizure-Like Activity, Seizure Disorder Discharge Discharge Diagnosis / Problem: metabolic encephalopathy Discharge Goals Goal(s): Improve function Activity Recommendations Activity Limitations: resume your previous activity . Instructions / Follow-Up Instructions / Follow-Up You were admitted to the hospital with altered mental status. It is possible that this was due to seizures. It was also discovered that you had a urinary tract infection. The following changes/additions have been made to your medication list: -Keppra was increased to 750 mg I mouth twice daily -Cipro 500 mg twice daily for an additional 7 days. Please follow-up with Dr. Schulz from neurology in 2 weeks Call your doctor or return to the emergency department if you have any of the following symptoms: -Fever of 101F or greater -Persistent vomiting - Persistent diarrhea -Lethargy -Chest pain -Shortness of breath -severe dizziness Current Hospital Diet Patient's current hospital diet: Regular Diet Discharge Diet Recommended Diet: Regular Diet Pending Studies Studies pending at discharge: no Laboratory Results 03/16/17 06:35 Red Blood Count 3.40, Mean Corpuscular Volume 95.6, Mean Corpuscular Hemoglobin 30.3, Mean Corpuscular Hemoglobin Concent 31.7, Mean Platelet Volume 8.9, Neutrophils (%) (Auto) 57.9, Lymphocytes (%) (Auto) 25.4, Monocytes (%) (Auto) 8.5, Eosinophils (%) (Auto) 7.6, Basophils (%) (Auto) 0.6, Neutrophils # (Auto) 2.91, Lymphocytes # (Auto) 1.28, Monocytes # (Auto) 0.43, Eosinophils # (Auto) 0.38, Basophils # (Auto) 0.03 03/16/17 06:35 Test 03/16/17 06:35 03/16/17 09:04 03/16/17 09:05 White Blood Count 5.03 K/uL (4.8-10.8) Red Blood Count 3.40 M/uL (4.2-5.4) Hemoglobin 10.3 g/dL (12.0-16.0) Hematocrit 32.5 % (37-47) Mean Corpuscular Volume 95.6 fL (80-100) Mean Corpuscular Hemoglobin 30.3 pg (25-34) Mean Corpuscular Hemoglobin Concent 31.7 g/dl (32-36) Platelet Count 245 K/uL (130-400) Mean Platelet Volume 8.9 fL (7.4-10.4) Neutrophils (%) (Auto) 57.9 % Lymphocytes (%) (Auto) 25.4 % Monocytes (%) (Auto) 8.5 % Eosinophils (%) (Auto) 7.6 % Basophils (%) (Auto) 0.6 % Neutrophils # (Auto) 2.91 K/uL (1.4-6.5) Lymphocytes # (Auto) 1.28 K/uL (1.2-3.4) Monocytes # (Auto) 0.43 K/uL (0.11-0.59) Eosinophils # (Auto) 0.38 K/uL (0-0.5) Basophils # (Auto) 0.03 K/uL (0-0.2) RDW Standard Deviation 51.9 fL (36.4-46.3) RDW Coefficient of Variation 14.9 % (11.5-14.5) Immature Granulocyte % (Auto) 0.0 % Immature Granulocyte # (Auto) 0.00 K/uL (0.00-0.02) Anion Gap 6.0 mmol/L (3-11) Est Creatinine Clear Calc Drug Dose 73.6 ml/min Estimated GFR () 102.4 Estimated GFR (Non- 88.4 BUN/Creatinine Ratio 25.4 (10-20) Calcium Level 8.5 mg/dl (8.5-10.1) Magnesium Level 2.3 mg/dl (1.8-2.4) Medical Emergencies . Who to Call and When: Medical Emergencies: If at any time you feel your situation is an emergency, please call 911 immediately. . Non-Emergent Contact Non-Emergency issues call your: Primary Care Provider, Flame Channeler ( ) . . "Provider Documentation" section prepared by Sharda Christensen. . VTE Core Measure Inpt VTE Proph given/why not?: SCD's, Contraindicated
--- NOTE | 2017-03-16 11:14 | Discharge Summary ---
Discharge Summary Date of Service March 16, 2017. Discharge Summary Admission Date: March 13, 2017 at 20:42 Discharge Date: March 16, 2017 Discharge Disposition: custodial facility Principal Diagnosis: metabolic encephalopathy, UTI Immunizations: Have You Had Influenza Vaccine: Yes Influenza Vaccine Date: Jul 31, 2016 History of Tetanus Vaccine?: Yes Tetanus Immunization Date: April 03, 2006 History of Pneumococcal: Yes Pneumococcal Date: Feb 15, 2016 Consultations: Neurology Medication Reconciliation New Medications: Ciprofloxacin Hcl (Cipro) 500 Mg Tab 500 MG PO BID for 7 Days, #14 TAB Levetiractam (Keppra) 250 Mg Tab 750 MG PO Q12 for 30 Days, #60 TAB Continued Medications: Alendronate Sodium (Fosamax) 70 Mg Tab 70 MG PO WK, TAB TAKES ON SUNDAY Calcium/Vitamin D (Os-Jonathon 500 Plus D) Tab 1 TAB PO DAILY, TAB Docusate Sodium (Colace) 100 Mg Cap 100 MG PO DAILY Famotidine (Pepcid) 20 Mg Tab 20 MG PO BID Fish Oil (Linden-3) 1 Ea Cap 1 GM PO DAILY, CAP Lutein (Lutein) 10 Mg Tab 5 MG PO BID Ocuvite Preservision (Ocuvite Preservision) 1 Tab Tab 1 TAB PO BID, TAB Vit W/ Ferrous Fumara ( Vitamins Plus Lo 27-1 mg) 1 Tab Tab 1 TAB PO DAILY Sennosides-Docusate Sodium (Senna Plus) 1 Tab Tab 1 TAB PO DAILY Simvastatin (Zocor) 10 Mg Tab 10 MG PO QPM, TAB Sotalol Hcl (Sotalol Hcl) 120 Mg Tab 120 MG PO Q12 Discontinued Medications: Levetiracetam (Keppra) 500 Mg Tab 500 MG PO Q12, TAB Referrals At Discharge Follow up Referrals: Physician Referral - Within 2 Weeks with Eliza Porter M.D. Physician Referral - Within 1 Week with Sylvain Murcia M.D. Discharge Exam pt has no complaints this AM. No pain, SOB, CP, nausea. Eating well. Review of Systems: Constitutional: No fever Respiratory: No cough, No shortness of breath Cardiovascular: No chest pain Abdomen: No nausea Physical Exam: General Appearance: no apparent distress Eyes: EOMI Neck: no JVD Respiratory/Chest: lungs clear Cardiovascular: regular rate, rhythm Abdomen / GI: normal bowel sounds, non tender, soft Extremities: no calf tenderness, no pedal edema Neurologic/Psychiatric: alert (much more alert today. Answering questions appropriately.) Hospital Course 81-year-old female from [facility] sent to the emergency room for evaluation for an episode of unresponsiveness. This was witnessed by the [id number]. She reports it lasting approximately half hour. She says that the patient was tracking her movements with her eyes, but was not responding verbally. ? Breakthrough seizure. History of subdural bleed status post fall 2 months ago, which resulted in the patient undergoing a craniotomy. She has suffered with seizures since. Metabolic encephalopathy-questionable recurrent seizure. UTI could be contributing. No signs of acute CVA per MRI. Much better today -Monitored on telemetry -Neuro consult -Keppra was increased yesterday to 750 mg po BID UTI- growing Enterobacter aerogenes treated with Bactrim. It was resistant to Rocephin -Continue Cipro 400 mg BID day 2 URINE CULTURE Final 03/15/17-1133 Organism 1 ENTEROBACTER AEROGENES COLONY COUNT >100,000 CFU/ml SENS SENSITIVITY TO FOLLOW 1. ENTEROBACTER AEROGENES Target Route Dose RX AB Cost M.I.C. IQ ------ ----- ------ -- ------ -------- - ------ TRIMET/SULFA S <=2/38 CEFOTAXIME S 8 CEFTRIAXONE R 8 CEFEPIME S <=4 IMIPENEM S <=1 GENTAMICIN S <=4 TOBRAMYCIN S <=4 AMIKACIN S <=16 CIPROFLOXACIN S <=1 LEVOFLOXACIN S <=2 ERTAPENEM S <=1 NITROFURANTOIN R >64 PIP/TAZO S <=16 S = SENSITIVE I = INTERMEDIATE R = RESISTANT History of atrial fibrillation-AC contraindicated given history of subdural bleed status post craniotomy 2 months ago -Continue rate control with sotalol 120 mg po BID -Echo EF 60-65%. No WM abnormality Left hip pain yesterday. 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 No IVC filter was recommended DVT prophylaxis -Chemical means contraindicated -Teds, SCDs DISPO -d/c to [facility] CODE STATUS -LEVEL I FULL CODE Total Time Spent: Greater than 30 minutes This includes examination of the patient, discharge planning, medication reconciliation, and communication with other providers. Discharge Instructions Please refer to the electronic Patient Visit Report (Discharge Instructions) for additional information. Follow-Up neuro 2 weeks PCP 1 week Additional Copies To Sylvain Murcia M.D.; Eliza Porter M.D.
--- NOTE | 2017-03-16 11:17 | Hospitalist Progress Note ---
Hospitalist Progress Note Date of Service March 16, 2017. (Sharda Chirstensen PA-C) Subjective Pt evaluation today including: conversation w/ patient, conversation w/ family , physical exam, lab review, review of studies, review of inpatient medication list Patient has no complaints this morning. She is feeling much better. She denies any pain. No chest pain or pressure. No nausea. Eating well. No fever or chills. Additional Comments: 6 system review negative. Please see pertinent positives in the history of present illness section. (Sharda Christensen PA-C) Objective Vital Signs Date Time Temp Pulse Resp B/P Pulse Ox O2 Delivery O2 Flow Rate FiO2 03/16/17 08:00 Room Air 03/16/17 07:52 36.4 80 18 114/56 92 Room Air 03/16/17 04:44 36.8 65 20 139/68 99 Room Air 03/16/17 04:00 Room Air 03/16/17 00:00 Room Air 03/15/17 23:52 36.9 96 18 117/65 96 Room Air 67 03/15/17 20:00 36.8 69 18 119/69 94 Room Air 03/15/17 20:00 Room Air 03/15/17 16:00 Room Air 03/15/17 15:28 36.8 54 18 108/65 97 Room Air 03/15/17 12:00 Room Air 03/15/17 11:21 36.4 68 18 128/70 94 Room Air (Sharda Christensen PA-C) Physical Exam General Appearance: no apparent distress Eyes: EOMI Neck: no JVD Respiratory/Chest: lungs clear Cardiovascular: regular rate, rhythm Abdomen: normal bowel sounds, non tender, soft Extremities: non-tender, no pedal edema Neurologic/Psychiatric: alert (alert and answering questions appropriately. Much more alert today.) Skin: warm/dry (Sharda Christensen PA-C) Laboratory Results 03/16/17 06:35 Red Blood Count 3.40, Mean Corpuscular Volume 95.6, Mean Corpuscular Hemoglobin 30.3, Mean Corpuscular Hemoglobin Concent 31.7, Mean Platelet Volume 8.9, Neutrophils (%) (Auto) 57.9, Lymphocytes (%) (Auto) 25.4, Monocytes (%) (Auto) 8.5, Eosinophils (%) (Auto) 7.6, Basophils (%) (Auto) 0.6, Neutrophils # (Auto) 2.91, Lymphocytes # (Auto) 1.28, Monocytes # (Auto) 0.43, Eosinophils # (Auto) 0.38, Basophils # (Auto) 0.03 03/16/17 06:35 Test 03/16/17 06:35 03/16/17 10:54 White Blood Count 5.03 K/uL (4.8-10.8) Red Blood Count 3.40 M/uL (4.2-5.4) Hemoglobin 10.3 g/dL (12.0-16.0) Hematocrit 32.5 % (37-47) Mean Corpuscular Volume 95.6 fL (80-100) Mean Corpuscular Hemoglobin 30.3 pg (25-34) Mean Corpuscular Hemoglobin Concent 31.7 g/dl (32-36) Platelet Count 245 K/uL (130-400) Mean Platelet Volume 8.9 fL (7.4-10.4) Neutrophils (%) (Auto) 57.9 % Lymphocytes (%) (Auto) 25.4 % Monocytes (%) (Auto) 8.5 % Eosinophils (%) (Auto) 7.6 % Basophils (%) (Auto) 0.6 % Neutrophils # (Auto) 2.91 K/uL (1.4-6.5) Lymphocytes # (Auto) 1.28 K/uL (1.2-3.4) Monocytes # (Auto) 0.43 K/uL (0.11-0.59) Eosinophils # (Auto) 0.38 K/uL (0-0.5) Basophils # (Auto) 0.03 K/uL (0-0.2) RDW Standard Deviation 51.9 fL (36.4-46.3) RDW Coefficient of Variation 14.9 % (11.5-14.5) Immature Granulocyte % (Auto) 0.0 % Immature Granulocyte # (Auto) 0.00 K/uL (0.00-0.02) Anion Gap 6.0 mmol/L (3-11) Est Creatinine Clear Calc Drug Dose 73.6 ml/min Estimated GFR () 102.4 Estimated GFR (Non- 88.4 BUN/Creatinine Ratio 25.4 (10-20) Calcium Level 8.5 mg/dl (8.5-10.1) Magnesium Level 2.3 mg/dl (1.8-2.4) Last 24 Hours Test 03/16/17 06:35 03/16/17 10:54 White Blood Count 5.03 K/uL Red Blood Count 3.40 M/uL Hemoglobin 10.3 g/dL Hematocrit 32.5 % Mean Corpuscular Volume 95.6 fL Mean Corpuscular Hemoglobin 30.3 pg Mean Corpuscular Hemoglobin Concent 31.7 g/dl Platelet Count 245 K/uL Mean Platelet Volume 8.9 fL Neutrophils (%) (Auto) 57.9 % Lymphocytes (%) (Auto) 25.4 % Monocytes (%) (Auto) 8.5 % Eosinophils (%) (Auto) 7.6 % Basophils (%) (Auto) 0.6 % Neutrophils # (Auto) 2.91 K/uL Lymphocytes # (Auto) 1.28 K/uL Monocytes # (Auto) 0.43 K/uL Eosinophils # (Auto) 0.38 K/uL Basophils # (Auto) 0.03 K/uL RDW Standard Deviation 51.9 fL RDW Coefficient of Variation 14.9 % Immature Granulocyte % (Auto) 0.0 % Immature Granulocyte # (Auto) 0.00 K/uL Sodium Level 144 mmol/L Potassium Level 3.9 mmol/L Chloride Level 111 mmol/L Carbon Dioxide Level 27 mmol/L Anion Gap 6.0 mmol/L Blood Urea Nitrogen 13 mg/dl Creatinine 0.52 mg/dl Est Creatinine Clear Calc Drug Dose 73.6 ml/min Estimated GFR () 102.4 Estimated GFR (Non- 88.4 BUN/Creatinine Ratio 25.4 Random Glucose 89 mg/dl Calcium Level 8.5 mg/dl Magnesium Level 2.3 mg/dl (Sharda Christensen PA-C) Assessment and Plan 81-year-old female from [facility] sent to the emergency room for evaluation for an episode of unresponsiveness. This was witnessed by the [id number]. She reports it lasting approximately half hour. She says that the patient was tracking her movements with her eyes, but was not responding verbally. ? Breakthrough seizure. History of subdural bleed status post fall 2 months ago, which resulted in the patient undergoing a craniotomy. She has suffered with seizures since. Metabolic encephalopathy-questionable recurrent seizure. UTI could be contributing. No signs of acute CVA per MRI. Much better today -check vit B12, thiamine, ammonia to r/o other causes -Monitored on telemetry -Neuro consult -Keppra was increased yesterday to 750 mg po BID UTI- growing Enterobacter aerogenes treated with Bactrim. It was resistant to Rocephin -Continue Cipro 400 mg BID day 12/12 URINE CULTURE Final 03/15/17-1133 Organism 1 ENTEROBACTER AEROGENES COLONY COUNT >100,000 CFU/ml SENS SENSITIVITY TO FOLLOW 1. ENTEROBACTER AEROGENES Target Route Dose RX AB Cost M.I.C. IQ ------ ----- ------ -- ------ -------- - ------ TRIMET/SULFA S <=2/38 CEFOTAXIME S 8 CEFTRIAXONE R 8 CEFEPIME S <=4 IMIPENEM S <=1 GENTAMICIN S <=4 TOBRAMYCIN S <=4 AMIKACIN S <=16 CIPROFLOXACIN S <=1 LEVOFLOXACIN S <=2 ERTAPENEM S <=1 NITROFURANTOIN R >64 PIP/TAZO S <=16 S = SENSITIVE I = INTERMEDIATE R = RESISTANT History of atrial fibrillation-AC contraindicated given history of subdural bleed status post craniotomy 2 months ago -Continue rate control with sotalol 120 mg po BID -Echo EF 60-65%. No WM abnormality Left hip pain yesterday. 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 No IVC filter was recommended DVT prophylaxis -Chemical means contraindicated -Teds, SCDs DISPO -d/c to [facility] CODE STATUS -LEVEL I FULL CODE (Sharda Christensen, PA-C) I agree with DESHAWN assessment and plan and have seen and examined pt myself Resting comfortably in bed Confusion resolving Close to baseline per pt family Agree with UTI tx with antibx for 10 days Agree with inc keppra dose Appreciate neuro recs Likely DC in next 24 hrs (Norman Willard, D.OCristiane)
[2017-03-16 12:10] LABS: LYME DISEASE AB IGG NEG (NEG)
[2017-03-16 12:13] LABS: LYME DISEASE AB IGM NEG (NEG)
--- NOTE | 2017-03-16 12:25 | Neurology Progress Notes ---
Neurology Progress Note Date of Service March 16, 2017. 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 She was seen in our office this month and has been doing well. Her son and daughter in law are in the room and state they noticed she was not as sharp for the past several days. when they went in to see her today she was starring and not real responsive. There was no abnormal movements LOC, she didn't bite her tongue. She was then transferred to [facility] and was found to have a UTI. She is currently resting comfortably in bed. She had a CT head and MRI brain with almost compete resolve of the left sided hygroma. She does not have any complaints and is sitting up bed side and states she ate a little for breakfast. Her son and daughter in law are in the room and say they think she seems better mentally today. Objective Date Time Temp Pulse Resp B/P Pulse Ox O2 Delivery O2 Flow Rate FiO2 03/16/17 12:02 36.3 75 20 104/68 93 03/16/17 12:00 Room Air 03/16/17 11:34 36.4 80 18 92 Room Air 03/16/17 08:00 Room Air 03/16/17 07:52 36.4 80 18 114/56 92 Room Air 03/16/17 04:44 36.8 65 20 139/68 99 Room Air 03/16/17 04:00 Room Air 03/16/17 00:00 Room Air 03/15/17 23:52 36.9 96 18 117/65 96 Room Air 67 03/15/17 20:00 36.8 69 18 119/69 94 Room Air 03/15/17 20:00 Room Air 03/15/17 16:00 Room Air 03/15/17 15:28 36.8 54 18 108/65 97 Room Air Last 24 Hours Test 03/16/17 06:35 03/16/17 10:54 White Blood Count 5.03 K/uL Red Blood Count 3.40 M/uL Hemoglobin 10.3 g/dL Hematocrit 32.5 % Mean Corpuscular Volume 95.6 fL Mean Corpuscular Hemoglobin 30.3 pg Mean Corpuscular Hemoglobin Concent 31.7 g/dl Platelet Count 245 K/uL Mean Platelet Volume 8.9 fL Neutrophils (%) (Auto) 57.9 % Lymphocytes (%) (Auto) 25.4 % Monocytes (%) (Auto) 8.5 % Eosinophils (%) (Auto) 7.6 % Basophils (%) (Auto) 0.6 % Neutrophils # (Auto) 2.91 K/uL Lymphocytes # (Auto) 1.28 K/uL Monocytes # (Auto) 0.43 K/uL Eosinophils # (Auto) 0.38 K/uL Basophils # (Auto) 0.03 K/uL RDW Standard Deviation 51.9 fL RDW Coefficient of Variation 14.9 % Immature Granulocyte % (Auto) 0.0 % Immature Granulocyte # (Auto) 0.00 K/uL Sodium Level 144 mmol/L Potassium Level 3.9 mmol/L Chloride Level 111 mmol/L Carbon Dioxide Level 27 mmol/L Anion Gap 6.0 mmol/L Blood Urea Nitrogen 13 mg/dl Creatinine 0.52 mg/dl Est Creatinine Clear Calc Drug Dose 73.6 ml/min Estimated GFR () 102.4 Estimated GFR (Non- 88.4 BUN/Creatinine Ratio 25.4 Random Glucose 89 mg/dl Calcium Level 8.5 mg/dl Magnesium Level 2.3 mg/dl Ammonia < 10.0 umol/L Vitamin B12 Level 809 pg/mL Lyme Disease IgG Antibody NEG Imaging: xray left hip - No acute fracture of the left hip. Mild arthritis of the left hip. Moderate to large amount of stool within the rectum. 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 Current Inpatient Medications Medications (Trade) Dose Ordered Sig/Troy Route Start Time Stop Time Status Last Admin Dose Admin Calcium/Vitamin D (Caltrate Plus Tab) 1 tab DAILY PO 03/14/17 09:00 04/13/17 08:59 03/16/17 08:35 1 TAB Docusate Sodium (coLACE CAP) 100 mg DAILY PO 03/14/17 09:00 04/13/17 08:59 03/16/17 08:35 100 MG Famotidine (Pepcid Tab) 20 mg BID PO 03/13/17 21:00 04/12/17 20:59 03/16/17 08:35 20 MG Fish Oil (Pierce-3 (Purified Fish Oil) Cap) 1 gm DAILY PO 03/14/17 09:00 04/13/17 08:59 03/16/17 08:35 1 GM Multivitamins/ Minerals (Multivitamin W/ Minerals Tab) 1 tab BID PO 03/14/17 09:00 04/13/17 08:59 03/16/17 08:35 1 TAB Senna/Docusate Sodium (Senokot S Tab) 1 tab DAILY PO 03/14/17 09:00 04/13/17 08:59 03/16/17 08:35 1 TAB Simvastatin (Zocor Tab) 10 mg QPM PO 03/13/17 21:00 04/12/17 20:59 03/14/17 20:49 10 MG Prenat Multivit/ Duval/Iron/Folic Ac ( Vitamin Tab) 1 tab DAILY PO 03/14/17 09:00 04/13/17 08:59 03/16/17 08:35 1 TAB Sotalol HCl (Betapace Tab) 120 mg Q12 PO 03/13/17 22:00 04/12/17 21:59 03/16/17 08:34 120 MG Ondansetron HCl 4 mg 4 mg Q6H PRN IV 03/14/17 02:15 04/13/17 02:14 Ciprofloxacin/ Dextrose/Prmx (Cipro / D5w/ Premixed D5W) 200 ml @ 100 mls/hr Q12 IV 03/14/17 13:30 03/24/17 13:29 03/16/17 08:34 100 MLS/HR Nystatin (Mycostatin Susp) 5 ml QID PO 03/14/17 13:15 03/24/17 13:14 03/16/17 08:35 5 ML Levetiracetam 750 mg 750 mg Q12 PO 03/14/17 21:00 04/13/17 20:59 03/16/17 08:35 750 MG Potassium Chloride/Sodium Chloride (Nss + 20meq KCl 1000ml) 1,000 ml @ 125 mls/hr Q8H IV 03/16/17 08:00 03/16/17 15:59 03/16/17 08:56 125 MLS/HR Impression 81 year old female MS change- UTI Plan 1. treated UTI -antibiotics 2. hydration as needed 3. encourage oral intake 4. Keppra level pending 5. does not sound like seizure activity and in light of the UTI likely issue however unclear will increase Keppra from 500 mg to [address] and CT scan with near resolve of the hygromas. hydrocephalus stable 3rd and 4th ventricle open 7. imaging pending evaluation by Dr Hill-neurosurgery [facility] 8. TTE unchanged from December study 9. ok to return to facility from neurology stand point 10. will follow as needed will see in office in 3-4 week Eliza Urias PAC schedule I have seen and discussed above patient with Dr Kingston Matthew neurology REviewed and patient seen today with family no issues with increase in keppr thus far and is apparently going [facility] tomorrow we can see prn and should be followed up by neursurgery too Kingston Matthew MD
[2017-03-16] MEDS: SIMVASTATIN 10 MG TAB PO SCH (19:48)
[2017-03-17 07:22] VITALS: BP 102/55; PULSE 70; TEMP 36.9; O2SAT 93
[2017-03-17] MEDS: NYSTATIN SUSP 500,000 U/5 ML UDC PO SCH ×3 (08:43→16:40)
[2017-03-17] MEDS: FAMOTIDINE 20 MG TAB PO SCH (08:43)
[2017-03-17] MEDS: CIPROFLOXACIN / D5W 400 MG in PREMIXED IN D5W 200 ML IV SCH (08:43)
[2017-03-17] MEDS: LEVETIRACETAM 250 MG TAB PO SCH (08:43)
[2017-03-17] MEDS: OMEGA-3 (PURIFIED FISH OIL) 1 GM CAP PO SCH (08:44)
[2017-03-17] MEDS: DOCUSATE SODIUM/SENNA 50/8.6MG TAB PO SCH (08:45)
[2017-03-17] MEDS: CALCIUM 600MG + VIT D 400 IU TAB PO SCH (08:45)
[2017-03-17] MEDS: PRENATAL VITAMIN TAB PO SCH (08:45)
[2017-03-17] MEDS: CEROVITE ADV FORMULA TAB PO SCH (08:45)
[2017-03-17] MEDS: DOCUSATE SODIUM 100 MG CAP PO SCH (08:45)
[2017-03-17] MEDS: SOTALOL HCL 80 MG TAB PO SCH (08:46)
--- NOTE | 2017-03-17 12:27 | PROGRESS NOTE ---
DATE: 03/17/2017 DATE: 03/17/2017. Pat was pretty sleepy today. Her son was in the room. He assures me that this is typical for post-breakfast and that earlier in the day she was bright, active, alert, or at least at her baseline. When I saw her yesterday this was her status, so I doubt that the increased Keppra is doing this. We need a few more days of observation to establish this but right now this could be done at [facility] where apparently she has a bed on hold and may be transferred today. At least for now then I would not suggest doing anything else neurologically other than continue the increased Keppra acting on the assumption that she did have seizure and that increasing the Keppra would be justified on this basis. I will check back with her tomorrow if she is still here but obviously she is going to have outpatient followup with Eliza Urias and Eliza Porter on a regular basis anywhere and this has been scheduled I believe in the past. I would not move the return visit up unless there are other pressing neurologic issues. ERNESTINA
[2017-03-17 14:37] VITALS: BP 116/68; PULSE 69; TEMP 37.5; O2SAT 92
--- NOTE | 2017-03-17 14:48 | Discharge Summary ---
Discharge Summary Date of Service March 17, 2017. Discharge Summary Admission Date: March 13, 2017 at 20:42 Discharge Date: March 16, 2017 Discharge Disposition: [facility] facility Principal Diagnosis: Metabolic encephalopathy Immunizations: Have You Had Influenza Vaccine: Yes Influenza Vaccine Date: Jul 31, 2016 History of Tetanus Vaccine?: Yes Tetanus Immunization Date: April 03, 2006 History of Pneumococcal: Yes Pneumococcal Date: Feb 15, 2016 Consultations: Neurology Medication Reconciliation New Medications: Ciprofloxacin Hcl (Cipro) 500 Mg Tab 500 MG PO BID for 7 Days, #14 TAB Levetiractam (Keppra) 250 Mg Tab 750 MG PO Q12 for 30 Days, #60 TAB Continued Medications: Alendronate Sodium (Fosamax) 70 Mg Tab 70 MG PO WK, TAB TAKES ON SUNDAY Calcium/Vitamin D (Os-Jonathon 500 Plus D) Tab 1 TAB PO DAILY, TAB Docusate Sodium (Colace) 100 Mg Cap 100 MG PO DAILY Famotidine (Pepcid) 20 Mg Tab 20 MG PO BID Fish Oil ([place]-3) 1 Ea Cap 1 GM PO DAILY, CAP Lutein (Lutein) 10 Mg Tab 5 MG PO BID Ocuvite Preservision (Ocuvite Preservision) 1 Tab Tab 1 TAB PO BID, TAB Vit W/ Ferrous Fumara ( Vitamins Plus Lo 27-1 mg) 1 Tab Tab 1 TAB PO DAILY Sennosides-Docusate Sodium (Senna Plus) 1 Tab Tab 1 TAB PO DAILY Simvastatin (Zocor) 10 Mg Tab 10 MG PO QPM, TAB Sotalol Hcl (Sotalol Hcl) 120 Mg Tab 120 MG PO Q12 Discontinued Medications: Levetiracetam (Keppra) 500 Mg Tab 500 MG PO Q12, TAB Discharge Exam Review of Systems: Constitutional: + fatigue, + weakness, No chills, No fever Respiratory: No cough, No dyspnea on exertion, No shortness of breath, No sputum, No wheezing Cardiovascular: No chest pain, No orthopnea Abdomen: No constipation, No diarrhea, No nausea, No pain, No vomiting Musculoskeletal: No joint pain, No muscle pain Genitourinary - Female: No dysuria, No urinary frequency, No urinary urgency Neurologic: No paralysis, No weakness Physical Exam: General Appearance: WD/WN, no apparent distress, + thin Eyes: PERRL, EOMI Neck: supple, no adenopathy Respiratory/Chest: lungs clear, normal breath sounds Cardiovascular: no edema, no gallop Neurologic/Psychiatric: alert, normal mood/affect Hospital Course 81-year-old female from [facility] sent to the emergency room for evaluation for an episode of unresponsiveness. This was witnessed by the [id number]. She reports it lasting approximately half hour. She says that the patient was tracking her movements with her eyes, but was not responding verbally. ? Breakthrough seizure. History of subdural bleed status post fall 2 months ago, which resulted in the patient undergoing a craniotomy. She has suffered with seizures since. Metabolic encephalopathy-questionable recurrent seizure. UTI could be contributing. No signs of acute CVA per MRI. Much better today -check vit B12, thiamine, ammonia to r/o other causes -Monitored on telemetry -Neuro consult -Keppra was increased yesterday to 750 mg po BID, continue on discharge UTI- growing Enterobacter aerogenes treated with Bactrim. It was resistant to Rocephin -Continue Cipro 400 mg BID for 10 day course History of atrial fibrillation-AC contraindicated given history of subdural bleed status post craniotomy 2 months ago -Continue rate control with sotalol 120 mg po BID -Echo EF 60-65%. No WM abnormality Left hip pain yesterday. 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 No IVC filter was recommended DVT prophylaxis -Chemical means contraindicated -Teds, SCDs DISPO -d/c to [facility] CODE STATUS -LEVEL I FULL CODE Total Time Spent: Greater than 30 minutes This includes examination of the patient, discharge planning, medication reconciliation, and communication with other providers. Discharge Instructions Please refer to the electronic Patient Visit Report (Discharge Instructions) for additional information. Additional Copies To Sylvain Murcia M.D.
[2017-03-17 17:43] VITALS: BP 116/68; PULSE 69; TEMP 37.5; O2SAT 92
== END 2017-03-17 19:30 | DRG 689 ==
LOC: ENRESERVTM → ENRESERVDT → EDBD 14:06 → C.EDB 14:07 → C.MED 20:42 → C.MS2W 03-16 20:29
PROVIDERS: ADMIT Hospitalist; ATTEND Hospitalist
DX: N39.0 Urinary tract infection, site not specified (principal); G93.41 Metabolic encephalopathy; G81.94 Hemiplegia, unspecified affecting left nondominant side; E78.5 Hyperlipidemia, unspecified; G40.909 Epilepsy, unspecified, not intractable, without status epilepticus; H35.30 Unspecified macular degeneration; I48.0 Paroxysmal atrial fibrillation; Z86.711 Personal history of pulmonary embolism; Z79.01 Long term (current) use of anticoagulants

== ENCOUNTER → 2017-03-21 | Outpatient (CLI) | payer OTHER ==
[~2017-03-21] MED LIST changes: +CIPR-255 PO; +KPP250 PO; -LEVE500T13 PO; -OXYC1TAB3 PO; +SOTA120T PO; -SOTA80TA PO; -SULF-183 PO; -TYL325X PO
== END ==
LOC: C.LABCC 13:59
PROVIDERS: ATTEND Internal Medicine
DX: R56.9 Unspecified convulsions (principal)

== ENCOUNTER → 2017-03-23 | Outpatient (CLI) | payer OTHER ==
[2017-03-23 08:29] LABS: CHOLESTEROL/HDL RATIO 2.5
== END ==
LOC: C.LABCC 07:52
PROVIDERS: ATTEND Internal Medicine
DX: E78.5 Hyperlipidemia, unspecified (principal)

== ENCOUNTER → 2017-03-26 | Outpatient (CLI) | payer OTHER ==
[2017-03-26 18:56] LABS: BLOOD UREA NITROGEN 27 mg/dl (7-18); BUN/CREATININE RATIO 65.1 (10-20); CALCIUM 8.3 mg/dl (8.5-10.1); CARBON DIOXIDE 26 mmol/L (21-32); CHLORIDE 109 mmol/L (98-107); CREATININE 0.42 mg/dl (0.60-1.20); GLUCOSE 83 mg/dl (70-99); POTASSIUM 4.2 mmol/L (3.5-5.1); SODIUM 143 mmol/L (136-145)
== END ==
LOC: C.LABCC 17:49
PROVIDERS: ATTEND Internal Medicine
DX: E86.0 Dehydration (principal)

== ENCOUNTER → 2017-09-19 | Outpatient (CLI) | payer OTHER ==
[2017-09-19 09:15] LABS: BASO % 0.6 %; BASO ABS # 0.03 K/uL (0-0.2); COMPLETE YES; EOS % 5.5 %; HEMATOCRIT 35.3 % (37-47); LYMPH % 37.2 %; LYMPH ABS # 1.82 K/uL (1.2-3.4); MEAN CELL VOLUME 94.1 fL (80-100); MEAN CORPUSCULAR HEMOGLOBIN 30.1 pg (25-34); MEAN PLATELET VOLUME 11.2 fL (7.4-10.4); MONO % 8.6 %; NEUT % 48.1 %; PLATELET COUNT 185 K/uL (130-400); RED BLOOD COUNT 3.75 M/uL (4.2-5.4); WHITE BLOOD COUNT 4.89 K/uL (4.8-10.8)
[2017-09-19 09:22] LABS: ALT/SGPT 14 U/L (12-78); BLOOD UREA NITROGEN 19 mg/dl (7-18); BUN/CREATININE RATIO 37.5 (10-20); CARBON DIOXIDE 25 mmol/L (21-32); CHLORIDE 109 mmol/L (98-107); CREATININE 0.51 mg/dl (0.60-1.20); GLUCOSE 83 mg/dl (70-99); SODIUM 143 mmol/L (136-145)
[2017-09-19 09:33] LABS: ALB/GLOB RATIO 0.8 (0.9-2); ALKALINE PHOSPHATASE 96 U/L (45-117); AST/SGOT 15 U/L (15-37)
== END ==
LOC: C.LABCC 08:45
PROVIDERS: ATTEND Internal Medicine
DX: G40.89 Other seizures (principal); M81.0 Age-related osteoporosis without current pathological fracture; I48.91 Unspecified atrial fibrillation

== ENCOUNTER → 2017-12-21 | Outpatient (CLI) | payer OTHER | LOC: C.LABCC 07:51 | PROVIDERS: ATTEND Internal Medicine | DX: E55.9 Vitamin D deficiency, unspecified (principal) ==